=== PATIENT | male | born 1950 | race Caucasian/White ===

== ENCOUNTER 2021-07-19 10:52 | Inpatient (IN) | payer MEDICARE, MEDICAID, SELFPAY ==
[2021-07-19] VITALS (8 sets, daily range): BP systolic 96–138; BP diastolic 45–80; PULSE 65–94; RESP 16–28; TEMP 36.2–36.7; O2SAT 95–98; BMI 23.1
--- NOTE | ~2021-07-19 | XR_ITS ---
EXAMINATION: XR CHEST CLINICAL INFORMATION: Shortness of breath COMPARISON: Previous chest x-rays most recent January 2020 TECHNIQUE: Frontal view of the chest was obtained. FINDINGS: The cardiac and mediastinal contours are stable. There is airspace disease seen in the left lung base suggestive of pneumonia. The right lung is clear. There is no pleural effusion or pneumothorax. Bony structures are unremarkable. XR/XR chest 1V IMPRESSION: Left base pneumonia.
--- NOTE | 2021-07-19 11:21 | ED_ITS ---
HPI - General Adult General Chief complaint: Weakness Stated complaint: ABNORMAL LABS PER SNF Time Seen by Provider: 07/19/21 11:21 Source: EMS and RN notes reviewed Mode of arrival: EMS Limitations: altered mental status History of Present Illness HPI narrative: Patient is 70 years old from [facility] nonambulatory dependent on all ADLs alert disoriented follow simple commands sent for blood pressure of 85/50 by heart rate of 104 weakness and more confusion. Patient does have history of HIV bipolar disorder chronic renal disease stage III coronary artery disease dementia and overall weakness Related Data Home Medications Medication Instructions Recorded Confirmed abacavir 600 mg-dolutegravir 50 1 tab PO DAILY 07/19/21 07/19/21 mg-lamivudine 300 mg tablet (Triumeq) acetaminophen 325 mg tablet 650 mg PO Q4H PRN 07/19/21 07/19/21 alprazolam 0.25 mg tablet 0.25 mg PO BID 07/19/21 07/19/21 aspirin 81 mg tablet,delayed 81 mg PO DAILY 07/19/21 07/19/21 release calcium carbonate 500 mg (1,250 1 tab PO BID 07/19/21 07/19/21 mg)-vitamin D3 200 unit tablet (Calcium 500 + D) cyanocobalamin (vitamin B-12) 1,500 mcg PO DAILY 07/19/21 07/19/21 1,000 mcg tablet docusate sodium 100 mg capsule 100 mg PO DAILY 07/19/21 07/19/21 ferrous sulfate 220 mg (44 mg 330 mg PO DAILY 07/19/21 07/19/21 iron)/5 mL oral elixir haloperidol 1 mg tablet 1 mg PO TID 07/19/21 07/19/21 lactulose 10 gram/15 mL oral 30 ml PO DAILY PRN 07/19/21 07/19/21 solution lansoprazole 30 mg capsule,delayed 30 mg PO DAILY 07/19/21 07/19/21 release lorazepam 2 mg/mL injection 2 mg IM Q15M PRN 07/19/21 07/19/21 solution metoprolol tartrate 25 mg tablet 25 mg PO BID 07/19/21 07/19/21 multivitamin 1 tab PO DAILY 07/19/21 07/19/21 pregabalin 50 mg capsule 50 mg PO TID 07/19/21 07/19/21 sennosides 8.6 mg tablet (senna) 8.6 mg PO BID PRN 07/19/21 07/19/21 tramadol 50 mg tablet 50 mg PO TID PRN 07/19/21 07/19/21 Allergies Allergy/AdvReac Type Severity Reaction Status Date / Time No Known Allergies Allergy Unknown Unverified 06/23/20 17:32 [No Known Allergies*] Review of Systems Review of Systems: Yes Unobtainable due to mental status [facility] Past Medical History Medical History (Updated 07/19/21 @ 15:18 by Corinne Tim NP) Bipolar 1 disorder Chronic anemia Chronic kidney disease Coronary artery disease Dementia History of COVID-19 HIV (human immunodeficiency virus infection) Hypertension Leg weakness Social History Social History Advance Directives: No Advance Directives Information Provided: No Physical Exam Vital Signs: Vital Signs: Last Vital Signs Temp 97.6 F 07/19/21 15:22 Pulse 74 07/19/21 15:22 Resp 20 07/19/21 15:22 BP 113/56 L 07/19/21 15:22 Pulse Ox 95 07/19/21 15:22 Body Mass Index 23.1 Appearance: Alert. And awake , contacted post with limited movements of upp er and lower extremities essentially nonverbal Eyes: Pallor+ ENT: Pharynx normal. Oral Mucosa moist Neck: Normal inspection. Neck supple. CVS: Normal heart rate and rhythm. Pulses normal. Respiratory: No respiratory distress. Equal air entry bilateral, no wheezing/rales/rhonchi Abdomen: Soft and nontender. Bowel sounds are present, no mass palpable, Skin: Skin warm and dry. Extremities: No lower extremity edema. No calf tenderness Neuro: Oriented X 1 generalized weakness low muscle mass contracted posture Course Reevaluation(s) Reevaluation #1: Patient history of HIV leukocytosis left lower lobe pneumonia admit patient for pneumonia with possible sepsis. dose of Zosyn was given in the ER along with IV fluids 30 cc/kilogram Time: 15:04 Medical Decision Making [facility] Narrative Medical decision making narrative: Patient wih HIV from [facility] with dementia ca wv for hypertension and change in mental status lab workup showed leukocytosis with lactic acidosis x-rays showed left lower lobe pneumonia will admit patient for pneumonia with sepsis. Patient received IV Zosyn and 30 cc of normal saline bolus admit to medical floor Lab Data Lab results reviewed: Yes I reviewed the patient's lab results. Result diagrams: 07/19/21 11:56 07/19/21 11:56 Labs: Lab Results 07/19/21 07/19/21 07/19/21 Range/Units 11:56 11:56 11:56 WBC 46.9 H* (4.8-10.8) X10*3/uL RBC 4.63 (4.60-5.80) X10*6/uL Hgb 13.5 L (14.0-18.0) g/dl Hct 40.8 L (42-52) % MCV 88.1 (80-98) fL MCH 29.2 (27.0-33.0) pg MCHC 33.1 (31.0-36.0) g/dl RDW 13.9 (11.0-16.0) % Plt Count 318 (160-400) X10*3/uL MPV 10.3 (9.4-12.4) fL Immature Gran % (Auto) 1.5 H (0.0-0.4) % Neut % (Auto) 90.5 H (45-73) % Lymph % (Auto) 3.2 L (20-40) % [place] % (Auto) 4.6 (2-11) % Eos % (Auto) 0.0 (0-4) % Baso % (Auto) 0.2 (0-2) % Lymph # (Auto) 1.5 (1.2-4.9) X10*3/uL [place] # (Auto) 2.2 H (0.1-1.2) X10*3/uL Eos # (Auto) 0.0 (0.0-0.4) X10*3/uL Baso # (Auto) 0.1 (0.0-0.2) X10*3/uL Abs Immat Gran (auto) 0.70 H (0.00-0.03) X10*3/uL Absolute Neuts (auto) 42.4 H (2.0-8.3) X10*3/uL Absolute Nucleated RBC 0.000 (0.0-0.012) X10*3/uL Nucleated RBC % (auto) 0.0 (0.0-0.2) /100WBC Smear Tech's Comments VERIFIED Sodium (135-145) mmol/L Potassium (3.3-5.1) mmol/L Chloride (96-108) mmol/L Carbon Dioxide (22-29) mmol/L Anion Gap (12-20) BUN (9-16) mg/dL Creatinine (0.5-1.4) mg/dL Estim Creat Clear Calc Estimated GFR Random Glucose (60-115) mg/dL Lactic Acid 2.3 H* (0.5-2.0) mmol/L Calcium (8.4-10.2) mg/dL Magnesium (1.6-2.6) mg/dL Total Bilirubin (0.0-1.0) mg/dL AST (5-37) U/L ALT (0-40) U/L Alkaline Phosphatase (39-117) U/L Troponin I High Sens 5.2 (<3.5-35.0) ng/L Total Protein (6.5-8.0) g/dL Albumin (3.5-5.0) g/dL Coronavirus (PCR) (Negative) Influenza Type A (PCR) (Negative) Influenza Type B (PCR) (Negative) RSV RNA Qual (PCR) (Negative) 07/19/21 07/19/21 Range/Units 11:56 11:56 WBC (4.8-10.8) X10*3/uL RBC (4.60-5.80) X10*6/uL Hgb (14.0-18.0) g/dl Hct (42-52) % MCV (80-98) fL MCH (27.0-33.0) pg MCHC (31.0-36.0) g/dl RDW (11.0-16.0) % Plt Count (160-400) X10*3/uL MPV (9.4-12.4) fL Immature Gran % (Auto) (0.0-0.4) % Neut % (Auto) (45-73) % Lymph % (Auto) (20-40) % [place] % (Auto) (2-11) % Eos % (Auto) (0-4) % Baso % (Auto) (0-2) % Lymph # (Auto) (1.2-4.9) X10*3/uL [place] # (Auto) (0.1-1.2) X10*3/uL Eos # (Auto) (0.0-0.4) X10*3/uL Baso # (Auto) (0.0-0.2) X10*3/uL Abs Immat Gran (auto) (0.00-0.03) X10*3/uL Absolute Neuts (auto) (2.0-8.3) X10*3/uL Absolute Nucleated RBC (0.0-0.012) X10*3/uL Nucleated RBC % (auto) (0.0-0.2) /100WBC Smear Tech's Comments Sodium 138 (135-145) mmol/L Potassium 4.7 (3.3-5.1) mmol/L Chloride 106 (96-108) mmol/L Carbon Dioxide 22 (22-29) mmol/L Anion Gap 15 (12-20) BUN 36 H (9-16) mg/dL Creatinine 2.58 H (0.5-1.4) mg/dL Estim Creat Clear Calc 25.8 Estimated GFR 25 Random Glucose 82 (60-115) mg/dL Lactic Acid (0.5-2.0) mmol/L Calcium 8.8 (8.4-10.2) mg/dL Magnesium 2.0 (1.6-2.6) mg/dL Total Bilirubin 0.8 (0.0-1.0) mg/dL AST 15 (5-37) U/L ALT 9 (0-40) U/L Alkaline Phosphatase 63 (39-117) U/L Troponin I High Sens (<3.5-35.0) ng/L Total Protein 7.7 (6.5-8.0) g/dL Albumin 3.6 (3.5-5.0) g/dL Coronavirus (PCR) NEGATIVE (Negative) Influenza Type A (PCR) NEGATIVE (Negative) Influenza Type B (PCR) NEGATIVE (Negative) RSV RNA Qual (PCR) NEGATIVE (Negative) Discharge Plan Discharge Clinical Impression: Acidosis, lactic, Weakness Pneumonia Qualifiers: Pneumonia type: due to unspecified organism Laterality: left Lung location: lower lobe of lung Qualified Code(s): J18.9 - Pneumonia, unspecified organism Hypotension Qualifiers: Hypotension type: other hypotension type Qualified Code(s): I95.89 - Other hypotension Patient Disposition: Admitted As Inpatient
--- NOTE | 2021-07-19 11:24 | ECG_ITS ---
Test Reason : SEPSIS Blood Pressure : / mmHG Vent. Rate : 088 BPM Atrial Rate : 088 BPM P-R Int : 138 ms QRS Dur : 084 ms QT Int : 356 ms P-R-T Axes : 069 027 065 degrees QTc Int : 430 ms Normal sinus rhythm Nonspecific ST abnormality Abnormal ECG When compared with ECG of 03-FEB-2020 13:21, Premature ventricular complexes are no longer Present Nonspecific T wave abnormality, improved in Lateral leads ST less depressed in Inferior leads Anterior leads Referred By: Nehemiah Shields Electronically Signed By:CHARMAINE JAMES MD
[2021-07-19 12:07] LABS: Basophils Absolute Auto 0.1 X10*3/uL (0.0-0.2); Basophils Percent Auto 0.2 % (0-2); Hematocrit 40.8 % (42-52); Hemoglobin 13.5 g/dl (14.0-18.0); Imm Gran Pct Auto 1.5 % (0.0-0.4); Lymphocytes Absolute Auto 1.5 X10*3/uL (1.2-4.9); Lymphocytes Percent Auto 3.2 % (20-40); MANUAL DIFF FLAG SCAN; Mean Corpuscular HGB Conc 33.1 g/dl (31.0-36.0); Mean Corpuscular Hemoglobin 29.2 pg (27.0-33.0); Mean Corpuscular Volume 88.1 fL (80-98); Mean Platelet Volume 10.3 fL (9.4-12.4); Monocytes Absolute Auto 2.2 X10*3/uL (0.1-1.2); Monocytes Percent Auto 4.6 % (2-11); Neutrophils Absolute Auto 42.4 X10*3/uL (2.0-8.3); Neutrophils Percent Auto 90.5 % (45-73); Platelet Count 318 X10*3/uL (160-400); Red Blood Count 4.63 X10*6/uL (4.60-5.80); Red Cell Distribution Width 13.9 % (11.0-16.0); SCAN SMEAR FLAG 1
[2021-07-19] MEDS: 0.9 % Sodium Chloride 1,000 ML 999 ML IVCONT (12:10)
[2021-07-19 12:12] LABS: White Blood Count 46.9 X10*3/uL (4.8-10.8)
[2021-07-19 12:31] LABS: Troponin-I High Sensitivity 5.2 ng/L (<3.5-35.0)
[2021-07-19 12:32] LABS: Lactic Acid 2.3 mmol/L (0.5-2.0)
[2021-07-19 12:35] LABS: Alanine Aminotransferase 9 U/L (0-40); Albumin Level 3.6 g/dL (3.5-5.0); Alkaline Phosphatase 63 U/L (39-117); Anion Gap 15 (12-20); Aspartate Amino Transferase 15 U/L (5-37); Bilirubin Total 0.8 mg/dL (0.0-1.0); Blood Urea Nitrogen 36 mg/dL (9-16); Calcium 8.8 mg/dL (8.4-10.2); Carbon Dioxide 22 mmol/L (22-29); Chloride 106 mmol/L (96-108); Creatinine Clr Calc Pharmacy 25.8; Estimated Glomerular Filt Rate 25; Glucose Random 82 mg/dL (60-115); Potassium 4.7 mmol/L (3.3-5.1); Sodium 138 mmol/L (135-145); Total Protein 7.7 g/dL (6.5-8.0)
[2021-07-19] MEDS: Piperacillin Sodium/Tazobactam 3.375 GM in 0.9 % Sodium Chloride 50 ML IV ×3 (12:37→23:22)
[2021-07-19 12:47] LABS: Influenza A PCR NEGATIVE (Negative); Influenza B PCR NEGATIVE (Negative); Resp Syncy Virus RNA Qual PCR NEGATIVE (Negative); SARS COV2 PCR INHOUSE NEGATIVE (Negative)
[2021-07-19 13:05] LABS: SLIDE REVIEW VERIFIED
[2021-07-19] MEDS: 0.9 % Sodium Chloride 2,500 ML 2500 ML IV (13:55)
[2021-07-19 14:03] LABS: Reflex Lactate? Lactic Acid Added
--- NOTE | 2021-07-19 15:15 | PM.IMHP ---
History of Present Illness Date of Service: 07/19/21 <Corinne Tim NP - Last Filed: 07/19/21 15:34> Chief Complaint: Hypotension <Corinne Tim NP - Last Filed: 07/19/21 15:34> 70 [facility] and [facility]. His blood pressures were as low as 85/50. He is alert but confused and unable to give accurate information for the interview. His CXR showed left lobe consolidation. His WBC was noted to be elevated at 46.9, creatinine 2.58, lactic acid 2.3. He received zosyn in the ED. He is stable and will be admitted for CAP. <Corinne Tim NP - Last Filed: 07/19/21 15:34> Review of Systems Review of Systems: Yes Unobtainable due to mental status <Corinne Tim NP - Last Filed: 07/19/21 15:34> [facility] Medical History: Medical History (Updated 07/19/21 @ 15:18 by Corinne Tim NP) Bipolar 1 disorder Chronic anemia Chronic kidney disease Coronary artery disease Dementia History of COVID-19 HIV (human immunodeficiency virus infection) Hypertension Leg weakness <Corinne Tim NP - Last Filed: 07/19/21 15:34> Pertinent family history: No cardiac disease according to the EMR <Corinne Tim NP - Last Filed: 07/19/21 15:34> Social History: Social History Advance Directives: No Advance Directives Information Provided: No <Corinne Tim NP - Last Filed: 07/19/21 15:34> Meds Allergies/Adverse reactions: Allergies Allergy/AdvReac Type Severity Reaction Status Date / Time No Known Allergies Allergy Unknown Unverified 06/23/20 17:32 [No Known Allergies*] <Corinne Tim NP - Last Filed: 07/19/21 15:34> Active Medications: Current Medications Acetaminophen (Acetaminophen 325 Mg Tablet) 650 mg PO Q6H PRN PRN Reason: Pain, Mild (Pain Scale 1-3) Acetaminophen (Acetaminophen 325 Mg Tablet) 650 mg PO Q4H PRN PRN Reason: Pain Alprazolam (Alprazolam 0.25 Mg Tablet) 0.25 mg PO BID NANCY Aspirin (Aspirin Enteric Coated 81 Mg Tablet.Dr) 81 mg PO DAILY NANCY Heparin Sodium (Porcine) (Heparin Sodium,Porcine 5,000 Unit/Ml Vial) 5,000 unit SUBCUT Q12H [facility] Ceftriaxone Sodium 1 gm/ (Sodium Chloride) 50 mls @ 100 mls/hr IV Q24H NANCY Azithromycin 500 mg/ Sodium (Chloride) 250 mls @ 125 mls/hr IV Q24H [facility] Non-Formulary Medication (Pwspelkr-Vnfjnyzctmtq-Jooxtlw [Triumeq]) 1 tab PO DAILY [facility] Non-Formulary Medication (Calcium Carbonate-Vitamin D3 [Calcium 500 + D]) 1 tab PO BID [facility] Ondansetron HCl (Ondansetron Hcl 4 Mg/2 Ml Vial) 4 mg IVPUSH Q8H PRN PRN Reason: Nausea and Vomiting Pharmacy Consult (Consult Rx Perform Med Rec) 1 each MISCELLANE ONCE PRN PRN Reason: Consult order Sodium Chloride (0.9 % Sodium Chloride Flush 3 Ml Syringe) 3 ml IVFLUSH QSHIFT [facility] <Corinne Tim NP - Last Filed: 07/19/21 15:34> Home medications: Home Medications Medication Instructions Recorded Confirmed Last Taken Type abacavir 600 mg-dolutegravir 50 1 tab PO DAILY 07/19/21 07/19/21 Unknown History mg-lamivudine 300 mg tablet (Triumeq) acetaminophen 325 mg tablet 650 mg PO Q4H PRN 07/19/21 07/19/21 Unknown History alprazolam 0.25 mg tablet 0.25 mg PO BID 07/19/21 07/19/21 Unknown History aspirin 81 mg tablet,delayed 81 mg PO DAILY 07/19/21 07/19/21 Unknown History release calcium carbonate 500 mg (1,250 1 tab PO BID 07/19/21 07/19/21 Unknown History mg)-vitamin D3 200 unit tablet (Calcium 500 + D) cyanocobalamin (vitamin B-12) 1,500 mcg PO DAILY 07/19/21 07/19/21 Unknown History 1,000 mcg tablet docusate sodium 100 mg capsule 100 mg PO DAILY 07/19/21 07/19/21 Unknown History ferrous sulfate 220 mg (44 mg 330 mg PO DAILY 07/19/21 07/19/21 Unknown History iron)/5 mL oral elixir haloperidol 1 mg tablet 1 mg PO TID 07/19/21 07/19/21 Unknown History lactulose 10 gram/15 mL oral 30 ml PO DAILY PRN 07/19/21 07/19/21 Unknown History solution lansoprazole 30 mg capsule,delayed 30 mg PO DAILY 07/19/21 07/19/21 Unknown History release lorazepam 2 mg/mL injection 2 mg IM Q15M PRN 07/19/21 07/19/21 Unknown History solution metoprolol tartrate 25 mg tablet 25 mg PO BID 07/19/21 07/19/21 Unknown History multivitamin 1 tab PO DAILY 07/19/21 07/19/21 Unknown History pregabalin 50 mg capsule 50 mg PO TID 07/19/21 07/19/21 Unknown History sennosides 8.6 mg tablet (senna) 8.6 mg PO BID PRN 07/19/21 07/19/21 Unknown History tramadol 50 mg tablet 50 mg PO TID PRN 07/19/21 07/19/21 Unknown History <Corinne Tim NP - Last Filed: 07/19/21 15:34> Physical Exam Vital Signs and Narrative: Vital Signs: Last Vital Signs Temp 97.9 F 07/19/21 14:00 Pulse 82 07/19/21 14:00 Resp 16 07/19/21 14:00 BP 107/48 L 07/19/21 14:00 Pulse Ox 96 07/19/21 14:00 Body Mass Index 23.1 <Corinne Tim NP - Last Filed: 07/19/21 15:34> Appearing in no acute distress head is normocephalic atraumatic eyes pupils are PERRLA sclera is anicteric mouth throat mucous membranes are intact and moist neck is supple no lymphadenopathy, no JVD noted lung sounds are clear to auscultation heart regular rate rhythm, clear S1, S2 positive bowel sounds, abdomen is soft, nontender neuro patient is alert,confused <Corinne Tim NP - Last Filed: 07/19/21 15:34> Results Labs CBC and Chem 7: : 07/19/21 11:56 07/19/21 11:56 <Corinne Tim NP - Last Filed: 07/19/21 15:34> Labs: Laboratory Results - last 24 hr 07/19/21 07/19/21 07/19/21 11:56 11:56 11:56 MCV 88.1 MCH 29.2 MCHC 33.1 RDW 13.9 Plt Count 318 MPV 10.3 Immature Gran % (Auto) 1.5 H Neut % (Auto) 90.5 H Lymph % (Auto) 3.2 L [place] % (Auto) 4.6 Eos % (Auto) 0.0 Baso % (Auto) 0.2 Lymph # (Auto) 1.5 [place] # (Auto) 2.2 H Eos # (Auto) 0.0 Baso # (Auto) 0.1 Abs Immat Gran (auto) 0.70 H Absolute Neuts (auto) 42.4 H Absolute Nucleated RBC 0.000 Nucleated RBC % (auto) 0.0 Smear Tech's Comments VERIFIED Anion Gap Estim Creat Clear Calc Estimated GFR Random Glucose Lactic Acid 2.3 H* Calcium Magnesium Total Bilirubin AST ALT Alkaline Phosphatase Troponin I High Sens 5.2 Total Protein Albumin Coronavirus (PCR) Influenza Type A (PCR) Influenza Type B (PCR) RSV RNA Qual (PCR) 07/19/21 07/19/21 11:56 11:56 MCV MCH MCHC RDW Plt Count MPV Immature Gran % (Auto) Neut % (Auto) Lymph % (Auto) [place] % (Auto) Eos % (Auto) Baso % (Auto) Lymph # (Auto) [place] # (Auto) Eos # (Auto) Baso # (Auto) Abs Immat Gran (auto) Absolute Neuts (auto) Absolute Nucleated RBC Nucleated RBC % (auto) Smear Tech's Comments Anion Gap 15 Estim Creat Clear Calc 25.8 Estimated GFR 25 Random Glucose 82 Lactic Acid Calcium 8.8 Magnesium 2.0 Total Bilirubin 0.8 AST 15 ALT 9 Alkaline Phosphatase 63 Troponin I High Sens Total Protein 7.7 Albumin 3.6 Coronavirus (PCR) NEGATIVE Influenza Type A (PCR) NEGATIVE Influenza Type B (PCR) NEGATIVE RSV RNA Qual (PCR) NEGATIVE <Corinne Tim NP - Last Filed: 07/19/21 15:34> Imaging Radiologist's Impressions: Impressions Chest X-Ray 07/19/21 11:24 IMPRESSION: Left base pneumonia. <Corinne Tim NP - Last Filed: 07/19/21 15:34> Assessment and Plan (1) Community acquired pneumonia: Status: Acute <Corinne Tim NP - Last Filed: 07/19/21 15:34> 70 year old man from [facility] admitted for CAP Severe sepsis secondary to Community-acquired pneumonia Leukocytosis, tachypnea, lactic acidosis Rocephin, azithromycin Supplemental oxygen as needed Follow cultures Speech therapy consult for ? aspiration LENORA Likely secondary to dehydration Follow BMP Avoid nephrotoxins Hypotension Follow blood pressure closely IV fluids HIV Continue home medication Mental health Continue Haldol, alprazolam DVT prophylaxis with heparin Attending Dr. Anderson <Corinne Tim NP - Last Filed: 07/19/21 15:34> 70 year old man from [facility] admitted for CAP Severe sepsis secondary to Community-acquired pneumonia Leukocytosis, tachypnea, lactic acidosis Rocephin, azithromycin Supplemental oxygen as needed Follow cultures Speech therapy consult for ? aspiration LENORA Likely secondary to dehydration Follow BMP Avoid nephrotoxins Hypotension Follow blood pressure closely IV fluids HIV Continue home medication Mental health Continue Haldol, alprazolam DVT prophylaxis with heparin Attending Dr. Anderson Attending Attestation: Patient seen and examined independently and I was present during wills portion of E/M service. Agree with Ankit Tim NP's history, physical, assessment, and plan. 70 yo from [facility] being admitted for pneumonia, causing sepsis. Possible aspiration, will change Rocephin to zosyn. Has risk factors for resistant organisms. Will use doxy (hold off vancomcyin given his response to zosyn as well as poor renal function). Otherwise, agree with above documentation from [employer]. <Garrison Anderson MD - Last Filed: 07/19/21 16:07> Quality Stroke Does the patient have a stroke diagnosis?: No <Corinne Tim NP - Last Filed: 07/19/21 15:34> VTE Prior VTE?: No <Corinne Tim NP - Last Filed: 07/19/21 15:34> VTE Risk Level:: Medical - moderate - high <Corinne Tim NP - Last Filed: 07/19/21 15:34> VTE Device Contraindication: Treatment Not Indicated <Corinne Tim NP - Last Filed: 07/19/21 15:34> VTE Drug Contraindication: N/A - Med Ordered <Corinne Tim NP - Last Filed: 07/19/21 15:34>
[2021-07-19 15:26] LABS: ~Lactic Acid-LAB USE ONLY 1.2 mmol/L (0.5-2.0)
[2021-07-19] MEDS: Heparin Sodium,Porcine 5,000 UNIT/ML VIAL 5000 UNIT SUBCUT (16:12)
[2021-07-19] MEDS: 0.9 % Sodium Chloride 1,000 ML 100 ML IVCONT (16:14)
[2021-07-19] MEDS: Doxycycline Hyclate 100 MG in 0.9 % Sodium Chloride 250 ML 166.67 MG IV (21:25)
[2021-07-19] MEDS: HaloperidoL 1 MG TABLET PO (21:26)
[2021-07-19] MEDS: Calcium + Vitamin D 250 MG TABLET 500 MG PO (21:26)
[2021-07-19] MEDS: Pregabalin 50 MG CAPSULE PO (21:26)
[2021-07-19] MEDS: ALPRAZolam 0.25 MG TABLET PO (21:26)
[2021-07-19] MEDS: Metoprolol Tartrate 25 MG TABLET PO (21:26)
[2021-07-20] MEDS: 0.9 % Sodium Chloride 1,000 ML 100 ML IVCONT (01:15)
[2021-07-20] MEDS: Heparin Sodium,Porcine 5,000 UNIT/ML VIAL 5000 UNIT SUBCUT (02:41)
[2021-07-20 03:25] VITALS: BP 141/63; PULSE 58; RESP 17; TEMP 36.6; O2SAT 95
[2021-07-20 05:35] LABS: MANUAL DIFF FLAG NO
[2021-07-20 05:42] LABS: Basophils Absolute Auto 0.1 X10*3/uL (0.0-0.2); Basophils Percent Auto 0.3 % (0-2); Eosinophils Absolute Auto 0.1 X10*3/uL (0.0-0.4); Eosinophils Percent Auto 0.3 % (0-4); Hematocrit 36.8 % (42-52); Imm Gran Abs Auto 0.11 X10*3/uL (0.00-0.03); Imm Gran Pct Auto 0.6 % (0.0-0.4); Lymphocytes Absolute Auto 1.2 X10*3/uL (1.2-4.9); Lymphocytes Percent Auto 6.3 % (20-40); Mean Corpuscular HGB Conc 32.6 g/dl (31.0-36.0); Mean Corpuscular Hemoglobin 28.9 pg (27.0-33.0); Mean Corpuscular Volume 88.7 fL (80-98); Mean Platelet Volume 10.2 fL (9.4-12.4); Monocytes Absolute Auto 0.6 X10*3/uL (0.1-1.2); Monocytes Percent Auto 3.3 % (2-11); Neutrophils Absolute Auto 16.8 X10*3/uL (2.0-8.3); Neutrophils Percent Auto 89.2 % (45-73); Platelet Count 199 X10*3/uL (160-400); Red Blood Count 4.15 X10*6/uL (4.60-5.80); Red Cell Distribution Width 13.7 % (11.0-16.0); White Blood Count 18.9 X10*3/uL (4.8-10.8)
[2021-07-20] MEDS: Piperacillin Sodium/Tazobactam 3.375 GM in 0.9 % Sodium Chloride 50 ML IV ×4 (05:49→22:35)
[2021-07-20 06:23] LABS: Anion Gap 10 (12-20); Blood Urea Nitrogen 23 mg/dL (9-16); Calcium 7.9 mg/dL (8.4-10.2); Carbon Dioxide 20 mmol/L (22-29); Chloride 117 mmol/L (96-108); Creatinine Clr Calc Pharmacy 49.4; Estimated Glomerular Filt Rate 52; Glucose Random 84 mg/dL (60-115); Sodium 143 mmol/L (135-145)
[2021-07-20 07:42] VITALS: BP 139/65; PULSE 67; RESP 16; TEMP 36.1; O2SAT 95
[2021-07-20] MEDS: Doxycycline Hyclate 100 MG in 0.9 % Sodium Chloride 250 ML 166.67 MG IV (08:06)
[2021-07-20] MEDS: ALPRAZolam 0.25 MG TABLET PO ×2 (08:12→19:48)
[2021-07-20] MEDS: Aspirin Enteric Coated 81 MG TABLET.DR PO (08:12)
[2021-07-20] MEDS: Metoprolol Tartrate 25 MG TABLET PO ×2 (08:13→19:48)
[2021-07-20] MEDS: Dolutegravir Sodium 50 MG TABLET PO (08:13)
[2021-07-20] MEDS: lamiVUDine 150 MG TABLET 300 MG PO (08:14)
[2021-07-20] MEDS: HaloperidoL 1 MG TABLET PO ×2 (08:23→19:59)
[2021-07-20] MEDS: Ferrous Sulfate 300 MG/5 ML LIQUID PO (08:24)
--- NOTE | 2021-07-20 08:46 | MHC.CDI.CONC ---
CDI Concurrent Query Documentation Clarification: PHYSICIAN'S DOCUMENTATION REQUEST Date of Query: 07/20/21 0847 Patient Name: Ruperto Valentino Admit Date: 07/19/21 Dear Doctor, A review of the medical record indicates additional documentation may be needed. Please review below and update the documentation accordingly. Clinical Indicators: Risk Factors/Clinical Indicators/Treatments Patient arrived from care home with change in mental status. nonverbal but awake, unable to give accurate information, dementia, disoriented, hypotension and weakness. IV fluids Based on the above, please further specify, in the Progress Notes, the known or suspected type of the documented encephalopathy: Metabolic Septic Toxic Toxic metabolic Due to a specified condition (such as UTI, hyponatremia, CVA, etc.) Other (please specify) Unable to determine Use of terms such as suspected, likely, concern for, or probable (associated with a specific diagnosis that is being evaluated, monitored, or treated as if it exists) are acceptable and can be coded in the inpatient setting, when documented at the time of discharge. Thank you, Rufina Queen [facility], CDIS Extension: [phone] Please use your independent medical judgment in providing your response. THIS QUERY IS PART OF THE PERMANENT MEDICAL RECORD Provider Response: Other Other Diagnosis: No Encephalopathy
--- NOTE | 2021-07-20 11:02 | P.PNIM_ITS ---
Subjective Subjective Date of Service: 07/20/21 Interval History: Seen and examined this morning Follow-up for pneumonia Patient awake, alert, no complaints this morning Review of Systems Review of Systems: Yes all other systems are reviewed and are negative Constitutional Constitutional: Denies chills and Denies fever(s) Cardiovascular Cardiovascular: Denies chest pain Respiratory Respiratory: Denies cough Gastrointestinal Gastrointestinal: Denies abdominal pain Physical Exam Vital Signs: Vital Signs: Last Vital Signs Temp 97.0 F 07/20/21 07:42 Pulse 67 07/20/21 07:42 Resp 16 07/20/21 07:42 BP 139/65 07/20/21 07:42 Pulse Ox 95 07/20/21 07:42 Body Mass Index 23.1 Const: General: comfortable, alert and awake Nutritional Appearance: well nourished HENMT: Head: Yes normocephalic and Yes atraumatic Eyes: Sclerae: sclerae normal Resp: Effort & Inspection: normal respiratory effort and no respiratory distress Cardio: Rate: regular rate Rhythm: regular rhythm GI: Palpation (GI): Soft to palpation and nontender Neuro: Cranial nerves: Yes CN's II-XII intact bilaterally and Yes Bilaterally intact EOM present Extrem: Other: no leg edema Objective Data Active Medications Abacavir Sulfate (Abacavir Sulfate 300 Mg Tablet) 600 mg PO DAILY ON LICENSE OF [facility] Last Admin: 07/20/21 08:12 Dose: 600 mg Documented by: CHIOMA Acetaminophen (Acetaminophen 325 Mg Tablet) 650 mg PO Q6H PRN PRN Reason: Pain, Mild (Pain Scale 1-3) Acetaminophen (Acetaminophen 325 Mg Tablet) 650 mg PO Q4H PRN PRN Reason: Pain Alprazolam (Alprazolam 0.25 Mg Tablet) 0.25 mg PO BID ON LICENSE OF [facility] Last Admin: 07/20/21 08:12 Dose: 0.25 mg Documented by: CHIOMA Aspirin (Aspirin Enteric Coated 81 Mg Tablet.) 81 mg PO DAILY ON LICENSE OF [facility] Last Admin: 07/20/21 08:12 Dose: 81 mg Documented by: CHIOMA Calcium Carbonate/Cholecalciferol (Calcium + Vitamin D 250 Mg Tablet) 500 mg PO BID ON LICENSE OF [facility] Last Admin: 07/20/21 10:16 Dose: Not Given Documented by: CHIOMA Non-Admin Reason: Patient Refused Cyanocobalamin (Cyanocobalamin (Vitamin B-12) 500 Mcg Tablet) 1,500 mcg PO DAILY ON LICENSE OF [facility] Last Admin: 07/20/21 10:17 Dose: Not Given Documented by: CHIOMA Non-Admin Reason: Patient Refused Docusate Sodium (Docusate Sodium 100 Mg Capsule) 100 mg PO DAILY ON LICENSE OF [facility] Last Admin: 07/20/21 10:17 Dose: Not Given Documented by: CHIOMA Non-Admin Reason: Patient Refused Dolutegravir Sodium (Dolutegravir Sodium 50 Mg Tablet) 50 mg PO DAILY ON LICENSE OF [facility] Last Admin: 07/20/21 08:13 Dose: 50 mg Documented by: CHIOMA Ferrous Sulfate (Ferrous Sulfate 300 Mg/5 Ml Liquid) 300 mg PO DAILY ON LICENSE OF [facility] Last Admin: 07/20/21 08:24 Dose: 300 mg Documented by: CHIOMA Haloperidol (Haloperidol 1 Mg Tablet) 1 mg PO TID ON LICENSE OF [facility] Last Admin: 07/20/21 08:23 Dose: 1 mg Documented by: CHIOMA Heparin Sodium (Porcine) (Heparin Sodium,Porcine 5,000 Unit/Ml Vial) 5,000 unit SUBCUT Q12H ON LICENSE OF [facility] Last Admin: 07/20/21 02:41 Dose: 5,000 unit Documented by: ALVINA Piperacillin Sod/Tazobactam (Sod 3.375 gm/ Sodium Chloride) 50 mls @ 100 mls/hr IV Q6H ON LICENSE OF [facility] Last Infusion: 07/20/21 06:20 Dose: 0 mls/hr Documented by: JAMEE Doxycycline Hyclate 100 mg/ (Sodium Chloride) 250 mls @ 166.67 mls/hr IV Q12H ON LICENSE OF [facility] Last Admin: 07/20/21 08:06 Dose: 166.67 mls/hr Documented by: CHIOMA Lactated Ringer's (Lr) 1,000 mls @ 100 mls/hr IVCONT .Q10H ON LICENSE OF [facility] Lactulose (Lactulose 20 Gm/30 Ml Solution) 20 gm PO DAILY PRN PRN Reason: Constipation Lamivudine (Lamivudine 150 Mg Tablet) 300 mg PO DAILY ON LICENSE OF [facility] Last Admin: 07/20/21 08:14 Dose: 300 mg Documented by: CHIOMA Lorazepam (Lorazepam 2 Mg/Ml Vial) 2 mg IM Q15M PRN PRN Reason: Seizures Metoprolol Tartrate (Metoprolol Tartrate 25 Mg Tablet) 25 mg PO BID ON LICENSE OF [facility]; Protocol Last Admin: 07/20/21 08:13 Dose: 25 mg Documented by: CHIOMA Multivitamins/Vitamin C (Multivitamin Tablet) 1 tab PO DAILY ON LICENSE OF [facility] Last Admin: 07/20/21 08:25 Dose: Not Given Documented by: CHIOMA Non-Admin Reason: NPO Omeprazole (Omeprazole 20 Mg Capsule.Dr) 20 mg PO DAILY@0630 ON LICENSE OF [facility] Last Admin: 07/20/21 05:59 Dose: Not Given Documented by: JAMEE Non-Admin Reason: unable to swallow whole pills Ondansetron HCl (Ondansetron Hcl 4 Mg/2 Ml Vial) 4 mg IVPUSH Q8H PRN PRN Reason: Nausea and Vomiting Pharmacy Consult (Consult Rx Perform Med Rec) 1 each MISCELLANE ONCE PRN PRN Reason: Consult order Pregabalin (Pregabalin 50 Mg Capsule) 50 mg PO TID ON LICENSE OF [facility] Last Admin: 07/20/21 10:17 Dose: Not Given Documented by: CHIOMA Non-Admin Reason: Patient Refused Senna (Sennosides 8.6 Mg Tablet) 8.6 mg PO BID PRN PRN Reason: Constipation Sodium Chloride (0.9 % Sodium Chloride Flush 3 Ml Syringe) 3 ml IVFLUSH QSHIFT ON LICENSE OF [facility] Last Admin: 07/20/21 08:25 Dose: Not Given Documented by: CHIOMA Non-Admin Reason: IV Running Tramadol HCl (Tramadol Hcl 50 Mg Tablet) 50 mg PO TID PRN PRN Reason: Pain Labs CBC & Chem 7: 07/20/21 05:27 07/20/21 05:27 Labs: Laboratory Results - last 24 hr 07/19/21 07/19/21 07/19/21 11:56 11:56 11:56 MCV 88.1 MCH 29.2 MCHC 33.1 RDW 13.9 Plt Count 318 MPV 10.3 Immature Gran % (Auto) 1.5 H Neut % (Auto) 90.5 H Lymph % (Auto) 3.2 L [place] % (Auto) 4.6 Eos % (Auto) 0.0 Baso % (Auto) 0.2 Lymph # (Auto) 1.5 [place] # (Auto) 2.2 H Eos # (Auto) 0.0 Baso # (Auto) 0.1 Abs Immat Gran (auto) 0.70 H Absolute Neuts (auto) 42.4 H Absolute Nucleated RBC 0.000 Nucleated RBC % (auto) 0.0 Smear Tech's Comments VERIFIED Smear Path Review SEE NOTE Anion Gap Estim Creat Clear Calc Estimated GFR Random Glucose Lactic Acid 2.3 H* Lactic Acid Fup @ 2Hr Calcium Magnesium Total Bilirubin AST ALT Alkaline Phosphatase Troponin I High Sens 5.2 Total Protein Albumin Coronavirus (PCR) Influenza Type A (PCR) Influenza Type B (PCR) RSV RNA Qual (PCR) 07/19/21 07/19/21 07/19/21 11:56 11:56 15:10 MCV MCH MCHC RDW Plt Count MPV Immature Gran % (Auto) Neut % (Auto) Lymph % (Auto) [place] % (Auto) Eos % (Auto) Baso % (Auto) Lymph # (Auto) [place] # (Auto) Eos # (Auto) Baso # (Auto) Abs Immat Gran (auto) Absolute Neuts (auto) Absolute Nucleated RBC Nucleated RBC % (auto) Smear Tech's Comments Smear Path Review Anion Gap 15 Estim Creat Clear Calc 25.8 Estimated GFR 25 Random Glucose 82 Lactic Acid Lactic Acid Fup @ 2Hr 1.2 Calcium 8.8 Magnesium 2.0 Total Bilirubin 0.8 AST 15 ALT 9 Alkaline Phosphatase 63 Troponin I High Sens Total Protein 7.7 Albumin 3.6 Coronavirus (PCR) NEGATIVE Influenza Type A (PCR) NEGATIVE Influenza Type B (PCR) NEGATIVE RSV RNA Qual (PCR) NEGATIVE 07/20/21 07/20/21 05:27 05:27 MCV 88.7 MCH 28.9 MCHC 32.6 RDW 13.7 Plt Count 199 D MPV 10.2 Immature Gran % (Auto) 0.6 H Neut % (Auto) 89.2 H Lymph % (Auto) 6.3 L [place] % (Auto) 3.3 Eos % (Auto) 0.3 Baso % (Auto) 0.3 Lymph # (Auto) 1.2 [place] # (Auto) 0.6 Eos # (Auto) 0.1 Baso # (Auto) 0.1 Abs Immat Gran (auto) 0.11 H Absolute Neuts (auto) 16.8 H Absolute Nucleated RBC 0.000 Nucleated RBC % (auto) 0.0 Smear Tech's Comments Smear Path Review Anion Gap 10 L Estim Creat Clear Calc 49.4 Estimated GFR 52 Random Glucose 84 Lactic Acid Lactic Acid Fup @ 2Hr Calcium 7.9 L D Magnesium Total Bilirubin AST ALT Alkaline Phosphatase Troponin I High Sens Total Protein Albumin Coronavirus (PCR) Influenza Type A (PCR) Influenza Type B (PCR) RSV RNA Qual (PCR) Assessment and Plan (1) Community acquired pneumonia: Status: Acute Assessment and Plan: 70 year old man from [facility] admitted for CAP Severe sepsis secondary to Community-acquired pneumonia possible aspiration Leukocytosis improving Continue Zosyn, doxycycline BCx pending MBSS pending to eval for aspiration LENORA Resolved. Likely secondary to dehydration Avoid nephrotoxins Hypotension. BP improved. IV fluids HIV Continue home medication Mood Continue Haldol, alprazolam, xanax Disorder back to [facility] when medically ready DVT prophylaxis with heparin Attending Dr. Anderson Quality Stroke Does the patient have a stroke diagnosis?: No VTE Prior VTE?: No VTE Risk Level:: Medical - moderate - high VTE Device Contraindication: Treatment Not Indicated VTE Drug Contraindication: N/A - Med Ordered
[2021-07-20] MEDS: Lactated Ringers 1,000 ML 100 ML IVCONT ×2 (11:35→22:31)
[2021-07-20 11:58] VITALS: BP 120/57; PULSE 65; RESP 18; TEMP 36.2; O2SAT 99
--- NOTE | 2021-07-20 14:01 | MHC.CM.PN ---
IMM 07/20/2021, CM ATTEMPTED TO REACH PT'S GUARDIAN MALATHI WALLACE AT 1:58PM [phone] TO REVIEW IMM, MESSAGE LEFT AND IMM WILL BE SENT VIA CERTIFIED MAIL TO ADDRESS ON FILE. 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 D/C PLAN: RETURN TO [facility], [facility] FOR BLS TRANSPORT. PCP: YANE MONROY
[2021-07-20 15:31] VITALS: BP 116/96; PULSE 65; RESP 18; TEMP 36.4; O2SAT 96
--- NOTE | 2021-07-20 15:43 | MHC.SLORD ---
Speech Language Pathology Order Status: COIN MACHINE OPERATOR [facility] reports that at [facility], patient is on minced/moist consistency (consistent with ground solids- moistened with sauce/gravy), no bread, and thin liquids. He drinks liquids with Walter cup self administered with straw. Patient is seen on a weekly basis by COIN MACHINE OPERATOR at [facility]. COIN MACHINE OPERATOR reports that patient is very food motivated. MBSS was scheduled for this afternoon. However, patient became combative and refused to be transported. Message sent to MD and PA via [employer]. COIN MACHINE OPERATOR will continue to follow.
[2021-07-20] MEDS: 0.9 % Sodium Chloride Flush 3 ML SYRINGE IVFLUSH ×3 (15:58→22:35)
--- NOTE | 2021-07-20 17:34 | MHC.SLORD ---
Speech Language Pathology Order Status: Bedside dysphagia evaluation was ordered on 07/19/21 when patient was in the ED. PO trials were not completed due to patient?s history of silent aspiration. MANAGEMENT RETAIL INTERN recommended repeat MBSS given patient?s extensive history of dysphagia. MBSS was ordered by SHABANA. MANAGEMENT RETAIL INTERN did thorough chart review. Patient was admitted on 06/08/18 for aspiration event. Piece of chicken was removed from airway upon preparation for intubation. MBSS on 06/10/21 showed premature posterior escape, delayed swallow, no epiglottic inversion, incomplete laryngeal vestibular closure resulting in aspiration with nectar thick liquid, increased residue in valleculae and pyriforms, and partial obstruction of flow. Patient was subsequently recommended NPO. Repeat MBSS on 07/24/18 showed silent aspiration with thin liquid, nectar thick liquid, and honey thick liquid. Increased vallecular residue, but no aspiration or penetration with pureed solid. At that time, patient was recommended main nutrition via PEG with partial PO- trial pureed solids with MANAGEMENT RETAIL INTERN in controlled, therapeutic setting. Third MBSS on 09/26/18 showed significant vallecular retention with pureed solids, but no evidence of aspiration or penetration when eating pureed solids. Please refer to full MBSS reports as needed from 06/10/18, 07/24/18 and 09/26/18. ? Patient was admitted again on 03/11/19. At that time it was reported that patient was on pureed solids and honey thick liquids per [facility] intake paperwork. He continued baseline diet textures during that admission. It is unclear when PEG tube was removed. MANAGEMENT RETAIL INTERN called and left a message for Yareli, patient?s MANAGEMENT RETAIL INTERN at [facility]. Yareli called back this afternoon and provided background information. Yareli reports that patient was initially kept NPO after repeat MBSS?s in 2018 and trialed pharyngeal strengthening exercises with MANAGEMENT RETAIL INTERN. Although patient has history of silent aspiration, he was gradually upgraded to PO diet at [facility] and is currently on minced and moist diet (consistent with NDD2 ground/mech altered solids with sauce/gravy) and thin liquids, no bread. Patient reportedly drinks from Walter cup with cover with self-administered straw sip. Patient is seen by MANAGEMENT RETAIL INTERN on a weekly basis at [facility]. Yareli stated that patient is very food driven and she believes being made NPO may be detrimental to his quality of life. Patient has a guardian. Per Yareli, Dr. Kev Gorman is familiar with this patient. ?MANAGEMENT RETAIL INTERN provided information from [facility] to attending PA and MD via [place] Message. ? Attempted MBSS this afternoon. However, patient refused and became combative to transporter. Unable to complete MBSS. Notified MD and PA.
[2021-07-20 19:27] VITALS: BP 117/56; PULSE 63; RESP 18; TEMP 36.8; O2SAT 93
[2021-07-20] MEDS: Doxycycline Hyclate 100 MG in 0.9 % Sodium Chloride 250 ML 166.66 MG IV (19:47)
[2021-07-20] MEDS: Calcium + Vitamin D 250 MG TABLET 500 MG PO (19:48)
[2021-07-20] MEDS: Pregabalin 50 MG CAPSULE PO (19:49)
[2021-07-20 23:57] VITALS: BP 153/70; PULSE 64; RESP 17; TEMP 36.3; O2SAT 95
[2021-07-21 03:31] VITALS: BP 147/89; PULSE 62; RESP 17; TEMP 36.1; O2SAT 95
[2021-07-21] MEDS: Heparin Sodium,Porcine 5,000 UNIT/ML VIAL 5000 UNIT SUBCUT (03:45)
[2021-07-21] MEDS: Piperacillin Sodium/Tazobactam 3.375 GM in 0.9 % Sodium Chloride 50 ML IV ×2 (05:55→11:58)
[2021-07-21] MEDS: Omeprazole 20 MG CAPSULE.DR PO (05:57)
[2021-07-21 06:41] LABS: Hematocrit 36.9 % (42-52); Hemoglobin 12.1 g/dl (14.0-18.0); Mean Corpuscular HGB Conc 32.8 g/dl (31.0-36.0); Mean Corpuscular Hemoglobin 28.9 pg (27.0-33.0); Mean Corpuscular Volume 88.1 fL (80-98); Mean Platelet Volume 10.5 fL (9.4-12.4); Platelet Count 221 X10*3/uL (160-400); Red Blood Count 4.19 X10*6/uL (4.60-5.80); Red Cell Distribution Width 13.9 % (11.0-16.0)
[2021-07-21 07:10] LABS: Anion Gap 13 (12-20); Blood Urea Nitrogen 13 mg/dL (9-16); Calcium 8.8 mg/dL (8.4-10.2); Carbon Dioxide 21 mmol/L (22-29); Chloride 112 mmol/L (96-108); Creatinine Clr Calc Pharmacy 61.2; Estimated Glomerular Filt Rate > 60; Glucose Random 77 mg/dL (60-115); Potassium 4.3 mmol/L (3.3-5.1); Sodium 142 mmol/L (135-145)
[2021-07-21 07:42] VITALS: BP 134/75; PULSE 83; RESP 18; TEMP 36; O2SAT 92
[2021-07-21 11:55] VITALS: BP 127/57; PULSE 99; RESP 18; TEMP 36.1; O2SAT 100
--- NOTE | 2021-07-21 11:58 | MHC.SLORD ---
Speech Language Pathology Order Status: Updated with RN while on pt's unit this morning who reported that pt expelled all medications during attempted medication administration this date. Pt was unable to participate in a scheduled MBSS 07/20 due to becoming combative towards the transporter. Pt's current diet order is for his baseline diet consistency of NDD2 GROUND/MECHANICALLY ALTERED solids and THIN LIQUIDS, per [facility] TRANSFORMER INSPECTOR, Yareli, who works with the pt. Reviewed pt's history of numerous MBSS' which have revealed silent aspiration with RN and PA via secure [place] text. Given pt's inability to participate in an MBSS and his history of severe dysphagia with known silent aspiration, pt not appropriate for PO trials at the bedside. PA reported that pt has been eating during his hospitalization since his diet was ordered. Per PA, pt may be discharged back to SNF this date. Please re-refer should pt be more compliant with participating in an MBSS, as bedside trials would not provide adequate clinical information to determine the safest and least restrictive diet consistency given pt's history of silent aspiration.
--- NOTE | 2021-07-21 12:23 | MHC.CM.PN ---
pt being dcd at 2:00 to return to [facility] /[facility] attempted to leave for guardian bridger wilson his mail box was full
--- NOTE | 2021-07-21 13:05 | PM.DS ---
DS: Providers Provider Date of Service: 07/21/21 Date of admission: 07/19/21 14:59 Date of discharge: 07/21/21 Primary care physician: Kev Gorman DO Attending physician on discharge: Garrison Anderson Discharging clinician: Shari Caicedo DS: Diagnosis Discharge Diagnosis (1) Community acquired pneumonia: Status: Acute (2) Severe sepsis: Status: Acute DS: Summary Hospital Course Hospital Course: ?From H&P on day of admission 70 year old man presenting from [facility] with hypotension and weakness. His blood pressures were as low as 85/50. He is alert but confused and unable to give accurate information for the interview. His CXR showed left lobe consolidation. His WBC was noted to be elevated at 46.9, creatinine 2.58, lactic acid 2.3. He received zosyn in the ED. He is stable and will be admitted for CAP.? Severe sepsis secondary to Community-acquired pneumonia. He was initially started on Rocephin, azithromycin but due to concern over aspiration he was changed to Zosyn and doxycycline. Patient has a history of aspiration and has previously had PEG tube, this has since been removed. He was seen by speech who recommended modified barium swallow which the patient did not cooperate with. He was started on mechanical ground diet as he is on at baseline and he seemed to tolerate it. Patient was initially hypotensive, this improved IV fluid and has remained stable Metoprolol was initially held but this can be resumed at time of discharge He Was noted to have LENORA likely in the setting of hypotension/sepsis, creatinine has improved from 2.58-1.09 with IVF.. Blood cultures have remained negative. Patient was noted to have significant elevation of white blood cell count on day of admission and, this has decreased from 46.9 to 11. Lactic acid was initially Elevated at 2.3, this also resolved with IV fluid. The patient has remained afebrile and has remained on room air and is stable for discharge back to [facility]. He will be discharged back to complete 7 day course of antibiotics. Time Spent with Patient Time attestation: Total time spent providing and/or coordinating discharge services: Discharge coordination time: Greater than 30 minutes Quality: Stroke Does the patient have a stroke diagnosis?: No Physical Exam Vital Signs: Vital Signs: Last Vital Signs Temp 97.0 F 07/21/21 11:55 Pulse 99 07/21/21 11:55 Resp 18 07/21/21 11:55 BP 127/57 L 07/21/21 11:55 Pulse Ox 100 07/21/21 11:55 Body Mass Index 23.1 Const: General: comfortable, alert and awake Nutritional Appearance: well nourished HENMT: Head: Yes normocephalic and Yes atraumatic Eyes: Sclerae: sclerae normal Resp: Effort & Inspection: normal respiratory effort and no respiratory distress Cardio: Rate: regular rate Rhythm: regular rhythm GI: Palpation (GI): Soft to palpation and nontender Neuro: Cranial nerves: Yes CN's II-XII intact bilaterally and Yes Bilaterally intact EOM present Extrem: Other: no leg edema; rue contracture deformity DS: Data Data Completed and Pending Labs on day of discharge: Laboratory Results - last 24 hr 07/21/21 07/21/21 06:14 06:14 WBC 11.0 H RBC 4.19 L Hgb 12.1 L Hct 36.9 L MCV 88.1 MCH 28.9 MCHC 32.8 RDW 13.9 Plt Count 221 MPV 10.5 Absolute Nucleated RBC 0.000 Nucleated RBC % (auto) 0.0 Sodium 142 Potassium 4.3 Chloride 112 H Carbon Dioxide 21 L Anion Gap 13 BUN 13 Creatinine 1.09 Estim Creat Clear Calc 61.2 Estimated GFR > 60 Random Glucose 77 Calcium 8.8 D Preliminary micro results at discharge 07/19/21 12:38 Blood Culture - Preliminary Blood - Venous No growth after 24 hours. 07/19/21 11:56 Blood Culture - Preliminary Blood - Venous No growth after 24 hours. Discharge Plan Discharge Patient Disposition: [facility] Discharge Diagnosis: sepsis secondary to Pneumonia [facility]errals: [facility] [Other] - 1 Week Kev Gorman DO [Primary Care Provider] - 1 Week Discharge Medications: New doxycycline hyclate 100 mg capsule 100 mg PO BID 7 Days Qty: 14 RF: 0 amoxicillin-pot clavulanate [Augmentin] 875-125 mg tablet 1 tab PO BID 7 Days Qty: 14 RF: 0 Continued multivitamin Tablet 1 tab PO DAILY RF: 0 sennosides [senna] 8.6 mg Tablet 8.6 mg PO BID PRN (Reason: Constipation) RF: 0 acetaminophen 325 mg Tablet 650 mg PO Q4H PRN (Reason: Pain) RF: 0 lorazepam 2 mg/mL Solution 2 mg IM Q15M PRN (Reason: Seizures) RF: 0 cyanocobalamin (vitamin B-12) 1,000 mcg Tablet 1,500 mcg PO DAILY RF: 0 haloperidol 1 mg Tablet 1 mg PO TID RF: 0 aspirin 81 mg Tablet,Delayed Release (Dr/Ec) 81 mg PO DAILY RF: 0 tramadol 50 mg Tablet 50 mg PO TID PRN (Reason: Pain) RF: 0 alprazolam 0.25 mg Tablet 0.25 mg PO BID RF: 0 lansoprazole 30 mg Capsule,Delayed Release(Dr/Ec) 30 mg PO DAILY RF: 0 docusate sodium 100 mg Capsule 100 mg PO DAILY RF: 0 metoprolol tartrate 25 mg Tablet 25 mg PO BID RF: 0 lactulose 10 gram/15 mL Solution 30 ml PO DAILY PRN (Reason: Constipation) RF: 0 calcium carbonate-vitamin D3 [Calcium 500 + D] 500 mg(1,250mg) -200 unit Tablet 1 tab PO BID RF: 0 pregabalin 50 mg Capsule 50 mg PO TID RF: 0 Triumeq 600-50-300 mg Tablet 1 tab PO DAILY RF: 0 ferrous sulfate 220 mg (44 mg iron)/5 mL Elixir 330 mg PO DAILY RF: 0 Discharge Orders: Discharge Order (Routine); Ordered 07/21/21 Ordered By: Shari Caicedo Activity on Discharge: As tolerated Stand Alone Forms: Patient Portal Discharge page Care Plan Goals: stay healthy and out of the hospital Health Concerns: Pneumonia Aspiration Plan of Treatment: Complete course of antibiotics. Repeat eval by speech therapy at [facility] Assessment: 70-year-old male with multiple medical problems admitted with pneumonia now stable for return to [facility]
[2021-07-21 15:27] VITALS: BP 169/70; PULSE 63; RESP 18; TEMP 36.8; O2SAT 97
== END 2021-07-21 16:11 | disposition intermediate care facility (04) | DRG 871 ==
LOC: HO.ED 13:33 → HO.EDOVER 15:23 → HO.S3 17:22
PROVIDERS: Admitting Provider Nurse Practitioner Acute Care; Emergency Provider Internal Medicine; PCP Hospitalist; Visit Provider Physician Assistant Medical
DX: A41.9 Sepsis, unspecified organism (principal); J18.9 Pneumonia, unspecified organism; N17.9 Acute kidney failure, unspecified; F31.9 Bipolar disorder, unspecified; R65.20 Severe sepsis without septic shock; I95.9 Hypotension, unspecified; E86.0 Dehydration; Z21 Asymptomatic human immunodeficiency virus [HIV] infection status; I25.10 Atherosclerotic heart disease of native coronary artery without angina pectoris; Z20.822 Contact with and (suspected) exposure to COVID-19; Z86.16 Personal history of COVID-19; Z79.82 Long term (current) use of aspirin; Z79.891 Long term (current) use of opiate analgesic; Z79.899 Other long term (current) drug therapy
CPT/HCPCS: 0241U; 36415; 71045; 80048; 80053; 83605; 83735; 84484; 85025; 85027; 87040; 93005; 99285; J2543

== ENCOUNTER 2021-07-24 13:02 | Inpatient (IN) | payer MEDICARE, MEDICAID, SELFPAY ==
[2021-07-24] VITALS (8 sets, daily range): BP systolic 105–139; BP diastolic 48–87; PULSE 66–117; RESP 18–26; TEMP 36.7; O2SAT 83–100; BMI 25.1
--- NOTE | ~2021-07-24 | XR_ITS ---
EXAMINATION: XR CHEST CLINICAL INFORMATION: Cough. COMPARISON: 07/19/2021 and 02/03/2020 chest radiographs. TECHNIQUE: Frontal view of the chest was obtained. FINDINGS: Mildly coarsened interstitial lung markings bilaterally are again seen without significant change. There has been mild interval decrease in opacities at the left lung base. Small nodules overlying the right midlung are unchanged. The heart and mediastinal structures are unremarkable. XR/XR chest 1V IMPRESSION: 1. Mild interval decrease in left lung base opacities suggesting mild interval improvement of an infiltrate. 2. Coarsened interstitial markings bilaterally nonspecific, but similar to the previous study and could represent chronic changes. Right midlung nodules are stable as well.
--- NOTE | ~2021-07-24 | CT_ITS ---
EXAMINATION: CT HEAD WITHOUT CONTRAST CLINICAL INFORMATION: Garbled speech COMPARISON: None TECHNIQUE: Contiguous axial imaging was performed from the skull base to vertex without intravenous administration of contrast. This CT examination was performed using dose optimization techniques as appropriate, variously including the following: *Automated exposure control *Adjustment of mA and/or kV according to patient size (this includes techniques or standardized protocols for targeted exams where dose is matched to indication/reason for exam; i.e. extremities or head) *Use of iterative reconstruction technique DLP: 1101 mGy-cm FINDINGS: There is no acute intra-axial, extra-axial bleed, masses, collection or midline shift. There is no acute infarction evolution. There is old left mesial occipital lobe infarction. The lateral ventricles are symmetrical but significantly enlarged. There is moderate prominence of cortical sulci. There is a left parasellar coils from previous intervention. Bone windows reveal no calvarial abnormality. Bilateral paranasal sinuses and mastoid air cells are well-aerated. No scalp soft tissue swelling seen. CT/CT head/brain wo con IMPRESSION: No acute intracranial process seen. 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 Dilated lateral ventricles more than the cortical sulci, raising question foreign pH. Left parasellar coiling material from previous intervention.
[2021-07-24 13:11] LABS: Glucose, Whole Blood 102 mg/dL (60-115); ~PT, ~INR - Anti Coag Clinic 1.3 (0.9-1.1)
--- NOTE | 2021-07-24 13:13 | ECG_ITS ---
Test Reason : SEIZURE Blood Pressure : / mmHG Vent. Rate : 087 BPM Atrial Rate : 087 BPM P-R Int : 138 ms QRS Dur : 096 ms QT Int : 372 ms P-R-T Axes : 064 020 059 degrees QTc Int : 447 ms Normal sinus rhythm Nonspecific ST abnormality Abnormal ECG No significant changes seen Referred By: Claudio Wofl Electronically Signed By:CHARMAINE JAMES MD
--- NOTE | 2021-07-24 13:15 | ED.SOB ---
HPI - SOB/Dyspnea General Chief Complaint: Neuro Symptoms/Deficit Stated Complaint: LKWT 8AM,GARBLED SPEECH,WEAK,STROKE ALERT Time Seen by Provider: 07/24/21 13:13 Source: patient Mode of arrival: EMS Limitations: altered mental status and physical limitation History of Present Illness HPI Narrative: 70-year-old male well-known to 1 of our nurses who works with him at the residential. Comes from [facility]. Per EMS the patient was a stroke protocol. Patient is nonverbal at baseline and has paraplegia. Per EMS the patient was having increased garbled speech. He normally is able to speak more clearly. The nurse who knows him well states that he sounds like he is at his baseline he cannot normally speak but it sounds like he might have aspirated. Patient is unable to give us any history he does have a cough and sounds like he may have aspirated. Related Data Home Medications Medication Instructions Recorded Confirmed abacavir 600 mg-dolutegravir 50 1 tab PO DAILY 07/19/21 07/24/21 mg-lamivudine 300 mg tablet (Triumeq) acetaminophen 325 mg tablet 650 mg PO Q4H PRN 07/19/21 07/24/21 alprazolam 0.25 mg tablet 0.25 mg PO BID 07/19/21 07/24/21 calcium carbonate 500 mg (1,250 1 tab PO BID 07/19/21 07/24/21 mg)-vitamin D3 200 unit tablet (Calcium 500 + D) cyanocobalamin (vitamin B-12) 1,500 mcg PO DAILY 07/19/21 07/24/21 1,000 mcg tablet docusate sodium 100 mg capsule 100 mg PO DAILY 07/19/21 07/24/21 ferrous sulfate 220 mg (44 mg 330 mg PO DAILY 07/19/21 07/24/21 iron)/5 mL oral elixir haloperidol 1 mg tablet 1 mg PO TID 07/19/21 07/24/21 lactulose 10 gram/15 mL oral 30 ml PO DAILY PRN 07/19/21 07/24/21 solution lansoprazole 30 mg capsule,delayed 30 mg PO DAILY 07/19/21 07/24/21 release lorazepam 2 mg/mL injection 2 mg IM Q15M PRN 07/19/21 07/24/21 solution metoprolol tartrate 25 mg tablet 25 mg PO BID 07/19/21 07/24/21 multivitamin 1 tab PO DAILY 07/19/21 07/24/21 pregabalin 50 mg capsule 50 mg PO TID 07/19/21 07/24/21 sennosides 8.6 mg tablet (senna) 8.6 mg PO BID PRN 07/19/21 07/24/21 tramadol 50 mg tablet 50 mg PO Q8H PRN 07/19/21 07/24/21 amoxicillin 875 mg-potassium 1 tab PO BID 07/24/21 07/24/21 clavulanate 125 mg tablet (Augmentin) aspirin 81 mg chewable tablet 81 mg PO DAILY 07/24/21 07/24/21 doxycycline hyclate 100 mg capsule 100 mg PO BID 07/24/21 07/24/21 zinc oxide-vitamin B5-vit E 11.3% 1 appl TOPICAL QSHIFT 07/24/21 07/24/21 topical cream Allergies Allergy/AdvReac Type Severity Reaction Status Date / Time No Known Allergies Allergy Unknown Unverified 06/23/20 17:32 [No Known Allergies*] Review of Systems Review of Systems: Yes Unobtainable due to mental status [facility] Past Medical History Medical History (Updated 07/24/21 @ 16:02 by Claudio Wolf DO) Age-related nuclear cataract, bilateral Altered mental status, unspecified Anemia, unspecified Bipolar 1 disorder Chronic anemia Chronic kidney disease Chronic kidney disease, stage 3 unspecified Constipation, unspecified Contracture, unspecified foot Contracture, unspecified knee Coronary artery disease Cyst of kidney, acquired Dementia Dementia in other diseases classified elsewhere with behavioral disturbance Dysphagia, oropharyngeal phase Essential (primary) hypertension History of COVID-19 HIV (human immunodeficiency virus infection) Hypertension Impulse disorder, unspecified Leg weakness Old myocardial infarction Other cholelithiasis without obstruction Other specified disorders of bone density and structure, unspecified site Paraplegia, unspecified Personal history of other diseases of the circulatory system Personal history of other diseases of the respiratory system Personal history of pneumonia (recurrent) Personal history of tuberculosis 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 Presbyopia Primary generalized (osteo)arthritis Splenomegaly, not elsewhere classified Unspecified convulsions Unspecified dementia with behavioral disturbance Social History Social History Household Members: Caregiver Housing: Residential Do you presently have visiting nurse or other home services: Yes ([facility] at [facility]) Alcohol intake: unknown Patient Tobacco Use Status: Never used Tobacco Use of substances other than those prescribed or required for medical reasons: Unknown Advance Directives: No Advance Directives Information Provided: Yes Physical Exam Vital Signs: Vital Signs: Last Vital Signs Temp 98.1 F 07/24/21 13:32 Pulse 87 07/24/21 15:42 Resp 26 H 07/24/21 15:42 BP 136/57 L 07/24/21 15:42 Pulse Ox 100 07/24/21 15:42 Body Mass Index 25.1 Neurological exam: CN II- XII tested. Patient is alert and responding to verbal stimuli, he has baseline dysarthria dysphagia he is unable to follow commands for visual field testing or nystagmus he does have good strength to both upper extremities he is not moving his left side as well as his right. normal reflexes to brachioradialis, wrist, patella and achilles. Unable to follow commands to try a Romberg or [id number] testing he is moving both arms General: Well-appearing well-nourished in no signs of distress HEENT: Normocephalic atraumatic Neck: No signs of JVD, no masses no tenderness or lymphadenopathy Cardiovascular: Regular rate and rhythm Respiratory: Clear to auscultation bilaterally Abdomen: Soft nontender no masses Extremities: Normal pedal pulses no signs of edema Skin: Dry warm no rashes Back: No tenderness full ROM NIH Stroke Scale Internal: Initial- Upon Arrival Level of Consciousness: Alert Level of Consciousness Questions: Answers neither question correctly Level of Consciousness Commands: Performs both tasks correctly Best Gaze: Normal Visual: No visual loss (Unable to test) Facial Palsy: Normal (Unable to test) Motor Arm (Right): No drift Motor Arm (Left): No drift Motor Leg (Right): Some effort against gravity Motor Leg (Left): Some effort against gravity Limb Ataxia: Present in one limb Sensory: Normal Best Language: Mild to moderate aphasia Dysarthia: Mild to moderate dysarthria Extinction and Inattention: No abnormality (Unable to test) Score: 9 MDM - SOB/Dyspnea MDM Narrative Medical decision making narrative: I do not think this patient is having an acute stroke workup for aspiration pneumonia. PATIENT FOUND TO BE HYPOXIC IN THE 80S WHEN OFF OXYGEN PATIENT IS REQUIRING 2 L AND IS 95%. I STARTED THE PATIENT ON ROCEPHIN AZITHROMYCIN PATIENT FAILED SWALLOW EVALUATION I GAVE PATIENT OVER FOR CT A HEAD NECK TO MAKE SURE THERE IS NO ACUTE ISSUES. Peripheral access was difficult on the patient multiple sticks required I was able to place a left sided IV via ultrasound in the antecubital fossa. Patient will be sent for CT at this time x-ray will be done. While placing the IV patient did have approximately 2 minute seizure which stopped with Ativan. [address] I will sign out to Anwer pending CT a and admission. Lab Data Result diagrams: 07/24/21 13:59 07/24/21 13:59 Labs: Lab Results 07/24/21 07/24/21 07/24/21 Range/Units 13:06 13:06 13:59 WBC 8.0 (4.8-10.8) X10*3/uL RBC 4.44 L (4.60-5.80) X10*6/uL Hgb 13.0 L (14.0-18.0) g/dl Hct 39.1 L (42-52) % MCV 88.1 (80-98) fL MCH 29.3 (27.0-33.0) pg MCHC 33.2 (31.0-36.0) g/dl RDW 14.3 (11.0-16.0) % Plt Count 265 (160-400) X10*3/uL MPV 10.3 (9.4-12.4) fL Immature Gran % (Auto) 0.3 (0.0-0.4) % Neut % (Auto) 68.4 (45-73) % Lymph % (Auto) 19.7 L (20-40) % [place] % (Auto) 7.8 (2-11) % Eos % (Auto) 3.4 (0-4) % Baso % (Auto) 0.4 (0-2) % Lymph # (Auto) 1.6 (1.2-4.9) X10*3/uL [place] # (Auto) 0.6 (0.1-1.2) X10*3/uL Eos # (Auto) 0.3 (0.0-0.4) X10*3/uL Baso # (Auto) 0.0 (0.0-0.2) X10*3/uL Abs Immat Gran (auto) 0.02 (0.00-0.03) X10*3/uL Absolute Neuts (auto) 5.5 (2.0-8.3) X10*3/uL Absolute Nucleated RBC 0.000 (0.0-0.012) X10*3/uL Nucleated RBC % (auto) 0.0 (0.0-0.2) /100WBC Whole Blood PT 15.0 H (11.1-13.5) sec Whole Blood INR 1.3 H (0.9-1.1) Sodium (135-145) mmol/L Potassium (3.3-5.1) mmol/L Chloride (96-108) mmol/L Carbon Dioxide (22-29) mmol/L Anion Gap (12-20) BUN (9-16) mg/dL Creatinine (0.5-1.4) mg/dL Estim Creat Clear Calc Estimated GFR POC Glucose 102 (60-115) mg/dL Random Glucose (60-115) mg/dL Lactic Acid (0.5-2.0) mmol/L Calcium (8.4-10.2) mg/dL Total Bilirubin (0.0-1.0) mg/dL Direct Bilirubin (0.0-0.5) mg/dL AST (5-37) U/L ALT (0-40) U/L Alkaline Phosphatase (39-117) U/L Troponin I High Sens (<3.5-35.0) ng/L Total Protein (6.5-8.0) g/dL Albumin (3.5-5.0) g/dL Lipase (8-78) U/L COVID-19 (CHANELLE) (Negative) COVID-19 Clin Com 07/24/21 07/24/21 07/24/21 Range/Units 13:59 13:59 13:59 WBC (4.8-10.8) X10*3/uL RBC (4.60-5.80) X10*6/uL Hgb (14.0-18.0) g/dl Hct (42-52) % MCV (80-98) fL MCH (27.0-33.0) pg MCHC (31.0-36.0) g/dl RDW (11.0-16.0) % Plt Count (160-400) X10*3/uL MPV (9.4-12.4) fL Immature Gran % (Auto) (0.0-0.4) % Neut % (Auto) (45-73) % Lymph % (Auto) (20-40) % [place] % (Auto) (2-11) % Eos % (Auto) (0-4) % Baso % (Auto) (0-2) % Lymph # (Auto) (1.2-4.9) X10*3/uL [place] # (Auto) (0.1-1.2) X10*3/uL Eos # (Auto) (0.0-0.4) X10*3/uL Baso # (Auto) (0.0-0.2) X10*3/uL Abs Immat Gran (auto) (0.00-0.03) X10*3/uL Absolute Neuts (auto) (2.0-8.3) X10*3/uL Absolute Nucleated RBC (0.0-0.012) X10*3/uL Nucleated RBC % (auto) (0.0-0.2) /100WBC Whole Blood PT (11.1-13.5) sec Whole Blood INR (0.9-1.1) Sodium 146 H (135-145) mmol/L Potassium 4.5 (3.3-5.1) mmol/L Chloride 115 H (96-108) mmol/L Carbon Dioxide 24 (22-29) mmol/L Anion Gap 12 (12-20) BUN 16 (9-16) mg/dL Creatinine 1.14 (0.5-1.4) mg/dL Estim Creat Clear Calc 58.5 Estimated GFR > 60 POC Glucose (60-115) mg/dL Random Glucose 99 (60-115) mg/dL Lactic Acid (0.5-2.0) mmol/L Calcium 8.6 (8.4-10.2) mg/dL Total Bilirubin 0.2 (0.0-1.0) mg/dL Direct Bilirubin < 0.2 (0.0-0.5) mg/dL AST 22 D (5-37) U/L ALT 16 (0-40) U/L Alkaline Phosphatase 55 (39-117) U/L Troponin I High Sens < 3.5 (<3.5-35.0) ng/L Total Protein 7.4 (6.5-8.0) g/dL Albumin 3.5 (3.5-5.0) g/dL Lipase 73 (8-78) U/L COVID-19 (CHANELLE) Negative (Negative) COVID-19 Clin Com See Note 07/24/21 Range/Units 13:59 WBC (4.8-10.8) X10*3/uL RBC (4.60-5.80) X10*6/uL Hgb (14.0-18.0) g/dl Hct (42-52) % MCV (80-98) fL MCH (27.0-33.0) pg MCHC (31.0-36.0) g/dl RDW (11.0-16.0) % Plt Count (160-400) X10*3/uL MPV (9.4-12.4) fL Immature Gran % (Auto) (0.0-0.4) % Neut % (Auto) (45-73) % Lymph % (Auto) (20-40) % [place] % (Auto) (2-11) % Eos % (Auto) (0-4) % Baso % (Auto) (0-2) % Lymph # (Auto) (1.2-4.9) X10*3/uL [place] # (Auto) (0.1-1.2) X10*3/uL Eos # (Auto) (0.0-0.4) X10*3/uL Baso # (Auto) (0.0-0.2) X10*3/uL Abs Immat Gran (auto) (0.00-0.03) X10*3/uL Absolute Neuts (auto) (2.0-8.3) X10*3/uL Absolute Nucleated RBC (0.0-0.012) X10*3/uL Nucleated RBC % (auto) (0.0-0.2) /100WBC Whole Blood PT (11.1-13.5) sec Whole Blood INR (0.9-1.1) Sodium (135-145) mmol/L Potassium (3.3-5.1) mmol/L Chloride (96-108) mmol/L Carbon Dioxide (22-29) mmol/L Anion Gap (12-20) BUN (9-16) mg/dL Creatinine (0.5-1.4) mg/dL Estim Creat Clear Calc Estimated GFR POC Glucose (60-115) mg/dL Random Glucose (60-115) mg/dL Lactic Acid 1.7 (0.5-2.0) mmol/L Calcium (8.4-10.2) mg/dL Total Bilirubin (0.0-1.0) mg/dL Direct Bilirubin (0.0-0.5) mg/dL AST (5-37) U/L ALT (0-40) U/L Alkaline Phosphatase (39-117) U/L Troponin I High Sens (<3.5-35.0) ng/L Total Protein (6.5-8.0) g/dL Albumin (3.5-5.0) g/dL Lipase (8-78) U/L COVID-19 (CHANELLE) (Negative) COVID-19 Clin Com Critical Care Time Critical Care Time Critical Care Time: Yes Total Critical Care Time: 75 Attestation: Patient came in his stroke protocol patient was very hypoxic into the 80s patient required multiple re-evaluations peripheral IV placement by me is excluded from this. CT head neck to acute it is. Patient the emergency department prior to Ativan. Discharge Plan Discharge Clinical Impression: Pneumonia, Weakness, Community acquired pneumonia, Hypoxia Patient Disposition: Admitted As Inpatient
--- NOTE | 2021-07-24 13:27 | PHA.MEDREC ---
Pharmacy Consult ? Medication Reconciliation Pharmacy has completed the medication reconciliation. Patient came from [facility] with a medication list. Kelsey Gupta, JaneD
[2021-07-24 14:04] LABS: MANUAL DIFF FLAG NO
[2021-07-24 14:06] LABS: Basophils Percent Auto 0.4 % (0-2); Eosinophils Absolute Auto 0.3 X10*3/uL (0.0-0.4); Eosinophils Percent Auto 3.4 % (0-4); Hematocrit 39.1 % (42-52); Imm Gran Abs Auto 0.02 X10*3/uL (0.00-0.03); Imm Gran Pct Auto 0.3 % (0.0-0.4); Lymphocytes Absolute Auto 1.6 X10*3/uL (1.2-4.9); Lymphocytes Percent Auto 19.7 % (20-40); Mean Corpuscular HGB Conc 33.2 g/dl (31.0-36.0); Mean Corpuscular Hemoglobin 29.3 pg (27.0-33.0); Mean Corpuscular Volume 88.1 fL (80-98); Mean Platelet Volume 10.3 fL (9.4-12.4); Monocytes Absolute Auto 0.6 X10*3/uL (0.1-1.2); Monocytes Percent Auto 7.8 % (2-11); Neutrophils Absolute Auto 5.5 X10*3/uL (2.0-8.3); Neutrophils Percent Auto 68.4 % (45-73); Platelet Count 265 X10*3/uL (160-400); Red Blood Count 4.44 X10*6/uL (4.60-5.80); Red Cell Distribution Width 14.3 % (11.0-16.0)
[2021-07-24] MEDS: 0.9 % Sodium Chloride 500 ML 999 ML IV (14:12)
--- NOTE | 2021-07-24 14:14 | PC.NURSE ---
awaiting second blood culture to run abx
[2021-07-24 14:19] LABS: Lactic Acid 1.7 mmol/L (0.5-2.0)
[2021-07-24 14:24] LABS: Alanine Aminotransferase 16 U/L (0-40); Albumin Level 3.5 g/dL (3.5-5.0); Alkaline Phosphatase 55 U/L (39-117); Anion Gap 12 (12-20); Aspartate Amino Transferase 22 U/L (5-37); Bilirubin Direct < 0.2 mg/dL (0.0-0.5); Bilirubin Total 0.2 mg/dL (0.0-1.0); Blood Urea Nitrogen 16 mg/dL (9-16); COVID-19 Test Negative (Negative); Calcium 8.6 mg/dL (8.4-10.2); Carbon Dioxide 24 mmol/L (22-29); Chloride 115 mmol/L (96-108); Creatinine Clr Calc Pharmacy 58.5; Estimated Glomerular Filt Rate > 60; Glucose Random 99 mg/dL (60-115); IDNOW Serial# 9DD0AD1C; Lipase 73 U/L (8-78); Potassium 4.5 mmol/L (3.3-5.1); Sodium 146 mmol/L (135-145); Total Protein 7.4 g/dL (6.5-8.0)
[2021-07-24 14:25] LABS: Troponin-I High Sensitivity < 3.5 ng/L (<3.5-35.0)
--- NOTE | 2021-07-24 14:40 | PC.NURSE ---
phlebotomy called for second set of bc, will speak with provider about patient iv access
[2021-07-24] MEDS: LORazepam 2 MG/ML VIAL IV (15:02)
--- NOTE | 2021-07-24 15:03 | PC.NURSE ---
provider and this rn were at bedside, patient was awake to his baseline, pt began having a seizure, provider ordered 2mg ativan, seizure pads applied, seizure lasted approx 2 minutes, pt currently post-ictal, satellite project site monitor nsr 90s, o2 sat 98 on 4 liters, iv placed with us by provider, will continue to monitor.
[2021-07-24] MEDS: cefTRIAXone sodium 1 GM in 0.9 % Sodium Chloride 50 ML IV (15:16)
[2021-07-24] MEDS: Azithromycin 500 MG in 0.9 % Sodium Chloride 250 ML 125 MG IV (15:33)
--- NOTE | 2021-07-24 16:19 | ED.NEUROSD ---
HPI - Neuro Symptoms/Deficit General Chief Complaint: Neuro Symptoms/Deficit Stated Complaint: LKWT 8AM,GARBLED SPEECH,WEAK,STROKE ALERT Time Seen by Provider: 07/24/21 13:13 Source: patient Mode of arrival: EMS Limitations: altered mental status and physical limitation Related Data Home Medications Medication Instructions Recorded Confirmed abacavir 600 mg-dolutegravir 50 1 tab PO DAILY 07/19/21 07/24/21 mg-lamivudine 300 mg tablet (Triumeq) acetaminophen 325 mg tablet 650 mg PO Q4H PRN 07/19/21 07/24/21 alprazolam 0.25 mg tablet 0.25 mg PO BID 07/19/21 07/24/21 calcium carbonate 500 mg (1,250 1 tab PO BID 07/19/21 07/24/21 mg)-vitamin D3 200 unit tablet (Calcium 500 + D) cyanocobalamin (vitamin B-12) 1,500 mcg PO DAILY 07/19/21 07/24/21 1,000 mcg tablet docusate sodium 100 mg capsule 100 mg PO DAILY 07/19/21 07/24/21 ferrous sulfate 220 mg (44 mg 330 mg PO DAILY 07/19/21 07/24/21 iron)/5 mL oral elixir haloperidol 1 mg tablet 1 mg PO TID 07/19/21 07/24/21 lactulose 10 gram/15 mL oral 30 ml PO DAILY PRN 07/19/21 07/24/21 solution lansoprazole 30 mg capsule,delayed 30 mg PO DAILY 07/19/21 07/24/21 release lorazepam 2 mg/mL injection 2 mg IM Q15M PRN 07/19/21 07/24/21 solution metoprolol tartrate 25 mg tablet 25 mg PO BID 07/19/21 07/24/21 multivitamin 1 tab PO DAILY 07/19/21 07/24/21 pregabalin 50 mg capsule 50 mg PO TID 07/19/21 07/24/21 sennosides 8.6 mg tablet (senna) 8.6 mg PO BID PRN 07/19/21 07/24/21 tramadol 50 mg tablet 50 mg PO Q8H PRN 07/19/21 07/24/21 amoxicillin 875 mg-potassium 1 tab PO BID 07/24/21 07/24/21 clavulanate 125 mg tablet (Augmentin) aspirin 81 mg chewable tablet 81 mg PO DAILY 07/24/21 07/24/21 doxycycline hyclate 100 mg capsule 100 mg PO BID 07/24/21 07/24/21 zinc oxide-vitamin B5-vit E 11.3% 1 appl TOPICAL QSHIFT 07/24/21 07/24/21 topical cream Allergies Allergy/AdvReac Type Severity Reaction Status Date / Time No Known Allergies Allergy Unknown Unverified 06/23/20 17:32 [No Known Allergies*] [facility] Past Medical History Medical History (Updated 07/24/21 @ 16:02 by Claudio Wolf DO) Age-related nuclear cataract, bilateral Altered mental status, unspecified Anemia, unspecified Bipolar 1 disorder Chronic anemia Chronic kidney disease Chronic kidney disease, stage 3 unspecified Constipation, unspecified Contracture, unspecified foot Contracture, unspecified knee Coronary artery disease Cyst of kidney, acquired Dementia Dementia in other diseases classified elsewhere with behavioral disturbance Dysphagia, oropharyngeal phase Essential (primary) hypertension History of COVID-19 HIV (human immunodeficiency virus infection) Hypertension Impulse disorder, unspecified Leg weakness Old myocardial infarction Other cholelithiasis without obstruction Other specified disorders of bone density and structure, unspecified site Paraplegia, unspecified Personal history of other diseases of the circulatory system Personal history of other diseases of the respiratory system Personal history of pneumonia (recurrent) Personal history of tuberculosis 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 Presbyopia Primary generalized (osteo)arthritis Splenomegaly, not elsewhere classified Unspecified convulsions Unspecified dementia with behavioral disturbance Social History Social History Household Members: Caregiver Housing: Group Home Do you presently have visiting nurse or other home services: Yes ([facility]ives at [facility]) Alcohol intake: unknown Patient Tobacco Use Status: Never used Tobacco Use of substances other than those prescribed or required for medical reasons: Unknown Advance Directives: No Advance Directives Information Provided: Yes Physical Exam Vital Signs: Vital Signs: Last Vital Signs Temp 98.1 F 07/24/21 13:32 Pulse 87 07/24/21 15:42 Resp 26 H 07/24/21 15:42 BP 136/57 L 07/24/21 15:42 Pulse Ox 100 07/24/21 15:42 Body Mass Index 25.1 MDM - Neuro Symptoms/Deficit Lab Data Result diagrams: 07/24/21 13:59 07/24/21 13:59 Labs: Lab Results 07/24/21 07/24/2107/24/21 Range/Units 13:06 13:06 13:59 WBC 8.0 (4.8-10.8) X10*3/uL RBC 4.44 L (4.60-5.80) X10*6/uL Hgb 13.0 L (14.0-18.0) g/dl Hct 39.1 L (42-52) % MCV 88.1 (80-98) fL MCH 29.3 (27.0-33.0) pg MCHC 33.2 (31.0-36.0) g/dl RDW 14.3 (11.0-16.0) % Plt Count 265 (160-400) X10*3/uL MPV 10.3 (9.4-12.4) fL Immature Gran % (Auto) 0.3 (0.0-0.4) % Neut % (Auto) 68.4 (45-73) % Lymph % (Auto) 19.7 L (20-40) % [place] % (Auto) 7.8 (2-11) % Eos % (Auto) 3.4 (0-4) % Baso % (Auto) 0.4 (0-2) % Lymph # (Auto) 1.6 (1.2-4.9) X10*3/uL [place] # (Auto) 0.6 (0.1-1.2) X10*3/uL Eos # (Auto) 0.3 (0.0-0.4) X10*3/uL Baso # (Auto) 0.0 (0.0-0.2) X10*3/uL Abs Immat Gran (auto) 0.02 (0.00-0.03) X10*3/uL Absolute Neuts (auto) 5.5 (2.0-8.3) X10*3/uL Absolute Nucleated RBC 0.000 (0.0-0.012) X10*3/uL Nucleated RBC % (auto) 0.0 (0.0-0.2) /100WBC Whole Blood PT 15.0 H (11.1-13.5) sec Whole Blood INR 1.3 H (0.9-1.1) Sodium (135-145) mmol/L Potassium (3.3-5.1) mmol/L Chloride (96-108) mmol/L Carbon Dioxide (22-29) mmol/L Anion Gap (12-20) BUN (9-16) mg/dL Creatinine (0.5-1.4) mg/dL Estim Creat Clear Calc Estimated GFR POC Glucose 102 (60-115) mg/dL Random Glucose (60-115) mg/dL Lactic Acid (0.5-2.0) mmol/L Calcium (8.4-10.2) mg/dL Total Bilirubin (0.0-1.0) mg/dL Direct Bilirubin (0.0-0.5) mg/dL AST (5-37) U/L ALT (0-40) U/L Alkaline Phosphatase (39-117) U/L Troponin I High Sens (<3.5-35.0) ng/L Total Protein (6.5-8.0) g/dL Albumin (3.5-5.0) g/dL Lipase (8-78) U/L COVID-19 (CHANELLE) (Negative) COVID-19 Clin Com 07/24/21 07/24/21 07/24/21 Range/Units 13:59 13:59 13:59 WBC (4.8-10.8) X10*3/uL RBC (4.60-5.80) X10*6/uL Hgb (14.0-18.0) g/dl Hct (42-52) % MCV (80-98) fL MCH (27.0-33.0) pg MCHC (31.0-36.0) g/dl RDW (11.0-16.0) % Plt Count (160-400) X10*3/uL MPV (9.4-12.4) fL Immature Gran % (Auto) (0.0-0.4) % Neut % (Auto) (45-73) % Lymph % (Auto) (20-40) % [place] % (Auto) (2-11) % Eos % (Auto) (0-4) % Baso % (Auto) (0-2) % Lymph # (Auto) (1.2-4.9) X10*3/uL [place] # (Auto) (0.1-1.2) X10*3/uL Eos # (Auto) (0.0-0.4) X10*3/uL Baso # (Auto) (0.0-0.2) X10*3/uL Abs Immat Gran (auto) (0.00-0.03) X10*3/uL Absolute Neuts (auto) (2.0-8.3) X10*3/uL Absolute Nucleated RBC (0.0-0.012) X10*3/uL Nucleated RBC % (auto) (0.0-0.2) /100WBC Whole Blood PT (11.1-13.5) sec Whole Blood INR (0.9-1.1) Sodium 146 H (135-145) mmol/L Potassium 4.5 (3.3-5.1) mmol/L Chloride 115 H (96-108) mmol/L Carbon Dioxide 24 (22-29) mmol/L Anion Gap 12 (12-20) BUN 16 (9-16) mg/dL Creatinine 1.14 (0.5-1.4) mg/dL Estim Creat Clear Calc 58.5 Estimated GFR > 60 POC Glucose (60-115) mg/dL Random Glucose 99 (60-115) mg/dL Lactic Acid (0.5-2.0) mmol/L Calcium 8.6 (8.4-10.2) mg/dL Total Bilirubin 0.2 (0.0-1.0) mg/dL Direct Bilirubin < 0.2 (0.0-0.5) mg/dL AST 22 D (5-37) U/L ALT 16 (0-40) U/L Alkaline Phosphatase 55 (39-117) U/L Troponin I High Sens < 3.5 (<3.5-35.0) ng/L Total Protein 7.4 (6.5-8.0) g/dL Albumin 3.5 (3.5-5.0) g/dL Lipase 73 (8-78) U/L COVID-19 (CHANELLE) Negative (Negative) COVID-19 Clin Com See Note 07/24/21 Range/Units 13:59 WBC (4.8-10.8) X10*3/uL RBC (4.60-5.80) X10*6/uL Hgb (14.0-18.0) g/dl Hct (42-52) % MCV (80-98) fL MCH (27.0-33.0) pg MCHC (31.0-36.0) g/dl RDW (11.0-16.0) % Plt Count (160-400) X10*3/uL MPV (9.4-12.4) fL Immature Gran % (Auto) (0.0-0.4) % Neut % (Auto) (45-73) % Lymph % (Auto) (20-40) % [place] % (Auto) (2-11) % Eos % (Auto) (0-4) % Baso % (Auto) (0-2) % Lymph # (Auto) (1.2-4.9) X10*3/uL [place] # (Auto) (0.1-1.2) X10*3/uL Eos # (Auto) (0.0-0.4) X10*3/uL Baso # (Auto) (0.0-0.2) X10*3/uL Abs Immat Gran (auto) (0.00-0.03) X10*3/uL Absolute Neuts (auto) (2.0-8.3) X10*3/uL Absolute Nucleated RBC (0.0-0.012) X10*3/uL Nucleated RBC % (auto) (0.0-0.2) /100WBC Whole Blood PT (11.1-13.5) sec Whole Blood INR (0.9-1.1) Sodium (135-145) mmol/L Potassium (3.3-5.1) mmol/L Chloride (96-108) mmol/L Carbon Dioxide (22-29) mmol/L Anion Gap (12-20) BUN (9-16) mg/dL Creatinine (0.5-1.4) mg/dL Estim Creat Clear Calc Estimated GFR POC Glucose (60-115) mg/dL Random Glucose (60-115) mg/dL Lactic Acid 1.7 (0.5-2.0) mmol/L Calcium (8.4-10.2) mg/dL Total Bilirubin (0.0-1.0) mg/dL Direct Bilirubin (0.0-0.5) mg/dL AST (5-37) U/L ALT (0-40) U/L Alkaline Phosphatase (39-117) U/L Troponin I High Sens (<3.5-35.0) ng/L Total Protein (6.5-8.0) g/dL Albumin (3.5-5.0) g/dL Lipase (8-78) U/L COVID-19 (CHANELLE) (Negative) COVID-19 Clin Com Discharge Plan Discharge Clinical Impression: Pneumonia, Weakness, Community acquired pneumonia, Hypoxia Patient Disposition: Admitted As Inpatient
--- NOTE | 2021-07-24 18:37 | PC.NURSE ---
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
[2021-07-24 19:39] LABS: Appearance Urine CLEAR; Color Urine YELLOW; Glucose Urine UA NEG (NEG); Leukocyte Esterase Urine NEG (NEG); Nitrite Urine NEG (NEG); PH 5.5 (5.0-8.0); Specific Gravity - Urine 1.025 (1.005-1.025); Urine Blood NEG (NEG); Urine Ketones NEG (NEG); Urine Protein TRACE MG/DL (NEG-TRACE)
--- NOTE | 2021-07-24 21:48 | PC.NURSE ---
pt currently sleeping, case monitor nsr 70s, vss, pt previous had a incontinent bm/turned and positioned to comfort, will continue to monitor.
--- NOTE | 2021-07-24 22:12 | PM.IMHP ---
History of Present Illness Date of Service: 07/24/21 Chief Complaint: Altered mental status This is a 70-year-old male with a significant past medical history as below who is a resident of [facility] who sent to the hospital for concern of stroke. After further investigation by the ED department it appears that patient is actually at his baseline with no change in his mental status. Per EMS the patient was sent for stroke protocol. Patient is nonverbal at baseline and has paraplegia, unable to give much history himself and therefore history is obtained mostly from EMR as well as ED staff. The nurse who knows him while at the facility as well as at our own ED reports that patient is at his baseline but he may have been aspirating. Unable to get much review of system From the hospital on 07/21 at that time patient was treated for he was started on Rocephin and erythromycin but due to concern over aspiration he was treated with Zosyn and doxycycline. He has a history of aspiration and previously had a PEG tube in place which has since then been removed. Patient was seen by speech who recommended modified barium swallow which the patient did not cooperating with. He was started on mechanical ground diet but unclear if he was compliant with it at the halfway. On arrival to the ED patient was found to be hypoxic with an O2 level of 83% on room air. Vitals otherwise unremarkable. Patient was placed on 4 L of nasal cannula now satting 98-100%. Unremarkable interval decrease in left lung base opacities suggesting mi interval improvement of an infiltrate, coarsened interstitial marking bilaterally nonspecific but similar to the previous study Given his hypoxia patient will be admitted for observation Review of Systems Review of Systems: Yes Unobtainable due to mental condition and Unobtainable due to mental status [facility] Medical History Age-related nuclear cataract, bilateral Altered mental status, unspecified Anemia, unspecified Bipolar 1 disorder Chronic anemia Chronic kidney disease Chronic kidney disease, stage 3 unspecified Constipation, unspecified Contracture, unspecified foot Contracture, unspecified knee Coronary artery disease Cyst of kidney, acquired Dementia Dementia in other diseases classified elsewhere with behavioral disturbance Dysphagia, oropharyngeal phase Essential (primary) hypertension History of COVID-19 HIV (human immunodeficiency virus infection) Hypertension Impulse disorder, unspecified Leg weakness Old myocardial infarction Other cholelithiasis without obstruction Other specified disorders of bone density and structure, unspecified site Paraplegia, unspecified Personal history of other diseases of the circulatory system Personal history of other diseases of the respiratory system Personal history of pneumonia (recurrent) Personal history of tuberculosis 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 Presbyopia Primary generalized (osteo)arthritis Splenomegaly, not elsewhere classified Unspecified convulsions Unspecified dementia with behavioral disturbance Pertinent family history: Unable to obtain Social History Household Members: Caregiver Housing: [facility] Do you presently have visiting nurse or other home services: Yes (lives at [facility]) Alcohol intake: unknown Patient Tobacco Use Status: Never used Tobacco Use of substances other than those prescribed or required for medical reasons: Unknown Advance Directives: No Advance Directives Information Provided: Yes Meds Allergies Allergy/AdvReac Type Severity Reaction Status Date / Time No Known Allergies Allergy Unknown Unverified 06/23/20 17:32 [No Known Allergies*] Active Medications: Current Medications Pharmacy Consult (Consult Rx Perform Med Rec) 1 each MISCELLANE ONCE PRN PRN Reason: Consult order Home Medications Medication Instructions Recorded Confirmed Last Taken Type abacavir 600 mg-dolutegravir 50 1 tab PO DAILY 07/19/21 07/24/21 Unknown History mg-lamivudine 300 mg tablet (Triumeq) acetaminophen 325 mg tablet 650 mg PO Q4H PRN 07/19/21 07/24/21 Unknown History alprazolam 0.25 mg tablet 0.25 mg PO BID 07/19/21 07/24/21 Unknown History calcium carbonate 500 mg (1,250 1 tab PO BID 07/19/21 07/24/21 Unknown History mg)-vitamin D3 200 unit tablet (Calcium 500 + D) cyanocobalamin (vitamin B-12) 1,500 mcg PO DAILY 07/19/21 07/24/21 Unknown History 1,000 mcg tablet docusate sodium 100 mg capsule 100 mg PO DAILY 07/19/21 07/24/21 Unknown History ferrous sulfate 220 mg (44 mg 330 mg PO DAILY 07/19/21 07/24/21 Unknown History iron)/5 mL oral elixir haloperidol 1 mg tablet 1 mg PO TID 07/19/21 07/24/21 Unknown History lactulose 10 gram/15 mL oral 30 ml PO DAILY PRN 07/19/21 07/24/21 Unknown History solution lansoprazole 30 mg capsule,delayed 30 mg PO DAILY 07/19/21 07/24/21 Unknown History release lorazepam 2 mg/mL injection 2 mg IM Q15M PRN 07/19/21 07/24/21 Unknown History solution metoprolol tartrate 25 mg tablet 25 mg PO BID 07/19/21 07/24/21 Unknown History multivitamin 1 tab PO DAILY 07/19/21 07/24/21 Unknown History pregabalin 50 mg capsule 50 mg PO TID 07/19/21 07/24/21 Unknown History sennosides 8.6 mg tablet (senna) 8.6 mg PO BID PRN 07/19/21 07/24/21 Unknown History tramadol 50 mg tablet 50 mg PO Q8H PRN 07/19/21 07/24/21 Unknown History amoxicillin 875 mg-potassium 1 tab PO BID 07/24/21 07/24/21 Unknown History clavulanate 125 mg tablet (Augmentin) aspirin 81 mg chewable tablet 81 mg PO DAILY 07/24/21 07/24/21 Unknown History doxycycline hyclate 100 mg capsule 100 mg PO BID 07/24/21 07/24/21 Unknown History zinc oxide-vitamin B5-vit E 11.3% 1 appl TOPICAL QSHIFT 07/24/21 07/24/21 Unknown History topical cream Physical Exam Vital Signs and Narrative: Vital Signs: Last Vital Signs Temp 98.0 F 07/24/21 20:15 Pulse 69 07/24/21 21:47 Resp 18 07/24/21 21:47 BP 137/53 L 07/24/21 21:47 Pulse Ox 97 07/24/21 21:47 Body Mass Index 25.1 Const: Other: Patient not cooperating with exam, nonverbal at baseline, unable to follow directions, I am unable to obtain at Good physical exam General: no acute distress Eyes: General: appearance normal, both eyes and all related structures Pupils: Equal, round and reactive pupils present Resp: Effort & Inspection: normal respiratory effort Cardio: Rate: regular rate Rhythm: regular rhythm GI: Palpation (GI): Soft to palpation Auscultation: normal bowel sounds Skin: General skin exam: no rashes or lesions noted Neuro: Cranial nerves: Yes Equal, round and reactive pupils present Cognition (Neuro): normal cognition Extrem: General: Yes normal to inspection and Yes no pedal edema Results Labs CBC and Chem 7: 07/24/21 13:59 07/24/21 13:59 Labs: Laboratory Results - last 24 hr 07/24/21 07/24/21 07/24/21 13:06 13:06 13:59 MCV 88.1 MCH 29.3 MCHC 33.2 RDW 14.3 Plt Count 265 MPV 10.3 Immature Gran % (Auto) 0.3 Neut % (Auto) 68.4 Lymph % (Auto) 19.7 L [place] % (Auto) 7.8 Eos % (Auto) 3.4 Baso % (Auto) 0.4 Lymph # (Auto) 1.6 [place] # (Auto) 0.6 Eos # (Auto) 0.3 Baso # (Auto) 0.0 Abs Immat Gran (auto) 0.02 Absolute Neuts (auto) 5.5 Absolute Nucleated RBC 0.000 Nucleated RBC % (auto) 0.0 Whole Blood PT 15.0 H Whole Blood INR 1.3 H Anion Gap Estim Creat Clear Calc Estimated GFR POC Glucose 102 Random Glucose Lactic Acid Calcium Total Bilirubin Direct Bilirubin AST ALT Alkaline Phosphatase Troponin I High Sens Total Protein Albumin Lipase Urine Color Urine Appearance Urine pH Ur Specific [place] Urine Protein Urine Glucose (UA) Urine Ketones Urine Blood Urine Nitrite Ur Leukocyte Esterase COVID-19 (CHANELLE) COVID-19 Clin Com 07/24/21 07/24/21 07/24/21 13:59 13:59 13:59 MCV MCH MCHC RDW Plt Count MPV Immature Gran % (Auto) Neut % (Auto) Lymph % (Auto) [place] % (Auto) Eos % (Auto) Baso % (Auto) Lymph # (Auto) [place] # (Auto) Eos # (Auto) Baso # (Auto) Abs Immat Gran (auto) Absolute Neuts (auto) Absolute Nucleated RBC Nucleated RBC % (auto) Whole Blood PT Whole Blood INR Anion Gap 12 Estim Creat Clear Calc 58.5 Estimated GFR > 60 POC Glucose Random Glucose 99 Lactic Acid Calcium 8.6 Total Bilirubin 0.2 Direct Bilirubin < 0.2 AST 22 D ALT 16 Alkaline Phosphatase 55 Troponin I High Sens < 3.5 Total Protein 7.4 Albumin 3.5 Lipase 73 Urine Color Urine Appearance Urine pH Ur Specific [place] Urine Protein Urine Glucose (UA) Urine Ketones Urine Blood Urine Nitrite Ur Leukocyte Esterase COVID-19 (CHANELLE) Negative COVID-19 Clin Com See Note 07/24/21 07/24/21 13:59 19:28 MCV MCH MCHC RDW Plt Count MPV Immature Gran % (Auto) Neut % (Auto) Lymph % (Auto) [place] % (Auto) Eos % (Auto) Baso % (Auto) Lymph # (Auto) [place] # (Auto) Eos # (Auto) Baso # (Auto) Abs Immat Gran (auto) Absolute Neuts (auto) Absolute Nucleated RBC Nucleated RBC % (auto) Whole Blood PT Whole Blood INR Anion Gap Estim Creat Clear Calc Estimated GFR POC Glucose Random Glucose Lactic Acid 1.7 Calcium Total Bilirubin Direct Bilirubin AST ALT Alkaline Phosphatase Troponin I High Sens Total Protein Albumin Lipase Urine Color YELLOW Urine Appearance CLEAR Urine pH 5.5 Ur Specific [place] 1.025 Urine Protein TRACE Urine Glucose (UA) NEG Urine Ketones NEG Urine Blood NEG Urine Nitrite NEG Ur Leukocyte Esterase NEG COVID-19 (CHANELLE) COVID-19 Clin Com Imaging Radiologist's Impressions: Impressions Chest X-Ray 07/24/21 13:13 IMPRESSION: 1. Mild interval decrease in left lung base opacities suggesting mild interval improvement of an infiltrate. 2. Coarsened interstitial markings bilaterally nonspecific, but similar to the previous study and could represent chronic changes. Right midlung nodules are stable as well. Head CT 07/24/21 13:19 IMPRESSION: No acute intracranial process seen. 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 Dilated lateral ventricles more than the cortical sulci, raising question foreign pH. Left parasellar coiling material from previous intervention. Assessment and Plan (1) Aspiration pneumonia: Status: Acute (2) Acute respiratory failure with hypoxia: Status: Acute This is a 70-year-old male with past medical history of aspiration pneumonia presents to the hospital with hypoxia # acute hypoxic respiratory failure - most likely due to recurrent aspiration pneumonia - at this time will continue oxygen supplement - will start him on his mechanical diet as recommended by speech on his most recent admission July - monitor respiratory status and titrate oxygen off as tolerated # aspiration pneumonia - patient has history of aspiration pneumonia with history of PEG tube placement which has been removed previously - seen by speech on previous admission which recommended mechanical diet-will resume - will consult speech, to evaluate if there is any other option at this time # agitation/delirium - continue Haldol - p.r.n. Ativan if needed # HIV - continue home meds DVT prophylaxis: Lovenox Quality Stroke Does the patient have a stroke diagnosis?: No VTE Prior VTE?: No VTE Risk Level:: Medical - moderate - high VTE Device Contraindication: Treatment Not Indicated VTE Drug Contraindication: N/A - Med Ordered
--- NOTE | 2021-07-24 22:45 | PC.NURSE ---
per hospitalist as well as ed staff that works with this patient at [facility] he is on nectar thick liquids. pt was able to pass swallow with nectar thick. hospitalist requested meds be crushed.
[2021-07-24] MEDS: Enoxaparin Sodium 40 MG/0.4 ML SYRINGE SUBCUT (22:58)
[2021-07-24] MEDS: HaloperidoL 1 MG TABLET PO (22:59)
[2021-07-24] MEDS: Ampicillin Sodium/Sulbactam Na 3 GM in 0.9 % Sodium Chloride 100 ML IV (22:59)
--- NOTE | 2021-07-24 23:11 | PC.NURSE ---
patient took meds crushed in pudding, nectar thick gingerale, pt swallowed well.
[2021-07-24] MEDS: traMADoL HCL 50 MG TABLET PO (23:26)
--- NOTE | 2021-07-24 23:33 | PC.NURSE ---
pt reposition for comfort. medicated per Mar.
[2021-07-25] VITALS (7 sets, daily range): BP systolic 122–154; BP diastolic 52–85; PULSE 77–86; RESP 12–20; TEMP 37–37.1; O2SAT 95–98
[2021-07-25] MEDS: diphenhydrAMINE HCL 50 MG/ML VIAL 25 MG IVPUSH (00:24)
[2021-07-25] MEDS: 0.9 % Sodium Chloride Flush 3 ML SYRINGE IVFLUSH ×2 (00:25→07:52)
[2021-07-25] MEDS: LORazepam 2 MG/ML VIAL 1 MG IVPUSH (02:53)
--- NOTE | 2021-07-25 05:32 | PC.NURSE ---
pt continue to yell out, pt incontinent of stool. complete bed change and selin care.
[2021-07-25] MEDS: LORazepam 2 MG/ML VIAL 0.5 MG IVPUSH (05:59)
[2021-07-25] MEDS: Ampicillin Sodium/Sulbactam Na 3 GM in 0.9 % Sodium Chloride 100 ML IV ×3 (06:02→22:47)
--- NOTE | 2021-07-25 06:10 | PC.NURSE ---
pt repositioned and medicated per mar.
[2021-07-25] MEDS: Omeprazole 20 MG CAPSULE.DR PO (06:16)
--- NOTE | 2021-07-25 07:45 | PC.NURSE ---
The pt is sleeping in bed, wakes to verbal stimuli but fall sback to sleep quickly. No S/s of pain/distress. Respirations non-labored. SR rate 84 on bedside monitor. Will continue to monitor.
[2021-07-25] MEDS: Dextrose 5 % and 0.45 % NaCl 1,000 ML 80 ML IVCONT ×2 (09:19→22:27)
[2021-07-25] MEDS: Docusate Sodium 100 MG CAPSULE PO (10:37)
[2021-07-25] MEDS: Metoprolol Tartrate 25 MG TABLET PO ×2 (10:37→20:55)
[2021-07-25] MEDS: ALPRAZolam 0.25 MG TABLET PO ×2 (10:38→20:55)
[2021-07-25] MEDS: Aspirin 81 MG TAB.CHEW PO (10:38)
[2021-07-25] MEDS: Cyanocobalamin (Vitamin B-12) 500 MCG TABLET 1500 MCG PO (10:38)
[2021-07-25] MEDS: HaloperidoL 1 MG TABLET PO ×3 (10:38→20:55)
[2021-07-25] MEDS: Multivitamin TABLET 1 TAB PO (10:38)
[2021-07-25] MEDS: Pregabalin 50 MG CAPSULE PO ×3 (11:29→20:55)
[2021-07-25] MEDS: Dolutegravir Sodium 50 MG TABLET PO (11:29)
[2021-07-25] MEDS: lamiVUDine 150 MG TABLET 300 MG PO (11:29)
--- NOTE | 2021-07-25 12:20 | MHC.CM.PN ---
Attempted to meet with patient in regards to disharge planning. 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 Attempted to reach Td via telephone at [phone] and [phone]. Left voicemail explaining IMM would be sent via email at his preference. Anticipate patient will return to [facility] via BLS when medically stable. Continue to monitor for d/c needs.
[2021-07-25 12:51] LABS: MANUAL DIFF FLAG NO
[2021-07-25 12:56] LABS: Basophils Percent Auto 0.3 % (0-2); Eosinophils Absolute Auto 0.2 X10*3/uL (0.0-0.4); Eosinophils Percent Auto 2.3 % (0-4); Hematocrit 36.5 % (42-52); Hemoglobin 12.1 g/dl (14.0-18.0); Imm Gran Abs Auto 0.02 X10*3/uL (0.00-0.03); Imm Gran Pct Auto 0.3 % (0.0-0.4); Lymphocytes Absolute Auto 0.3 X10*3/uL (1.2-4.9); Lymphocytes Percent Auto 4.3 % (20-40); Mean Corpuscular HGB Conc 33.2 g/dl (31.0-36.0); Mean Corpuscular Hemoglobin 29.2 pg (27.0-33.0); Mean Platelet Volume 9.9 fL (9.4-12.4); Monocytes Absolute Auto 0.7 X10*3/uL (0.1-1.2); Monocytes Percent Auto 9.5 % (2-11); Neutrophils Absolute Auto 6.2 X10*3/uL (2.0-8.3); Neutrophils Percent Auto 83.3 % (45-73); Platelet Count 221 X10*3/uL (160-400); Red Blood Count 4.15 X10*6/uL (4.60-5.80); Red Cell Distribution Width 14.4 % (11.0-16.0); White Blood Count 7.5 X10*3/uL (4.8-10.8)
[2021-07-25 13:09] LABS: Anion Gap 11 (12-20); Blood Urea Nitrogen 11 mg/dL (9-16); Calcium 8.2 mg/dL (8.4-10.2); Carbon Dioxide 25 mmol/L (22-29); Chloride 111 mmol/L (96-108); Creatinine Clr Calc Pharmacy 62.4; Estimated Glomerular Filt Rate > 60; Glucose Random 94 mg/dL (60-115); Sodium 143 mmol/L (135-145)
[2021-07-25 13:38] LABS: Procalcitonin 0.39 ng/mL
--- NOTE | 2021-07-25 15:38 | HO.PM.IMPN ---
Subjective Subjective Date of Service: 07/25/21 Interval History: aspirational pneumonia Review of Systems Patient seems sleeping, received Ativan in the morning probably sleepy because of that. As per the staff starts yelling once he is awake no new events Physical Exam Vital Signs: Vital Signs: Last Vital Signs Temp 98.8 F 07/25/21 14:14 Pulse 77 07/25/21 14:14 Resp 12 07/25/21 14:14 BP 135/63 07/25/21 14:14 Pulse Ox 98 07/25/21 14:14 Body Mass Index 25.1 Physical exam: Appearance: noncooperative ,sleepy, intermittent agaitated as per staff ENT: Pharynx normal.? Moist mucous membranes. cvs: rrr, [id number] , no murmur res:air entry seems fair limited abd: no rebound or guarding ,nt, bs present. ext pulses present , no cyanosis ,Gait well balanced well coordinated. neuro:sleeping ,intermittent agaitated as per staff ,. Objective Data Active Medications Abacavir Sulfate (Abacavir Sulfate 300 Mg Tablet) 600 mg PO DAILY [facility] Last Admin: 07/25/21 11:34 Dose: 600 mg Documented by: CINDY Acetaminophen (Acetaminophen 325 Mg Tablet) 650 mg PO Q6H PRN PRN Reason: Pain, Mild (Pain Scale 1-3) Alprazolam (Alprazolam 0.25 Mg Tablet) 0.25 mg PO BID [facility] Last Admin: 07/25/21 10:38 Dose: 0.25 mg Documented by: BERNIE Aspirin (Aspirin 81 Mg Tab.Chew) 81 mg PO DAILY [facility] Last Admin: 07/25/21 10:38 Dose: 81 mg Documented by: BERNIE Cyanocobalamin (Cyanocobalamin (Vitamin B-12) 500 Mcg Tablet) 1,500 mcg PO DAILY [facility] Last Admin: 07/25/21 10:38 Dose: 1,500 mcg Documented by: BERNIE Docusate Sodium (Docusate Sodium 100 Mg Capsule) 100 mg PO DAILY [facility] Last Admin: 07/25/21 10:37 Dose: 100 mg Documented by: BERNIE Dolutegravir Sodium (Dolutegravir Sodium 50 Mg Tablet) 50 mg PO DAILY [facility] Last Admin: 07/25/21 11:29 Dose: 50 mg Documented by: CINDY Enoxaparin Sodium (Enoxaparin Sodium 40 Mg/0.4 Ml Syringe) 40 mg SUBCUT Q24H [facility] Last Admin: 07/24/21 22:58 Dose: 40 mg Documented by: EDDI Haloperidol (Haloperidol 1 Mg Tablet) 1 mg PO TID [facility] Last Admin: 07/25/21 14:48 Dose: 1 mg Documented by: ЕЛЕНА Ampicillin Sodium/Sulbactam (Sodium 3 gm/ Sodium Chloride) 100 mls @ 200 mls/hr IV Q8H [facility] Last Admin: 07/25/21 14:48 Dose: 200 mls/hr Documented by: ЕЛЕНА Dextrose/Sodium Chloride (D51/2ns) 1,000 mls @ 80 mls/hr IVCONT .[id number] [facility] Last Admin: 07/25/21 09:19 Dose: 80 mls/hr Documented by: BERNIE Lactulose (Lactulose 20 Gm/30 Ml Solution) 20 gm PO DAILY PRN PRN Reason: Constipation Lamivudine (Lamivudine 150 Mg Tablet) 300 mg PO DAILY [facility] Last Admin: 07/25/21 11:29 Dose: 300 mg Documented by: CINDY Lorazepam (Lorazepam 2 Mg/Ml Vial) 2 mg IM Q15M PRN PRN Reason: Seizures Metoprolol Tartrate (Metoprolol Tartrate 25 Mg Tablet) 25 mg PO BID [facility]; Protocol Last Admin: 07/25/21 10:37 Dose: 25 mg Documented by: BERNIE Multivitamins/Vitamin C (Multivitamin Tablet) 1 tab PO DAILY [facility] Last Admin: 07/25/21 10:38 Dose: 1 tab Documented by: BERNIE Omeprazole (Omeprazole 20 Mg Capsule.Dr) 20 mg PO DAILY@0630 [facility] Last Admin: 07/25/21 06:16 Dose: 20 mg Documented by: SID Pharmacy Consult (Consult Rx Perform Med Rec) 1 each MISCELLANE ONCE PRN PRN Reason: Consult order Pregabalin (Pregabalin 50 Mg Capsule) 50 mg PO TID [facility] Last Admin: 07/25/21 14:48 Dose: 50 mg Documented by: ЕЛЕНА Senna (Sennosides 8.6 Mg Tablet) 8.6 mg PO BID PRN PRN Reason: Constipation Sodium Chloride (0.9 % Sodium Chloride Flush 3 Ml Syringe) 3 ml IVFLUSH QSHIFT NANCY Last Admin: 07/25/21 15:12 Dose: Not Given Documented by: ЕЛЕНА Non-Admin Reason: IV Running Tramadol HCl (Tramadol Hcl 50 Mg Tablet) 50 mg PO Q8H PRN PRN Reason: Pain Last Admin: 07/24/21 23:26 Dose: 50 mg Documented by: SID Labs CBC & Chem 7: 07/25/21 12:48 07/25/21 12:48 Labs: Laboratory Results - last 24 hr 07/24/21 07/25/21 07/25/21 19:28 12:48 12:48 MCV 88.0 MCH 29.2 MCHC 33.2 RDW 14.4 Plt Count 221 MPV 9.9 Immature Gran % (Auto) 0.3 Neut % (Auto) 83.3 H Lymph % (Auto) 4.3 L [place] % (Auto) 9.5 Eos % (Auto) 2.3 Baso % (Auto) 0.3 Lymph # (Auto) 0.3 L [place] # (Auto) 0.7 Eos # (Auto) 0.2 Baso # (Auto) 0.0 Abs Immat Gran (auto) 0.02 Absolute Neuts (auto) 6.2 Absolute Nucleated RBC 0.000 Nucleated RBC % (auto) 0.0 Anion Gap 11 L Estim Creat Clear Calc 62.4 Estimated GFR > 60 Random Glucose 94 Calcium 8.2 L Procalcitonin Urine Color YELLOW Urine Appearance CLEAR Urine pH 5.5 Ur Specific [place] 1.025 Urine Protein TRACE Urine Glucose (UA) NEG Urine Ketones NEG Urine Blood NEG Urine Nitrite NEG Ur Leukocyte Esterase NEG 07/25/21 12:48 MCV MCH MCHC RDW Plt Count MPV Immature Gran % (Auto) Neut % (Auto) Lymph % (Auto) [place] % (Auto) Eos % (Auto) Baso % (Auto) Lymph # (Auto) [place] # (Auto) Eos # (Auto) Baso # (Auto) Abs Immat Gran (auto) Absolute Neuts (auto) Absolute Nucleated RBC Nucleated RBC % (auto) Anion Gap Estim Creat Clear Calc Estimated GFR Random Glucose Calcium Procalcitonin 0.39 Urine Color Urine Appearance Urine pH Ur Specific [place] Urine Protein Urine Glucose (UA) Urine Ketones Urine Blood Urine Nitrite Ur Leukocyte Esterase Assessment and Plan (1) Acute respiratory failure with hypoxia: Status: Acute (2) Aspiration pneumonia: Status: Acute Assessment and Plan: 70-year-old male with past medical history of aspiration pneumonia presents to the hospital with hypoxia 1. acute hypoxic respiratory failure- most likely due to recurrent aspiration pneumonia - at this time will continue oxygen supplement - will start him on his mechanical diet as recommended by speech on his most recent admission July - monitor respiratory status and titrate oxygen off as tolerated 2. aspiration pneumonia - patient has history of aspiration pneumonia with history of PEG tube placement which has been removed previously - seen by speech on previous admission which recommended mechanical diet-will resume - will consult speech, to evaluate if there is any other option at this time 3. agitation/delirium - continue Haldol - p.r.n. Ativan if needed 4. HIV - continue home meds Quality Stroke Does the patient have a stroke diagnosis?: No VTE Prior VTE?: No VTE Risk Level:: Medical - moderate - high VTE Device Contraindication: Treatment Not Indicated VTE Drug Contraindication: N/A - Med Ordered
--- NOTE | 2021-07-25 18:19 | PC.NURSE ---
Patient continuously screaming help even with staff present in the room. Patient states he is freezing; oral temp 97.2, patient given many blankets and frequent staff attention with no avail. Will pass to oncoming RN.
[2021-07-25] MEDS: Acetaminophen 325 MG TABLET 650 MG PO (21:15)
[2021-07-25] MEDS: Enoxaparin Sodium 40 MG/0.4 ML SYRINGE SUBCUT (22:27)
[2021-07-26] VITALS: BP 124/60; PULSE 66; RESP 19; TEMP 36; O2SAT 97
[2021-07-26 03:58] VITALS: BP 124/71; PULSE 70; RESP 20; TEMP 36.4; O2SAT 99
[2021-07-26] MEDS: Omeprazole 20 MG CAPSULE.DR PO (05:55)
[2021-07-26] MEDS: Ampicillin Sodium/Sulbactam Na 3 GM in 0.9 % Sodium Chloride 100 ML IV (05:55)
--- NOTE | 2021-07-26 06:33 | PC.NURSE ---
Patient repeatedly found to be covered in feces, feces under fingernails, spread all over bed/linen, and entire body. Yowling/meowing all night. Pulled IV in right arm. Right arm now erythematous/edematous. Patient refusing to keep ice in place. Pulled [place] cath off x4. Patient fighting staff during bath/linen change. Camera in place for patient safety. Reorientation and education with minimal effect.
[2021-07-26 07:45] VITALS: BP 133/72; PULSE 66; RESP 18; TEMP 36.4; O2SAT 100
[2021-07-26] MEDS: lamiVUDine 150 MG TABLET 300 MG PO (10:19)
[2021-07-26] MEDS: Pregabalin 50 MG CAPSULE PO (10:20)
[2021-07-26] MEDS: HaloperidoL 1 MG TABLET PO ×2 (10:20→16:14)
[2021-07-26] MEDS: Cyanocobalamin (Vitamin B-12) 500 MCG TABLET 1500 MCG PO (10:20)
[2021-07-26] MEDS: Dolutegravir Sodium 50 MG TABLET PO (10:20)
[2021-07-26 10:21] VITALS: BP 133/72; PULSE 66
[2021-07-26] MEDS: 0.9 % Sodium Chloride Flush 3 ML SYRINGE IVFLUSH (10:21)
[2021-07-26] MEDS: Multivitamin TABLET 1 TAB PO (10:21)
[2021-07-26] MEDS: Aspirin 81 MG TAB.CHEW PO (10:21)
[2021-07-26] MEDS: ALPRAZolam 0.25 MG TABLET PO (10:21)
[2021-07-26] MEDS: Metoprolol Tartrate 25 MG TABLET PO (10:21)
--- NOTE | 2021-07-26 10:29 | MHC.SLORD ---
Speech Language Pathology Order Status: Updated with Dr. Gorman via secure [place]a text, as ST had been consulted during pt's recent admission last week. An MBSS was attempted to be completed last week, though pt became combative towards the transporter and the exam was unable to be completed. PO trials were not completed due to pt's known history of silent aspiration. Per Dr. Gorman, there is no need to see pt during his current hospitaization, as pt will be returning to [facility] soon and will be followed by the DYNA[facility] TENDER there. Pt is currently on his baseline diet consistency of NDD2 GROUND/MECHANICALLY ALTERED solids and THIN liquids. Per MD, eating is the only enjoyment pt has and guardian is aware of the risks.
[2021-07-26 12:00] VITALS: BP 172/86; PULSE 72; RESP 18; TEMP 36.4; O2SAT 97
--- NOTE | 2021-07-26 13:23 | P.DS_ITS ---
DS: Providers Provider Date of Service: 07/26/21 Date of admission: 07/24/21 22:09 Date of discharge: 07/26/21 Primary care physician: Unknown Physician DS: Diagnosis Discharge Diagnosis (1) Acute respiratory failure with hypoxia: Status: Acute (2) Aspiration pneumonia: Status: Acute DS: Summary Hospital Course Hospital Course: This is a 70-year-old male with a significant past medical history as below who is a resident of [facility] who sent to the hospital for concern of stroke.? After further investigation by the ED department it appears that patient is actually at his baseline with no change in his mental status.? Per EMS the patient was sent for stroke protocol.? Patient is nonverbal at baseline and has paraplegia, unable to give much history himself and therefore history is obtained mostly from EMR as well as ED staff.? The nurse who knows him while at the facility as well as at our own ED reports that patient is at his baseline but he may have been aspirating.? Unable to get much review of system From the hospital on 07/21 at that time patient was treated for he was started on Rocephin and erythromycin but due to concern over aspiration he was treated with Zosyn and doxycycline.? He has a history of aspiration and previously had a PEG tube in place which has since then been removed.? Patient was seen by speech who recommended modified barium swallow which the patient did not cooperating with.? He was started on mechanical ground diet but unclear if he was compliant with it at the [place] [facility].? On arrival to the ED patient was found to be hypoxic with an O2 level of 83% on room air.? Vitals otherwise unremarkable.? Patient was placed on 4 L of nasal cannula now satting 98-100%. Unremarkable ?interval decrease in left lung base opacities suggesting mi interval improvement of an infiltrate, coarsened interstitial marking bilaterally nonspecific but similar to the previous study Hospital course Admitted given IV antibiotics and short course of steroid with improvement back to baseline(patient well known to me from [facility]). At this time medically acceptable for discharge back care 1 Time Spent with Patient Time attestation: Total time spent providing and/or coordinating discharge services: Discharge coordination time: Greater than 30 minutes Quality: Stroke Does the patient have a stroke diagnosis?: No Physical Exam Vital Signs: Vital Signs: Last Vital Signs Temp 97.6 F 07/26/21 12:00 Pulse 72 07/26/21 12:00 Resp 18 07/26/21 12:00 BP 172/86 H 07/26/21 12:00 Pulse Ox 97 07/26/21 12:00 Body Mass Index 25.1 Const: Other: Patient not cooperating with exam, nonverbal at baseline, unable to follow directions, I am unable to obtain at Good physical exam General: no acute distress Eyes: General: appearance normal, both eyes and all related structures Pupils: Equal, round and reactive pupils present Resp: Effort & Inspection: normal respiratory effort Cardio: Rate: regular rate Rhythm: regular rhythm GI: Palpation (GI): Soft to palpation Auscultation: normal bowel sounds Skin: General skin exam: no rashes or lesions noted Neuro: Cranial nerves: Yes Equal, round and reactive pupils present Cognition (Neuro): normal cognition Extrem: General: Yes normal to inspection and Yes no pedal edema DS: Data Data Completed and Pending Labs on day of discharge: Laboratory Results - last 24 hr 07/25/21 12:48 Procalcitonin 0.39 Preliminary micro results at discharge 07/24/21 14:52 Blood Culture - Preliminary Blood - Venous No growth after 24 hours. 07/24/21 13:59 Blood Culture - Preliminary Blood - Venous No growth after 24 hours. Discharge Plan Discharge Patient Disposition: Xfer Inpatient Rehab Fac Discharge Diagnosis: Aspiration pneumonia Referrals: Physician,Unknown J [Primary Care Provider] - 1 Week Discharge Medications: New abacavir 300 mg Tablet 600 mg PO DAILY Qty: 30 RF: 0 lamivudine 150 mg Tablet 300 mg PO DAILY Qty: 30 RF: 0 Tivicay 50 mg Tablet 50 mg PO DAILY Qty: 30 RF: 0 Continued multivitamin Tablet 1 tab PO DAILY RF: 0 sennosides [senna] 8.6 mg Tablet 8.6 mg PO BID PRN (Reason: Constipation) RF: 0 acetaminophen 325 mg Tablet 650 mg PO Q4H PRN (Reason: Pain) RF: 0 lorazepam 2 mg/mL Solution 2 mg IM Q15M PRN (Reason: Seizures) RF: 0 cyanocobalamin (vitamin B-12) 1,000 mcg Tablet 1,500 mcg PO DAILY RF: 0 haloperidol 1 mg Tablet 1 mg PO TID RF: 0 tramadol 50 mg Tablet 50 mg PO Q8H PRN (Reason: Pain) RF: 0 alprazolam 0.25 mg Tablet 0.25 mg PO BID RF: 0 lansoprazole 30 mg Capsule,Delayed Release(Dr/Ec) 30 mg PO DAILY RF: 0 docusate sodium 100 mg Capsule 100 mg PO DAILY RF: 0 metoprolol tartrate 25 mg Tablet 25 mg PO BID RF: 0 lactulose 10 gram/15 mL Solution 30 ml PO DAILY PRN (Reason: Constipation) RF: 0 calcium carbonate-vitamin D3 [Calcium 500 + D] 500 mg(1,250mg) -200 unit Tablet 1 tab PO BID RF: 0 pregabalin 50 mg Capsule 50 mg PO TID RF: 0 Triumeq 600-50-300 mg Tablet 1 tab PO DAILY RF: 0 ferrous sulfate 220 mg (44 mg iron)/5 mL Elixir 330 mg PO DAILY RF: 0 aspirin 81 mg Tablet,Chewable 81 mg PO DAILY RF: 0 zinc oxide-vitamin B5-vit E 11.3 % Cream 1 appl TOPICAL QSHIFT RF: 0 amoxicillin-pot clavulanate [Augmentin] 875-125 mg tablet 1 tab PO BID Qty: 20 RF: 0 Discontinued doxycycline hyclate 100 mg capsule 100 mg PO BID RF: 0 Discharge Orders: Discharge Order (Routine); Ordered 07/26/21 Ordered By: Kev Gorman Activity on Discharge: As tolerated Stand Alone Forms: Patient Portal Discharge page Care Plan Goals: Maintain eyes level of function Health Concerns: Supervised feedings Plan of Treatment: As per care 1 Assessment: Improved
== END 2021-07-26 16:30 | disposition home or self-care (01) | DRG 177 ==
LOC: HO.ED 15:19 → HO.EDOVER 22:51 → HO.IMC 07-25 13:08
PROVIDERS: Internal Medicine; Admitting Provider Internal Medicine; Emergency Provider Student in an Organized Health Care Education/Training Program; Visit Provider Hospitalist
DX: J69.0 Pneumonitis due to inhalation of food and vomit (principal); J96.01 Acute respiratory failure with hypoxia; G82.20 Paraplegia, unspecified; F05 Delirium due to known physiological condition; Z21 Asymptomatic human immunodeficiency virus [HIV] infection status; Z20.822 Contact with and (suspected) exposure to COVID-19; Z79.899 Other long term (current) drug therapy
CPT/HCPCS: 36415; 70450; 71045; 80048; 80076; 81003; 82947; 83605; 83690; 84145; 84484; 85025; 85610; 87040; 87635; 93005; 96365; 96366; 96367; 96375; 99285; 99291; 99292; J0295; J0456; J0696; J1200; J1650; J2060

== ENCOUNTER 2021-09-19 18:44 | Emergency (ER) | payer MEDICARE, MEDICAID, SELFPAY ==
--- NOTE | ~2021-09-19 | XR_ITS ---
EXAMINATION: XR CHEST CLINICAL INFORMATION: Decreased responsiveness. Questionable aspiration. COMPARISON: Multiple priors. Most recent chest radiograph dated from 07/24/2021. TECHNIQUE: AP view of the chest was obtained. FINDINGS: Unchanged cardiomediastinal silhouette. Redemonstration of coarsened interstitial markings and pulmonary nodules without significant change. No new focal airspace opacities, pleural effusions or pneumothorax. No acute osseous findings. XR/XR chest 1V IMPRESSION: Stable examination since 07/24/2021.
--- NOTE | 2021-09-19 18:49 | ED.AMS ---
HPI - Altered Mental Status General Chief Complaint: General Medical Stated Complaint: periods of unresponsiveness Time Seen by Provider: 09/19/21 18:49 Source: EMS Mode of arrival: EMS Limitations: other (not talking) History of Present Illness HPI narrative: Patient had a [facility] swab [facility] and stopped answering questions. He has done this before. MD complaint: altered mental status Onset (ago): hour(s) Severity: mild Associated symptoms: denies other symptoms Related Data Home Medications Medication Instructions Recorded Confirmed abacavir 600 mg-dolutegravir 50 1 tab PO DAILY 07/19/21 07/24/21 mg-lamivudine 300 mg tablet (Triumeq) acetaminophen 325 mg tablet 650 mg PO Q4H PRN 07/19/21 07/24/21 alprazolam 0.25 mg tablet 0.25 mg PO BID 07/19/21 07/24/21 calcium carbonate 500 mg-vitamin 1 tab PO BID 07/19/21 07/24/21 D3 5 mcg (200 unit) tablet (Calcium 500 + D) cyanocobalamin (vitamin B-12) 1,500 mcg PO DAILY 07/19/21 07/24/21 1,000 mcg tablet docusate sodium 100 mg capsule 100 mg PO DAILY 07/19/21 07/24/21 ferrous sulfate 220 mg (44 mg 330 mg PO DAILY 07/19/21 07/24/21 iron)/5 mL oral elixir haloperidol 1 mg tablet 1 mg PO TID 07/19/21 07/24/21 lactulose 10 gram/15 mL oral 30 ml PO DAILY PRN 07/19/21 07/24/21 solution lansoprazole 30 mg capsule,delayed 30 mg PO DAILY 07/19/21 07/24/21 release lorazepam 2 mg/mL injection 2 mg IM Q15M PRN 07/19/21 07/24/21 solution metoprolol tartrate 25 mg tablet 25 mg PO BID 07/19/21 07/24/21 multivitamin 1 tab PO DAILY 07/19/21 07/24/21 pregabalin 50 mg capsule 50 mg PO TID 07/19/21 07/24/21 sennosides 8.6 mg tablet (senna) 8.6 mg PO BID PRN 07/19/21 07/24/21 tramadol 50 mg tablet 50 mg PO Q8H PRN 07/19/21 07/24/21 aspirin 81 mg chewable tablet 81 mg PO DAILY 07/24/21 07/24/21 zinc oxide-vitamin B5-vit E 11.3% 1 appl TOPICAL QSHIFT 07/24/21 07/24/21 topical cream Previous Rx's Medication Instructions Recorded abacavir 300 mg tablet 600 mg PO DAILY #30 tab 07/26/21 amoxicillin 875 mg-potassium 1 tab PO BID #20 tab 07/26/21 clavulanate 125 mg tablet (Augmentin) dolutegravir 50 mg tablet (Tivicay) 50 mg PO DAILY #30 tab 07/26/21 lamivudine 150 mg tablet 300 mg PO DAILY #30 tab 07/26/21 Allergies Allergy/AdvReac Type Severity Reaction Status Date / Time No Known Allergies Allergy Unknown Unverified 06/23/20 17:32 [No Known Allergies*] Review of Systems Review of Systems: Yes Unobtainable due to mental status Neurologic: Denies Sensory deficit (Neuro) PMFSH Past Medical History Medical History Age-related nuclear cataract, bilateral Altered mental status, unspecified Anemia, unspecified Bipolar 1 disorder Chronic anemia Chronic kidney disease Chronic kidney disease, stage 3 unspecified Constipation, unspecified Contracture, unspecified foot Contracture, unspecified knee Coronary artery disease Cyst of kidney, acquired Dementia Dementia in other diseases classified elsewhere with behavioral disturbance Dysphagia, oropharyngeal phase Essential (primary) hypertension History of COVID-19 HIV (human immunodeficiency virus infection) Hypertension Impulse disorder, unspecified Leg weakness Old myocardial infarction Other cholelithiasis without obstruction Other specified disorders of bone density and structure, unspecified site Paraplegia, unspecified Personal history of other diseases of the circulatory system Personal history of other diseases of the respiratory system Personal history of pneumonia (recurrent) Personal history of tuberculosis 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 Presbyopia Primary generalized (osteo)arthritis Splenomegaly, not elsewhere classified Unspecified convulsions Unspecified dementia with behavioral disturbance Social History Social History Household Members: Other Housing: Senior Living Do you presently have visiting nurse or other home services: No Alcohol intake: unknown Patient Tobacco Use Status: Never used Tobacco Advance Directives: No Advance Directives Information Provided: Yes service: No Current occupational status: disabled Physical Exam Vital Signs: Vital Signs: Last Vital Signs Temp 98.4 F 09/19/21 19:21 Pulse 63 09/19/21 19:24 Resp 20 09/19/21 19:24 BP 125/55 L 09/19/21 19:24 Pulse Ox 96 09/19/21 19:24 BMI result Body Mass Index 19.2 Const: Other: chronically ill male minimally responding Nutritional Appearance: average body habitus Limitations: altered mental status HENMT: Head: Yes normal to inspection Ears: external ears normal General nose exam: Normal external nose present Mouth: Normal oral and palatal mucosa present and oropharynx normal Throat: Yes posterior oropharynx normal Eyes: Other: keeping his eyes closed Neck: Other: supple Neck: Yes normal visual inspection Chest: Chest palpation & inspection: normal inspection of the chest Resp: Auscultation: clear to auscultation bilaterally Cardio: Jugular venous distension: no JVD Rate: regular rate Rhythm: regular rhythm Heart sounds: S1 normal heart sound present and S2 normal heart sound present GI: Inspection: Yes normal to inspection Palpation (GI): Soft to palpation, nontender and No hepatosplenomegaly present Auscultation: normal bowel sounds : General: Yes no CVA tenderness Back/Spine/Pelvis: Back: no CVA tenderness Skin: General skin exam: no rashes or lesions noted Neuro: Other: withdraws to pain Sensory Exam: No Sensory deficit (Neuro) Extrem: General: Yes normal to inspection Psych: Other: unresponsive Course Reevaluation(s) Reevaluation #1: Patient now responding to his favorite nurse. Told her he didn't want anything stuck up his nose Time: 19:10 Reevaluation #2: did not find any acute illness will dc home Time: 20:17 MDM - Altered Mental Status Lab Data Result diagrams: 09/19/21 19:38 09/19/21 19:38 Labs: Lab Results 09/19/21 09/19/21 09/19/21 Range/Units 19:38 19:38 19:38 WBC 6.8 (4.8-10.8) X10*3/uL RBC 4.41 L (4.60-5.80) X10*6/uL Hgb 12.9 L (14.0-18.0) g/dl Hct 39.5 L (42.0-52.0) % MCV 89.6 (80.0-98.0) fL MCH 29.3 (27.0-33.0) pg MCHC 32.7 (31.0-36.0) g/dl RDW 14.6 (11.0-16.0) % Plt Count 206 (160-400) X10*3/uL MPV 10.1 (9.4-12.4) fL Immature Gran % (Auto) 0.3 (0.0-0.4) % Neut % (Auto) 62.5 (45-73) % Lymph % (Auto) 20.0 (20-40) % [place] % (Auto) 13.7 H (2-11) % Eos % (Auto) 3.4 (0-4) % Baso % (Auto) 0.1 (0-2) % Lymph # (Auto) 1.4 (1.2-4.9) X10*3/uL [place] # (Auto) 0.9 (0.1-1.2) X10*3/uL Eos # (Auto) 0.2 (0.0-0.4) X10*3/uL Baso # (Auto) 0.0 (0.0-0.2) X10*3/uL Abs Immat Gran (auto) 0.02 (0.00-0.03) X10*3/uL Absolute Neuts (auto) 4.2 (2.0-8.3) x10*3/uL Absolute Nucleated RBC 0.000 (0.0-0.012) X10*3/uL Nucleated RBC % (auto) 0.0 (0.0-0.2) /100WBC Sodium 135 (135-145) mmol/L Potassium 4.5 (3.3-5.1) mmol/L Chloride 108 (96-108) mmol/L Carbon Dioxide 20 L (22-29) mmol/L Anion Gap 12 (12-20) BUN 37 H (9-16) mg/dL Creatinine 1.90 H (0.5-1.4) mg/dL Estim Creat Clear Calc 28.8 Estimated GFR 35 Random Glucose 97 (60-115) mg/dL Calcium 7.8 L (8.4-10.2) mg/dL Troponin I High Sens < 3.5 (<3.5-35.0) ng/L Imaging Data Chest x-ray: Radiologist's impression: IMPRESSION: Stable examination since 07/24/2021. ? ECG Data ECG #1: Attestation: I personally reviewed and interpreted this ECG as follows: Interpretation: sinus rate 60, no st or twave changes Discharge Plan Discharge Clinical Impression: Observation for suspected condition Patient Disposition: Home, Self-Care Prescriptions: No Action multivitamin Tablet 1 tab PO DAILY RF: 0 sennosides [senna] 8.6 mg Tablet 8.6 mg PO BID PRN (Reason: Constipation) RF: 0 acetaminophen 325 mg Tablet 650 mg PO Q4H PRN (Reason: Pain) RF: 0 lorazepam 2 mg/mL Solution 2 mg IM Q15M PRN (Reason: Seizures) RF: 0 cyanocobalamin (vitamin B-12) 1,000 mcg Tablet 1,500 mcg PO DAILY RF: 0 haloperidol 1 mg Tablet 1 mg PO TID RF: 0 tramadol 50 mg Tablet 50 mg PO Q8H PRN (Reason: Pain) RF: 0 alprazolam 0.25 mg Tablet 0.25 mg PO BID RF: 0 lansoprazole 30 mg Capsule,Delayed Release(Dr/Ec) 30 mg PO DAILY RF: 0 docusate sodium 100 mg Capsule 100 mg PO DAILY RF: 0 metoprolol tartrate 25 mg Tablet 25 mg PO BID RF: 0 lactulose 10 gram/15 mL Solution 30 ml PO DAILY PRN (Reason: Constipation) RF: 0 calcium carbonate-vitamin D3 [Calcium 500 + D] 500 mg(1,250mg) -200 unit Tablet 1 tab PO BID RF: 0 pregabalin 50 mg Capsule 50 mg PO TID RF: 0 Triumeq 600-50-300 mg Tablet 1 tab PO DAILY RF: 0 ferrous sulfate 220 mg (44 mg iron)/5 mL Elixir 330 mg PO DAILY RF: 0 aspirin 81 mg Tablet,Chewable 81 mg PO DAILY RF: 0 zinc oxide-vitamin B5-vit E 11.3 % Cream 1 appl TOPICAL QSHIFT RF: 0 abacavir 300 mg Tablet 600 mg PO DAILY Qty: 30 RF: 0 lamivudine 150 mg Tablet 300 mg PO DAILY Qty: 30 RF: 0 Tivicay 50 mg Tablet 50 mg PO DAILY Qty: 30 RF: 0 amoxicillin-pot clavulanate [Augmentin] 875-125 mg tablet 1 tab PO BID Qty: 20 RF: 0 Referrals: Physician,Unknown J [Primary Care Provider] - 1 week
--- NOTE | 2021-09-19 18:52 | ECG_ITS ---
Test Reason : AMS Blood Pressure : / mmHG Vent. Rate : 063 BPM Atrial Rate : 063 BPM P-R Int : 158 ms QRS Dur : 092 ms QT Int : 404 ms P-R-T Axes : 059 027 056 degrees QTc Int : 413 ms Normal sinus rhythm Normal ECG When compared with ECG of 24-JUL-2021 15:40, No significant change was found Referred By: Zurdo Daly Electronically Signed By:EZ ERWIN MD
[2021-09-19 19:21] VITALS: BP 103/66; BP 125/55; PULSE 66; PULSE 67; RESP 18; TEMP 36.9; O2SAT 98; O2SAT 99; BMI 19.2
[2021-09-19 19:24] VITALS: BP 125/55; PULSE 63; RESP 20; O2SAT 96
[2021-09-19 19:42] LABS: MANUAL DIFF FLAG NO
[2021-09-19 19:50] LABS: Basophils Percent Auto 0.1 % (0-2); Eosinophils Absolute Auto 0.2 X10*3/uL (0.0-0.4); Eosinophils Percent Auto 3.4 % (0-4); Hematocrit 39.5 % (42.0-52.0); Hemoglobin 12.9 g/dl (14.0-18.0); Imm Gran Abs Auto 0.02 X10*3/uL (0.00-0.03); Imm Gran Pct Auto 0.3 % (0.0-0.4); Lymphocytes Absolute Auto 1.4 X10*3/uL (1.2-4.9); Mean Corpuscular HGB Conc 32.7 g/dl (31.0-36.0); Mean Corpuscular Hemoglobin 29.3 pg (27.0-33.0); Mean Corpuscular Volume 89.6 fL (80.0-98.0); Mean Platelet Volume 10.1 fL (9.4-12.4); Monocytes Absolute Auto 0.9 X10*3/uL (0.1-1.2); Monocytes Percent Auto 13.7 % (2-11); Neutrophils Absolute Auto 4.2 x10*3/uL (2.0-8.3); Neutrophils Percent Auto 62.5 % (45-73); Platelet Count 206 X10*3/uL (160-400); Red Blood Count 4.41 X10*6/uL (4.60-5.80); Red Cell Distribution Width 14.6 % (11.0-16.0); White Blood Count 6.8 X10*3/uL (4.8-10.8)
[2021-09-19 20:00] LABS: Anion Gap 12 (12-20); Blood Urea Nitrogen 37 mg/dL (9-16); Calcium 7.8 mg/dL (8.4-10.2); Carbon Dioxide 20 mmol/L (22-29); Chloride 108 mmol/L (96-108); Creatinine Clr Calc Pharmacy 28.8; Estimated Glomerular Filt Rate 35; Glucose Random 97 mg/dL (60-115); Potassium 4.5 mmol/L (3.3-5.1); Sodium 135 mmol/L (135-145)
[2021-09-19 20:02] LABS: Troponin-I High Sensitivity < 3.5 ng/L (<3.5-35.0)
== END 2021-09-19 21:58 | disposition home or self-care (01) ==
PROVIDERS: Emergency Provider Emergency Medicine
DX: Z03.89 Encounter for observation for other suspected diseases and conditions ruled out (principal); R41.82 Altered mental status, unspecified; E11.22 Type 2 diabetes mellitus with diabetic chronic kidney disease; I12.9 Hypertensive chronic kidney disease with stage 1 through stage 4 chronic kidney disease, or unspecified chronic kidney disease; N18.30 Chronic kidney disease, stage 3 unspecified; B20 Human immunodeficiency virus [HIV] disease
CPT/HCPCS: 36415; 71045; 80048; 84484; 85025; 93005; 99283

== ENCOUNTER 2022-07-01 18:27 | Emergency (ER) | payer MEDICARE, MEDICAID, SELFPAY ==
--- NOTE | ~2022-07-01 | XR_ITS ---
EXAMINATION: PORTABLE CHEST 1 VIEW CLINICAL INFORMATION: ? aspiration . COMPARISON: 09/19/2021. TECHNIQUE: Portable frontal view of the chest was obtained. FINDINGS: The lungs are well expanded. Coarse reticular markings are again seen bilaterally. Possible tiny calcified granuloma in the lateral aspect of the right upper lobe. No focal infiltrate, effusion, edema, or pneumothorax. Cardiac and mediastinal silhouettes are within normal limits for technique. No acute bony abnormality seen. XR/XR chest 1V IMPRESSION: Chronic appearing coarsened reticular markings similar to the prior examination. No definitive acute airspace disease.
--- NOTE | ~2022-07-01 | XR_ITS ---
EXAMINATION: XR SOFT TISSUE NECK CLINICAL INDICATION: Possible aspiration COMPARISON: 06/11/2018 skull films TECHNIQUE: 2 views of the soft tissue neck were obtained. FINDINGS: Soft tissue films of the neck demonstrate a normal larynx, pharynx and upper trachea. No soft tissue swelling or opaque foreign body is demonstrated within the visualized airway. The patient is incidentally less. Aneurysm coils seen at the skull base. XR/XR soft tissue neck IMPRESSION: Unremarkable airway. Chronic changes otherwise as described.
--- NOTE | 2022-07-01 18:40 | ED_ITS ---
HPI - General Adult General Chief complaint: Upper Respiratory Symptoms Stated complaint: ?food stuck in airway Time Seen by Provider: 07/01/22 18:36 Source: patient and EMS Mode of arrival: EMS Limitations: altered mental status (Dementia per baseline) History of Present Illness HPI narrative: 71-year-old [facility] of a meatball sandwich. Patient was found choking while eating, patient has adventitious lung sounds and hoarseness in his voice. Patient does have dementia per baseline, is able to make some of his needs known. Onset (ago): hour(s) (Within the hour of arrival) Location: chest Severity: moderate Associated symptoms: cough Treatments prior to arrival: none Related Data Home Medications Medication Instructions Recorded Confirmed abacavir 600 mg-dolutegravir 50 1 tab PO DAILY 07/19/21 07/24/21 mg-lamivudine 300 mg tablet (Triumeq) acetaminophen 325 mg tablet 650 mg PO Q4H PRN Pain 07/19/21 07/24/21 alprazolam 0.25 mg tablet 0.25 mg PO BID 07/19/21 07/24/21 calcium carbonate 500 mg-vitamin 1 tab PO BID 07/19/21 07/24/21 D3 5 mcg (200 unit) tablet (Calcium 500 + D) cyanocobalamin (vitamin B-12) 1,500 mcg PO DAILY 07/19/21 07/24/21 1,000 mcg tablet docusate sodium 100 mg capsule 100 mg PO DAILY 07/19/21 07/24/21 ferrous sulfate 220 mg (44 mg 330 mg PO DAILY 07/19/21 07/24/21 iron)/5 mL oral elixir haloperidol 1 mg tablet 1 mg PO TID 07/19/21 07/24/21 lactulose 10 gram/15 mL oral 30 ml PO DAILY PRN Constipation 07/19/21 07/24/21 solution lansoprazole 30 mg capsule,delayed 30 mg PO DAILY 07/19/21 07/24/21 release lorazepam 2 mg/mL injection 2 mg IM Q15M PRN Seizures 07/19/21 07/24/21 solution metoprolol tartrate 25 mg tablet 25 mg PO BID 07/19/21 07/24/21 multivitamin 1 tab PO DAILY 07/19/21 07/24/21 pregabalin 50 mg capsule 50 mg PO TID 07/19/21 07/24/21 sennosides 8.6 mg tablet (senna) 8.6 mg PO BID PRN Constipation 07/19/21 07/24/21 tramadol 50 mg tablet 50 mg PO Q8H PRN Pain 07/19/21 07/24/21 aspirin 81 mg chewable tablet 81 mg PO DAILY 07/24/21 07/24/21 zinc oxide-vitamin B5-vit E 11.3% 1 appl topical QSHIFT 07/24/21 07/24/21 topical cream Previous Rx's Medication Instructions Recorded abacavir 300 mg tablet 600 mg PO DAILY #30 tabs 07/26/21 amoxicillin 875 mg-potassium 1 tab PO BID pneumonia #20 tabs 07/26/21 clavulanate 125 mg tablet (Augmentin) dolutegravir 50 mg tablet (Tivicay) 50 mg PO DAILY #30 tabs 07/26/21 lamivudine 150 mg tablet 300 mg PO DAILY #30 tabs 07/26/21 Allergies Allergy/AdvReac Type Severity Reaction Status Date / Time No Known Allergies Allergy Unknown Unverified 06/23/20 17:32 [No Known Allergies*] Review of Systems Review of Systems: Constitutional: No Fever, No Chills ENT/Mouth: No Ear Pain, No Hoarseness, No sore throat Eyes: No Eye Pain, No Swelling, No Redness, No Foreign Body Cardiovascular: No Chest Pain, No SOB Respiratory: Positive suspected aspiration,Positive Cough, No Dyspnea Gastrointestinal: No Nausea, No Vomiting, No Diarrhea, No abdominal Pain Genitourinary: No Dysuria, No Hematuria Musculoskeletal: No joint pain, No Myalgias, No Joint Swelling Skin: No Skin lacerations, No rash Neuro: No Weakness, No Numbness, No Paresthesias, No Loss of Consciousness, No Dizziness, No Headache Psych: No Anxiety/Panic, No Depression Heme/Lymph: no easy bruising, no Lymphadenopathy Endocrine: No Polyuria, No Polydipsia Yes all other systems are reviewed and are negative [facility] Past Medical History Attestation statement: The following information was validated with the patient. Source: old records reviewed Medical History Age-related nuclear cataract, bilateral Altered mental status, unspecified Anemia, unspecified Bipolar 1 disorder Chronic anemia Chronic kidney disease Chronic kidney disease, stage 3 unspecified Constipation, unspecified Contracture, unspecified foot Contracture, unspecified knee Coronary artery disease Cyst of kidney, acquired Dementia Dementia in other diseases classified elsewhere with behavioral disturbance Dysphagia, oropharyngeal phase Essential (primary) hypertension History of COVID-19 HIV (human immunodeficiency virus infection) Hypertension Impulse disorder, unspecified Leg weakness Old myocardial infarction Other cholelithiasis without obstruction Other specified disorders of bone density and structure, unspecified site Paraplegia, unspecified Personal history of other diseases of the circulatory system Personal history of other diseases of the respiratory system Personal history of pneumonia (recurrent) Personal history of tuberculosis 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 Presbyopia Primary generalized (osteo)arthritis Splenomegaly, not elsewhere classified Unspecified convulsions Unspecified dementia with behavioral disturbance Social History Social History Household Members: Other Housing: Senior Living Do you presently have visiting nurse or other home services: No Alcohol intake: unknown Patient Tobacco Use Status: Never used Tobacco Advance Directives: Yes Advance Directives on File: Yes Advance Directives Date on File: 07/25/21 service: No Current occupational status: disabled Physical Exam ED Vital Signs: Vital Signs - 24 hr 07/01/22 18:44 07/02/22 00:35 Temperature 98.4 F 98.1 F Pulse Rate 77 80 Respiratory Rate 20 16 Blood Pressure 144/73 H 136/77 Pulse Oximetry 94 94 Oxygen Delivery Method Room Air Room Air BMI result Body Mass Index 21.7 Appearance: Alert. Oriented to self. Able to answer some questions. No acute distress. Eyes: Pupils equal, round and reactive to light. ENT: Pharynx normal. Neck: Normal inspection. Neck supple. CVS: Normal heart rate and rhythm. Pulses normal. Respiratory: No respiratory distress. Coarse lung sounds throughout. Abdomen: Soft and nontender. Skin: Skin warm and dry. Normal skin color. Normal skin turgor. Extremities: No lower extremity edema. Moves all extremities against res istance. Gait not assessed for safety. Neuro: No motor deficit. No sensory deficit. Cranial nerves 2-12 intact Course Course Course Narrative: 71-year-old male presents via EMS from [facility] for suspected aspiration. Patient is alert and oriented, able to answer questions appropriately, does have a diagnosis of dementia per baseline. Patient does have audible wheezing with coarse lung sounds, will order chest x-ray and x-ray of the neck to rule out aspiration or foreign body. Will order labs, x-rays, EKG and troponins. Patient is afebrile, has an elevated blood pressure, will with O2 sat 94% on room air. 19:45 BUN 24, creatinine 1.51, consistent with his prior values. Other lab values within normal limits. Patient refused EKG at this time. 20:27 chest x-ray and x-ray of neck negative for acute findings, patient able to drink without difficulty. Plan of care is to discharge to senior care facility. Vital signs continued to be stable and within normal limits. Medical Decision Making Differential Diagnosis Differential Diagnosis: Pneumonia, aspiration, URI Medical Records Medical records reviewed: Yes I reviewed the patient's medical records. Lab Data Lab results reviewed: Yes I reviewed the patient's lab results. Result diagrams: 07/01/22 19:05 07/01/22 19:05 Labs: Lab Results 07/01/22 07/01/22 07/01/22 Range/Units 19:05 19:05 19:05 WBC 8.8 (4.8-10.8) X10*3/uL RBC 5.00 (4.60-5.80) X10*6/uL Hgb 14.6 (14.0-18.0) g/dl Hct 43.9 (42.0-52.0) % MCV 87.8 (80.0-98.0) fL MCH 29.2 (27.0-33.0) pg MCHC 33.3 (31.0-36.0) g/dl RDW 13.2 (11.0-16.0) % Plt Count 319 D (160-400) X10*3/uL MPV 10.0 (9.4-12.4) fL Immature Gran % (Auto) 0.5 H (0.0-0.4) % Neut % (Auto) 74.7 H (45-73) % Lymph % (Auto) 14.0 L (20-40) % [place] % (Auto) 7.7 (2-11) % Eos % (Auto) 2.6 (0-4) % Baso % (Auto) 0.5 (0-2) % Lymph # (Auto) 1.2 (1.2-4.9) X10*3/uL [place] # (Auto) 0.7 (0.1-1.2) X10*3/uL Eos # (Auto) 0.2 (0.0-0.4) X10*3/uL Baso # (Auto) 0.0 (0.0-0.2) X10*3/uL Abs Immat Gran (auto) 0.04 H (0.00-0.03) X10*3/uL Absolute Neuts (auto) 6.6 (2.0-8.3) x10*3/uL Absolute Nucleated RBC 0.000 (0.0-0.012) X10*3/uL Nucleated RBC % (auto) 0.0 (0.0-0.2) /100WBC Sodium 139 (135-145) mmol/L Potassium 5.0 (3.3-5.1) mmol/L Chloride 105 (96-108) mmol/L Carbon Dioxide 23 (22-29) mmol/L Anion Gap 16 (12-20) BUN 24 H (9-16) mg/dL Creatinine 1.51 H (0.5-1.4) mg/dL Estim Creat Clear Calc 44.7 Estimated GFR 46 Random Glucose 96 (60-115) mg/dL Calcium 8.7 D (8.4-10.2) mg/dL Troponin I High Sens 9.9 D (<3.5-35.0) ng/L Imaging Data Chest x-ray: Attestation: I personally reviewed and interpreted this imaging study as follows: Radiologist's impression: COMPARISON: 09/19/2021. TECHNIQUE: Portable frontal view of the chest was obtained. FINDINGS: The lungs are well expanded. Coarse reticular markings are again seen bilaterally. Possible tiny calcified granuloma in the lateral aspect of the right upper lobe. No focal infiltrate, effusion, edema, or pneumothorax. Cardiac and mediastinal silhouettes are within normal limits for technique. No acute bony abnormality seen. XR/XR chest 1V IMPRESSION: Chronic appearing coarsened reticular markings similar to the prior examination. No definitive acute airspace disease. ? Soft tissue neck: Attestation: I personally reviewed and interpreted this imaging study as follows: Radiologist's impression: EXAMINATION: XR SOFT TISSUE NECK CLINICAL INDICATION: Possible aspiration COMPARISON: 06/11/2018 skull films TECHNIQUE: 2 views of the soft tissue neck were obtained.? FINDINGS: Soft tissue films of the neck demonstrate a normal larynx, pharynx and upper trachea. No soft tissue swelling or opaque foreign body is demonstrated within the visualized airway. The patient is incidentally less. Aneurysm coils seen at the skull base. XR/XR soft tissue neck IMPRESSION: Unremarkable airway. Chronic changes otherwise as described. Discharge Plan Discharge Clinical Impression: Cough Patient Disposition: [facility] Instructions: Acute Cough (ED) Additional Instructions: You were evaluated for suspected aspiration. X-rays of the neck and chest are negative for acute findings. Your BUN is 24, your creatinine is 1.51, which is consistent with your prior values. All other lab values are within normal limits. Please continue to take all medications as prescribed. Follow-up with primary care provider as needed. Return to the emergency department for any new, concerning, or worsening symptoms. Prescriptions: No Action multivitamin Tablet 1 tab PO DAILY sennosides [senna] 8.6 mg Tablet 8.6 mg PO BID PRN (Reason: Constipation) acetaminophen 325 mg Tablet 650 mg PO Q4H PRN (Reason: Pain) Rx Instructions: GIVE FOR MILD PAIN OR FEVER >101. DNE 3G/24H lorazepam 2 mg/mL Solution 2 mg IM Q15M PRN (Reason: Seizures) cyanocobalamin (vitamin B-12) 1,000 mcg Tablet 1,500 mcg PO DAILY haloperidol 1 mg Tablet 1 mg PO TID tramadol 50 mg Tablet 50 mg PO Q8H PRN (Reason: Pain) alprazolam 0.25 mg Tablet 0.25 mg PO BID lansoprazole 30 mg Capsule,Delayed Release(Dr/Ec) 30 mg PO DAILY docusate sodium 100 mg Capsule 100 mg PO DAILY metoprolol tartrate 25 mg Tablet 25 mg PO BID lactulose 10 gram/15 mL Solution 30 ml PO DAILY PRN (Reason: Constipation) calcium carbonate-vitamin D3 [Calcium 500 + D] 500 mg(1,250mg) -200 unit Tablet 1 tab PO BID pregabalin 50 mg Capsule 50 mg PO TID Triumeq 600-50-300 mg Tablet 1 tab PO DAILY ferrous sulfate 220 mg (44 mg iron)/5 mL Elixir 330 mg PO DAILY aspirin 81 mg Tablet,Chewable 81 mg PO DAILY zinc oxide-vitamin B5-vit E 11.3 % Cream 1 appl TOPICAL QSHIFT Rx Instructions: apply to the buttock abacavir 300 mg Tablet 600 mg PO DAILY Qty: 30 0RF lamivudine 150 mg Tablet 300 mg PO DAILY Qty: 30 0RF Tivicay 50 mg Tablet 50 mg PO DAILY Qty: 30 0RF amoxicillin-pot clavulanate [Augmentin] 875-125 mg tablet 1 tab PO BID Qty: 20 0RF Rx Instructions: Start , for 7 days
[2022-07-01 18:44] VITALS: BP 144/73; PULSE 77; RESP 20; TEMP 36.9; O2SAT 94; BMI 21.7
[2022-07-01 19:12] LABS: MANUAL DIFF FLAG NO
[2022-07-01 19:14] LABS: Basophils Percent Auto 0.5 % (0-2); Eosinophils Absolute Auto 0.2 X10*3/uL (0.0-0.4); Eosinophils Percent Auto 2.6 % (0-4); Hematocrit 43.9 % (42.0-52.0); Hemoglobin 14.6 g/dl (14.0-18.0); Imm Gran Abs Auto 0.04 X10*3/uL (0.00-0.03); Imm Gran Pct Auto 0.5 % (0.0-0.4); Lymphocytes Absolute Auto 1.2 X10*3/uL (1.2-4.9); Mean Corpuscular HGB Conc 33.3 g/dl (31.0-36.0); Mean Corpuscular Hemoglobin 29.2 pg (27.0-33.0); Mean Corpuscular Volume 87.8 fL (80.0-98.0); Monocytes Absolute Auto 0.7 X10*3/uL (0.1-1.2); Monocytes Percent Auto 7.7 % (2-11); Neutrophils Absolute Auto 6.6 x10*3/uL (2.0-8.3); Neutrophils Percent Auto 74.7 % (45-73); Platelet Count 319 X10*3/uL (160-400); Red Cell Distribution Width 13.2 % (11.0-16.0); White Blood Count 8.8 X10*3/uL (4.8-10.8)
[2022-07-01 19:31] LABS: Anion Gap 16 (12-20); Blood Urea Nitrogen 24 mg/dL (9-16); Calcium 8.7 mg/dL (8.4-10.2); Carbon Dioxide 23 mmol/L (22-29); Chloride 105 mmol/L (96-108); Creatinine Clr Calc Pharmacy 44.7; Estimated Glomerular Filt Rate 46; Glucose Random 96 mg/dL (60-115); Sodium 139 mmol/L (135-145)
[2022-07-01 19:47] LABS: Troponin-I High Sensitivity 9.9 ng/L (<3.5-35.0)
[2022-07-01] MEDS: 0.9 % Sodium Chloride 1,000 ML 999 ML IVCONT (21:04)
--- NOTE | 2022-07-01 21:24 | PC.NURSE ---
Report given to Nurse Pereira at [facility]
[2022-07-02 00:35] VITALS: BP 136/77; PULSE 80; RESP 16; TEMP 36.7; O2SAT 94
[2022-07-02 02:23] VITALS: BP 139/80; PULSE 78; RESP 16; O2SAT 97
[2022-07-02 04:12] VITALS: RESP 16
[2022-07-02 05:28] VITALS: RESP 16
--- NOTE | 2022-07-02 13:04 | PC.NURSE ---
CALL WAS PLACED TO ALERT AT 1302. ALERT STATED 5 MINS FOR AMBULANCE RIDE HOME.
== END 2022-07-02 13:13 ==
PROVIDERS: Nurse Practitioner Family; Emergency Provider Emergency Medicine; PCP Hospitalist
DX: R05.9 Cough, unspecified (principal); R09.89 Other specified symptoms and signs involving the circulatory and respiratory systems; M54.2 Cervicalgia; F03.90 Unspecified dementia, unspecified severity, without behavioral disturbance, psychotic disturbance, mood disturbance, and anxiety; Z79.899 Other long term (current) drug therapy
CPT/HCPCS: 36415; 70360; 71045; 80048; 84484; 85025; 99284

== ENCOUNTER 2022-08-05 14:41 | Inpatient (IN) | payer MEDICARE, MEDICAID, SELFPAY ==
--- NOTE | ~2022-08-05 | XR_ITS ---
EXAMINATION: XR CHEST CLINICAL INFORMATION: Chest pain COMPARISON: Chest x-ray 07/01/2022 TECHNIQUE: Frontal portable view of the chest was obtained. 4:36 PM FINDINGS: Stable chronic coarse reticular lung markings in both lungs. There is now superimposed patchy airspace opacity at the left lung base this is concerning for an acute inflammatory infectious process. No pleural effusion. No pulmonary vascular congestion. The heart size is normal. Cardiac mediastinal contours unchanged. XR/XR chest 1V IMPRESSION: 1. Patchy airspace opacity at the left lung base concerning for acute inflammatory infectious process. 2. Stable chronic coarse reticular lung markings.
--- NOTE | ~2022-08-05 | CT_ITS ---
EXAMINATION: CT head/brain wo IV con CLINICAL INFORMATION: Reason for Exam altered mental status COMPARISON: CT brain 07/24/2021 TECHNIQUE: Contiguous axial imaging was performed from the skull base to vertex without intravenous contrast. Sagittal and coronal reformatted images were obtained. This CT examination was performed using dose optimization techniques as appropriate, variously including the following: * Automated exposure control * Adjustment of mA and/or kV according to patient size (this includes techniques or standardized protocols for targeted exams where dose is matched to indication/reason for exam; i.e. extremities or head) Use of iterative reconstruction technique DLP: 178 mGy-cm FINDINGS: No acute osseous or soft tissue abnormality. Stable bony defect in the right frontal bone which may reflect sequelae of prior bladimir hole. Patchy paranasal sinus mucosal thickening. 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 Partial opacification of the left mastoid air cells. There is no evidence of acute intracranial hemorrhage or territorial infarction. No abnormal mass effect or midline shift is seen. 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 No extra-axial fluid collections are identified. Ventricles remain similarly dilated out of proportion to sulcal prominence, which can be seen in the setting of normal pressure hydrocephalus. Ex vacuo dilatation of the occipital horn of the left lateral ventricle. Moderate global volume loss. Patchy periventricular and deep white matter hypoattenuation is consistent with moderate small vessel ischemic changes. CT/CT head/brain wo IV con IMPRESSION: 1. No acute intracranial abnormality. 2. 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 3. Ventricles remain similarly dilated out of proportion to sulcal prominence, which can be seen in the setting of normal pressure hydrocephalus.
[2022-08-05 15:05] VITALS: BP 102/62; BP 97/50; PULSE 75; RESP 16; TEMP 36.9; O2SAT 97; BMI 23.2
--- NOTE | 2022-08-05 15:18 | ECG_ITS ---
Test Reason : chets pain Blood Pressure : / mmHG Vent. Rate : 073 BPM Atrial Rate : 073 BPM P-R Int : 134 ms QRS Dur : 082 ms QT Int : 378 ms P-R-T Axes : 069 036 060 degrees QTc Int : 416 ms Normal sinus rhythm Normal ECG When compared with ECG of 19-SEP-2021 18:57, No significant change was found Referred By: Tony Arciniega Electronically Signed By:CHARMAINE JAMES MD
--- NOTE | 2022-08-05 15:22 | ED.AMS ---
HPI - Altered Mental Status General Chief Complaint: Altered Mental Status Stated Complaint: AMS Time Seen by Provider: 08/05/22 15:17 Source: EMS Mode of arrival: EMS Limitations: altered mental status History of Present Illness HPI narrative: This is a 71 years old male resident [facility], well known to us, sent for evaluation because the more lethargic, he has multiple medical problem including bipolar disorder HIV, dementia, he is not ambulatory at baseline, he has also history of COPD with history of respiratory failure MD complaint: decreased responsiveness Severity: mild Consistency of symptoms: waxing and waning Related Data Home Medications Medication Instructions Recorded Confirmed abacavir 600 mg-dolutegravir 50 1 tab PO DAILY 07/19/21 07/24/21 mg-lamivudine 300 mg tablet (Triumeq) acetaminophen 325 mg tablet 650 mg PO Q4H PRN Pain 07/19/21 07/24/21 alprazolam 0.25 mg tablet 0.25 mg PO BID 07/19/21 07/24/21 calcium carbonate 500 mg-vitamin 1 tab PO BID 07/19/21 07/24/21 D3 5 mcg (200 unit) tablet (Calcium 500 + D) cyanocobalamin (vitamin B-12) 1,500 mcg PO DAILY 07/19/21 07/24/21 1,000 mcg tablet docusate sodium 100 mg capsule 100 mg PO DAILY 07/19/21 07/24/21 ferrous sulfate 220 mg (44 mg 330 mg PO DAILY 07/19/21 07/24/21 iron)/5 mL oral elixir haloperidol 1 mg tablet 1 mg PO TID 07/19/21 07/24/21 lactulose 10 gram/15 mL oral 30 ml PO DAILY PRN Constipation 07/19/21 07/24/21 solution lansoprazole 30 mg capsule,delayed 30 mg PO DAILY 07/19/21 07/24/21 release lorazepam 2 mg/mL injection 2 mg IM Q15M PRN Seizures 07/19/21 07/24/21 solution metoprolol tartrate 25 mg tablet 25 mg PO BID 07/19/21 07/24/21 multivitamin 1 tab PO DAILY 07/19/21 07/24/21 pregabalin 50 mg capsule 50 mg PO TID 07/19/21 07/24/21 sennosides 8.6 mg tablet (senna) 8.6 mg PO BID PRN Constipation 07/19/21 07/24/21 tramadol 50 mg tablet 50 mg PO Q8H PRN Pain 07/19/21 07/24/21 aspirin 81 mg chewable tablet 81 mg PO DAILY 07/24/21 07/24/21 zinc oxide-vitamin B5-vit E 11.3% 1 appl topical QSHIFT 07/24/21 07/24/21 topical cream Previous Rx's Medication Instructions Recorded abacavir 300 mg tablet 600 mg PO DAILY #30 tabs 07/26/21 amoxicillin 875 mg-potassium 1 tab PO BID pneumonia #20 tabs 07/26/21 clavulanate 125 mg tablet (Augmentin) dolutegravir 50 mg tablet (Tivicay) 50 mg PO DAILY #30 tabs 07/26/21 lamivudine 150 mg tablet 300 mg PO DAILY #30 tabs 07/26/21 Allergies Allergy/AdvReac Type Severity Reaction Status Date / Time No Known Allergies Allergy Unknown Unverified 06/23/20 17:32 [No Known Allergies*] Review of Systems Cardiovascular: Cardiovascular: Reports no additional cardiovascular complaints Respiratory: Respiratory: Reports no additional respiratory complaints [facility] Past Medical History Medical History Age-related nuclear cataract, bilateral Altered mental status, unspecified Anemia, unspecified Bipolar 1 disorder Chronic anemia Chronic kidney disease Chronic kidney disease, stage 3 unspecified Constipation, unspecified Contracture, unspecified foot Contracture, unspecified knee Coronary artery disease Cyst of kidney, acquired Dementia Dementia in other diseases classified elsewhere with behavioral disturbance Dysphagia, oropharyngeal phase Essential (primary) hypertension History of COVID-19 HIV (human immunodeficiency virus infection) Hypertension Impulse disorder, unspecified Leg weakness Old myocardial infarction Other cholelithiasis without obstruction Other specified disorders of bone density and structure, unspecified site Paraplegia, unspecified Personal history of other diseases of the circulatory system Personal history of other diseases of the respiratory system Personal history of pneumonia (recurrent) Personal history of tuberculosis 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 Presbyopia Primary generalized (osteo)arthritis Splenomegaly, not elsewhere classified Unspecified convulsions Unspecified dementia with behavioral disturbance Social History Social History Household Members: Other Housing: Senior Living Do you presently have visiting nurse or other home services: No Alcohol intake: unknown Patient Tobacco Use Status: Never used Tobacco Advance Directives: Yes Advance Directives on File: Yes Advance Directives Date on File: 07/25/21 service: No Current occupational status: disabled Physical Exam ED Vital Signs: Vital Signs - 24 hr 08/05/22 15:05 Temperature 98.5 F Pulse Rate 75 Respiratory Rate 16 Blood Pressure 97/50 L Pulse Oximetry 97 Oxygen Delivery Method Nasal Cannula BMI result Body Mass Index 23.2 Const General: cooperative Nutritional Appearance: average body habitus HENMT Head: Yes normal to inspection General nose exam: Normal external nose present Face and sinus: Yes normal facial exam Mouth: Normal oral and palatal mucosa present Throat: Yes posterior oropharynx normal Neck Neck: Yes normal visual inspection Resp Effort & Inspection: normal respiratory effort Cardio Jugular venous distension: no JVD Rate: regular rate Rhythm: regular rhythm GI Inspection: Yes normal to inspection Palpation (GI): Soft to palpation General: Yes no CVA tenderness Back/Spine/Pelvis Back: no CVA tenderness Neuro Other: He is awake at this time is able to tell me his name he follow command Course Reevaluation(s) Reevaluation #1: signed out to Dr Calabrese w/u pending UA/chemestry Time: 16:19 MDM - Altered Mental Status Lab Data Result diagrams: 08/05/22 15:49 Labs: Lab Results 08/05/22 08/05/22 08/05/22 Range/Units 15:49 15:49 15:49 WBC 14.1 H (4.8-10.8) X10*3/uL RBC 4.62 (4.60-5.80) X10*6/uL Hgb 13.1 L (14.0-18.0) g/dl Hct 41.5 L (42.0-52.0) % MCV 89.8 (80.0-98.0) fL MCH 28.4 (27.0-33.0) pg MCHC 31.6 (31.0-36.0) g/dl RDW 13.5 (11.0-16.0) % Plt Count 322 (160-400) X10*3/uL MPV 9.9 (9.4-12.4) fL Immature Gran % (Auto) 0.4 (0.0-0.4) % Neut % (Auto) 81.5 H (45-73) % Lymph % (Auto) 9.3 L (20-40) % [place] % (Auto) 7.7 (2-11) % Eos % (Auto) 0.9 (0-4) % Baso % (Auto) 0.2 (0-2) % Lymph # (Auto) 1.3 (1.2-4.9) X10*3/uL [place] # (Auto) 1.1 (0.1-1.2) X10*3/uL Eos # (Auto) 0.1 (0.0-0.4) X10*3/uL Baso # (Auto) 0.0 (0.0-0.2) X10*3/uL Abs Immat Gran (auto) 0.05 H (0.00-0.03) X10*3/uL Absolute Neuts (auto) 11.5 H (2.0-8.3) x10*3/uL Absolute Nucleated RBC 0.000 (0.0-0.012) X10*3/uL Nucleated RBC % (auto) 0.0 (0.0-0.2) /100WBC PT 13.2 H (10.0-13.1) SEC INR 1.1 (0.9-1.1) O2 Saturation % ABG pH at Pt Temp (7.35-7.45) ABG pCO2 at Pt Temp (32-45) mmHg ABG pO2 at Pt Temp (83-108) mmHg ABG HCO3 (22-26) mmol/L ABG Base Excess (Actual) mmol/L Ammonia 24 (13-55) umol/L 08/05/22 Range/Units 15:58 WBC (4.8-10.8) X10*3/uL RBC (4.60-5.80) X10*6/uL Hgb (14.0-18.0) g/dl Hct (42.0-52.0) % MCV (80.0-98.0) fL MCH (27.0-33.0) pg MCHC (31.0-36.0) g/dl RDW (11.0-16.0) % Plt Count (160-400) X10*3/uL MPV (9.4-12.4) fL Immature Gran % (Auto) (0.0-0.4) % Neut % (Auto) (45-73) % Lymph % (Auto) (20-40) % [place] % (Auto) (2-11) % Eos % (Auto) (0-4) % Baso % (Auto) (0-2) % Lymph # (Auto) (1.2-4.9) X10*3/uL [place] # (Auto) (0.1-1.2) X10*3/uL Eos # (Auto) (0.0-0.4) X10*3/uL Baso # (Auto) (0.0-0.2) X10*3/uL Abs Immat Gran (auto) (0.00-0.03) X10*3/uL Absolute Neuts (auto) (2.0-8.3) x10*3/uL Absolute Nucleated RBC (0.0-0.012) X10*3/uL Nucleated RBC % (auto) (0.0-0.2) /100WBC PT (10.0-13.1) SEC INR (0.9-1.1) O2 Saturation 77.0 % ABG pH at Pt Temp 7.37 (7.35-7.45) ABG pCO2 at Pt Temp 37 (32-45) mmHg ABG pO2 at Pt Temp 48 L* (83-108) mmHg ABG HCO3 22 (22-26) mmol/L ABG Base Excess (Actual) -2.4 mmol/L Ammonia (13-55) umol/L Procedures EJ/Peripheral Line Arm L: Time Out Performed: Yes Size (gauge): 18 IV Secured and Dressing Applied: Yes Additional Comments: under us cannulated left basilic vein with 18 althea long catheter introcan good flash/good blood return Discharge Plan Discharge Clinical Impression: Acute alteration in mental status Prescriptions: No Action multivitamin Tablet 1 tab PO DAILY sennosides [senna] 8.6 mg Tablet 8.6 mg PO BID PRN (Reason: Constipation) acetaminophen 325 mg Tablet 650 mg PO Q4H PRN (Reason: Pain) Rx Instructions: GIVE FOR MILD PAIN OR FEVER >101. DNE 3G/24H lorazepam 2 mg/mL Solution 2 mg IM Q15M PRN (Reason: Seizures) cyanocobalamin (vitamin B-12) 1,000 mcg Tablet 1,500 mcg PO DAILY haloperidol 1 mg Tablet 1 mg PO TID tramadol 50 mg Tablet 50 mg PO Q8H PRN (Reason: Pain) alprazolam 0.25 mg Tablet 0.25 mg PO BID lansoprazole 30 mg Capsule,Delayed Release(Dr/Ec) 30 mg PO DAILY docusate sodium 100 mg Capsule 100 mg PO DAILY metoprolol tartrate 25 mg Tablet 25 mg PO BID lactulose 10 gram/15 mL Solution 30 ml PO DAILY PRN (Reason: Constipation) calcium carbonate-vitamin D3 [Calcium 500 + D] 500 mg(1,250mg) -200 unit Tablet 1 tab PO BID pregabalin 50 mg Capsule 50 mg PO TID Triumeq 600-50-300 mg Tablet 1 tab PO DAILY ferrous sulfate 220 mg (44 mg iron)/5 mL Elixir 330 mg PO DAILY aspirin 81 mg Tablet,Chewable 81 mg PO DAILY zinc oxide-vitamin B5-vit E 11.3 % Cream 1 appl TOPICAL QSHIFT Rx Instructions: apply to the buttock abacavir 300 mg Tablet 600 mg PO DAILY Qty: 30 0RF lamivudine 150 mg Tablet 300 mg PO DAILY Qty: 30 0RF Tivicay 50 mg Tablet 50 mg PO DAILY Qty: 30 0RF amoxicillin-pot clavulanate [Augmentin] 875-125 mg tablet 1 tab PO BID Qty: 20 0RF Rx Instructions: Start , for 7 days
--- NOTE | 2022-08-05 15:35 | PC.NURSE ---
patient lethargic . alert to self .patients baseline dementia . pupils dilated . lungs diminished , wet non productive cough . heart rate regular at 72 beat per minute . skin is warm and dry . abdomen is soft , not tender . positive bowel sounds throughout . 18 gauge placed in upper arm by provider labs sent down . urine obtained and sent . EKG .and sent . patient on monitor . fluids started as ordered . patient aware of plan of care .
[2022-08-05] MEDS: 0.9 % Sodium Chloride 1,000 ML 999 ML IVCONT (15:53)
[2022-08-05 15:55] LABS: MANUAL DIFF FLAG NO
[2022-08-05 15:57] LABS: Basophils Percent Auto 0.2 % (0-2); Eosinophils Absolute Auto 0.1 X10*3/uL (0.0-0.4); Eosinophils Percent Auto 0.9 % (0-4); Hematocrit 41.5 % (42.0-52.0); Hemoglobin 13.1 g/dl (14.0-18.0); Imm Gran Abs Auto 0.05 X10*3/uL (0.00-0.03); Imm Gran Pct Auto 0.4 % (0.0-0.4); Lymphocytes Absolute Auto 1.3 X10*3/uL (1.2-4.9); Lymphocytes Percent Auto 9.3 % (20-40); Mean Corpuscular HGB Conc 31.6 g/dl (31.0-36.0); Mean Corpuscular Hemoglobin 28.4 pg (27.0-33.0); Mean Corpuscular Volume 89.8 fL (80.0-98.0); Mean Platelet Volume 9.9 fL (9.4-12.4); Monocytes Absolute Auto 1.1 X10*3/uL (0.1-1.2); Monocytes Percent Auto 7.7 % (2-11); Neutrophils Absolute Auto 11.5 x10*3/uL (2.0-8.3); Neutrophils Percent Auto 81.5 % (45-73); Platelet Count 322 X10*3/uL (160-400); Red Blood Count 4.62 X10*6/uL (4.60-5.80); Red Cell Distribution Width 13.5 % (11.0-16.0); White Blood Count 14.1 X10*3/uL (4.8-10.8)
[2022-08-05 16:02] VITALS: O2SAT 96
[2022-08-05 16:04] LABS: INTERNATIONAL NORM RATIO 1.1 (0.9-1.1); Prothrombin Time 13.2 SEC (10.0-13.1)
[2022-08-05 16:06] LABS: ABG Base Excess -2.4 mmol/L; ABG HCO3 22 mmol/L (22-26); ABG pCO2 37 mmHg (32-45); ABG pH 7.37 (7.35-7.45); ABG pO2 48 mmHg (83-108)
[2022-08-05 16:06] LABS: Ammonia 24 umol/L (13-55)
[2022-08-05 16:20] VITALS: BP 92/58; PULSE 73; RESP 16; TEMP 36.8; O2SAT 95
[2022-08-05 16:20] LABS: Troponin-I High Sensitivity 4.8 ng/L (<3.5-35.0)
[2022-08-05 16:34] LABS: Appearance Urine Cloudy; Color Urine Yellow; Glucose Urine UA Negative (Negative); Leukocyte Esterase Urine Large (3+) (Negative); Nitrite Urine Positive (Negative); PH 5.5 (5.0-9.0); Specific Gravity - Urine 1.025 (1.005-1.025); UMIC TRIGGER UACC YES; Urine Blood Moderate (2+) (Negative); Urine Ketones Trace mg/dL (Negative); Urine Protein 100 (2+) mg/dL (Neg-Trace)
[2022-08-05 16:41] LABS: Bacteria Urine 2+ (None Seen); Hyaline Casts Urine 0-2 /LPF (0-2); Squamous Epithelial Cell Urine 0-2 /HPF (0-2); UACC Culture Trigger YES; WBC Urine >50 /HPF (0-5)
[2022-08-05 17:24] LABS: Alanine Aminotransferase 27 U/L (0-40); Albumin Level 3.2 g/dL (3.5-5.0); Alkaline Phosphatase 86 U/L (39-117); Anion Gap 15 (12-20); Aspartate Amino Transferase 37 U/L (5-37); Bilirubin Total 0.3 mg/dL (0.0-1.0); Blood Urea Nitrogen 57 mg/dL (9-16); Calcium 8.7 mg/dL (8.4-10.2); Carbon Dioxide 24 mmol/L (22-29); Chloride 110 mmol/L (96-108); Creatinine Clr Calc Pharmacy 25.7; Estimated Glomerular Filt Rate 28; Glucose Random 107 mg/dL (60-115); Sodium 144 mmol/L (135-145); Total Protein 7.3 g/dL (6.5-8.0)
[2022-08-05] MEDS: 0.9 % Sodium Chloride 1,000 ML 999 ML IV (17:42)
[2022-08-05 17:43] VITALS: BP 108/47; RESP 18; O2SAT 97
--- NOTE | 2022-08-05 18:48 | PHA.MEDREC ---
Pharmacy Consult ? Medication Reconciliation Pharmacy has completed the medication reconciliation. Patient came from [facility] with a medication list. Kelsey Gupta, JaneD
[2022-08-05] MEDS: cefTRIAXone sodium 1 GM in 0.9 % Sodium Chloride 50 ML IV (18:57)
[2022-08-05 19:25] LABS: ABG Refer to POC result
[2022-08-05] MEDS: Azithromycin 500 MG in 0.9 % Sodium Chloride 250 ML 125 MG IV (19:28)
--- NOTE | 2022-08-05 19:35 | P.HPHOSP_ITS ---
History of Present Illness Date of Service: 08/05/22 Chief Complaint: Altered mental status This is a 71-year-old male with a pertinent history of dementia with behavioral disturbance, bipolar disorder, HIV chronic kidney disease stage 3, essential hypertension who was brought to the emergency department for evaluation of lethargy. Patient is a very poor historian and is only oriented to self. Is only giving one-word answers and saying yes to everything. He does not know why he is here. Has no complaints at the time of my evaluation. As per chart review and ER physician, patient was sent from [facility] for evaluation of lethargy and change in mental status. Unable to obtain review of systems. In the emergency department, patient was found to have left-sided infiltrate with urine suggestive of infection. He was also found to be hypoxemic Review of Systems Review of Systems: Yes Unobtainable due to mental status [facility] Medical History (Updated 08/05/22 @ 19:40 by Margie Viera MD) Age-related nuclear cataract, bilateral Altered mental status, unspecified Anemia, unspecified Bipolar 1 disorder Chronic anemia Chronic kidney disease Chronic kidney disease, stage 3 unspecified Constipation, unspecified Contracture, unspecified foot Contracture, unspecified knee Coronary artery disease Cyst of kidney, acquired Dementia Dementia in other diseases classified elsewhere with behavioral disturbance Dysphagia, oropharyngeal phase Essential (primary) hypertension History of COVID-19 HIV (human immunodeficiency virus infection) Hypertension Impulse disorder, unspecified Leg weakness Old myocardial infarction Other cholelithiasis without obstruction Other specified disorders of bone density and structure, unspecified site Paraplegia, unspecified Personal history of other diseases of the circulatory system Personal history of other diseases of the respiratory system Personal history of pneumonia (recurrent) Personal history of tuberculosis 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 Presbyopia Primary generalized (osteo)arthritis Splenomegaly, not elsewhere classified Unspecified convulsions Unspecified dementia with behavioral disturbance Social History Household Members: Other Housing: Assisted Do you presently have visiting nurse or other home services: No Alcohol intake: unknown Patient Tobacco Use Status: Never used Tobacco Advance Directives: Yes Advance Directives on File: Yes Advance Directives Date on File: 07/25/21 service: No Current occupational status: disabled Meds Allergies Allergy/AdvReac Type Severity Reaction Status Date / Time No Known Allergies Allergy Unknown Unverified 06/23/20 17:32 [No Known Allergies*] Active Medications: Current Medications Acetaminophen (Acetaminophen 325 Mg Tablet) 650 mg PO Q6H PRN PRN Reason: Pain, Mild (Pain Scale 1-3) Alprazolam (Alprazolam 0.25 Mg Tablet) 0.25 mg PO BID [facility] Aspirin (Aspirin 81 Mg Tab.Chew) 81 mg PO DAILY [facility] Cyanocobalamin (Cyanocobalamin (Vitamin B-12) 500 Mcg Tablet) 1,500 mcg PO DAILY [facility] Docusate Sodium (Docusate Sodium 100 Mg Capsule) 100 mg PO DAILY [facility] Enoxaparin Sodium (Enoxaparin Sodium 30 Mg/0.3 Ml Syringe) 30 mg SUBCUT Q24H [facility] Ferrous Sulfate (Ferrous Sulfate 300 Mg/5 Ml Liquid) 300 mg PO DAILY [facility] Haloperidol (Haloperidol 1 Mg Tablet) 2 mg PO TID [facility] Azithromycin 500 mg/ Sodium (Chloride) 250 mls @ 125 mls/hr IV ONCE ONE Stop: 08/05/22 19:35 Last Admin: 08/05/22 19:28 Dose: 125 mls/hr Azithromycin 500 mg/ Sodium (Chloride) 250 mls @ 125 mls/hr IV DAILY [facility] Ceftriaxone Sodium 1 gm/ (Sodium Chloride) 50 mls @ 100 mls/hr IV DAILY [facility] Lactulose (Lactulose 20 Gm/30 Ml Solution) 20 gm PO DAILY PRN PRN Reason: Constipation Melatonin (Melatonin 3 Mg Tablet) 6 mg PO BEDTIME PRN PRN Reason: Insomnia Multivitamins/Vitamin C (Multivitamin Tablet) 1 tab PO DAILY [facility] Non-Formulary Medication (Jghwvblh-Zpxrzznxrzxa-Xuputqr [Triumeq]) 1 tab PO DAILY [facility] Non-Formulary Medication (Calcium Carbonate-Vitamin D3 [Calcium 500 + D]) 1 tab PO BID [facility] Non-Formulary Medication (Polymyxin B Sulf-Trimethoprim) 1 drop EYE-BOTH QID [facility] Omeprazole (Omeprazole 20 Mg Capsule.Dr) 20 mg PO DAILY@0630 [facility] Ondansetron HCl (Ondansetron Hcl 4 Mg/2 Ml Vial) 4 mg IVPUSH Q8H PRN PRN Reason: Nausea and Vomiting Pharmacy Consult (Consult Rx Perform Med Rec) 1 each MISCELLANE ONCE PRN PRN Reason: Consult order Pregabalin (Pregabalin 50 Mg Capsule) 50 mg PO TID NANCY Senna (Sennosides 8.6 Mg Tablet) 8.6 mg PO BID PRN PRN Reason: Constipation Sodium Chloride (0.9 % Sodium Chloride Flush 3 Ml Syringe) 3 ml IVFLUSH QSHIFT NANCY Tramadol HCl (Tramadol Hcl 50 Mg Tablet) 50 mg PO Q8H PRN PRN Reason: Pain, Severe (Pain Scale 7-10) Home Medications Medication Instructions Recorded Confirmed Last Taken Type abacavir 600 mg-dolutegravir 50 1 tab PO DAILY 07/19/21 08/05/22 08/05/22 History mg-lamivudine 300 mg tablet (Triumeq) acetaminophen 325 mg tablet 650 mg PO Q6H PRN Pain 07/19/21 08/05/22 Unknown History alprazolam 0.25 mg tablet 0.25 mg PO BID 07/19/21 08/05/22 08/05/22 History calcium carbonate 500 mg-vitamin 1 tab PO BID 07/19/21 08/05/22 08/05/22 History D3 5 mcg (200 unit) tablet (Calcium 500 + D) cyanocobalamin (vitamin B-12) 1,500 mcg PO DAILY 07/19/21 08/05/22 08/05/22 History 1,000 mcg tablet docusate sodium 100 mg capsule 100 mg PO DAILY 07/19/21 08/05/22 08/05/22 History ferrous sulfate 220 mg (44 mg 330 mg PO DAILY 07/19/21 08/05/22 08/05/22 History iron)/5 mL oral elixir lactulose 10 gram/15 mL oral 30 ml PO DAILY PRN Constipation 07/19/21 08/05/22 Unknown History solution lansoprazole 30 mg capsule,delayed 30 mg PO DAILY 07/19/21 08/05/22 08/05/22 History release lorazepam 2 mg/mL injection 1 mg IM Q24H PRN Seizures 07/19/21 08/05/22 Unknown History solution metoprolol tartrate 25 mg tablet 25 mg PO BID 07/19/21 08/05/22 08/05/22 History multivitamin 1 tab PO DAILY 07/19/21 08/05/22 08/05/22 History pregabalin 50 mg capsule 50 mg PO TID 07/19/21 08/05/22 08/05/22 History sennosides 8.6 mg tablet (senna) 8.6 mg PO BID PRN Constipation 07/19/21 08/05/22 Unknown History tramadol 50 mg tablet 50 mg PO Q8H PRN Pain 07/19/21 08/05/22 Unknown History aspirin 81 mg chewable tablet 81 mg PO DAILY 07/24/21 08/05/22 08/05/22 History zinc oxide-vitamin B5-vit E 11.3% 1 appl topical QSHIFT 07/24/21 08/05/22 08/05/22 History topical cream abacavir 600 mg-dolutegravir 50 1 tab PO DAILY 08/05/22 08/05/22 08/05/22 History mg-lamivudine 300 mg tablet (Triumeq) haloperidol 2 mg tablet 2 mg PO TID 08/05/22 08/05/22 08/05/22 History polymyxin B sulfate 10,000 1 drp ophthalmic (eye) QID 08/05/22 08/05/22 08/05/22 History unit-trimethoprim 1 mg/mL eye drops Physical Exam Vital Signs and Narrative: Vital Signs: Last Vital Signs Temp 98.2 F 08/05/22 16:20 Pulse 73 08/05/22 16:20 Resp 18 08/05/22 17:43 BP 108/47 L 08/05/22 17:43 Pulse Ox 97 08/05/22 17:43 O2 Del Method 08/05/22 17:43 O2 Flow Rate 2 08/05/22 17:43 Oxygen Flow Rate 2 08/05/22 15:05 BMI result Body Mass Index 23.2 Elderly male lying in bed in no distress Neck supple, no JVD Regular rate and rhythm, S1-S2 heard left-sided infiltrate without wheezing Abdomen soft nontender, no guarding, no rigidity Patient is drowsy and awakens to verbal stimulus, only oriented to self, does not participate in a conversation Psych: drowsy No pedal edema Results Labs CBC and Chem 7: 08/05/22 15:49 08/05/22 15:49 Labs: Laboratory Results - last 24 hr 08/05/22 08/05/22 08/05/22 15:49 15:49 15:49 MCV 89.8 MCH 28.4 MCHC 31.6 RDW 13.5 Plt Count 322 MPV 9.9 Immature Gran % (Auto) 0.4 Neut % (Auto) 81.5 H Lymph % (Auto) 9.3 L [place] % (Auto) 7.7 Eos % (Auto) 0.9 Baso % (Auto) 0.2 Lymph # (Auto) 1.3 [place] # (Auto) 1.1 Eos # (Auto) 0.1 Baso # (Auto) 0.0 Abs Immat Gran (auto) 0.05 H Absolute Neuts (auto) 11.5 H Absolute Nucleated RBC 0.000 Nucleated RBC % (auto) 0.0 PT 13.2 H INR 1.1 O2 Saturation ABG pH at Pt Temp ABG pCO2 at Pt Temp ABG pO2 at Pt Temp ABG HCO3 ABG Base Excess (Actual) Anion Gap 15 Estim Creat Clear Calc 25.7 Estimated GFR 28 Random Glucose 107 Calcium 8.7 Total Bilirubin 0.3 AST 37 D ALT 27 Alkaline Phosphatase 86 D Ammonia Troponin I High Sens Total Protein 7.3 Albumin 3.2 L Urine Color Urine Appearance Urine pH Ur Specific [place] Urine Protein Urine Glucose (UA) Urine Ketones Urine Blood Urine Nitrite Ur Leukocyte Esterase Urine RBC Urine WBC Ur Squamous Epith Cells Urine Bacteria Hyaline Casts 08/05/22 08/05/22 08/05/22 15:49 15:49 15:58 MCV MCH MCHC RDW Plt Count MPV Immature Gran % (Auto) Neut % (Auto) Lymph % (Auto) [place] % (Auto) Eos % (Auto) Baso % (Auto) Lymph # (Auto) [place] # (Auto) Eos # (Auto) Baso # (Auto) Abs Immat Gran (auto) Absolute Neuts (auto) Absolute Nucleated RBC Nucleated RBC % (auto) PT INR O2 Saturation 77.0 ABG pH at Pt Temp 7.37 ABG pCO2 at Pt Temp 37 ABG pO2 at Pt Temp 48 L* ABG HCO3 22 ABG Base Excess (Actual) -2.4 Anion Gap Estim Creat Clear Calc Estimated GFR Random Glucose Calcium Total Bilirubin AST ALT Alkaline Phosphatase Ammonia 24 Troponin I High Sens 4.8 D Total Protein Albumin Urine Color Urine Appearance Urine pH Ur Specific [place] Urine Protein Urine Glucose (UA) Urine Ketones Urine Blood Urine Nitrite Ur Leukocyte Esterase Urine RBC Urine WBC Ur Squamous Epith Cells Urine Bacteria Hyaline Casts 08/05/22 16:21 MCV MCH MCHC RDW Plt Count MPV Immature Gran % (Auto) Neut % (Auto) Lymph % (Auto) [place] % (Auto) Eos % (Auto) Baso % (Auto) Lymph # (Auto) [place] # (Auto) Eos # (Auto) Baso # (Auto) Abs Immat Gran (auto) Absolute Neuts (auto) Absolute Nucleated RBC Nucleated RBC % (auto) PT INR O2 Saturation ABG pH at Pt Temp ABG pCO2 at Pt Temp ABG pO2 at Pt Temp ABG HCO3 ABG Base Excess (Actual) Anion Gap Estim Creat Clear Calc Estimated GFR Random Glucose Calcium Total Bilirubin AST ALT Alkaline Phosphatase Ammonia Troponin I High Sens Total Protein Albumin Urine Color Yellow Urine Appearance Cloudy Urine pH 5.5 Ur Specific [place] 1.025 Urine Protein 100 (2+) H Urine Glucose (UA) Negative Urine Ketones Trace Urine Blood Moderate (2+) H Urine Nitrite Positive H Ur Leukocyte Esterase Large (3+) H Urine RBC 6-10 H Urine WBC >50 Ur Squamous Epith Cells 0-2 Urine Bacteria 2+ Hyaline Casts 0-2 Imaging Radiologist's Impressions: Impressions Chest X-Ray 08/05/22 16:45 IMPRESSION: 1. Patchy airspace opacity at the left lung base concerning for acute inflammatory infectious process. 2. Stable chronic coarse reticular lung markings. Head CT 08/05/22 17:14 IMPRESSION: 1. No acute intracranial abnormality. 2. 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 3. Ventricles remain similarly dilated out of proportion to sulcal prominence, which can be seen in the setting of normal pressure hydrocephalus. Assessment and Plan (1) Hypoxia: Status: Acute (2) Acute alteration in mental status: Status: Acute (3) Community acquired pneumonia: Status: Acute (4) UTI (urinary tract infection): Status: Acute (5) LENORA (acute kidney injury): Status: Acute (6) Dementia: Status: Acute (7) Chronic kidney disease: Status: Acute (8) Bipolar 1 disorder: Status: Acute (9) HIV (human immunodeficiency virus infection): Status: Acute Plan This is a 71-year-old male with a pertinent history of dementia with behavioral disturbance, bipolar disorder, HIV chronic kidney disease stage 3, essential hypertension who was brought to the emergency department for evaluation of lethargy. #. Acute hypoxemic respiratory failure secondary to community-acquired pneumonia - will admit patient and initiate empiric antibiotics. Cultures obtained in the ER. Currently requiring 2 L supplemental oxygen, monitor and wean as tolerated. #. Acute kidney injury on chronic kidney disease stage 3, prerenal - likelydue to intravascular volume depletion. Rehydrated with IV crystalloids. Monitor urine output and creatinine #. Acute metabolic encephalopathy - likely in the setting of hypoxemia and dehydration/ infections. Monitor #. Acute urinary tract infection - on ceftriaxone as above. Monitor urine culture #. Imaging concerning for normal pressure hydrocephalus - ?causing cognitive dysfunction. Consult Neurology for recommendations #. Bipolar 1 disorder - continue home p.o. medications #. HIV - continue home medications. Treating as immunocompetent, unclear viral load and CD4 count. Obtain Cd4 #. Dementia, unspecified with behavioral disturbance - continue home medication #. essential hypertension - home metoprolol as blood pressure is low normal at the time of admission Diet: NPO due to decreased mentation. Consult speech for diet recommendations DVT prophylaxis: Lovenox 30 mg daily Patient will require two night minimum hospital stay for need for IV antibiotics supplemental oxygen Quality Stroke Does the patient have a stroke diagnosis?: No VTE Prior VTE?: No VTE Risk Level:: Medical - moderate - high VTE Device Contraindication: Treatment Not Indicated VTE Drug Contraindication: N/A - Med Ordered
[2022-08-05] MEDS: Enoxaparin Sodium 30 MG/0.3 ML SYRINGE SUBCUT (19:43)
[2022-08-05 19:52] VITALS: BP 121/60; PULSE 72; RESP 22; TEMP 36.8; O2SAT 96
[2022-08-05] MEDS: Pregabalin 50 MG CAPSULE PO (21:04)
[2022-08-05] MEDS: HaloperidoL 1 MG TABLET 2 MG PO (21:04)
[2022-08-05] MEDS: 0.9 % Sodium Chloride 1,000 ML 75 ML IVCONT (21:37)
[2022-08-05] MEDS: ALPRAZolam 0.25 MG TABLET PO (22:36)
[2022-08-06 01:59] VITALS: BP 124/57; PULSE 80; RESP 16; O2SAT 95
[2022-08-06 02:30] LABS: COVID-19 Test Negative (Negative)
[2022-08-06 05:48] LABS: Basophils Percent Auto 0.1 % (0-2); Eosinophils Absolute Auto 0.1 X10*3/uL (0.0-0.4); Eosinophils Percent Auto 0.6 % (0-4); Hematocrit 37.6 % (42.0-52.0); Imm Gran Abs Auto 0.08 X10*3/uL (0.00-0.03); Imm Gran Pct Auto 0.7 % (0.0-0.4); Lymphocytes Absolute Auto 0.2 X10*3/uL (1.2-4.9); Lymphocytes Percent Auto 1.9 % (20-40); MANUAL DIFF FLAG SCAN; Mean Corpuscular HGB Conc 31.9 g/dl (31.0-36.0); Mean Corpuscular Hemoglobin 28.8 pg (27.0-33.0); Mean Corpuscular Volume 90.4 fL (80.0-98.0); Monocytes Absolute Auto 0.4 X10*3/uL (0.1-1.2); Monocytes Percent Auto 3.5 % (2-11); Neutrophils Percent Auto 93.2 % (45-73); Platelet Count 269 X10*3/uL (160-400); Red Blood Count 4.16 X10*6/uL (4.60-5.80); Red Cell Distribution Width 13.5 % (11.0-16.0); SCAN SMEAR FLAG 1; White Blood Count 11.8 X10*3/uL (4.8-10.8)
[2022-08-06 06:01] LABS: Anion Gap 16 (12-20); Blood Urea Nitrogen 38 mg/dL (9-16); Calcium 7.9 mg/dL (8.4-10.2); Carbon Dioxide 20 mmol/L (22-29); Chloride 116 mmol/L (96-108); Creatinine Clr Calc Pharmacy 37.1; Estimated Glomerular Filt Rate 43; Glucose Random 90 mg/dL (60-115); Potassium 4.8 mmol/L (3.3-5.1); Sodium 147 mmol/L (135-145)
[2022-08-06 06:08] LABS: SLIDE REVIEW VERIFIED
[2022-08-06] MEDS: Omeprazole 20 MG CAPSULE.DR PO (06:15)
[2022-08-06 07:04] VITALS: BP 113/51; PULSE 82; RESP 23; TEMP 36.6; O2SAT 99
[2022-08-06] MEDS: 0.9 % Sodium Chloride Flush 3 ML SYRINGE IVFLUSH ×2 (08:20→15:20)
--- NOTE | 2022-08-06 08:20 | PC.NURSE ---
pt sleeping but easily arousble, pt appears to be confused but has hx of dementia unable to answer questions appropriately at this time, unable to state where he is or if he has any pain at this time pt moved over to a hospital bed, small amount of stool cleaned up a-flutter on the monitor
--- NOTE | 2022-08-06 08:22 | MHC.CM.PN ---
Addendum entered by Lyn Alcantara RN 08/06/22 08:32: CASE MANAGEMENT CALLED (GUARD[facility]) MALATHI'S NUMBER ON FILE [phone] PHONE WAS ANSWERED AND HUNG UP X 2. IMM COPY 08/06 IN MEDICAL RECORDS BIN IN E.D. Original Note: PATIENT IS FROM [facility]. FIRST PAGE OF GUARDIANSHIP IS ON FILE IMM 08/06 TO BE EMAILED TO ADDRESS FOUND ON FACE SHEET. PLAN WILL BE FOR PATIENT TO RETURN WHEN MEDICALLY STABLE.
[2022-08-06] MEDS: Dextrose 5 % and 0.45 % NaCl 1,000 ML 100 ML IVCONT ×2 (08:28→19:36)
--- NOTE | 2022-08-06 09:05 | PC.NURSE ---
pt's cardiac lead re-adjusted and now the rhythm is normal sinus
[2022-08-06] MEDS: cefTRIAXone sodium 1 GM in 0.9 % Sodium Chloride 50 ML IV (09:55)
[2022-08-06] MEDS: Multivitamin TABLET 1 TAB PO (09:58)
[2022-08-06] MEDS: Aspirin 81 MG TAB.CHEW PO (09:59)
[2022-08-06] MEDS: Docusate Sodium 100 MG CAPSULE PO (09:59)
[2022-08-06] MEDS: HaloperidoL 1 MG TABLET 2 MG PO (09:59)
[2022-08-06] MEDS: Calcium + Vitamin D 250 MG TABLET 500 MG PO (09:59)
[2022-08-06] MEDS: ALPRAZolam 0.25 MG TABLET PO (09:59)
[2022-08-06] MEDS: Pregabalin 50 MG CAPSULE PO (09:59)
[2022-08-06] MEDS: Azithromycin 500 MG in 0.9 % Sodium Chloride 250 ML 125 MG IV (10:29)
[2022-08-06] MEDS: Cyanocobalamin (Vitamin B-12) 500 MCG TABLET 1500 MCG PO (10:36)
[2022-08-06] MEDS: lamiVUDine 150 MG TABLET 300 MG PO (10:36)
[2022-08-06] MEDS: Dolutegravir Sodium 50 MG TABLET PO (10:36)
[2022-08-06] MEDS: Ferrous Sulfate 300 MG/5 ML LIQUID PO (10:42)
[2022-08-06 11:03] VITALS: BP 122/44; PULSE 90; RESP 29; TEMP 36.5; O2SAT 92
--- NOTE | 2022-08-06 11:13 | HO.PM.IMPN ---
Subjective Subjective Date of Service: 08/06/22 Interval History: seen and examined this AM more alert compared to presentation answering questions and telling me he wants to eat Physical Exam Vital Signs: Vital Signs: Last Vital Signs Temp 97.7 F 08/06/22 11:03 Pulse 90 08/06/22 11:03 Resp 29 H 08/06/22 11:03 BP 122/44 L 08/06/22 11:03 Pulse Ox 92 08/06/22 11:03 O2 Del Method 08/06/22 11:03 O2 Flow Rate 1 08/06/22 01:59 Oxygen Flow Rate 2 08/05/22 15:05 BMI result Body Mass Index 23.2 Const: Other: General - somnolent but easily arousable and asking for food Cardiovascular - regular rate and rhythm, S1-S2 Lungs - caorse sounds on left; RR in the mid 20s Abdomen - soft, nontender, no rebound or guarding Extremities - no edema bilaterally Neuro - somnolent but arousable; disoriented to time Objective Data Active Medications Abacavir Sulfate (Abacavir Sulfate 300 Mg Tablet) 600 mg PO DAILY [facility] Last Admin: 08/06/22 10:39 Dose: 600 mg Documented By: NICK Acetaminophen (Acetaminophen 325 Mg Tablet) 650 mg PO Q6H PRN PRN Reason: Pain, Mild (Pain Scale 1-3) Alprazolam (Alprazolam 0.25 Mg Tablet) 0.25 mg PO BID [facility] Last Admin: 08/06/22 09:59 Dose: 0.25 mg Documented By: NICK Aspirin (Aspirin 81 Mg Tab.Chew) 81 mg PO DAILY [facility] Last Admin: 08/06/22 09:59 Dose: 81 mg Documented By: NICK Calcium Carbonate/Cholecalciferol (Calcium + Vitamin D 250 Mg Tablet) 500 mg PO DAILY [facility] Last Admin: 08/06/22 09:59 Dose: 500 mg Documented By: NICK Cyanocobalamin (Cyanocobalamin (Vitamin B-12) 500 Mcg Tablet) 1,500 mcg PO DAILY [facility] Last Admin: 08/06/22 10:36 Dose: 1,500 mcg Documented By: NICK Docusate Sodium (Docusate Sodium 100 Mg Capsule) 100 mg PO DAILY [facility] Last Admin: 08/06/22 09:59 Dose: 100 mg Documented By: NICK Dolutegravir Sodium (Dolutegravir Sodium 50 Mg Tablet) 50 mg PO DAILY [facility] Last Admin: 08/06/22 10:36 Dose: 50 mg Documented By: NICK Enoxaparin Sodium (Enoxaparin Sodium 30 Mg/0.3 Ml Syringe) 30 mg SUBCUT Q24H [facility] Last Admin: 08/05/22 19:43 Dose: 30 mg Documented By: DOMINIQUE Ferrous Sulfate (Ferrous Sulfate 300 Mg/5 Ml Liquid) 300 mg PO DAILY [facility] Last Admin: 08/06/22 10:42 Dose: 300 mg Documented By: NICK Haloperidol (Haloperidol 1 Mg Tablet) 2 mg PO TID [facility] Last Admin: 08/06/22 09:59 Dose: 2 mg Documented By: NICK Azithromycin 500 mg/ Sodium (Chloride) 250 mls @ 125 mls/hr IV DAILY [facility] Last Admin: 08/06/22 10:29 Dose: 125 mls/hr Documented By: NICK Dextrose/Sodium Chloride (D51/2ns) 1,000 mls @ 100 mls/hr IVCONT .Q10H [facility] Last Admin: 08/06/22 08:28 Dose: 100 mls/hr Documented By: NICK Ceftriaxone Sodium 1 gm/ (Sodium Chloride) 50 mls @ 100 mls/hr IV Q24H [facility] Last Infusion: 08/06/22 10:29 Dose: 0 mls/hr Documented By: NICK Lactulose (Lactulose 20 Gm/30 Ml Solution) 20 gm PO DAILY PRN PRN Reason: Constipation Lamivudine (Lamivudine 150 Mg Tablet) 300 mg PO DAILY [facility] Last Admin: 08/06/22 10:36 Dose: 300 mg Documented By: NICK Melatonin (Melatonin 3 Mg Tablet) 6 mg PO BEDTIME PRN PRN Reason: Insomnia Multivitamins/Vitamin C (Multivitamin Tablet) 1 tab PO DAILY [facility] Last Admin: 08/06/22 09:58 Dose: 1 tab Documented By: NICK Non-Formulary Medication (Polymyxin B Sulf-Trimethoprim) 1 drop EYE-BOTH QID [facility] Omeprazole (Omeprazole 20 Mg Capsule.Dr) 20 mg PO DAILY@0630 [facility] Last Admin: 08/06/22 06:15 Dose: 20 mg Documented By: DOMINIQUE Ondansetron HCl (Ondansetron Hcl 4 Mg/2 Ml Vial) 4 mg IVPUSH Q8H PRN PRN Reason: Nausea and Vomiting Pharmacy Consult (Consult Rx Perform Med Rec) 1 each MISCELLANE ONCE PRN PRN Reason: Consult order Pregabalin (Pregabalin 50 Mg Capsule) 50 mg PO TID [facility] Last Admin: 08/06/22 09:59 Dose: 50 mg Documented By: NICK Senna (Sennosides 8.6 Mg Tablet) 8.6 mg PO BID PRN PRN Reason: Constipation Sodium Chloride (0.9 % Sodium Chloride Flush 3 Ml Syringe) 3 ml IVFLUSH QSHIFT [facility] Last Admin: 08/06/22 08:20 Dose: 3 ml Documented By: NICK Tramadol HCl (Tramadol Hcl 50 Mg Tablet) 50 mg PO Q8H PRN PRN Reason: Pain, Severe (Pain Scale 7-10) Labs CBC & Chem 7: 08/06/22 05:43 08/06/22 05:43 Labs: Laboratory Results - last 24 hr 08/05/22 08/05/22 08/05/22 15:49 15:49 15:49 MCV 89.8 MCH 28.4 MCHC 31.6 RDW 13.5 Plt Count 322 MPV 9.9 Immature Gran % (Auto) 0.4 Neut % (Auto) 81.5 H Lymph % (Auto) 9.3 L [place] % (Auto) 7.7 Eos % (Auto) 0.9 Baso % (Auto) 0.2 Lymph # (Auto) 1.3 [place] # (Auto) 1.1 Eos # (Auto) 0.1 Baso # (Auto) 0.0 Abs Immat Gran (auto) 0.05 H Absolute Neuts (auto) 11.5 H Absolute Nucleated RBC 0.000 Nucleated RBC % (auto) 0.0 Smear Tech's Comments PT 13.2 H INR 1.1 O2 Saturation ABG pH at Pt Temp ABG pCO2 at Pt Temp ABG pO2 at Pt Temp ABG HCO3 ABG Base Excess (Actual) Anion Gap 15 Estim Creat Clear Calc 25.7 Estimated GFR 28 Random Glucose 107 Calcium 8.7 Total Bilirubin 0.3 AST 37 D ALT 27 Alkaline Phosphatase 86 D Ammonia Troponin I High Sens Total Protein 7.3 Albumin 3.2 L Urine Color Urine Appearance Urine pH Ur Specific [place] Urine Protein Urine Glucose (UA) Urine Ketones Urine Blood Urine Nitrite Ur Leukocyte Esterase Urine RBC Urine WBC Ur Squamous Epith Cells Urine Bacteria Hyaline Casts COVID-19 ([facility]) COVID-19 Clin Com 08/05/22 08/05/22 08/05/22 15:49 15:49 15:58 MCV MCH MCHC RDW Plt Count MPV Immature Gran % (Auto) Neut % (Auto) Lymph % (Auto) [place] % (Auto) Eos % (Auto) Baso % (Auto) Lymph # (Auto) [place] # (Auto) Eos # (Auto) Baso # (Auto) Abs Immat Gran (auto) Absolute Neuts (auto) Absolute Nucleated RBC Nucleated RBC % (auto) Smear Tech's Comments PT INR O2 Saturation 77.0 ABG pH at Pt Temp 7.37 ABG pCO2 at Pt Temp 37 ABG pO2 at Pt Temp 48 L* ABG HCO3 22 ABG Base Excess (Actual) -2.4 Anion Gap Estim Creat Clear Calc Estimated GFR Random Glucose Calcium Total Bilirubin AST ALT Alkaline Phosphatase Ammonia 24 Troponin I High Sens 4.8 D Total Protein Albumin Urine Color Urine Appearance Urine pH Ur Specific [place] Urine Protein Urine Glucose (UA) Urine Ketones Urine Blood Urine Nitrite Ur Leukocyte Esterase Urine RBC Urine WBC Ur Squamous Epith Cells Urine Bacteria Hyaline Casts COVID-19 ([facility]) COVID-19 Clin Com 08/05/22 08/06/22 08/06/22 16:21 02:03 05:43 MCV 90.4 MCH 28.8 MCHC 31.9 RDW 13.5 Plt Count 269 MPV 10.0 Immature Gran % (Auto) 0.7 H Neut % (Auto) 93.2 H Lymph % (Auto) 1.9 L [place] % (Auto) 3.5 Eos % (Auto) 0.6 Baso % (Auto) 0.1 Lymph # (Auto) 0.2 L [place] # (Auto) 0.4 Eos # (Auto) 0.1 Baso # (Auto) 0.0 Abs Immat Gran (auto) 0.08 H Absolute Neuts (auto) 11.0 H Absolute Nucleated RBC 0.000 Nucleated RBC % (auto) 0.0 Smear Tech's Comments VERIFIED PT INR O2 Saturation ABG pH at Pt Temp ABG pCO2 at Pt Temp ABG pO2 at Pt Temp ABG HCO3 ABG Base Excess (Actual) Anion Gap Estim Creat Clear Calc Estimated GFR Random Glucose Calcium Total Bilirubin AST ALT Alkaline Phosphatase Ammonia Troponin I High Sens Total Protein Albumin Urine Color Yellow Urine Appearance Cloudy Urine pH 5.5 Ur Specific [place] 1.025 Urine Protein 100 (2+) H Urine Glucose (UA) Negative Urine Ketones Trace Urine Blood Moderate (2+) H Urine Nitrite Positive H Ur Leukocyte Esterase Large (3+) H Urine RBC 6-10 H Urine WBC >50 Ur Squamous Epith Cells 0-2 Urine Bacteria 2+ Hyaline Casts 0-2 COVID-19 ([facility]) Negative COVID-19 Clin Com See Note 08/06/22 05:43 MCV MCH MCHC RDW Plt Count MPV Immature Gran % (Auto) Neut % (Auto) Lymph % (Auto) [place] % (Auto) Eos % (Auto) Baso % (Auto) Lymph # (Auto) [place] # (Auto) Eos # (Auto) Baso # (Auto) Abs Immat Gran (auto) Absolute Neuts (auto) Absolute Nucleated RBC Nucleated RBC % (auto) Smear Tech's Comments PT INR O2 Saturation ABG pH at Pt Temp ABG pCO2 at Pt Temp ABG pO2 at Pt Temp ABG HCO3 ABG Base Excess (Actual) Anion Gap 16 Estim Creat Clear Calc 37.1 Estimated GFR 43 Random Glucose 90 Calcium 7.9 L D Total Bilirubin AST ALT Alkaline Phosphatase Ammonia Troponin I High Sens Total Protein Albumin Urine Color Urine Appearance Urine pH Ur Specific [place] Urine Protein Urine Glucose (UA) Urine Ketones Urine Blood Urine Nitrite Ur Leukocyte Esterase Urine RBC Urine WBC Ur Squamous Epith Cells Urine Bacteria Hyaline Casts COVID-19 ([facility]) COVID-19 Clin Com Microbiology Microbiology Results: Microbiology 08/05/22 16:44 Urine Culture - Preliminary Urine clean catch - Clean Catch Midstream Gram negative eddi Assessment and Plan (1) LENORA (acute kidney injury): Status: Acute Plan 71 yo M from [facility] who presents with changes in mental status. He is diagnosed with pneumonia and LENORA. Admitted for further care. 1. Acute hypoxemic resipratory failure due to pneumonia initially thought community acquired -- further collateral information re: his recurrent aspiration pneumonia, suspect this is the likely cause Will change antibiotics to IV unasyn as he as previously responded to this wean O2 as possible 2. UTI unasyn as above 3. Suspected dysphagia appears to be long standing -- spech consulted. Await further collateral information from [facility] may need MBSS 4. LENORA on CDK 3 likely pre-renal from decreased oral intake improving with IVF will change IVF from NS to D5-1/2 NS in light of increasing SNa 5. Question NPH noted on CT neurology eval ordered 6. Dementia (unspecified) with behavioral distubances has not required any PRN meds since ED arrival monitor Continue his other baseline meds as approrpriate Full Code DVT pptx, Lovenox Quality Stroke Does the patient have a stroke diagnosis?: No VTE Prior VTE?: No VTE Risk Level:: Medical - moderate - high VTE Device Contraindication: Treatment Not Indicated VTE Drug Contraindication: N/A - Med Ordered
[2022-08-06] MEDS: Ampicillin Sodium/Sulbactam Na 3 GM in 0.9 % Sodium Chloride 100 ML IV ×3 (12:10→23:34)
--- NOTE | 2022-08-06 12:51 | PM.NEUROCN ---
History of Present Illness Data of Consult Service Date: 08/06/22 Primary Care Provider: Kev Gorman DO HPI Reason for consult: Encephalopathy 71 years old man with underlying history of HIV disease and probably also cerebral aneurysm clipping was brought to hospital for lethargy. Patient has been bedridden and was not able to provide any meaningful history. There was no evidence of any focal weakness or seizure. He was noted to be afebrile Review of Systems Review of Systems: Could not be done with [facility] Past Medical History Medical History (Updated 08/06/22 @ 12:54 by Gabbie Anderson MD) Age-related nuclear cataract, bilateral Altered mental status, unspecified Anemia, unspecified Bipolar 1 disorder Chronic anemia Chronic kidney disease Chronic kidney disease, stage 3 unspecified Constipation, unspecified Contracture, unspecified foot Contracture, unspecified knee Coronary artery disease Cyst of kidney, acquired Dementia Dementia in other diseases classified elsewhere with behavioral disturbance Dysphagia, oropharyngeal phase Essential (primary) hypertension History of COVID-19 HIV (human immunodeficiency virus infection) Hypertension Impulse disorder, unspecified Leg weakness Old myocardial infarction Other cholelithiasis without obstruction Other specified disorders of bone density and structure, unspecified site Paraplegia, unspecified Personal history of other diseases of the circulatory system Personal history of other diseases of the respiratory system Personal history of pneumonia (recurrent) Personal history of tuberculosis 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 Presbyopia Primary generalized (osteo)arthritis Splenomegaly, not elsewhere classified Unspecified convulsions Unspecified dementia with behavioral disturbance Social History Social History Household Members: Other Housing: Custodial Do you presently have visiting nurse or other home services: No Alcohol intake: unknown Patient Tobacco Use Status: Never used Tobacco Advance Directives: Yes Advance Directives on File: Yes Advance Directives Date on File: 07/25/21 service: No Current occupational status: disabled Meds Allergies Allergy/AdvReac Type Severity Reaction Status Date / Time No Known Allergies Allergy Unknown Unverified 06/23/20 17:32 [No Known Allergies*] Active Medications: Current Medications Abacavir Sulfate (Abacavir Sulfate 300 Mg Tablet) 600 mg PO DAILY [facility] Last Admin: 08/06/22 10:39 Dose: 600 mg Acetaminophen (Acetaminophen 325 Mg Tablet) 650 mg PO Q6H PRN PRN Reason: Pain, Mild (Pain Scale 1-3) Alprazolam (Alprazolam 0.25 Mg Tablet) 0.25 mg PO BID [facility] Last Admin: 08/06/22 09:59 Dose: 0.25 mg Aspirin (Aspirin 81 Mg Tab.Chew) 81 mg PO DAILY [facility] Last Admin: 08/06/22 09:59 Dose: 81 mg Calcium Carbonate/Cholecalciferol (Calcium + Vitamin D 250 Mg Tablet) 500 mg PO DAILY [facility] Last Admin: 08/06/22 09:59 Dose: 500 mg Cyanocobalamin (Cyanocobalamin (Vitamin B-12) 500 Mcg Tablet) 1,500 mcg PO DAILY [facility] Last Admin: 08/06/22 10:36 Dose: 1,500 mcg Docusate Sodium (Docusate Sodium 100 Mg Capsule) 100 mg PO DAILY [facility] Last Admin: 08/06/22 09:59 Dose: 100 mg Dolutegravir Sodium (Dolutegravir Sodium 50 Mg Tablet) 50 mg PO DAILY [facility] Last Admin: 08/06/22 10:36 Dose: 50 mg Enoxaparin Sodium (Enoxaparin Sodium 30 Mg/0.3 Ml Syringe) 30 mg SUBCUT Q24H [facility] Last Admin: 08/05/22 19:43 Dose: 30 mg Ferrous Sulfate (Ferrous Sulfate 300 Mg/5 Ml Liquid) 300 mg PO DAILY [facility] Last Admin: 08/06/22 10:42 Dose: 300 mg Haloperidol (Haloperidol 1 Mg Tablet) 2 mg PO TID [facility] Last Admin: 08/06/22 09:59 Dose: 2 mg Dextrose/Sodium Chloride (D51/2ns) 1,000 mls @ 100 mls/hr IVCONT .Q10H [facility] Last Admin: 08/06/22 08:28 Dose: 100 mls/hr Ampicillin Sodium/Sulbactam (Sodium 3 gm/ Sodium Chloride) 100 mls @ 200 mls/hr IV Q6H [facility] Last Admin: 08/06/22 12:10 Dose: 200 mls/hr Lactulose (Lactulose 20 Gm/30 Ml Solution) 20 gm PO DAILY PRN PRN Reason: Constipation Lamivudine (Lamivudine 150 Mg Tablet) 300 mg PO DAILY [facility] Last Admin: 08/06/22 10:36 Dose: 300 mg Melatonin (Melatonin 3 Mg Tablet) 6 mg PO BEDTIME PRN PRN Reason: Insomnia Multivitamins/Vitamin C (Multivitamin Tablet) 1 tab PO DAILY [facility] Last Admin: 08/06/22 09:58 Dose: 1 tab Non-Formulary Medication (Polymyxin B Sulf-Trimethoprim) 1 drop EYE-BOTH QID [facility] Omeprazole (Omeprazole 20 Mg Capsule.Dr) 20 mg PO DAILY@0630 [facility] Last Admin: 08/06/22 06:15 Dose: 20 mg Ondansetron HCl (Ondansetron Hcl 4 Mg/2 Ml Vial) 4 mg IVPUSH Q8H PRN PRN Reason: Nausea and Vomiting Pharmacy Consult (Consult Rx Perform Med Rec) 1 each MISCELLANE ONCE PRN PRN Reason: Consult order Pregabalin (Pregabalin 50 Mg Capsule) 50 mg PO TID [facility] Last Admin: 08/06/22 09:59 Dose: 50 mg Senna (Sennosides 8.6 Mg Tablet) 8.6 mg PO BID PRN PRN Reason: Constipation Sodium Chloride (0.9 % Sodium Chloride Flush 3 Ml Syringe) 3 ml IVFLUSH QSHIFT [facility] Last Admin: 08/06/22 08:20 Dose: 3 ml Tramadol HCl (Tramadol Hcl 50 Mg Tablet) 50 mg PO Q8H PRN PRN Reason: Pain, Severe (Pain Scale 7-10) Home Medications Medication Instructions Recorded Confirmed Last Taken Type abacavir 600 mg-dolutegravir 50 1 tab PO DAILY 07/19/21 08/05/22 08/05/22 History mg-lamivudine 300 mg tablet (Triumeq) acetaminophen 325 mg tablet 650 mg PO Q6H PRN Pain 07/19/21 08/05/22 Unknown History alprazolam 0.25 mg tablet 0.25 mg PO BID 07/19/21 08/05/22 08/05/22 History calcium carbonate 500 mg-vitamin 1 tab PO BID 07/19/21 08/05/22 08/05/22 History D3 5 mcg (200 unit) tablet (Calcium 500 + D) cyanocobalamin (vitamin B-12) 1,500 mcg PO DAILY 07/19/21 08/05/22 08/05/22 History 1,000 mcg tablet docusate sodium 100 mg capsule 100 mg PO DAILY 07/19/21 08/05/22 08/05/22 History ferrous sulfate 220 mg (44 mg 330 mg PO DAILY 07/19/21 08/05/22 08/05/22 History iron)/5 mL oral elixir lactulose 10 gram/15 mL oral 30 ml PO DAILY PRN Constipation 07/19/21 08/05/22 Unknown History solution lansoprazole 30 mg capsule,delayed 30 mg PO DAILY 07/19/21 08/05/22 08/05/22 History release lorazepam 2 mg/mL injection 1 mg IM Q24H PRN Seizures 07/19/21 08/05/22 Unknown History solution metoprolol tartrate 25 mg tablet 25 mg PO BID 07/19/21 08/05/22 08/05/22 History multivitamin 1 tab PO DAILY 07/19/21 08/05/22 08/05/22 History pregabalin 50 mg capsule 50 mg PO TID 07/19/21 08/05/22 08/05/22 History sennosides 8.6 mg tablet (senna) 8.6 mg PO BID PRN Constipation 07/19/21 08/05/22 Unknown History tramadol 50 mg tablet 50 mg PO Q8H PRN Pain 07/19/21 08/05/22 Unknown History aspirin 81 mg chewable tablet 81 mg PO DAILY 07/24/21 08/05/22 08/05/22 History zinc oxide-vitamin B5-vit E 11.3% 1 appl topical QSHIFT 07/24/21 08/05/22 08/05/22 History topical cream abacavir 600 mg-dolutegravir 50 1 tab PO DAILY 08/05/22 08/05/22 08/05/22 History mg-lamivudine 300 mg tablet (Triumeq) haloperidol 2 mg tablet 2 mg PO TID 08/05/22 08/05/22 08/05/22 History polymyxin B sulfate 10,000 1 drp ophthalmic (eye) QID 08/05/22 08/05/22 08/05/22 History unit-trimethoprim 1 mg/mL eye drops Physical Exam Vital Signs: Vital Signs: Last Vital Signs Temp 97.7 F 08/06/22 11:03 Pulse 90 08/06/22 11:03 Resp 29 H 08/06/22 11:03 BP 122/44 L 08/06/22 11:03 Pulse Ox 92 08/06/22 11:03 O2 Del Method 08/06/22 11:03 O2 Flow Rate 1 08/06/22 01:59 Oxygen Flow Rate 2 08/05/22 15:05 BMI result Body Mass Index 23.2 Neuro: Other: Alert and awake looking around sometime moaning and shouting did not follow commands consistently but she did show me his right hand when I asked him to do so in wiggle his toes. There was significant diffuse muscle atrophy areflexia and flat plantars. Visual van were difficult to determine. Results Labs CBC & Chem 7: 08/06/22 05:43 08/06/22 05:43 Labs: Short CBC 08/05/22 08/06/22 Range/Units 15:49 05:43 WBC 14.1 H 11.8 H (4.8-10.8) X10*3/uL Hgb 13.1 L 12.0 L (14.0-18.0) g/dl Hct 41.5 L 37.6 L (42.0-52.0) % Plt Count 322 269 (160-400) X10*3/uL BMP 08/05/22 08/06/22 15:49 05:43 Sodium 144 147 H Potassium 5.0 4.8 Chloride 110 H 116 H Carbon Dioxide 24 20 L BUN 57 H D 38 H Creatinine 2.31 H 1.60 H Calcium 8.7 7.9 L D Liver Function 08/05/22 Range/Units 15:49 Total Bilirubin 0.3 (0.0-1.0) mg/dL AST 37 D (5-37) U/L ALT 27 (0-40) U/L Alkaline Phosphatase 86 D (39-117) U/L Albumin 3.2 L (3.5-5.0) g/dL Urine 08/05/22 Range/Units 16:21 Urine Color Yellow Urine Appearance Cloudy Urine pH 5.5 (5.0-9.0) Ur Specific [place] 1.025 (1.005-1.025) Urine Protein 100 (2+) H (Neg-Trace) mg/dL Urine Glucose (UA) Negative (Negative) mg/dL Head CT revealed moderate to severe diffuse central and cortical atrophy signs of previous probably aneurysm clipping. Microbiology Microbiology Results: Microbiology 08/05/22 16:44 Urine clean catch - Clean Catch Midstream Urine Culture - Preliminary Gram negative eddi Assessment and Plan (1) Encephalopathy: Status: Acute Multifactorial encephalopathy but mostly dehydration with underlying significant cerebral atrophy, encephalomalacia and signs suggestive of probably cerebral aneurysm clipping. Conservative measures are recommended as overall prognosis was poor. Procedures Date of Service Date of Service: 08/06/22
--- NOTE | 2022-08-06 13:44 | MHC.SLORD ---
Speech Language Pathology Order Status: Received order for GERIATRIC PSYCHIATRIST consult 08/05/22. Per extensive chart review, GERIATRIC PSYCHIATRIST was consulted for this pt numerous times in 2018, 2018, and 2020. Pt was admitted on 06/08/18 for aspiration event. Piece of chicken was removed from airway upon preparation for intubation. Pt had multiple MBSS's here at [facility] 06/10/18, 07/24/18, 09/26/18. MBSS on 06/10/18 showed aspiration with nectar thick liquid, increased residue in valleculae and pyriforms, and partial obstruction of flow. Patient was subsequently recommended NPO. Repeat MBSS on 07/24/18 showed silent aspiration with thin liquid, nectar thick liquid, and honey thick liquid. Increased vallecular residue, but no aspiration or penetration with pureed solid. At that time, patient was recommended main nutrition via PEG with partial PO- trial pureed solids with GERIATRIC PSYCHIATRIST in controlled, therapeutic setting. Third MBSS on 09/26/18 showed significant vallecular retention with pureed solids, but no evidence of aspiration or penetration when eating pureed solids. Please refer to full MBSS reports as needed from 06/10/18, 07/24/18 and 09/26/18. Patient was admitted again on 03/11/19. At that time it was reported that patient was on pureed solids and honey thick liquids per [facility] intake paperwork. He continued baseline diet textures during that admission. It is unclear when pt's PEG tube was removed. GERIATRIC PSYCHIATRIST was consulted again during pt's hospital admission 07/19/21. Upon receiving consult to see this pt, GERIATRIC PSYCHIATRIST called and spoke with Yareli Garcia, patient?s GERIATRIC PSYCHIATRIST at [facility]. Yareli reported patient was initially kept NPO after the repeated MBSS?s in 2018 and trialed pharyngeal exercises with GERIATRIC PSYCHIATRIST. Although patient has history of silent aspiration, he was gradually upgraded to PO diet at [facility] and at that point was on minced and moist diet and thin liquids. Patient drank from Walter cup with cover with self-administered straw sip. At that point, pt was seen by GERIATRIC PSYCHIATRIST on a weekly basis at [facility]. When GERIATRIC PSYCHIATRIST spoke with Yareli last year, Yareli stated that patient is very food driven and she believed being made NPO may have been detrimental to his quality of life. Given pt's history of severe dysphagia with known silent aspiration, no PO trials were administered at bedside and MBSS was ordered during that hospitalization, but was not done because pt refused and became combative to the transporter. Pt was again admitted to the hospital a week later in 2020 and discharged again on his baseline diet of ground solids and thin liquids. Dr. Gorman, who was reportedly familiar with this pt, reported at that time that eating is the only enjoyment pt has and guardian is aware of the risk. GERIATRIC PSYCHIATRIST called and spoke with Yareli from [facility] this morning. Yareli reports that there has been no change in this situation from last year. At [facility], he is still on a minced and moist diet with thin liquids at this time. He is drinking liquids from a Walter cup and demonstrates better control when self administering straw sips. He is alternating bites of solids with sips of liquids when needed to clear oral residue. Per Yareli, pt is probably aspirating more than he clinical presents and has the known history of silent aspiration. Yareli stated pt had a PEG several years ago (as previously noted) which came out and they did not want to put back in. Yareli reported pt's guardian was aware of the aspiration in the past, pt was being fed with risks. Pt is not appropriate for PO trials at bedside, as bedside trials would not provide adequate clinical information to determine the safest and least restrictive diet consistency given pt's history of silent aspiration. Recommend medical team discuss w/ pt's guardian, risks of feeding, risks aspiration, and options pt has for nutritional intake, determine if there are any changes. Should GERIATRIC PSYCHIATRIST evaluation then be indicated, recommend it be done w/ MBSS. Information included in this note was relayed to Dr. Anderson, pt's attending hospitalist, via [employer] this morning.
[2022-08-06 14:01] VITALS: BP 141/48; PULSE 117; RESP 19; TEMP 36.4; O2SAT 92
--- NOTE | 2022-08-06 15:25 | PC.NURSE ---
pt very sleepy at this time, will not wake up to safely medicate the pt with his 1500 medications at this time, vs stable
[2022-08-06 15:26] VITALS: BP 127/59; PULSE 106; RESP 22; O2SAT 96
--- NOTE | 2022-08-06 15:41 | PC.NURSE ---
report given to usman jacobson at overflow
--- NOTE | 2022-08-06 17:29 | PC.NURSE ---
Patient not awake enough to take medications per QIANA Florence. Patient falling asleep when talking o him. Dr. Anderson instructed to hold
[2022-08-06 19:43] VITALS: BP 126/59; PULSE 92; RESP 20; TEMP 36.2; O2SAT 99
[2022-08-06] MEDS: Enoxaparin Sodium 30 MG/0.3 ML SYRINGE SUBCUT (19:45)
[2022-08-07] VITALS (7 sets, daily range): BP systolic 118–153; BP diastolic 55–85; PULSE 76–93; RESP 14–20; TEMP 35.9–36.9; O2SAT 94–100
[2022-08-07] MEDS: Ampicillin Sodium/Sulbactam Na 3 GM in 0.9 % Sodium Chloride 100 ML IV ×4 (06:04→23:22)
[2022-08-07] MEDS: Omeprazole 20 MG CAPSULE.DR PO (06:04)
[2022-08-07] MEDS: Dextrose 5 % and 0.45 % NaCl 1,000 ML 100 ML IVCONT (06:06)
--- NOTE | 2022-08-07 08:07 | MHC.CDI.CONC ---
CDI Concurrent Query Documentation Clarification: PHYSICIAN'S DOCUMENTATION REQUEST Date of Query: 08/07/22 0807 Patient Name: Ruperto Valentino Admit Date: 08/05/22 Dear Doctor, A review of the medical record indicates additional documentation may be needed. Please review below and update the documentation accordingly. Clinical Indicators: Risk Factors/Clinical Indicators/Treatments LAB FINDINGS: 08/06 - sodium 147 H Based on the above, could you clarify in the Progress Notes the appropriate diagnosis, if significant, that supports the above abnormalities and additional evaluation, monitoring, and/or treatment rendered: Hypernatremia or other etiology of lab findings Labs indicate a diagnosis of (please specify) Other (please specify) Unable to determine Use of terms such as suspected, likely, concern for, or probable (associated with a specific diagnosis that is being evaluated, monitored, or treated as if it exists) are acceptable and can be coded in the inpatient setting, when documented at the time of discharge. Thank you, Rufina Queen [facility], CDIS Extension: [phone] Please use your independent medical judgment in providing your response. THIS QUERY IS PART OF THE PERMANENT MEDICAL RECORD Provider Response: Other Other Diagnosis: hypernatremia
[2022-08-07 08:47] LABS: MANUAL DIFF FLAG NO
[2022-08-07 08:51] LABS: Eosinophils Absolute Auto 0.1 X10*3/uL (0.0-0.4); Eosinophils Percent Auto 1.8 % (0-4); Hematocrit 33.5 % (42.0-52.0); Imm Gran Abs Auto 0.04 X10*3/uL (0.00-0.03); Imm Gran Pct Auto 0.6 % (0.0-0.4); Lymphocytes Absolute Auto 0.3 X10*3/uL (1.2-4.9); Lymphocytes Percent Auto 4.1 % (20-40); Mean Corpuscular HGB Conc 32.8 g/dl (31.0-36.0); Mean Corpuscular Hemoglobin 28.6 pg (27.0-33.0); Mean Corpuscular Volume 87.2 fL (80.0-98.0); Monocytes Absolute Auto 0.3 X10*3/uL (0.1-1.2); Neutrophils Absolute Auto 6.1 x10*3/uL (2.0-8.3); Neutrophils Percent Auto 88.5 % (45-73); Platelet Count 256 X10*3/uL (160-400); Red Blood Count 3.84 X10*6/uL (4.60-5.80); Red Cell Distribution Width 13.5 % (11.0-16.0); White Blood Count 6.8 X10*3/uL (4.8-10.8)
[2022-08-07] MEDS: Pregabalin 50 MG CAPSULE PO ×3 (08:52→19:47)
[2022-08-07] MEDS: Docusate Sodium 100 MG CAPSULE PO (08:52)
[2022-08-07] MEDS: Dolutegravir Sodium 50 MG TABLET PO (08:52)
[2022-08-07] MEDS: Multivitamin TABLET 1 TAB PO (08:52)
[2022-08-07] MEDS: lamiVUDine 150 MG TABLET 300 MG PO (08:52)
[2022-08-07] MEDS: Ferrous Sulfate 300 MG/5 ML LIQUID PO (08:52)
[2022-08-07] MEDS: Aspirin 81 MG TAB.CHEW PO (08:52)
[2022-08-07] MEDS: HaloperidoL 1 MG TABLET 2 MG PO ×3 (08:52→19:48)
[2022-08-07] MEDS: ALPRAZolam 0.25 MG TABLET PO ×2 (08:53→19:48)
[2022-08-07] MEDS: Calcium + Vitamin D 250 MG TABLET 500 MG PO (08:53)
[2022-08-07] MEDS: Cyanocobalamin (Vitamin B-12) 500 MCG TABLET 1500 MCG PO (08:53)
[2022-08-07 09:35] LABS: Anion Gap 12 (12-20); Blood Urea Nitrogen 22 mg/dL (9-16); Calcium 7.7 mg/dL (8.4-10.2); Carbon Dioxide 21 mmol/L (22-29); Chloride 117 mmol/L (96-108); Creatinine Clr Calc Pharmacy 48.6; Estimated Glomerular Filt Rate 58; Glucose Random 117 mg/dL (60-115); Potassium 3.9 mmol/L (3.3-5.1); Sodium 146 mmol/L (135-145)
--- NOTE | 2022-08-07 10:05 | P.PNIM_ITS ---
Subjective Subjective Date of Service: 08/07/22 Interval History: No significant nursing events overnight. Patient is awake but not conversational. Is on 2 L supplemental oxygen. Speech recommended MBSS Review of Systems Review of Systems: Yes Unobtainable due to mental status Physical Exam Vital Signs: Vital Signs: Last Vital Signs Temp 97.2 F 08/07/22 07:28 Pulse 77 08/07/22 07:28 Resp 18 08/07/22 07:28 BP 125/69 08/07/22 07:28 Pulse Ox 100 08/07/22 07:28 O2 Del Method 08/07/22 07:28 O2 Flow Rate 2 08/07/22 07:28 Oxygen Flow Rate 2 08/05/22 15:05 BMI result Body Mass Index 23.2 Elderly male lying in bed in no distress on 2L supplemental oxygen Neck supple, no JVD Regular rate and rhythm, S1-S2 heard left-sided infiltrate without wheezing Abdomen soft nontender, no guarding, no rigidity Patient is? drowsy and awakens to verbal stimulus, only oriented to self,? does not participate in a conversation Psych:? drowsy No pedal edema Objective Data Active Medications Abacavir Sulfate (Abacavir Sulfate 300 Mg Tablet) 600 mg PO DAILY [facility] Last Admin: 08/07/22 08:52 Dose: 600 mg Documented By: ANAY.COTEMA Acetaminophen (Acetaminophen 325 Mg Tablet) 650 mg PO Q6H PRN PRN Reason: Pain, Mild (Pain Scale 1-3) Alprazolam (Alprazolam 0.25 Mg Tablet) 0.25 mg PO BID [facility] Last Admin: 08/07/22 08:53 Dose: 0.25 mg Documented By: ANAY.COTEMA Aspirin (Aspirin 81 Mg Tab.Chew) 81 mg PO DAILY [facility] Last Admin: 08/07/22 08:52 Dose: 81 mg Documented By: ANAY.COTEMA Calcium Carbonate/Cholecalciferol (Calcium + Vitamin D 250 Mg Tablet) 500 mg PO DAILY [facility] Last Admin: 08/07/22 08:53 Dose: 500 mg Documented By: ANAY.COTEMA Cyanocobalamin (Cyanocobalamin (Vitamin B-12) 500 Mcg Tablet) 1,500 mcg PO DAILY [facility] Last Admin: 08/07/22 08:53 Dose: 1,500 mcg Documented By: ANAY.COTEMA Docusate Sodium (Docusate Sodium 100 Mg Capsule) 100 mg PO DAILY [facility] Last Admin: 08/07/22 08:52 Dose: 100 mg Documented By: COTEMA Dolutegravir Sodium (Dolutegravir Sodium 50 Mg Tablet) 50 mg PO DAILY [facility] Last Admin: 08/07/22 08:52 Dose: 50 mg Documented By: COTEMA Enoxaparin Sodium (Enoxaparin Sodium 30 Mg/0.3 Ml Syringe) 30 mg SUBCUT Q24H [facility] Last Admin: 08/06/22 19:45 Dose: 30 mg Documented By: ARSLAN Ferrous Sulfate (Ferrous Sulfate 300 Mg/5 Ml Liquid) 300 mg PO DAILY [facility] Last Admin: 08/07/22 08:52 Dose: 300 mg Documented By: COTEMA Haloperidol (Haloperidol 1 Mg Tablet) 2 mg PO TID [facility] Last Admin: 08/07/22 08:52 Dose: 2 mg Documented By: COTEMA Dextrose/Sodium Chloride (D51/2ns) 1,000 mls @ 100 mls/hr IVCONT .Q10H [facility] Last Admin: 08/07/22 06:06 Dose: 100 mls/hr Documented By: ARSLAN Ampicillin Sodium/Sulbactam (Sodium 3 gm/ Sodium Chloride) 100 mls @ 200 mls/hr IV Q6H [facility] Last Infusion: 08/07/22 06:37 Dose: 0 mls/hr Documented By: ARSLAN Lactulose (Lactulose 20 Gm/30 Ml Solution) 20 gm PO DAILY PRN PRN Reason: Constipation Lamivudine (Lamivudine 150 Mg Tablet) 300 mg PO DAILY [facility] Last Admin: 08/07/22 08:52 Dose: 300 mg Documented By: COTEMA Melatonin (Melatonin 3 Mg Tablet) 6 mg PO BEDTIME PRN PRN Reason: Insomnia Multivitamins/Vitamin C (Multivitamin Tablet) 1 tab PO DAILY [facility] Last Admin: 08/07/22 08:52 Dose: 1 tab Documented By: EVEREMA Non-Formulary Medication (Polymyxin B Sulf-Trimethoprim) 1 drop EYE-BOTH QID [facility] Omeprazole (Omeprazole 20 Mg Capsule.) 20 mg PO DAILY@0630 [facility] Last Admin: 08/07/22 06:04 Dose: 20 mg Documented By: ARSLAN Ondansetron HCl (Ondansetron Hcl 4 Mg/2 Ml Vial) 4 mg IVPUSH Q8H PRN PRN Reason: Nausea and Vomiting Pharmacy Consult (Consult Rx Perform Med Rec) 1 each MISCELLANE ONCE PRN PRN Reason: Consult order Pregabalin (Pregabalin 50 Mg Capsule) 50 mg PO TID [facility] Last Admin: 08/07/22 08:52 Dose: 50 mg Documented By: COTEMA Senna (Sennosides 8.6 Mg Tablet) 8.6 mg PO BID PRN PRN Reason: Constipation Sodium Chloride (0.9 % Sodium Chloride Flush 3 Ml Syringe) 3 ml IVFLUSH QSHIFT [facility] Last Admin: 08/07/22 07:21 Dose: Not Given Documented By: COTHARLAN Non-Admin Reason: IV Running Tramadol HCl (Tramadol Hcl 50 Mg Tablet) 50 mg PO Q8H PRN PRN Reason: Pain, Severe (Pain Scale 7-10) Labs CBC & Chem 7: 08/07/22 08:42 08/07/22 08:42 Labs: Laboratory Results - last 24 hr 08/07/22 08/07/22 08:42 08:42 MCV 87.2 MCH 28.6 MCHC 32.8 RDW 13.5 Plt Count 256 MPV 10.0 Immature Gran % (Auto) 0.6 H Neut % (Auto) 88.5 H Lymph % (Auto) 4.1 L Shannon % (Auto) 5.0 Eos % (Auto) 1.8 Baso % (Auto) 0.0 Lymph # (Auto) 0.3 L Shannon # (Auto) 0.3 Eos # (Auto) 0.1 Baso # (Auto) 0.0 Abs Immat Gran (auto) 0.04 H Absolute Neuts (auto) 6.1 Absolute Nucleated RBC 0.000 Nucleated RBC % (auto) 0.0 Anion Gap 12 Estim Creat Clear Calc 48.6 Estimated GFR 58 Random Glucose 117 H Calcium 7.7 L Microbiology Microbiology Results: Microbiology 08/05/22 16:44 Urine Culture - Final Urine clean catch - Clean Catch Midstream Escherichia coli 08/05/22 18:56 Blood Culture - Preliminary Blood - Venous No growth after 24 hours. 08/05/22 18:58 Blood Culture - Preliminary Blood - Venous No growth after 24 hours. Assessment and Plan (1) Hypoxia: Status: Acute (2) HIV (human immunodeficiency virus infection): Status: Acute (3) LENORA (acute kidney injury): Status: Acute (4) Chronic kidney disease: Status: Acute (5) Dementia: Status: Acute (6) Bipolar 1 disorder: Status: Acute (7) UTI (urinary tract infection): Status: Acute (8) Aspiration pneumonia: Status: Acute Plan This is a 71-year-old male with a pertinent history of dementia with behavioral disturbance, bipolar disorder, HIV chronic kidney disease stage 3, essential hypertension who? was brought to the emergency department for evaluation of lethargy. ?#.? Acute hypoxemic respiratory failure secondary to aspitation pneumonia - On unasyn.? Cultures obtained in the ER.? Currently requiring 2 L supplemental oxygen, monitor and wean as tolerated. ? #.? Acute kidney injury on chronic kidney disease stage 3, prerenal -? Resolved with fluid resuscitation.? Monitor urine output and creatinine #. Suspected dysphagia -speech on board. Recommend MBSS ?#. Acute urinary tract infection - due to pansensitive E coli. On unasyn as above. ?#. Imaging concerning for normal pressure hydrocephalus - Neurology recommended conservative management ?#. Bipolar 1 disorder - continue home p.o. medications ?#. HIV - continue home medications.? Treating as immunocompetent, unclear viral load and CD4 count. Obtain Cd4 ?#. Dementia, unspecified with behavioral disturbance - continue home medication ?#. essential hypertension - home metoprolol as blood pressure is low normal at the time of admission ?Diet: NPO due to decreased mentation.? Consult speech for diet recommendations ?DVT prophylaxis: Lovenox 30 mg daily ?Patient will require two night minimum hospital stay for need for IV antibiotics and supplemental oxygen. Also speech eval pending Quality Stroke Does the patient have a stroke diagnosis?: No VTE Prior VTE?: No VTE Risk Level:: Medical - moderate - high VTE Device Contraindication: Treatment Not Indicated VTE Drug Contraindication: N/A - Med Ordered
[2022-08-07 10:56] LABS: Glucose, Whole Blood 136 mg/dL (60-115)
[2022-08-07 11:40] LABS: Glucose, Whole Blood 121 mg/dL (60-115)
[2022-08-07] MEDS: Dextrose 5 % 1,000 ML 100 ML IVCONT (11:53)
--- NOTE | 2022-08-07 12:12 | MHC.SLORD ---
Addendum entered and electronically signed by Desiree Ding MA, CCC-EQUIPMENT PROCESSER STORAGE 08/08/22 13:29: Order was cancelled per MD. Original Note: Speech Language Pathology Order Status: Received order for MBSS. MBSS is scheduled for tomorrow at 2:45pm.
--- NOTE | 2022-08-07 16:58 | MHC.SL.SWA ---
Speech Pathologist Impression: Risk of Aspiration Due to: History of Pneumonia Reduced Cognition Dysphasia Diet Status: Liquid Consistency and Strategies for Safe Swallow: Liquid Intake Recommendation: Liquid Intake Strategies: Solid Food Consistency: Dietary Recommendations: Additional Modifications to Solid Foods: Oral Medication Intake: Please contact the pharmacy regarding appropriate crushable or liquid drug formulations that are available whenever modified delivery is recommended. Compensatory Strategies and Precautions to be Taken for Safe Swallow: Supervision While Eating and Drinking for Safe Swallow: Foods to Avoid: Swallowing Recommended Treatments: Gustatory Stimulation Compens. Strategy Educat. Recommendation for Speech: Inpatient Speech Therapy Modified Barium Swallow Study - Inpatient Comment: Objective of today's evaluation was to assess patient readiness for MBSS. No specific diet is recommended as a part of this evaluation. On today's assessment, Pt was noted to tolerate Honey Thick Liquids and puree as administered in a limited amount, evidencing a disorganized oral phase of swallow, and reduced laryngeal elevation on swallow. Pt evidenced aspiration on thin liquids. Given extensive history of documented aspiration on swallow that has been noted to be silent, patient cannot be fully assessed w/o repeat MBSS. It is documented that family has opted to accept aspiration risk, and wishes to have patient continue on P.O. for nutrition. Pt's current diet as ordered by MD is Ground/Mechanical/Alt with thin liquids, which is baseline diet from [facility]. Frequency/Duration: M-F as inpatient Date Range for Service Req: Timeline to reassess: Basket Turner Clinican/Clinical Fellow: No Supervisory Statement: I have reviewed and agree with the student/clinical fellow's documentation: N/A Speech Language Pathologist: Leelee Pritchard M.A., CCC-SHOT GRINDER OPERATOR
[2022-08-07 17:37] LABS: Glucose, Whole Blood 126 mg/dL (60-115)
[2022-08-07] MEDS: Enoxaparin Sodium 30 MG/0.3 ML SYRINGE SUBCUT (18:18)
[2022-08-07] MEDS: Melatonin 3 MG TABLET 6 MG PO (19:48)
[2022-08-07 23:28] LABS: Glucose, Whole Blood 134 mg/dL (60-115)
[2022-08-08 03:46] VITALS: BP 128/63; PULSE 91; RESP 16; TEMP 36.3; O2SAT 96
[2022-08-08] MEDS: Ampicillin Sodium/Sulbactam Na 3 GM in 0.9 % Sodium Chloride 100 ML IV ×2 (06:03→12:29)
[2022-08-08] MEDS: Omeprazole 20 MG CAPSULE.DR PO (06:05)
[2022-08-08 06:15] LABS: Glucose, Whole Blood 103 mg/dL (60-115)
[2022-08-08 07:30] LABS: Anion Gap 14 (12-20); Blood Urea Nitrogen 16 mg/dL (9-16); Calcium 7.8 mg/dL (8.4-10.2); Carbon Dioxide 21 mmol/L (22-29); Chloride 115 mmol/L (96-108); Creatinine Clr Calc Pharmacy 49.4; Estimated Glomerular Filt Rate 59; Glucose Random 106 mg/dL (60-115); Potassium 4.2 mmol/L (3.3-5.1); Sodium 146 mmol/L (135-145)
[2022-08-08 07:47] VITALS: BP 151/69; PULSE 81; RESP 18; TEMP 36; O2SAT 97
[2022-08-08] MEDS: Aspirin 81 MG TAB.CHEW PO (08:56)
[2022-08-08] MEDS: lamiVUDine 150 MG TABLET 300 MG PO (08:56)
[2022-08-08] MEDS: Cyanocobalamin (Vitamin B-12) 500 MCG TABLET 1500 MCG PO (08:56)
[2022-08-08] MEDS: Ferrous Sulfate 300 MG/5 ML LIQUID PO (08:56)
[2022-08-08] MEDS: ALPRAZolam 0.25 MG TABLET PO (08:57)
[2022-08-08] MEDS: HaloperidoL 1 MG TABLET 2 MG PO ×2 (08:57→15:26)
[2022-08-08] MEDS: Dolutegravir Sodium 50 MG TABLET PO (08:57)
[2022-08-08] MEDS: Pregabalin 50 MG CAPSULE PO ×2 (08:57→15:27)
[2022-08-08] MEDS: Docusate Sodium 100 MG CAPSULE PO (08:57)
[2022-08-08] MEDS: 0.9 % Sodium Chloride Flush 3 ML SYRINGE IVFLUSH ×2 (08:57→15:27)
[2022-08-08] MEDS: Calcium + Vitamin D 250 MG TABLET 500 MG PO (08:57)
[2022-08-08] MEDS: Multivitamin TABLET 1 TAB PO (08:57)
[2022-08-08 11:05] VITALS: BP 122/58; PULSE 98; RESP 18; TEMP 36.2; O2SAT 96
[2022-08-08 11:27] LABS: Glucose, Whole Blood 101 mg/dL (60-115)
[2022-08-08 12:45] LABS: Absolute CD3 Count 144 cells/uL (840-3060); Absolute CD4 Count 55 cells/uL (490-1740); Absolute CD8 Count 83 cells/uL (180-1170); Absolute Lymphocytes 241 cells/uL (850-3900); CD4 CD8 Ratio 0.66 (0.86-5.00); Percent CD3 Cells 60 % (57-85); Percent CD4 Cells 23 % (30-61); Percent CD8 Cells 35 % (12-42)
--- NOTE | 2022-08-08 13:25 | PM.DS ---
DS: Providers Provider Date of Service: 08/08/22 Date of admission: 08/05/22 19:13 Primary care physician: Kev Gorman DO Consults: 08/05/22 19:46 Consult to Neurology Routine Consulting Provider: [facility] Reason for consultation: NPH Has provider been notified: No DS: Diagnosis Discharge Diagnosis (1) Hypoxia: Status: Acute (2) HIV (human immunodeficiency virus infection): Status: Acute (3) LENORA (acute kidney injury): Status: Acute (4) Chronic kidney disease: Status: Acute (5) Dementia: Status: Acute (6) Bipolar 1 disorder: Status: Acute (7) UTI (urinary tract infection): Status: Acute (8) Aspiration pneumonia: Status: Acute DS: Summary Hospital Course Hospital Course: HPI: This is a 71-year-old male with a pertinent history of dementia with behavioral disturbance, bipolar disorder, HIV chronic kidney disease stage 3, essential hypertension who? was brought to the emergency department for evaluation of lethargy.? Patient is a very poor historian and is only oriented to self.? Is only giving one-word answers and saying yes to everything.? He does not know why he is here.? Has no complaints at the time of my evaluation.? As per chart review and ER physician, patient was sent from [facility] for evaluation of lethargy and change in mental status.? Unable to obtain review of systems. In the emergency department, patient was found to have left-sided infiltrate with urine suggestive of infection.? He was also found to be hypoxemia Hospital course: Patient was treated empirically with IV Unasyn to which he responded. His O2 weaned down and patient is maintaining normal oxygen saturation at room air prior to discharge. His mentation returned to baseline. Patient appears to have longstanding dysphagia. Spoke to speech pathologist at the hospital and at the longterm. Patient was previously on PEG tube due to recurrent aspirations which was removed as patient wanted to eat. Patient has had recurrent aspirations but as per speech pathologist at longterm and caregiver, patient to continue on the ground mechanical diet with thin liquids to focus on quality of life. Speech pathologist at hospital during this admission agrees. Will discharge with p.o. antibiotics to complete antibiotic course. LENORA resolved during hospital course with IV fluid resuscitation Status at Discharge Overall status at discharge: patient is back to baseline Time Spent with Patient Time attestation: Total time spent providing and/or coordinating discharge services: Discharge coordination time: Greater than 30 minutes Quality: Safe Use of Opioids Does Pt have an Active Cancer Diagnosis on the Problem List?: No Quality: Stroke Does the patient have a stroke diagnosis?: No Physical Exam Vital Signs: Vital Signs: Last Vital Signs Temp 97.2 F 08/08/22 11:05 Pulse 98 08/08/22 11:05 Resp 18 08/08/22 11:05 BP 122/58 L 08/08/22 11:05 Pulse Ox 96 08/08/22 11:05 O2 Del Method 08/08/22 11:05 O2 Flow Rate 2 08/07/22 18:37 Oxygen Flow Rate 2 08/05/22 15:05 BMI result Body Mass Index 23.2 Elderly male lying in bed in no distress on 2L supplemental oxygen Neck supple, no JVD Regular rate and rhythm, S1-S2 heard left-sided crackles, improved, no wheezing Abdomen soft nontender, no guarding, no rigidity Patient is? drowsy and awakens to verbal stimulus, only oriented to self,? does not participate in a conversation Psych:? drowsy No pedal edema DS: Data Data Completed and Pending Labs on day of discharge: Laboratory Results - last 24 hr 08/06/22 08/07/22 08/07/22 05:42 17:30 23:23 Sodium Potassium Chloride Carbon Dioxide Anion Gap BUN Creatinine Estim Creat Clear Calc Estimated GFR POC Glucose 126 H 134 H Random Glucose Calcium Total Lymphocytes 241 L % CD3 Cells 60 Absolute CD3 Count 144 L % CD4 Cells 23 L Absolute CD4 Count 55 L CD4/CD8 Ratio 0.66 L % CD8 Cells 35 Absolute CD8 Count 83 L 08/08/22 08/08/22 08/08/22 06:04 06:11 11:04 Sodium 146 H Potassium 4.2 Chloride 115 H Carbon Dioxide 21 L Anion Gap 14 BUN 16 Creatinine 1.20 Estim Creat Clear Calc 49.4 Estimated GFR 59 POC Glucose 103 101 Random Glucose 106 Calcium 7.8 L Total Lymphocytes % CD3 Cells Absolute CD3 Count % CD4 Cells Absolute CD4 Count CD4/CD8 Ratio % CD8 Cells Absolute CD8 Count Preliminary micro results at discharge 08/05/22 18:56 Blood Culture - Preliminary Blood - Venous No growth after 48 hours. 08/05/22 18:58 Blood Culture - Preliminary Blood - Venous No growth after 48 hours. Imaging Chest x-ray: Radiologist's impression: ITS Impressions Chest X-Ray 08/05/22 16:45 IMPRESSION: 1. Patchy airspace opacity at the left lung base concerning for acute inflammatory infectious process. 2. Stable chronic coarse reticular lung markings. Head CT 08/05/22 17:14 IMPRESSION: 1. No acute intracranial abnormality. 2. 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 3. Ventricles remain similarly dilated out of proportion to sulcal prominence, which can be seen in the setting of normal pressure hydrocephalus. Discharge Plan Discharge Anticipated Discharge Date/Time: 08/08/22 14:35 Patient Disposition: er SNF Discharge Diagnosis: Acute hypoxemic respiratory failure secondary to aspitation pneumonia Referrals: Kev Gorman DO [Primary Care Provider] - 1 Week Discharge Medications: New amoxicillin-pot clavulanate [Augmentin] 500-125 mg tablet 1 tab PO BID Qty: 8 0RF Continued multivitamin Tablet 1 tab PO DAILY sennosides [senna] 8.6 mg Tablet 8.6 mg PO BID PRN (Reason: Constipation) acetaminophen 325 mg Tablet 650 mg PO Q6H PRN (Reason: Pain) Rx Instructions: GIVE FOR MILD PAIN OR FEVER >101. DNE 3G/24H lorazepam 2 mg/mL Solution 1 mg IM Q24H PRN (Reason: Seizures) cyanocobalamin (vitamin B-12) 1,000 mcg Tablet 1,500 mcg PO DAILY tramadol 50 mg Tablet 50 mg PO Q8H PRN (Reason: Pain) alprazolam 0.25 mg Tablet 0.25 mg PO BID lansoprazole 30 mg Capsule,Delayed Release(Dr/Ec) 30 mg PO DAILY docusate sodium 100 mg Capsule 100 mg PO DAILY metoprolol tartrate 25 mg Tablet 25 mg PO BID lactulose 10 gram/15 mL Solution 30 ml PO DAILY PRN (Reason: Constipation) calcium carbonate-vitamin D3 [Calcium 500 + D] 500 mg(1,250mg) -200 unit Tablet 1 tab PO BID pregabalin 50 mg Capsule 50 mg PO TID Triumeq 600-50-300 mg Tablet 1 tab PO DAILY ferrous sulfate 220 mg (44 mg iron)/5 mL Elixir 330 mg PO DAILY aspirin 81 mg Tablet,Chewable 81 mg PO DAILY zinc oxide-vitamin B5-vit E 11.3 % Cream 1 appl TOPICAL QSHIFT Rx Instructions: apply to the buttock polymyxin B sulf-trimethoprim 10,000 unit- 1 mg/mL drops 1 drp ophthalmic (eye) QID Rx Instructions: for 7 days. 2 days remainig haloperidol 2 mg Tablet 2 mg PO TID Triumeq 600-50-300 mg Tablet 1 tab PO DAILY Discharge Orders: Discharge Order (Routine); Ordered 08/08/22 Ordered By: Margie Viera Diet: ground diet with thin liq Activity on Discharge: As tolerated Stand Alone Forms: Patient Portal Discharge page Care Plan Goals: Ground diet with thin liquids. Health Concerns: Recurrent aspiration pneumonia Plan of Treatment: Augmentin BID x 4 days Assessment: As per summary
--- NOTE | 2022-08-08 15:16 | MHC.CM.PN ---
Addendum entered by Lyn Alcantara RN 08/08/22 16:22: CHANGE OF PLAN FOR TRANSPORT. [facility] TO TAKE CALL. WILL ARRIVE ON UNIT AT APPROXIMATELY 5 PM. RN AND UNIT MADE AWARE. Original Note: [facility] CAN TRANSPORT FOR 7 PM TONIGHT BACK TO [facility] [place]. FACILITY, PATIENT, RN AND UNIT AWARE OF PLAN.
[2022-08-08 15:50] LABS: Glucose, Whole Blood 119 mg/dL (60-115)
[2022-08-08 15:57] LABS: COVID-19 Test Negative (Negative)
[2022-08-08 16:00] VITALS: BP 137/59; PULSE 78; RESP 18; TEMP 36.6; O2SAT 97
== END 2022-08-08 17:54 | disposition intermediate care facility (04) | DRG 177 ==
LOC: HO.ED 17:42 → HO.EDOVER 19:35 → HO.S3 08-06 18:41
PROVIDERS: Emergency Medicine; Admitting Provider Student in an Organized Health Care Education/Training Program; Emergency Provider Emergency Medicine; PCP Hospitalist; Visit Provider Student in an Organized Health Care Education/Training Program
DX: J69.0 Pneumonitis due to inhalation of food and vomit (principal); G93.41 Metabolic encephalopathy; J96.01 Acute respiratory failure with hypoxia; B20 Human immunodeficiency virus [HIV] disease; F03.918 Unspecified dementia, unspecified severity, with other behavioral disturbance; N39.0 Urinary tract infection, site not specified; N17.9 Acute kidney failure, unspecified; E87.0 Hyperosmolality and hypernatremia; E86.0 Dehydration; G31.9 Degenerative disease of nervous system, unspecified; J44.9 Chronic obstructive pulmonary disease, unspecified; R13.10 Dysphagia, unspecified; F31.9 Bipolar disorder, unspecified; B96.20 Unspecified Escherichia coli [E. coli] as the cause of diseases classified elsewhere; I12.9 Hypertensive chronic kidney disease with stage 1 through stage 4 chronic kidney disease, or unspecified chronic kidney disease; N18.30 Chronic kidney disease, stage 3 unspecified; Z20.822 Contact with and (suspected) exposure to COVID-19; Z79.82 Long term (current) use of aspirin; Z79.899 Other long term (current) drug therapy
CPT/HCPCS: 36415; 70450; 71045; 80048; 80053; 81001; 82140; 82803; 82947; 84484; 85025; 85610; 86359; 86360; 87040; 87086; 87088; 87186; 87635; 92610; 93005; 99285; J0295; J0456; J0696; J1650

== ENCOUNTER 2022-09-17 11:46 | Inpatient (IN) | payer MEDICARE, MEDICAID, SELFPAY ==
[2022-09-17] VITALS (10 sets, daily range): BP systolic 83–109; BP diastolic 34–60; PULSE 66–88; RESP 16–18; TEMP 37.1; O2SAT 93–100; BMI 19.7
--- NOTE | ~2022-09-17 | XR_ITS ---
EXAMINATION: XR CHEST CLINICAL INFORMATION: Chest pain COMPARISON: Chest 08/05/2022 TECHNIQUE: Frontal view of the chest was obtained. FINDINGS: The lungs are well-expanded with diffuse increase reticular interstitial markings throughout both lungs more prominent in the left lung base similar previous study. A few calcified nodules are seen in the right midlung, stable. No new consolidation seen. There is no pleural effusion. Mild left apical pleural thickening is stable as well. The heart size and the great vessels are normal caliber. XR/XR chest 1V IMPRESSION: Diffuse increase reticular interstitial markings throughout both lungs more prominent in the left lung base similar to previous study 08/05/2022. No new consolidation or pleural effusion seen.
--- NOTE | ~2022-09-17 | CT_ITS ---
EXAMINATION: CT ABDOMEN AND PELVIS WITHOUT CONTRAST CLINICAL INFORMATION: Leukocytosis and lethargy. COMPARISON: Previous CT March 2019 TECHNIQUE: Multidetector volumetric imaging was performed from the superior aspect of the liver through the pubic symphysis. Sagittal and coronal reformatted images were obtained on the technologist's workstation. This CT examination was performed using dose optimization techniques as appropriate, variously including the following: *Automated exposure control *Adjustment of mA and/or kV according to patient size (this includes techniques or standardized protocols for targeted exams where dose is matched to indication/reason for exam; i.e. extremities or head) *Use of iterative reconstruction technique DLP: 8 mL mGy-cm FINDINGS: Exam is limited due to motion artifact. LUNG BASES: Bilateral lower lobe pneumonia. LIVER, GALLBLADDER, AND BILIARY TREE: The liver is normal in size, shape, and attenuation. No focal hepatic lesion or biliary ductal dilatation is present. There is curvilinear calcification in the gallbladder probably representing gallbladder wall calcification as opposed to stone. This is similar to previous exams. PANCREAS: Unremarkable. SPLEEN: Unremarkable. ADRENAL GLANDS: Unremarkable. KIDNEYS AND URETERS: Bilateral renal cysts. No imaging follow-up needed. Stable fullness of the right renal pelvis. This probably represents an extrarenal pelvis. Kidneys are otherwise unremarkable. BLADDER: Unremarkable. GASTROINTESTINAL TRACT: The small and large bowel are unremarkable. There is question of mild wall thickening of the rectum. The appendix is not seen. The G-tube is no longer seen. ABDOMINAL WALL: No significant hernia is appreciated. LYMPH NODES: Normal. VASCULAR: Unremarkable. PELVIC VISCERA: Unremarkable. OSSEOUS STRUCTURES: Old trauma and orthopedic hardware in the right proximal femur. Degenerative changes of the spine and hip joints. Mild old compression fracture versus Schmorl's node of the superior endplate of the T12 vertebral body. CT/CT abdomen pelvis wo IV con IMPRESSION: Limited exam due to motion. Question mild wall thickening of the rectum. Gallbladder wall calcification. Bilateral renal cysts. Fleischner guidelines were followed.
--- NOTE | ~2022-09-17 | CT_ITS ---
EXAMINATION: CT HEAD WITHOUT CONTRAST CLINICAL INFORMATION: Leukocytosis. Lethargy.. COMPARISON: CT head 08/05/2022 from 07/24/2021 TECHNIQUE: Contiguous axial imaging was performed from the skull base to vertex without intravenous administration of contrast. Coronal and sagittal reformatted images are performed at the CT scanner. [This CT examination was performed using dose optimization techniques as appropriate, variously including the following: *Automated exposure control *Adjustment of mA and/or kV according to patient size (this includes techniques or standardized protocols for targeted exams where dose is matched to indication/reason for exam; i.e. extremities or head) *Use of iterative reconstruction technique] DLP: 805 mGy-cm. FINDINGS: No acute intracranial abnormality. Multiple bilateral stable regions of focal encephalomalacia from old infarcts. There is no evidence of acute intracranial hemorrhage or acute territorial infarction. No abnormal mass-effect or midline shift is seen. [place] to white matter differentiation is well preserved. There is streak artifact from aneurysmal coil clip in the region of left carotid terminus. Ventricles are dilated out of proportion of the sulci which can be seen with normal pressure hydrocephalus or ex vacuo dilatation of the ventricles due to central atrophy. There is moderate global volume loss and patchy periventricular deep white matter hypoattenuation consistent with chronic small vessel ischemic changes. There is no osseous abnormality. The mastoid air cells and visualized portions of the paranasal sinuses are well-aerated. CT/CT head/brain wo IV con IMPRESSION: 1. No acute intracranial pathology. 2. No significant change since previous studies. Stable ventriculomegaly out of proportion of the sulci which. 3. 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
--- NOTE | ~2022-09-17 | CT_ITS ---
EXAMINATION: CT CHEST WITHOUT CONTRAST CLINICAL INFORMATION: Leukocytosis and lethargy COMPARISON: Previous chest x-ray from earlier the same day and chest CT June 2018 TECHNIQUE: Multidetector volumetric CT imaging of the chest was done. Axial MIP volume rendering provided. Sagittal and coronal reformatted images were obtained. This CT examination was performed using dose optimization techniques as appropriate, variously including the following: *Automated exposure control *Adjustment of mA and/or kV according to patient size (this includes techniques or standardized protocols for targeted exams where dose is matched to indication/reason for exam; i.e. extremities or head) *Use of iterative reconstruction technique DLP: 478 mGy-cm FINDINGS: LICENSED CUSTOMS BROKER: LUNGS: There is bronchial wall thickening and airspace disease seen in both lower lobes suggestive of bilateral lower lobe bronchopneumonia. There is mild right upper lobe bronchial wall thickening and peribronchial nodular opacities probably representing airways disease as well. There is a 6 mm calcified right upper lobe nodule axial image 24 series 5 that is stable. There is evidence of mild emphysema. MEDIASTINUM: Prominent subcarinal mediastinal lymph nodes similar to 2018 exam. There are other small mediastinal Lymph nodes. Evaluation for hilar adenopathy is limited without contrast. Normal heart size. Mild coronary artery calcification. No pericardial effusion. CORONARY ARTERY CALCIFICATION: Mild PLEURA: There is no pleural effusion. No pleural mass or thickening. AXILLA: No lymphadenopathy. UPPER ABDOMEN: See separate CT report from the same day. OSSEOUS STRUCTURES: Degenerative changes of the spine. Mild compression fracture versus Schmorl's node of the T12 vertebral body. CT/CT chest wo IV con IMPRESSION: Bilateral lower lobe pneumonia and probable small right upper lobe pneumonia. Mild emphysema. Fleischner guidelines were followed.
--- NOTE | 2022-09-17 11:55 | ED_ITS ---
HPI - Altered Mental Status General Chief Complaint: Dyspnea Stated Complaint: AMS,LOW BP,FROM SNF PER EMS Time Seen by Provider: 09/17/22 11:54 Source: patient and EMS Mode of arrival: EMS History of Present Illness HPI narrative: 72-year-old male with a past medical history of dementia with behavioral disturbance, bipolar, HIV, CKD, HTN, recent discharge from our facility on 08/08 for CAP, UTI, encephalopathy and hypoxia BIBA today from [facility] for productive cough, increased lethargy and hypotension. Patient offers no complaints at present. Oriented to self. History limited due to patient's acute mental status MD complaint: altered mental status Related Data Home Medications Medication Instructions Recorded Confirmed abacavir 600 mg-dolutegravir 50 1 tab PO DAILY 07/19/21 09/17/22 mg-lamivudine 300 mg tablet (Triumeq) acetaminophen 325 mg tablet 650 mg PO Q6H PRN Pain 07/19/21 09/17/22 alprazolam 0.25 mg tablet 0.25 mg PO BID 07/19/21 09/17/22 calcium carbonate 500 mg-vitamin 1 tab PO BID 07/19/21 09/17/22 D3 5 mcg (200 unit) tablet (Calcium 500 + D) cyanocobalamin (vitamin B-12) 1,500 mcg PO DAILY 07/19/21 09/17/22 1,000 mcg tablet docusate sodium 100 mg capsule 100 mg PO DAILY 07/19/21 09/17/22 ferrous sulfate 220 mg (44 mg 330 mg PO DAILY 07/19/21 09/17/22 iron)/5 mL oral elixir lactulose 10 gram/15 mL oral 30 ml PO DAILY PRN Constipation 07/19/21 09/17/22 solution lansoprazole 30 mg capsule,delayed 30 mg PO DAILY 07/19/21 09/17/22 release lorazepam 2 mg/mL injection 1 mg IM Q24H PRN Seizures 07/19/21 09/17/22 solution metoprolol tartrate 25 mg tablet 25 mg PO BID 07/19/21 09/17/22 multivitamin 1 tab PO DAILY 07/19/21 09/17/22 pregabalin 50 mg capsule 50 mg PO TID 07/19/21 09/17/22 sennosides 8.6 mg tablet (senna) 8.6 mg PO BID PRN Constipation 07/19/21 09/17/22 tramadol 50 mg tablet 50 mg PO Q8H 07/19/21 09/17/22 aspirin 81 mg chewable tablet 81 mg PO DAILY 07/24/21 09/17/22 zinc oxide-vitamin B5-vit E 11.3% 1 appl topical QSHIFT 07/24/21 09/17/22 topical cream haloperidol 2 mg tablet 2 mg PO TID 08/05/22 09/17/22 Allergies Allergy/AdvReac Type Severity Reaction Status Date / Time No Known Allergies Allergy Unknown Unverified 06/23/20 17:32 [No Known Allergies*] Review of Systems Review of Systems: ROS limited due to acute mental status/baseline dementia Yes all other systems are reviewed and are negative Constitutional: Constitutional: Reports as per [facility] Past Medical History Attestation statement: The following information was validated with the patient. Medical History Age-related nuclear cataract, bilateral Altered mental status, unspecified Anemia, unspecified Bipolar 1 disorder Chronic anemia Chronic kidney disease Chronic kidney disease, stage 3 unspecified Constipation, unspecified Contracture, unspecified foot Contracture, unspecified knee Coronary artery disease Cyst of kidney, acquired Dementia Dementia in other diseases classified elsewhere with behavioral disturbance Dysphagia, oropharyngeal phase Essential (primary) hypertension History of COVID-19 HIV (human immunodeficiency virus infection) Hypertension Impulse disorder, unspecified Leg weakness Old myocardial infarction Other cholelithiasis without obstruction Other specified disorders of bone density and structure, unspecified site Paraplegia, unspecified Personal history of other diseases of the circulatory system Personal history of other diseases of the respiratory system Personal history of pneumonia (recurrent) Personal history of tuberculosis 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 Presbyopia Primary generalized (osteo)arthritis Splenomegaly, not elsewhere classified Unspecified convulsions Unspecified dementia with behavioral disturbance Social History Social History Household Members: Other Household Members Other:: snf Housing: Care Home Do you presently have visiting nurse or other home services: No (from snf) Alcohol intake: unknown Patient Tobacco Use Status: Never used Tobacco Advance Directives: Yes Advance Directives on File: Yes Advance Directives Date on File: 07/25/21 service: No Current occupational status: disabled Physical Exam ED Vital Signs: Vital Signs - 24 hr 09/17/22 12:17 09/17/22 12:56 09/17/22 13:24 Temperature 98.7 F Pulse Rate 72 73 78 Respiratory Rate 16 18 18 Blood Pressure 86/39 L 83/34 L 90/40 L Pulse Oximetry 95 95 97 Oxygen Delivery Method Room Air Room Air Room Air 09/17/22 13:32 09/17/22 13:32 09/17/22 15:10 Temperature Pulse Rate 74 74 72 Respiratory Rate 18 Blood Pressure 100/44 L 101/42 L Pulse Oximetry Oxygen Delivery Method 09/17/22 16:17 09/17/22 16:51 09/17/22 17:07 Temperature Pulse Rate 79 66 72 Respiratory Rate 16 16 Blood Pressure 88/39 L 88/39 L 100/60 Pulse Oximetry 100 100 Oxygen Delivery Method Room Air Room Air BMI result Body Mass Index 19.7 Const General: cooperative and no acute distress Orientation/consciousness: oriented to person Limitations: altered mental status HENMT Head: Yes normal to inspection and Yes atraumatic Ears: hearing grossly normal bilaterally General nose exam: Normal external nose present Face and sinus: Yes normal facial exam Throat: Yes posterior oropharynx normal Eyes General: appearance normal, both eyes and all related structures Pupils: Equal, round and reactive pupils present EOM: EOMs intact bilaterally Neck Neck: Yes normal visual inspection and Yes no meningeal signs Resp Effort & Inspection: normal respiratory effort and no respiratory distress Auscultation: rhonchi throughout Cardio Rate: regular rate Heart sounds: S1 normal heart sound present and S2 normal heart sound present GI Inspection: Yes normal to inspection Palpation (GI): Soft to palpation, nontender, no guarding and not rigid Skin Rashes: no rashes Wounds: no wounds Neuro General: oriented to person, tone normal and no meningeal signs Cranial nerves: Yes Equal, round and reactive pupils present Extrem General: Yes normal to inspection and Yes no pedal edema Course Course Course Narrative: -1411--noted leukocytosis of 29.4. H&H stable. LENORA with a BUN of 39 and creatinine of 2.97 Initial EMS IV infiltrated > believe about 400 cc infiltrated as IV was still dripping. 30mg/kg IVF = 1,926cc -initial troponin 5.3 > will obtain 3 hour repeat -COVID-19/influenza/RSV negative XR chest 1V IMPRESSION: Diffuse increase reticular interstitial markings throughout both lungs more prominent in the left lung base similar to previous study 08/05/2022. No new consolidation or pleural effusion seen. ? >> will obtain dry CT chest and abdomen/pelvis for further evaluation > delay in IVF completion due to infiltrated IV CT chest wo IV con IMPRESSION: Bilateral lower lobe pneumonia and probable small right upper lobe pneumonia. Mild emphysema.? ? Fleischner guidelines were followed. CT abdomen pelvis wo IV con IMPRESSION: Limited exam due to motion. Question mild wall thickening of the rectum. Gallbladder wall calcification. Bilateral renal cysts. Fleischner guidelines were followed. >> plan to admit for further management Medications Administered Generic Name Dose Route Start Last Admin Trade Name Freq PRN Reason Stop Dose Admin Lactated Ringer's 1,000 mls @ 999 mls/hr 09/17/22 16:45 09/17/22 17:37 Lr IV 09/17/22 17:45 999 mls/hr .Q1H1M NANCY Administration Discontinued Medications Generic Name Dose Route Start Last Admin Trade Name Freq PRN Reason Stop Dose Admin Albuterol/Ipratropium 3 ml 09/17/22 12:53 09/17/22 13:31 Albuterol/Iprat 2.5/0.5mg 3 Ml Ampul.Neb INHALE 09/17/22 12:54 3 ml ONCE ONE Administration Sodium Chloride 1,000 mls @ 999 mls/hr 09/17/22 12:15 09/17/22 14:00 Ns IV 09/17/22 13:15 Infused .Q1H1M NANCY Infusion Cefepime HCl 2 gm/ Sodium 50 mls @ 100 mls/hr 09/17/22 12:19 09/17/22 14:00 Chloride IV 09/17/22 12:48 Infused ONCE ONE Infusion Sodium Chloride 500 mls @ 999 mls/hr 09/17/22 12:30 09/17/22 14:00 Ns IV 09/17/22 13:00 Infused .Q31M NANCY Infusion Medical Decision Making Medical Decision Making MDM Narrative: 72-year-old male with a past medical history of dementia with behavioral disturbance, bipolar, HIV, CKD, HTN, recent discharge from our facility on 08/08 for CAP, UTI, encephalopathy and hypoxia BIBA today from [facility] for productive cough, increased lethargy and hypotension. On exam hypotensive, oriented to self, satting 95% on RA, no evidence of trauma, diffuse rhonchi and coarse lung sounds on exam. Concern for viral syndrome vs pneumonia. Rule out other metabolic and infectious etiologies. Concern for encephalopathy Low suspicion for severe sepsis at this time Plan: EKG, labs, UA, CXR, head CT, IVF, empiric IV antibiotics, admission Differential Diagnosis Differential Diagnoses: The differential diagnosis associated with the presentation includes Admission/Observation Consideration of admission/observation: Escalation of care including admission/observation considered Consult Healthcare Provider Management of the patient was discussed with: Hospitalist Lab Data MDM Lab Attestation statement: I reviewed the patient's lab results. Result Diagrams: 09/17/22 12:46 12 12:46 Labs: Lab Results 09/17/22 09/17/22 12 Range/Units 12:46 12:46 12:46 WBC 29.4 H (4.8-10.8) X10*3/uL RBC 4.68 D (4.60-5.80) X10*6/uL Hgb 13.3 L D (14.0-18.0) g/dl Hct 40.4 L D (42.0-52.0) % MCV 86.3 (80.0-98.0) fL MCH 28.4 (27.0-33.0) pg MCHC 32.9 (31.0-36.0) g/dl RDW 14.9 (11.0-16.0) % Plt Count 339 D (160-400) X10*3/uL MPV 10.4 (9.4-12.4) fL Immature Gran % (Auto) 1.1 H (0.0-0.4) % Neut % (Auto) 85.0 H (45-73) % Lymph % (Auto) 6.6 L (20-40) % Clarke % (Auto) 7.0 (2-11) % Eos % (Auto) 0.1 (0-4) % Baso % (Auto) 0.2 (0-2) % Lymph # (Auto) 1.9 (1.2-4.9) X10*3/uL Clarke # (Auto) 2.1 H (0.1-1.2) X10*3/uL Eos # (Auto) 0.0 (0.0-0.4) X10*3/uL Baso # (Auto) 0.1 (0.0-0.2) X10*3/uL Abs Immat Gran (auto) 0.31 H (0.00-0.03) X10*3/uL Absolute Neuts (auto) 25.0 H (2.0-8.3) x10*3/uL Absolute Nucleated RBC 0.000 (0.0-0.012) X10*3/uL Nucleated RBC % (auto) 0.0 (0.0-0.2) /100WBC Smear Tech's Comments VERIFIED Sodium 138 (135-145) mmol/L Potassium 5.1 D (3.3-5.1) mmol/L Chloride 107 (96-108) mmol/L Carbon Dioxide 23 (22-29) mmol/L Anion Gap 13 (12-20) BUN 39 H (9-16) mg/dL Creatinine 2.97 H (0.5-1.4) mg/dL Estim Creat Clear Calc 19.8 Estimated GFR 21 Random Glucose 87 (60-115) mg/dL Lactic Acid (0.5-2.0) mmol/L Calcium 8.7 D (8.4-10.2) mg/dL Magnesium 2.1 (1.6-2.6) mg/dL Total Bilirubin 0.6 (0.0-1.0) mg/dL Direct Bilirubin 0.2 (0.0-0.5) mg/dL AST 18 (5-37) U/L ALT 9 (0-40) U/L Alkaline Phosphatase 69 (39-117) U/L Ammonia Troponin I High Sens 5.3 (<3.5-35.0) ng/L B-Natriuretic Peptide (<100) pg/mL Total Protein 7.4 (6.5-8.0) g/dL Albumin 3.3 L (3.5-5.0) g/dL Lipase 24 (8-78) U/L Influenza Type A (PCR) (Negative) Influenza Type B (PCR) (Negative) RSV RNA Qual (PCR) (Negative) SARS-CoV-2 RNA (RT-PCR) (Negative) 09/17/22 09/17/22 09/17/22 Range/Units 12:46 12:46 12:46 WBC (4.8-10.8) X10*3/uL RBC (4.60-5.80) X10*6/uL Hgb (14.0-18.0) g/dl Hct (42.0-52.0) % MCV (80.0-98.0) fL MCH (27.0-33.0) pg MCHC (31.0-36.0) g/dl RDW (11.0-16.0) % Plt Count (160-400) X10*3/uL MPV (9.4-12.4) fL Immature Gran % (Auto) (0.0-0.4) % Neut % (Auto) (45-73) % Lymph % (Auto) (20-40) % Clarke % (Auto) (2-11) % Eos % (Auto) (0-4) % Baso % (Auto) (0-2) % Lymph # (Auto) (1.2-4.9) X10*3/uL Clarke # (Auto) (0.1-1.2) X10*3/uL Eos # (Auto) (0.0-0.4) X10*3/uL Baso # (Auto) (0.0-0.2) X10*3/uL Abs Immat Gran (auto) (0.00-0.03) X10*3/uL Absolute Neuts (auto) (2.0-8.3) x10*3/uL Absolute Nucleated RBC (0.0-0.012) X10*3/uL Nucleated RBC % (auto) (0.0-0.2) /100WBC Smear Tech's Comments Sodium (135-145) mmol/L Potassium (3.3-5.1) mmol/L Chloride (96-108) mmol/L Carbon Dioxide (22-29) mmol/L Anion Gap (12-20) BUN (9-16) mg/dL Creatinine (0.5-1.4) mg/dL Estim Creat Clear Calc Estimated GFR Random Glucose (60-115) mg/dL Lactic Acid 1.8 (0.5-2.0) mmol/L Calcium (8.4-10.2) mg/dL Magnesium (1.6-2.6) mg/dL Total Bilirubin (0.0-1.0) mg/dL Direct Bilirubin (0.0-0.5) mg/dL AST (5-37) U/L ALT (0-40) U/L Alkaline Phosphatase (39-117) U/L Ammonia Troponin I High Sens (<3.5-35.0) ng/L B-Natriuretic Peptide 79 (<100) pg/mL Total Protein (6.5-8.0) g/dL Albumin (3.5-5.0) g/dL Lipase (8-78) U/L Influenza Type A (PCR) NEGATIVE (Negative) Influenza Type B (PCR) NEGATIVE (Negative) RSV RNA Qual (PCR) NEGATIVE (Negative) SARS-CoV-2 RNA (RT-PCR) NEGATIVE (Negative) 09/17/22 09/17/22 09/17/22 Range/Units 13:19 15:53 16:00 WBC (4.8-10.8) X10*3/uL RBC (4.60-5.80) X10*6/uL Hgb (14.0-18.0) g/dl Hct (42.0-52.0) % MCV (80.0-98.0) fL MCH (27.0-33.0) pg MCHC (31.0-36.0) g/dl RDW (11.0-16.0) % Plt Count (160-400) X10*3/uL MPV (9.4-12.4) fL Immature Gran % (Auto) (0.0-0.4) % Neut % (Auto) (45-73) % Lymph % (Auto) (20-40) % Clarke % (Auto) (2-11) % Eos % (Auto) (0-4) % Baso % (Auto) (0-2) % Lymph # (Auto) (1.2-4.9) X10*3/uL Clarke # (Auto) (0.1-1.2) X10*3/uL Eos # (Auto) (0.0-0.4) X10*3/uL Baso # (Auto) (0.0-0.2) X10*3/uL Abs Immat Gran (auto) (0.00-0.03) X10*3/uL Absolute Neuts (auto) (2.0-8.3) x10*3/uL Absolute Nucleated RBC (0.0-0.012) X10*3/uL Nucleated RBC % (auto) (0.0-0.2) /100WBC Smear Tech's Comments Sodium (135-145) mmol/L Potassium (3.3-5.1) mmol/L Chloride (96-108) mmol/L Carbon Dioxide (22-29) mmol/L Anion Gap (12-20) BUN (9-16) mg/dL Creatinine (0.5-1.4) mg/dL Estim Creat Clear Calc Estimated GFR Random Glucose (60-115) mg/dL Lactic Acid (0.5-2.0) mmol/L Calcium (8.4-10.2) mg/dL Magnesium (1.6-2.6) mg/dL Total Bilirubin (0.0-1.0) mg/dL Direct Bilirubin (0.0-0.5) mg/dL AST (5-37) U/L ALT (0-40) U/L Alkaline Phosphatase (39-117) U/L Ammonia TNP 25 Troponin I High Sens 4.2 (<3.5-35.0) ng/L B-Natriuretic Peptide (<100) pg/mL Total Protein (6.5-8.0) g/dL Albumin (3.5-5.0) g/dL Lipase (8-78) U/L Influenza Type A (PCR) (Negative) Influenza Type B (PCR) (Negative) RSV RNA Qual (PCR) (Negative) SARS-CoV-2 RNA (RT-PCR) (Negative) Independent Interpretation I performed an independent interpretation of an: EKG, Plain X-Ray and CT Scan Radiology Impression Discussion of test interpretation with radiology: I have reviewed the radiologist's reading. Independent Historian Clinical information obtained from an independent historian. History obtained from or confirmed by: EMS External Record Review External record reviewed: Inpatient record, Office record, Outpatient record and Prior outpatient radiology Critical Care Time Critical Care Time Critical Care Time: Yes Total Critical Care Time: 45 Attestation: I have personally provided critical care time exclusive of time spent on separately billable procedures. Time includes review of lab data, radiology results, discussion with consultants, and monitoring for potential decompensat ion. Intervention performed as documented. Discharge Plan Discharge Clinical Impression: Multifocal pneumonia, LENORA (acute kidney injury) Patient Disposition: Admitted As Inpatient
--- NOTE | 2022-09-17 12:07 | ECG_ITS ---
Test Reason : SOB Blood Pressure : / mmHG Vent. Rate : 077 BPM Atrial Rate : 077 BPM P-R Int : 170 ms QRS Dur : 094 ms QT Int : 404 ms P-R-T Axes : 075 045 064 degrees QTc Int : 457 ms Artifact in tracing Normal sinus rhythm Normal ECG When compared with ECG of 05-AUG-2022 15:56, No significant change was found Referred By: Stefania Carr Electronically Signed By:ELVIN MIDDLETON
[2022-09-17] MEDS: 0.9 % Sodium Chloride 1,000 ML 999 ML IV (12:48)
[2022-09-17] MEDS: 0.9 % Sodium Chloride 500 ML 999 ML IV (12:48)
[2022-09-17] MEDS: cefEPime HCl 2 GM in 0.9 % Sodium Chloride 50 ML IV (12:54)
--- NOTE | 2022-09-17 12:56 | PC.NURSE ---
Addendum entered by Carolina Corbett 09/17/22 17:52: approx 400ml of infiltration to upper left arm Original Note: Pt on stretcher, obtunded, responds to tactile and noxious stimuli. NSR on monitor. BP remains low. Fluids and ABX started. Color is midly pale. IV placed by EMS infiltrated, 22g placed to right hand.
[2022-09-17 12:57] LABS: Basophils Absolute Auto 0.1 X10*3/uL (0.0-0.2); Basophils Percent Auto 0.2 % (0-2); Eosinophils Percent Auto 0.1 % (0-4); Hematocrit 40.4 % (42.0-52.0); Hemoglobin 13.3 g/dl (14.0-18.0); Imm Gran Abs Auto 0.31 X10*3/uL (0.00-0.03); Imm Gran Pct Auto 1.1 % (0.0-0.4); Lymphocytes Absolute Auto 1.9 X10*3/uL (1.2-4.9); Lymphocytes Percent Auto 6.6 % (20-40); MANUAL DIFF FLAG SCAN; Mean Corpuscular HGB Conc 32.9 g/dl (31.0-36.0); Mean Corpuscular Hemoglobin 28.4 pg (27.0-33.0); Mean Corpuscular Volume 86.3 fL (80.0-98.0); Mean Platelet Volume 10.4 fL (9.4-12.4); Monocytes Absolute Auto 2.1 X10*3/uL (0.1-1.2); Platelet Count 339 X10*3/uL (160-400); Red Blood Count 4.68 X10*6/uL (4.60-5.80); Red Cell Distribution Width 14.9 % (11.0-16.0); SCAN SMEAR FLAG 1; White Blood Count 29.4 X10*3/uL (4.8-10.8)
[2022-09-17 13:09] LABS: Lactic Acid 1.8 mmol/L (0.5-2.0)
[2022-09-17 13:19] LABS: SLIDE REVIEW VERIFIED
[2022-09-17 13:20] LABS: B Type Natriuretic Peptide 79 pg/mL (<100); Troponin-I High Sensitivity 5.3 ng/L (<3.5-35.0)
[2022-09-17 13:22] LABS: Anion Gap 13 (12-20); Blood Urea Nitrogen 39 mg/dL (9-16); Carbon Dioxide 23 mmol/L (22-29); Chloride 107 mmol/L (96-108); Potassium 5.1 mmol/L (3.3-5.1); Sodium 138 mmol/L (135-145)
[2022-09-17 13:23] LABS: Alanine Aminotransferase 9 U/L (0-40); Albumin Level 3.3 g/dL (3.5-5.0); Alkaline Phosphatase 69 U/L (39-117); Aspartate Amino Transferase 18 U/L (5-37); Bilirubin Direct 0.2 mg/dL (0.0-0.5); Bilirubin Total 0.6 mg/dL (0.0-1.0); Calcium 8.7 mg/dL (8.4-10.2); Creatinine Clr Calc Pharmacy 19.8; Estimated Glomerular Filt Rate 21; Glucose Random 87 mg/dL (60-115); Lipase 24 U/L (8-78); Magnesium 2.1 mg/dL (1.6-2.6); Total Protein 7.4 g/dL (6.5-8.0)
--- NOTE | 2022-09-17 13:24 | PC.NURSE ---
Second IV access obtained, 20g to right forearm.
[2022-09-17] MEDS: Albuterol/Iprat 2.5/0.5MG 3 ML AMPUL.NEB INHALE (13:31)
[2022-09-17 14:01] LABS: Influenza A PCR NEGATIVE (Negative); Influenza B PCR NEGATIVE (Negative); Resp Syncy Virus RNA Qual PCR NEGATIVE (Negative); SARS COV2 PCR INHOUSE NEGATIVE (Negative)
--- NOTE | 2022-09-17 14:48 | PHA.MEDREC ---
Pharmacy Consult ? Medication Reconciliation Pharmacy has completed the medication reconciliation. Patient came from [facility] with a medication list. Kelsey Gupta, JaneD
--- NOTE | 2022-09-17 15:03 | PC.NURSE ---
Attempted to straight cath pt, elpidio blood noted in cath tubing however no more elpidio blood from urethra, cath removed and Stefania DONALD notified. Bladder scan for 245mL.
--- NOTE | 2022-09-17 16:12 | PC.NURSE ---
Pt more alert/aggressive and combative, swearing and calling this RN bitch , redirected with little change in behavior.
[2022-09-17 16:36] LABS: Troponin-I High Sensitivity 4.2 ng/L (<3.5-35.0)
--- NOTE | 2022-09-17 16:52 | PC.NURSE ---
Stefania DONALD aware of BP, plan for additional fluids
[2022-09-17 16:59] LABS: Ammonia 25 umol/L (13-55)
--- NOTE | 2022-09-17 17:36 | PM.IMHP ---
History of Present Illness Date of Service: 09/17/22 Chief Complaint: Altered mental status 72-year-old male with a past medical history of dementia with behavioral disturbance, bipolar, HIV, CKD, HTN, recent discharge from this hospital on 08/08 follwing management for CAP, UTI, encephalopathy and hypoxia. He presents from [facility] today due to new productive cough, increased lethargy and hypotension. He fairly confuses and is not able to offer history. History obtained from SNF record and discussion with ED provider. Work has revealed WBC of 29K, lactic acid of 1.8, RSV, covid and influenza negative, Scr of 2.97 which is above his baseline about 1.5. He has had low BP of 83/34, most recent BP 100/60 after 1 L of fluid, respiration rate is normal, HR is normal and temperature is normal. CXR show no change but CT of chest show bilateral pneumonia. He doesn't meet sepsis criteria. Review of Systems Review of Systems: Gen: no fever Resp: no sob, + cough CV: no chest, no PERKINS, no leg edema GI: No n/v, no abd pain Neuro: + confusion Yes all other systems are reviewed and are negative [facility] [place] Medical History Age-related nuclear cataract, bilateral Altered mental status, unspecified Anemia, unspecified Bipolar 1 disorder Chronic anemia Chronic kidney disease Chronic kidney disease, stage 3 unspecified Constipation, unspecified Contracture, unspecified foot Contracture, unspecified knee Coronary artery disease Cyst of kidney, acquired Dementia Dementia in other diseases classified elsewhere with behavioral disturbance Dysphagia, oropharyngeal phase Essential (primary) hypertension History of COVID-19 HIV (human immunodeficiency virus infection) Hypertension Impulse disorder, unspecified Leg weakness Old myocardial infarction Other cholelithiasis without obstruction Other specified disorders of bone density and structure, unspecified site Paraplegia, unspecified Personal history of other diseases of the circulatory system Personal history of other diseases of the respiratory system Personal history of pneumonia (recurrent) Personal history of tuberculosis 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 Presbyopia Primary generalized (osteo)arthritis Splenomegaly, not elsewhere classified Unspecified convulsions Unspecified dementia with behavioral disturbance Social History Household Members: Other Household Members Other:: snf Housing: [facility] Do you presently have visiting nurse or other home services: No (from snf) Alcohol intake: unknown Patient Tobacco Use Status: Never used Tobacco Advance Directives: Yes Advance Directives on File: Yes Advance Directives Date on File: 07/25/21 service: No Current occupational status: disabled Meds Allergies Allergy/AdvReac Type Severity Reaction Status Date / Time No Known Allergies Allergy Unknown Unverified 06/23/20 17:32 [No Known Allergies*] Active Medications: Current Medications Lactated Ringer's (Lr) 1,000 mls @ 999 mls/hr IV .Q1H1M NANCY Stop: 09/17/22 17:45 Home Medications Medication Instructions Recorded Confirmed Last Taken Type abacavir 600 mg-dolutegravir 50 1 tab PO DAILY 07/19/21 09/17/22 08/05/22 History mg-lamivudine 300 mg tablet (Triumeq) acetaminophen 325 mg tablet 650 mg PO Q6H PRN Pain 07/19/21 09/17/22 Unknown History alprazolam 0.25 mg tablet 0.25 mg PO BID 07/19/21 09/17/22 08/05/22 History calcium carbonate 500 mg-vitamin 1 tab PO BID 07/19/21 09/17/22 08/05/22 History D3 5 mcg (200 unit) tablet (Calcium 500 + D) cyanocobalamin (vitamin B-12) 1,500 mcg PO DAILY 07/19/21 09/17/22 08/05/22 History 1,000 mcg tablet docusate sodium 100 mg capsule 100 mg PO DAILY 07/19/21 09/17/22 08/05/22 History ferrous sulfate 220 mg (44 mg 330 mg PO DAILY 07/19/21 09/17/22 08/05/22 History iron)/5 mL oral elixir lactulose 10 gram/15 mL oral 30 ml PO DAILY PRN Constipation 07/19/21 09/17/22 Unknown History solution lansoprazole 30 mg capsule,delayed 30 mg PO DAILY 07/19/21 09/17/22 08/05/22 History release lorazepam 2 mg/mL injection 1 mg IM Q24H PRN Seizures 07/19/21 09/17/22 Unknown History solution metoprolol tartrate 25 mg tablet 25 mg PO BID 07/19/21 09/17/22 08/05/22 History multivitamin 1 tab PO DAILY 07/19/21 09/17/22 08/05/22 History pregabalin 50 mg capsule 50 mg PO TID 07/19/21 09/17/22 08/05/22 History sennosides 8.6 mg tablet (senna) 8.6 mg PO BID PRN Constipation 07/19/21 09/17/22 Unknown History tramadol 50 mg tablet 50 mg PO Q8H 07/19/21 09/17/22 Unknown History aspirin 81 mg chewable tablet 81 mg PO DAILY 07/24/21 09/17/22 08/05/22 History zinc oxide-vitamin B5-vit E 11.3% 1 appl topical QSHIFT 07/24/21 09/17/22 08/05/22 History topical cream haloperidol 2 mg tablet 2 mg PO TID 08/05/22 09/17/22 08/05/22 History Physical Exam Vital Signs and Narrative: Vital Signs: Last Vital Signs Temp 98.7 F 09/17/22 12:17 Pulse 72 09/17/22 17:07 Resp 16 09/17/22 17:07 BP 100/60 09/17/22 17:07 Pulse Ox 100 09/17/22 17:07 O2 Del Method 09/17/22 17:07 BMI result Body Mass Index 19.7 Const: Other: Constitutional: Alert, Mental Status: Oriented to personpnly Eyes: Pupils are equal, round and reactive to light. Ear, Nose and Throat: Oropharynx clear, mucous membranes is very dry. Ears and nose without deformities. Respiratory: Clear to auscultation. No wheezing, rales , + rhonchi. Cardiovascular: S1 S2 regular. No murmurs, rubs or gallops. Gastrointestinal: Abdomen soft, non-tender, non-distended. Normal bowel sounds.? Neurologic: Cranial nerves II-XII grossly intact. No focal neurological deficits. Moves all extremities spontaneously.? Skin: No rashes or lesions.? Musculoskeletal: No cyanosis or clubbing. Psychiatric: flat affect Results Labs CBC and Chem 7: 09/17/22 12:46 09/17/22 12:46 Labs: Laboratory Results - last 24 hr 09/17/22 09/17/22 09/17/22 12:46 12:46 12:46 MCV 86.3 MCH 28.4 MCHC 32.9 RDW 14.9 Plt Count 339 D MPV 10.4 Immature Gran % (Auto) 1.1 H Neut % (Auto) 85.0 H Lymph % (Auto) 6.6 L Rapides % (Auto) 7.0 Eos % (Auto) 0.1 Baso % (Auto) 0.2 Lymph # (Auto) 1.9 Rapides # (Auto) 2.1 H Eos # (Auto) 0.0 Baso # (Auto) 0.1 Abs Immat Gran (auto) 0.31 H Absolute Neuts (auto) 25.0 H Absolute Nucleated RBC 0.000 Nucleated RBC % (auto) 0.0 Smear Tech's Comments VERIFIED Anion Gap 13 Estim Creat Clear Calc 19.8 Estimated GFR 21 Random Glucose 87 Lactic Acid Calcium 8.7 D Magnesium 2.1 Total Bilirubin 0.6 Direct Bilirubin 0.2 AST 18 ALT 9 Alkaline Phosphatase 69 Ammonia Troponin I High Sens 5.3 B-Natriuretic Peptide Total Protein 7.4 Albumin 3.3 L Lipase 24 Influenza Type A (PCR) Influenza Type B (PCR) RSV RNA Qual (PCR) SARS-CoV-2 RNA (RT-PCR) 09/17/22 09/17/22 09/17/22 12:46 12:46 12:46 MCV MCH MCHC RDW Plt Count MPV Immature Gran % (Auto) Neut % (Auto) Lymph % (Auto) Rapides % (Auto) Eos % (Auto) Baso % (Auto) Lymph # (Auto) Rapides # (Auto) Eos # (Auto) Baso # (Auto) Abs Immat Gran (auto) Absolute Neuts (auto) Absolute Nucleated RBC Nucleated RBC % (auto) Smear Tech's Comments Anion Gap Estim Creat Clear Calc Estimated GFR Random Glucose Lactic Acid 1.8 Calcium Magnesium Total Bilirubin Direct Bilirubin AST ALT Alkaline Phosphatase Ammonia Troponin I High Sens B-Natriuretic Peptide 79 Total Protein Albumin Lipase Influenza Type A (PCR) NEGATIVE Influenza Type B (PCR) NEGATIVE RSV RNA Qual (PCR) NEGATIVE SARS-CoV-2 RNA (RT-PCR) NEGATIVE 09/17/22 09/17/22 09/17/22 13:19 15:53 16:00 MCV MCH MCHC RDW Plt Count MPV Immature Gran % (Auto) Neut % (Auto) Lymph % (Auto) Rapides % (Auto) Eos % (Auto) Baso % (Auto) Lymph # (Auto) [place]ides # (Auto) Eos # (Auto) Baso # (Auto) Abs Immat Gran (auto) Absolute Neuts (auto) Absolute Nucleated RBC Nucleated RBC % (auto) Smear Tech's Comments Anion Gap Estim Creat Clear Calc Estimated GFR Random Glucose Lactic Acid Calcium Magnesium Total Bilirubin Direct Bilirubin AST ALT Alkaline Phosphatase Ammonia TNP 25 Troponin I High Sens 4.2 B-Natriuretic Peptide Total Protein Albumin Lipase Influenza Type A (PCR) Influenza Type B (PCR) RSV RNA Qual (PCR) SARS-CoV-2 RNA (RT-PCR) Imaging Radiologist's Impressions: Impressions Chest X-Ray 09/17/22 13:22 IMPRESSION: Diffuse increase reticular interstitial markings throughout both lungs more prominent in the left lung base similar to previous study 08/05/2022. No new consolidation or pleural effusion seen. Head CT 09/17/22 14:30 IMPRESSION: 1. No acute intracranial pathology. 2. No significant change since previous studies. Stable ventriculomegaly out of proportion of the sulci which. 3. 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 Abdomen/Pelvis CT 09/17/22 15:41 IMPRESSION: Limited exam due to motion. Question mild wall thickening of the rectum. Gallbladder wall calcification. Bilateral renal cysts. Fleischner guidelines were followed. Chest CT 09/17/22 15:41 IMPRESSION: Bilateral lower lobe pneumonia and probable small right upper lobe pneumonia. Mild emphysema. Fleischner guidelines were followed. Assessment and Plan (1) Multifocal pneumonia: Status: Acute (2) LENORA (acute kidney injury): Status: Acute (3) HIV (human immunodeficiency virus infection): Status: Acute (4) Chronic kidney disease: Status: Acute (5) Dementia: Status: Acute Plan 72-year-old male with a past medical history of dementia with behavioral disturbance, bipolar, HIV, CKD, HTN, recent discharge from this hospital on 08/08 follwing management for CAP, UTI, encephalopathy and hypoxia. He presents from [facility] today due to new productive cough, increased lethargy and hypotension and is found to have bilateral pneumonia, LENORA and encephalopathy 1/Pneumonia--he has aspiration tendency and should cover for aspiration penumonia. Continue Cefepime . Follow cultures, repeat WBC in the morning 2/CKD2 with LENORA--d/t pre renal azotemia as evident by sings of of profound dehydration (dry mucus membrane, dry skin) 3/ HypOtension--NOT due to sepsis but rather due to dehydration from poor oral , need aggresive hydration and close monitoring 4/ h/o HIV--continue Triumeq 5/Suspected HIV dementia with behavioral disturbance--Haldol, Ativan 6/ Metabolic encephalopathy d/t pneumonia, LENORA and dehydration NPO, speech swallow eval tomorrow DVT prophylaxis--Heparin Code status: Full Need for inpatient; admission to [facility] at least 2 midnight for pneumonia that needs IV Abx, lenora that need IV and monitoring for encephalopathy Time Spent With Patient Time: Total time managing care of this patient today ____ minutes. Quality Stroke Does the patient have a stroke diagnosis?: No VTE Prior VTE?: No VTE Risk Level:: Medical - moderate - high VTE Device Contraindication: Treatment Not Indicated VTE Drug Contraindication: Treatment Not Indicated
[2022-09-17] MEDS: Lactated Ringers 1,000 ML 999 ML IV (17:37)
[2022-09-17] MEDS: 0.9 % Sodium Chloride 1,000 ML 150 ML IVCONT (20:46)
[2022-09-17] MEDS: Metoprolol Tartrate 25 MG TABLET PO (22:30)
[2022-09-17] MEDS: ALPRAZolam 0.25 MG TABLET PO (22:31)
[2022-09-17] MEDS: traMADoL HCL 50 MG TABLET PO (22:31)
[2022-09-17] MEDS: HaloperidoL 1 MG TABLET 2 MG PO (22:31)
[2022-09-17] MEDS: Calcium + Vitamin D 250 MG TABLET PO (22:31)
[2022-09-17] MEDS: Pregabalin 50 MG CAPSULE PO (22:32)
[2022-09-17] MEDS: Heparin Sodium,Porcine 5,000 UNIT/ML VIAL 5000 UNIT SUBCUT (22:32)
--- NOTE | 2022-09-17 22:37 | PC.NURSE ---
Pt is a/o x 2, pt's V/S are stable, Pt has IV running as order by the provider. Pt did not allow the nurse to take the temp and the o2. Pt was screaming saying, don't touch me . the meds were able to administered. IV on his right wrist 18g. Pt is asleep.
[2022-09-18] VITALS: BP 128/65; PULSE 66; RESP 18; TEMP 36; O2SAT 95
[2022-09-18] MEDS: 0.9 % Sodium Chloride Flush 3 ML SYRINGE IVFLUSH (00:24)
[2022-09-18] MEDS: 0.9 % Sodium Chloride 1,000 ML 150 ML IVCONT ×4 (00:25→21:07)
[2022-09-18] MEDS: Melatonin 3 MG TABLET 6 MG PO (02:41)
[2022-09-18 03:45] VITALS: BP 106/66; PULSE 67; RESP 16; TEMP 36.2; O2SAT 95
[2022-09-18] MEDS: traMADoL HCL 50 MG TABLET PO ×3 (05:40→20:56)
[2022-09-18] MEDS: Heparin Sodium,Porcine 5,000 UNIT/ML VIAL 5000 UNIT SUBCUT ×3 (05:41→20:55)
[2022-09-18] MEDS: Omeprazole 20 MG CAPSULE.DR PO (05:41)
[2022-09-18 06:02] LABS: MANUAL DIFF FLAG NO
[2022-09-18 06:14] LABS: Basophils Percent Auto 0.2 % (0-2); Eosinophils Absolute Auto 0.1 X10*3/uL (0.0-0.4); Eosinophils Percent Auto 0.7 % (0-4); Hematocrit 34.9 % (42.0-52.0); Hemoglobin 11.3 g/dl (14.0-18.0); Imm Gran Abs Auto 0.06 X10*3/uL (0.00-0.03); Imm Gran Pct Auto 0.5 % (0.0-0.4); Lymphocytes Absolute Auto 0.8 X10*3/uL (1.2-4.9); Lymphocytes Percent Auto 6.4 % (20-40); Mean Corpuscular HGB Conc 32.4 g/dl (31.0-36.0); Mean Corpuscular Volume 86.6 fL (80.0-98.0); Mean Platelet Volume 10.6 fL (9.4-12.4); Monocytes Absolute Auto 0.7 X10*3/uL (0.1-1.2); Monocytes Percent Auto 5.3 % (2-11); Neutrophils Absolute Auto 11.1 x10*3/uL (2.0-8.3); Neutrophils Percent Auto 86.9 % (45-73); Platelet Count 206 X10*3/uL (160-400); Red Blood Count 4.03 X10*6/uL (4.60-5.80); White Blood Count 12.8 X10*3/uL (4.8-10.8)
[2022-09-18 06:45] LABS: Anion Gap 11 (12-20); Blood Urea Nitrogen 27 mg/dL (9-16); Calcium 7.9 mg/dL (8.4-10.2); Carbon Dioxide 18 mmol/L (22-29); Chloride 116 mmol/L (96-108); Creatinine Clr Calc Pharmacy 36.7; Estimated Glomerular Filt Rate 42; Glucose Random 92 mg/dL (60-115); Potassium 4.7 mmol/L (3.3-5.1); Sodium 140 mmol/L (135-145)
[2022-09-18 07:15] VITALS: BP 115/62; PULSE 70; RESP 19; TEMP 36.5; O2SAT 94
[2022-09-18] MEDS: Multivitamin TABLET 1 TAB PO (09:16)
[2022-09-18] MEDS: Metoprolol Tartrate 25 MG TABLET PO ×2 (09:16→20:57)
[2022-09-18] MEDS: HaloperidoL 1 MG TABLET 2 MG PO ×3 (09:16→20:56)
[2022-09-18] MEDS: Abacavir/lamiVUDine 600/300 TABLET 1 TAB PO (09:16)
[2022-09-18] MEDS: ALPRAZolam 0.25 MG TABLET PO ×2 (09:16→20:56)
[2022-09-18] MEDS: Dolutegravir Sodium 50 MG TABLET PO (09:16)
[2022-09-18] MEDS: Pregabalin 50 MG CAPSULE PO ×3 (09:17→20:56)
[2022-09-18] MEDS: Cyanocobalamin (Vitamin B-12) 500 MCG TABLET 1500 MCG PO (09:17)
[2022-09-18] MEDS: Aspirin 81 MG TAB.CHEW PO (09:17)
[2022-09-18] MEDS: Ferrous Sulfate 300 MG/5 ML LIQUID PO (09:18)
[2022-09-18] MEDS: Calcium + Vitamin D 250 MG TABLET PO ×2 (09:34→20:56)
--- NOTE | 2022-09-18 10:03 | MHC.CM.PN ---
PATIENT IS LETHARGIC AND NOT RESPONDING TO THIS [employer]ABBLE FURNACE TENDER. T/W ATTEMPTED TO LEAVE MESSAGE FOR GUARDIAN (MALATHI) AT [phone]. OUTGOING MESSAGE CUT OFF AND DISCONNECTED BEFORE T/W COULD LEAVE A MESSAGE. IMM TO BE SENT VIA CERTIFIED MAIL TO ADDRESS ON FILE IMM 09/18 IN CHART DC PLAN: RETURN TO [facility] AT [facility]
--- NOTE | 2022-09-18 13:30 | P.PNIM_ITS ---
Subjective Subjective Date of Service: 09/18/22 Interval History: Altered mental status Review of Systems Unable to tell much,otherwise awake Physical Exam Vital Signs: Vital Signs: Last Vital Signs Temp 97.7 F 09/18/22 07:15 Pulse 70 09/18/22 07:15 Resp 19 09/18/22 07:15 BP 115/62 09/18/22 07:15 Pulse Ox 94 09/18/22 07:15 O2 Del Method 09/18/22 07:15 BMI result Body Mass Index 20.0 ?Elderly male lying in bed in no distress . Neck supple, no JVD Regular rate and rhythm, S1-S2 heard left-sided infiltrate without wheezing Abdomen soft nontender, no guarding, no rigidity No pedal edema Objective Data Active Medications Abacavir/Lamivudine (Abacavir/Lamivudine 600/300 Tablet) 1 tab PO DAILY [facility] Last Admin: 09/18/22 09:16 Dose: 1 tab Documented By: DONITA-SOFFA Acetaminophen (Acetaminophen 325 Mg Tablet) 650 mg PO Q6H PRN PRN Reason: Pain, Mild (Pain Scale 1-3) Alprazolam (Alprazolam 0.25 Mg Tablet) 0.25 mg PO BID [facility] Last Admin: 09/18/22 09:16 Dose: 0.25 mg Documented By: DONITA-SOFFA Aspirin (Aspirin 81 Mg Tab.Chew) 81 mg PO DAILY [facility] Last Admin: 09/18/22 09:17 Dose: 81 mg Documented By: N-SOFFA Calcium Carbonate/Cholecalciferol (Calcium + Vitamin D 250 Mg Tablet) 250 mg PO BID [facility] Last Admin: 09/18/22 09:34 Dose: 250 mg Documented By: DONITA-SOFFA Cyanocobalamin (Cyanocobalamin (Vitamin B-12) 500 Mcg Tablet) 1,500 mcg PO DAILY [facility] Last Admin: 09/18/22 09:17 Dose: 1,500 mcg Documented By: DONITA-SOFFA Docusate Sodium (Docusate Sodium 100 Mg Capsule) 100 mg PO DAILY [facility] Last Admin: 09/18/22 09:18 Dose: Not Given Documented By: DONITA-SOFFA Non-Admin Reason: cannot be crushed Dolutegravir Sodium (Dolutegravir Sodium 50 Mg Tablet) 50 mg PO DAILY [facility] Last Admin: 09/18/22 09:16 Dose: 50 mg Documented By: FRANCISCO Ferrous Sulfate (Ferrous Sulfate 300 Mg/5 Ml Liquid) 300 mg PO DAILY [facility] Last Admin: 09/18/22 09:18 Dose: 300 mg Documented By: FRANCISCO Haloperidol (Haloperidol 1 Mg Tablet) 2 mg PO TID [facility] Last Admin: 09/18/22 09:16 Dose: 2 mg Documented By: FRANCISCO Heparin Sodium (Porcine) (Heparin Sodium,Porcine 5,000 Unit/Ml Vial) 5,000 unit SUBCUT Q8H [facility] Last Admin: 09/18/22 12:17 Dose: 5,000 unit Documented By: FRANCISCO Sodium Chloride (Ns) 1,000 mls @ 150 mls/hr IVCONT .Q6H40M [facility] Last Admin: 09/18/22 09:15 Dose: 150 mls/hr Documented By: FRANCISCO Lactulose (Lactulose 20 Gm/30 Ml Solution) 20 gm PO DAILY PRN PRN Reason: Constipation Lorazepam (Lorazepam 2 Mg/Ml Vial) 1 mg IM Q24H PRN PRN Reason: Seizures Magnesium Hydroxide (Milk Of Magnesia 30 Ml Oral.Susp) 30 ml PO DAILY PRN PRN Reason: Constipation Melatonin (Melatonin 3 Mg Tablet) 6 mg PO BEDTIME PRN PRN Reason: Insomnia Last Admin: 09/18/22 02:41 Dose: 6 mg Documented By: BRIAN Metoprolol Tartrate (Metoprolol Tartrate 25 Mg Tablet) 25 mg PO BID [facility]; Protocol Last Admin: 09/18/22 09:16 Dose: 25 mg Documented By: FRANCISCO Multivitamins/Vitamin C (Multivitamin Tablet) 1 tab PO DAILY [facility] Last Admin: 09/18/22 09:16 Dose: 1 tab Documented By: FRANCISCO Omeprazole (Omeprazole 20 Mg Capsule.) 20 mg PO DAILY@0630 [facility] Last Admin: 09/18/22 05:41 Dose: 20 mg Documented By: BRIAN Pregabalin (Pregabalin 50 Mg Capsule) 50 mg PO TID [facility] Last Admin: 09/18/22 09:17 Dose: 50 mg Documented By: FRANCISCO Senna (Sennosides 8.6 Mg Tablet) 8.6 mg PO BID PRN PRN Reason: Constipation Sodium Chloride (0.9 % Sodium Chloride Flush 3 Ml Syringe) 3 ml IVFLUSH QSHIFT [facility] Last Admin: 09/18/22 07:01 Dose: Not Given Documented By: DONITA-RAMSES Non-Admin Reason: See Note Tramadol HCl (Tramadol Hcl 50 Mg Tablet) 50 mg PO Q8H [facility] Last Admin: 09/18/22 12:17 Dose: 50 mg Documented By: FRANCISCO Zinc Oxide (Zinc Oxide 20% Ointment 28.35 Gm Tube) 1 appl TOPICAL [facility] Last Admin: 09/18/22 09:18 Dose: Not Given Documented By: FRANCISCO Non-Admin Reason: See Note Labs CBC & Chem 7: 09/18/22 05:30 09/18/22 05:30 Labs: Laboratory Results - last 24 hr 09/17/22 09/17/22 09/17/22 12:46 13:19 15:53 MCV MCH MCHC RDW Plt Count MPV Immature Gran % (Auto) Neut % (Auto) Lymph % (Auto) [place] % (Auto) Eos % (Auto) Baso % (Auto) Lymph # (Auto) [place] # (Auto) Eos # (Auto) Baso # (Auto) Abs Immat Gran (auto) Absolute Neuts (auto) Absolute Nucleated RBC Nucleated RBC % (auto) Anion Gap Estim Creat Clear Calc Estimated GFR Random Glucose Calcium Ammonia TNP 25 Troponin I High Sens Influenza Type A (PCR) NEGATIVE Influenza Type B (PCR) NEGATIVE RSV RNA Qual (PCR) NEGATIVE SARS-CoV-2 RNA (RT-PCR) NEGATIVE 09/17/22 09/18/22 09/18/22 16:00 05:30 05:30 MCV 86.6 MCH 28.0 MCHC 32.4 RDW 15.0 Plt Count 206 D MPV 10.6 Immature Gran % (Auto) 0.5 H Neut % (Auto) 86.9 H Lymph % (Auto) 6.4 L [place] % (Auto) 5.3 Eos % (Auto) 0.7 Baso % (Auto) 0.2 Lymph # (Auto) 0.8 L [place] # (Auto) 0.7 Eos # (Auto) 0.1 Baso # (Auto) 0.0 Abs Immat Gran (auto) 0.06 H Absolute Neuts (auto) 11.1 H Absolute Nucleated RBC 0.000 Nucleated RBC % (auto) 0.0 Anion Gap 11 L Estim Creat Clear Calc 36.7 Estimated GFR 42 Random Glucose 92 Calcium 7.9 L D Ammonia Troponin I High Sens 4.2 Influenza Type A (PCR) Influenza Type B (PCR) RSV RNA Qual (PCR) SARS-CoV-2 RNA (RT-PCR) Assessment and Plan (1) Multifocal pneumonia: Status: Acute (2) LENORA (acute kidney injury): Status: Acute Plan 72-year-old male with a past medical history of dementia with behavioral disturbance, bipolar, HIV, CKD, HTN, recent discharge from this hospital? on 08/08 follwing management for CAP, UTI, encephalopathy and hypoxia. He presents from [facility] today due to new productive cough, increased lethargy and hypotension and is found to have bilateral pneumonia, LENORA and encephalopathy 1/Pneumonia--he has aspiration tendency and should cover for aspiration penumonia. Continue Cefepime . Follow cultures, repeat WBC in the morning. 2/CKD2 with? LENORA--d/t pre renal azotemia as evident by sings of of profound dehydration (dry mucus membrane, dry skin). 3/ HypOtension--NOT due to sepsis but rather due to dehydration from poor oral , need aggresive hydration and close monitoring. 4/ h/o HIV--continue Triumeq. 5/Suspected HIV dementia with behavioral disturbance--Haldol, Ativan 6/ Metabolic encephalopathy d/t pneumonia, LENORA and dehydration NPO, speech swallow eval tomorrow DVT prophylaxis--Heparin Code status: Full Need for inpatient;aspiration penumonia-need iv antibiotics ,speech and swallow ,blood culture pending also Time Spent With Patient Time: Total time managing care of this patient today ____ minutes. Quality Stroke Does the patient have a stroke diagnosis?: No VTE Prior VTE?: No VTE Risk Level:: Medical - moderate - high VTE Device Contraindication: Treatment Not Indicated VTE Drug Contraindication: Treatment Not Indicated
[2022-09-18] MEDS: Zinc Oxide 20% Ointment 28.35 GM TUBE 1 APPL TOPICAL (14:21)
[2022-09-18 16:00] VITALS: BP 109/61; PULSE 87; RESP 18; TEMP 36.7; O2SAT 98
[2022-09-18 19:24] VITALS: BP 138/87; PULSE 69; RESP 18; TEMP 36.5; O2SAT 98
[2022-09-19] MEDS: Zinc Oxide 20% Ointment 28.35 GM TUBE 1 APPL TOPICAL ×3 (00:17→15:43)
[2022-09-19 04:00] VITALS: BP 124/79; PULSE 70; RESP 17; TEMP 36.8; O2SAT 95
[2022-09-19] MEDS: 0.9 % Sodium Chloride 1,000 ML 150 ML IVCONT (05:00)
[2022-09-19] MEDS: Omeprazole 20 MG CAPSULE.DR PO (05:06)
[2022-09-19] MEDS: traMADoL HCL 50 MG TABLET PO ×2 (05:06→13:01)
[2022-09-19] MEDS: Heparin Sodium,Porcine 5,000 UNIT/ML VIAL 5000 UNIT SUBCUT ×2 (05:06→13:01)
[2022-09-19 07:59] VITALS: BP 145/82; PULSE 78; RESP 17; TEMP 36.4; O2SAT 95
[2022-09-19] MEDS: Abacavir/lamiVUDine 600/300 TABLET 1 TAB PO (09:40)
[2022-09-19] MEDS: Dolutegravir Sodium 50 MG TABLET PO (09:40)
[2022-09-19] MEDS: HaloperidoL 1 MG TABLET 2 MG PO ×2 (09:40→14:49)
[2022-09-19] MEDS: Metoprolol Tartrate 25 MG TABLET PO (09:40)
[2022-09-19] MEDS: Docusate Sodium 100 MG CAPSULE PO (09:41)
[2022-09-19] MEDS: Ferrous Sulfate 300 MG/5 ML LIQUID PO (09:41)
[2022-09-19] MEDS: Pregabalin 50 MG CAPSULE PO ×2 (09:41→14:49)
[2022-09-19] MEDS: Cyanocobalamin (Vitamin B-12) 500 MCG TABLET 1500 MCG PO (09:41)
[2022-09-19] MEDS: Calcium + Vitamin D 250 MG TABLET PO (09:41)
[2022-09-19] MEDS: Multivitamin TABLET 1 TAB PO (09:41)
[2022-09-19] MEDS: Aspirin 81 MG TAB.CHEW PO (09:41)
[2022-09-19] MEDS: ALPRAZolam 0.25 MG TABLET PO (09:41)
[2022-09-19 09:58] LABS: Anion Gap 12 (12-20); Blood Urea Nitrogen 16 mg/dL (9-16); Calcium 7.6 mg/dL (8.4-10.2); Carbon Dioxide 15 mmol/L (22-29); Chloride 118 mmol/L (96-108); Creatinine Clr Calc Pharmacy 56.7; Estimated Glomerular Filt Rate > 60; Glucose Random 79 mg/dL (60-115); Potassium 4.6 mmol/L (3.3-5.1); Sodium 140 mmol/L (135-145)
--- NOTE | 2022-09-19 14:51 | MHC.CM.PN ---
PATIENT TO RETURN TO [facility] FOR [facility] (PENDING (-) COVID). RN AND UNIT AWARE OF PLAN.
--- NOTE | 2022-09-19 15:36 | P.DS_ITS ---
DS: Providers Provider Date of Service: 09/19/22 Date of admission: 09/17/22 18:25 Primary care physician: Kev Gorman, DO DS: Diagnosis Discharge Diagnosis (1) Multifocal pneumonia: Status: Acute (2) LENORA (acute kidney injury): Status: Acute DS: Summary Hospital Course Hospital Course: 72-year-old male with a past medical history of dementia with behavioral disturbance, bipolar, HIV, CKD, HTN, recent discharge from this hospital? on 08/08 follwing management for CAP, UTI, encephalopathy and hypoxia. He presents from [facility] today due to new productive cough, increased lethargy and hypotension. He fairly confuses and is not able to offer history. History obtained from SNF record and discussion with ED provider. Work has revealed WBC of 29K, lactic acid of 1.8, RSV, covid and influenza negative, Scr of 2.97 which is above his baseline about 1.5. He has had low BP of 83/34, most recent BP 100/60 after 1 L of fluid, respiration rate is normal, HR is normal and temperature is normal. CXR show no change but CT of chest show bilateral pneumonia. He doesn't meet sepsis criteria. Hospital course: Patient was admitted for hypotension, bilateral pneumonia LENORA, possible toxic encephalopathy secondary to above. Patient was given initial antibiotic, hypotension and lenora was thought to be related to dehydration-which responded well to IV hydration. Leukocytosis improving, blood culture negative at 48 hours . Toxic metabolic sick encephalopathy was thought to be related to pneumonia, Lenora dehydration which seems to be improved with hydration and supportive care, antibiotics added for pneumonia patient is going to the residential with p.o. antibiotics. Patient's speech swallow study mbss -is planned to be done out patiently. Further management outpatient. Assessment and plan coordination time spent 50 minute. Time Spent with Patient Time attestation: Total time managing care of this patient today ____ minutes. Discharge coordination time: Greater than 30 minutes Quality: Safe Use of Opioids Does Pt have an Active Cancer Diagnosis on the Problem List?: No Quality: Stroke Does the patient have a stroke diagnosis?: No Physical Exam Vital Signs: Vital Signs: Last Vital Signs Temp 97.5 F 09/19/22 07:59 Pulse 78 09/19/22 07:59 Resp 17 09/19/22 07:59 BP 145/82 H 09/19/22 07:59 Pulse Ox 95 09/19/22 07:59 O2 Del Method 09/19/22 07:59 BMI result Body Mass Index 20.0 Elderly male lying in bed in no distress,mental status seems at basline(confirmed with NH) . Neck supple, no JVD Regular rate and rhythm, S1-S2 heard left-sided infiltrate without wheezing Abdomen soft nontender, no guarding, no rigidity No pedal edema DS: Data Data Completed and Pending Completed studies during hospitalization [Text1]: Procedures Insertion of Infusion Device into Upper Vein, Percutaneous Approach (08/05/22) Labs on day of discharge: Laboratory Results - last 24 hr 09/19/22 08:36 Sodium 140 Potassium 4.6 Chloride 118 H Carbon Dioxide 15 L Anion Gap 12 BUN 16 Creatinine 1.05 Estim Creat Clear Calc 56.7 Estimated GFR > 60 Random Glucose 79 Calcium 7.6 L Preliminary micro results at discharge 09/17/22 12:46 Blood Culture - Preliminary Blood - Venous No growth after 48 hours. 09/17/22 12:46 Blood Culture - Preliminary Blood - Venous No growth after 48 hours. Imaging Chest x-ray: Radiologist's impression: ITS Impressions Chest X-Ray 09/17/22 13:22 IMPRESSION: Diffuse increase reticular interstitial markings throughout both lungs more prominent in the left lung base similar to previous study 08/05/2022. No new consolidation or pleural effusion seen. Head CT 09/17/22 14:30 IMPRESSION: 1. No acute intracranial pathology. 2. No significant change since previous studies. Stable ventriculomegaly out of proportion of the sulci which. 3. 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 Abdomen/Pelvis CT 09/17/22 15:41 IMPRESSION: Limited exam due to motion. Question mild wall thickening of the rectum. Gallbladder wall calcification. Bilateral renal cysts. Fleischner guidelines were followed. Chest CT 09/17/22 15:41 IMPRESSION: Bilateral lower lobe pneumonia and probable small right upper lobe pneumonia. Mild emphysema. Fleischner guidelines were followed. Discharge Plan Discharge Anticipated Discharge Date/Time: 09/19/22 15:23 Patient Disposition: Xfer SNF Discharge Diagnosis: b/l pneumonia ,lenora Referrals: [facility] [Outside] - 1 Week Kev Gorman DO [Primary Care Provider] - 1 Week Discharge Medications: New amoxicillin-pot clavulanate 875-125 mg tablet 1 tab PO BID Qty: 14 0RF sodium bicarbonate 650 mg tablet 650 mg PO BID Qty: 10 0RF Continued multivitamin Tablet 1 tab PO DAILY sennosides [senna] 8.6 mg Tablet 8.6 mg PO BID PRN (Reason: Constipation) acetaminophen 325 mg Tablet 650 mg PO Q6H PRN (Reason: Pain) Rx Instructions: GIVE FOR MILD PAIN OR FEVER >101. DNE 3G/24H lorazepam 2 mg/mL Solution 1 mg IM Q24H PRN (Reason: Seizures) cyanocobalamin (vitamin B-12) 1,000 mcg Tablet 1,500 mcg PO DAILY tramadol 50 mg Tablet 50 mg PO Q8H alprazolam 0.25 mg Tablet 0.25 mg PO BID lansoprazole 30 mg Capsule,Delayed Release(Dr/Ec) 30 mg PO DAILY docusate sodium 100 mg Capsule 100 mg PO DAILY metoprolol tartrate 25 mg Tablet 25 mg PO BID lactulose 10 gram/15 mL Solution 30 ml PO DAILY PRN (Reason: Constipation) calcium carbonate-vitamin D3 [Calcium 500 + D] 500 mg(1,250mg) -200 unit Tablet 1 tab PO BID pregabalin 50 mg Capsule 50 mg PO TID Triumeq 600-50-300 mg Tablet 1 tab PO DAILY ferrous sulfate 220 mg (44 mg iron)/5 mL Elixir 330 mg PO DAILY aspirin 81 mg Tablet,Chewable 81 mg PO DAILY zinc oxide-vitamin B5-vit E 11.3 % Cream 1 appl TOPICAL QSHIFT Rx Instructions: apply to the buttock haloperidol 2 mg Tablet 2 mg PO TID Discharge Orders: Discharge Order (Routine); Ordered 09/19/22 Ordered By: Luis Wu Diet: Advance to usual diet Activity on Discharge: As tolerated Stand Alone Forms: Patient Portal Discharge page Care Plan Goals: Patient was admitted for hypotension, bilateral pneumonia LENORA, possible toxic encephalopathy secondary to above. Patient was given initial antibiotic, hypotension and lenora was thought to be related to dehydration-which responded well to IV hydration. Toxic metabolic sick encephalopathy was thought to be related to pneumonia, Lenora dehydration which seems to be improved with hydration and supportive care, antibiotics added for pneumonia patient is going to the residential with p.o. antibiotics. Please repeat chest imaging in 3-4 weeks to see resolution of pneumonia. Patient's speech swallow study mbss -is planned to be done out patiently. Further management outpatient. Health Concerns: As above. Plan of Treatment: As above. Assessment: As above.
[2022-09-19 15:38] VITALS: BP 162/78; PULSE 67; RESP 17; TEMP 36.5; O2SAT 93
[2022-09-19] MEDS: Amoxicillin/Potassium Clav 875 MG TABLET PO (15:41)
[2022-09-19] MEDS: 0.9 % Sodium Chloride Flush 3 ML SYRINGE IVFLUSH (15:44)
[2022-09-19 16:04] LABS: COVID-19 Test Negative (Negative); IDNOW Serial# 16C4AD1C
--- NOTE | 2022-09-19 16:31 | MHC.SLORD ---
Addendum entered and electronically signed by Desiree Ding MA, [facility] 09/19/22 16:49: D.S. Original Note: Speech Language Pathology Order Status: PHYS THER received order for bedside swallow evaluation. Pt's baseline diet is ground/mech altered solids (NDD2) and thin liquids at his [facility] residence. Diet was confirmed on this date w/ [facility] Route Clerk. Per notes during pt's recent hospitalization in August 2022, pt's family is aware of aspiration risk and continuing to be fed despite risks. PHYS THER had recommended MBSS; was ordered for 08/08/22 then cancelled by MD. Given extensive hx of documented aspiration on swallow that has been noted to be silent, patient cannot be fully assessed w/o repeat MBSS. PHYS THER recommended swallow evaluation done via MBSS rather than at bedside. MD reported plan for outpatient MBSS and for [facility] (minced and moist solids, thin liquids). MD inquired about pt's performance at bedside, PHYS THER summarized 08/07/22 observation intended to assess pt's readiness for MBSS. Per PHYS THER notes, Pt was noted to tolerate Honey Thick Liquids and puree as administered in a limited amount, evidencing a disorganized oral phase of swallow, and reduced laryngeal elevation on swallow. Pt evidenced aspiration on thin liquids. Given extensive history of documented aspiration on swallow that has been noted to be silent, patient cannot be fully assessed w/o repeat MBSS. It is documented that family has opted to accept aspiration risk, and wishes to have patient continue on P.O. for nutrition. Pt's current diet as ordered by MD is Ground/Mechanical/Alt with thin liquids, which is baseline diet from [facility].
== END 2022-09-19 17:09 | disposition intermediate care facility (04) | DRG 193 ==
LOC: HO.ED 17:30 → HO.EDOVER 18:31 → HO.S3 19:47
PROVIDERS: Physician Assistant; Admitting Provider Internal Medicine; Emergency Provider Emergency Medicine; PCP Hospitalist; Visit Provider Internal Medicine
DX: J18.9 Pneumonia, unspecified organism (principal); G92.8 Other toxic encephalopathy; N17.9 Acute kidney failure, unspecified; F03.918 Unspecified dementia, unspecified severity, with other behavioral disturbance; I12.9 Hypertensive chronic kidney disease with stage 1 through stage 4 chronic kidney disease, or unspecified chronic kidney disease; Z21 Asymptomatic human immunodeficiency virus [HIV] infection status; N18.2 Chronic kidney disease, stage 2 (mild); F31.9 Bipolar disorder, unspecified; E86.0 Dehydration; I95.9 Hypotension, unspecified; Z20.822 Contact with and (suspected) exposure to COVID-19; Z79.82 Long term (current) use of aspirin; Z79.899 Other long term (current) drug therapy
CPT/HCPCS: 0241U; 36415; 70450; 71045; 71250; 74176; 80048; 80076; 82140; 83605; 83690; 83735; 83880; 84484; 85025; 87040; 87635; 93005; 94640; 99285; J0692

== ENCOUNTER → 2023-04-04 14:05 | Outpatient (BNVA) | payer MEDICARE, MEDICAID, SELFPAY | PROVIDERS: PCP Hospitalist; Visit Provider Surgery | DX: J95.03 Malfunction of tracheostomy stoma (principal) | CPT/HCPCS: 99202 ==

== ENCOUNTER 2023-04-20 16:35 | Inpatient (IN) | payer MEDICARE, MEDICAID, SELFPAY ==
--- NOTE | ~2023-04-20 | XR_ITS ---
EXAMINATION: XR CHEST CLINICAL INFORMATION: Shortness of breath COMPARISON: CT chest and chest radiograph 09/17/[address] of the chest dating back to 06/04/2007 TECHNIQUE: Frontal view of the chest was obtained. FINDINGS: Compared to the prior chest radiograph, there is been some improvement in appearances in the left lower lobe with decreased airspace opacity and some minimal increase in right midlung airspace opacity. Patient has marked underlying emphysema and probable chronic interstitial disease as well. Heart size normal. No pleural effusions. No evidence of gross CHF. XR/XR chest 1V IMPRESSION: Emphysema with chronic interstitial lung disease. Some improvement in left lower lobe airspace opacity with slight increase in right midlung opacity. Emphysematous changes and probable interstitial disease has been present on studies dating back to 2006.
--- NOTE | ~2023-04-20 | CT_ITS ---
EXAMINATION: CT CHEST WITHOUT CONTRAST CLINICAL INFORMATION: HIV pneumonia. COMPARISON: 09/17/2022 TECHNIQUE: Multidetector volumetric CT imaging of the chest was done. Axial MIP volume rendering provided. Sagittal and coronal reformatted images were obtained. This CT examination was performed using dose optimization techniques as appropriate, variously including the following: *Automated exposure control *Adjustment of mA and/or kV according to patient size (this includes techniques or standardized protocols for targeted exams where dose is matched to indication/reason for exam; i.e. extremities or head) *Use of iterative reconstruction technique DLP: 262 mGy-cm FINDINGS: LUNGS: Moderate centrilobular emphysema. Subpleural reticular changes. Mild diffuse bronchiectasis and bronchial wall thickening. Peribronchial groundglass opacities in the right upper lobe, right middle lobe and lingula. Bilateral lower lobe consolidation. No suspicious pulmonary nodule. MEDIASTINUM: No bulky mediastinal or hilar lymphadenopathy. Great vessels are of normal caliber. Heart size is normal. No pericardial effusion. CORONARY ARTERY CALCIFICATION: Mild. PLEURA: Small bilateral pleural effusions, left greater than right. CHEST WALL/AXILLA: No bulky axillary lymphadenopathy. Gynecomastia. UPPER ABDOMEN: No adrenal masses. Upper pole left renal cyst. Midpole left renal cyst. Gallbladder calcification. OSSEOUS STRUCTURES: No destructive bone lesions. Stable superior endplate depression of T12. CT/CT chest wo IV con IMPRESSION: Multifocal pneumonia -- worse in the lower lobes. Small bilateral pleural effusions, left greater than right. Gallbladder calcification.
[2023-04-20 16:49] VITALS: BP 130/78; BP 133/60; PULSE 75; PULSE 83; RESP 20; TEMP 36.9; O2SAT 89; O2SAT 90; BMI 19.8
--- NOTE | 2023-04-20 17:00 | PC.NURSE ---
Pt alert, oriented to self. States no to all questions asked. Frequently requesting to go home. Needs frequent redirection to keep 02 on and comply with plan of care thus far (obtaining vitals). VSS. Afebrile orally.
--- NOTE | 2023-04-20 17:03 | ECG_ITS ---
Test Reason : LOW O2 STAT Blood Pressure : / mmHG Vent. Rate : 079 BPM Atrial Rate : 079 BPM P-R Int : 140 ms QRS Dur : 078 ms QT Int : 360 ms P-R-T Axes : 075 048 062 degrees QTc Int : 412 ms Normal sinus rhythm Normal ECG When compared with ECG of 17-SEP-2022 14:22, No significant change was found Referred By: Mario Vanessa Electronically Signed By:EZ ERWIN MD
--- NOTE | 2023-04-20 17:08 | PC.NURSE ---
Plan for portable CXR prior to lab draw to assess need for bld cx to attempt to minimize draws as pt is agitated and needs frequent reassurance with care
--- NOTE | 2023-04-20 17:20 | ED_ITS ---
HPI - General Adult General Chief complaint: General Medical Stated complaint: CC OF LOW O2 AND PULMONARY CONGESTION Time Seen by Provider: 04/20/23 16:42 Source: patient, RN notes reviewed and old records reviewed Mode of arrival: EMS Limitations: other (History dementia, poor historian) History of Present Illness HPI narrative: 72-year-old male past medical history significant for dementia, HIV, chronic kidney disease, bipolar disorder, hypertension presents for evaluation of ?low oxygen. ? The patient arrives from long term facility for reports of a low oxygen saturation on room air The patient himself reports that he feels well and does not feel short of breath The patient does have a previous tracheostomy, but is no longer using the site He denies any leg swelling, denies any cough, fevers, chills or any calf pain including chest pain The patient does have a long history of aspiration pneumonitis The patient is requesting to be discharged back home. Related Data Home Medications Medication Instructions Recorded Confirmed abacavir 600 mg-dolutegravir 50 1 tab PO DAILY 07/19/21 04/19/23 mg-lamivudine 300 mg tablet (Triumeq) acetaminophen 325 mg tablet 650 mg PO Q6H PRN Pain 07/19/21 04/19/23 alprazolam 0.25 mg tablet 0.25 mg PO BID 07/19/21 04/19/23 calcium carbonate 500 mg-vitamin 1 tab PO BID 07/19/21 04/19/23 D3 5 mcg (200 unit) tablet (Calcium 500 + D) cyanocobalamin (vitamin B-12) 1,500 mcg PO DAILY 07/19/21 04/19/23 1,000 mcg tablet docusate sodium 100 mg capsule 100 mg PO DAILY 07/19/21 04/19/23 ferrous sulfate 220 mg (44 mg 330 mg PO DAILY 07/19/21 04/19/23 iron)/5 mL oral elixir lactulose 10 gram/15 mL oral 30 ml PO DAILY PRN Constipation 07/19/21 04/19/23 solution lansoprazole 30 mg capsule,delayed 30 mg PO DAILY 07/19/21 04/19/23 release lorazepam 2 mg/mL injection 1 mg IM Q24H PRN Seizures 07/19/21 04/19/23 solution metoprolol tartrate 25 mg tablet 25 mg PO BID 07/19/21 04/19/23 multivitamin 1 tab PO DAILY 07/19/21 04/19/23 pregabalin 50 mg capsule 50 mg PO TID 07/19/21 04/19/23 sennosides 8.6 mg tablet (senna) 8.6 mg PO BID PRN Constipation 07/19/21 04/19/23 tramadol 50 mg tablet 50 mg PO Q8H 07/19/21 04/19/23 aspirin 81 mg chewable tablet 81 mg PO DAILY 07/24/21 04/19/23 zinc oxide-vitamin B5-vit E 11.3% 1 appl topical QSHIFT 07/24/21 04/19/23 topical cream haloperidol 2 mg tablet 2 mg PO TID 08/05/22 04/19/23 Previous Rx's Medication Instructions Recorded amoxicillin 875 mg-potassium 1 tab PO BID #14 tabs 09/19/22 clavulanate 125 mg tablet sodium bicarbonate 650 mg tablet 650 mg PO BID #10 tabs 09/19/22 Allergies Allergy/AdvReac Type Severity Reaction Status Date / Time No Known Allergies Allergy Unknown Verified 04/20/23 16:55 [No Known Allergies*] Review of Systems Constitutional: Constitutional: Denies chills, Denies fever(s) and Denies headache(s) ENT: Denies headache(s) Cardiovascular: Cardiovascular: Denies leg edema and Denies dyspnea Respiratory: Respiratory: Denies cough and Denies dyspnea Gastrointestinal: Gastrointestinal: Denies abdominal pain, Denies nausea and Denies vomiting Integumentary/Breasts: Skin/Breast: Denies erythema and Denies rash Neurologic: Denies headache(s) [facility] Past Medical History Medical History (Updated 04/20/23 @ 19:20 by Mario Vanessa) Age-related nuclear cataract, bilateral Altered mental status, unspecified Anemia, unspecified Bipolar 1 disorder Chronic anemia Chronic kidney disease Chronic kidney disease, stage 3 unspecified Constipation, unspecified Contracture, unspecified foot Contracture, unspecified knee Coronary artery disease Cyst of kidney, acquired Dementia Dementia in other diseases classified elsewhere with behavioral disturbance Dysphagia, oropharyngeal phase Essential (primary) hypertension History of COVID-19 HIV (human immunodeficiency virus infection) Hypertension Impulse disorder, unspecified Leg weakness Old myocardial infarction Other cholelithiasis without obstruction Other specified disorders of bone density and structure, unspecified site Paraplegia, unspecified Personal history of other diseases of the circulatory system Personal history of other diseases of the respiratory system Personal history of pneumonia (recurrent) Personal history of tuberculosis 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 Presbyopia Primary generalized (osteo)arthritis Resides in long term facility Splenomegaly, not elsewhere classified Unspecified convulsions Unspecified dementia with behavioral disturbance Surgical History (Updated 04/19/23 @ 14:46 by Cecile Thapa RN) History of bronchoscopy History of hip surgery S/P percutaneous endoscopic gastrostomy (PEG) tube placement Social History Social History Household Members: Unknown / Unable to assess Household Members Other:: resides At [facility] Housing: Jail Housing Other:: [facility] Are you a primary direct care professional to a significant other at home: No Do you presently have visiting nurse or other home services: Yes ([facility] staff) Unable to assess alcohol history related to: Unable to respond Alcohol intake: unknown Patient Tobacco Use Status: Never used Tobacco Smoked in Last 30 Days: No Use of substances other than those prescribed or required for medical reasons: No Advance Directives: Yes Advance Directives on File: Yes Advance Directives Date on File: 07/25/21 service: No Current occupational status: disabled Physical Exam ED Vital Signs: Vital Signs - 24 hr 04/20/23 16:49 04/20/23 20:41 04/20/23 23:54 Temperature 98.4 F 98.3 F 98.5 F Pulse Rate 83 112 H 104 H Respiratory Rate 20 16 18 Blood Pressure 133/60 132/102 H 151/88 H Pulse Oximetry 89 L 94 98 Oxygen Delivery Method Room Air Nasal Cannula Oxygen Flow Rate 2 2 04/21/23 02:24 04/21/23 05:25 04/21/23 06:56 Temperature 100.5 F H 97.7 F 97.9 F Pulse Rate 99 83 Respiratory Rate 17 17 18 Blood Pressure 105/70 124/53 L 117/60 Pulse Oximetry 95 96 98 Oxygen Delivery Method Nasal Cannula Room Air Nasal Cannula Oxygen Flow Rate 4 4 04/21/23 07:17 Temperature Pulse Rate 76 Respiratory Rate 16 Blood Pressure 114/53 L Pulse Oximetry Oxygen Delivery Method Nasal Cannula Oxygen Flow Rate 4 BMI result Body Mass Index 19.8 Const Other: Patient has baseline dementia but does appear to be answering questions appropriately General: comfortable, no acute distress, alert and awake Nutritional Appearance: well nourished Orientation/consciousness: oriented to person, oriented to place and No oriented to time HENPA Head: Yes normocephalic and Yes atraumatic Eyes Eyelids: Yes eyelids normal Conjunctivae: conjunctivae normal Sclerae: sclerae normal Corneas: corneas normal Pupils: Equal, round and reactive pupils present EOM: EOMs intact bilaterally Neck Neck: Yes full ROM Resp Effort & Inspection: normal respiratory effort, able to speak in complete sentences, no audible wheezes and not labored Auscultation: clear to auscultation bilaterally Cardio Other: No lower extremity edema Rate: regular rate Rhythm: regular rhythm GI Inspection: No distended Palpation (GI): Soft to palpation, not firm, nontender, no guarding and not rigid Auscultation: normoactive bowel sounds Skin General skin exam: no rashes or lesions noted and elasticity normal Neuro General: oriented to person, oriented to place and No oriented to time Cranial nerves: Yes Equal, round and reactive pupils present and Yes Bilaterally intact EOM present Extrem Other: Moving all extremities well without any obvious deformities Course Reevaluation(s) Reevaluation #1: Patient has been coughing intermittently, his white count is 15.9 K. His x-ray shows worsening right middle to lower lobe opacities. Will treat for community- acquired pneumonia and discussed the hospitalist for admission. Time: 19:20 Reevaluation #2: Hospitalist, Dr. Domingo was evaluating the patient for admission, and the patient refused admission. He does have diagnosed dementia is able to state that he is in a hospital and knows his name. Will keep the patient overnight, treat his community-acquired pneumonia and determine if the patient has capacity to refuse care with a psych consult Time: 21:47 Reevaluation #3: 0800-Patient with PNA on x-ray, meeting SIRS criteria and requiring supplemental oxygen. Patient with underlying history of dementia and TBI and so I do not believe the patient has capacity to make his own medical decisions. Irregardless, I met with the patient this morning explained his diagnosis and need for admission and he is willing to be admitted to the hospital. I sent a message for admission to Dr Valdovinos who will review the patient's chart for admission. Medications Administered Discontinued Medications Generic Name Dose Route Start Last Admin Trade Name Andrei PRN Reason Stop Dose Admin Acetaminophen 650 mg 04/21/23 02:30 04/21/23 02:45 Acetaminophen 325 Mg Tablet PO 04/21/23 02:31 650 mg ONCE ONE Administration Haloperidol Lactate 2.5 mg 04/20/23 18:31 04/20/23 19:22 Haloperidol Lactate 5 Mg/Ml Vial IVPUSH 04/20/23 18:32 Not Given STAT STA Azithromycin 500 mg/ Sodium 250 mls @ 125 mls/hr 04/20/23 19:17 04/20/23 20:56 Chloride IV 04/20/23 21:16 125 mls/hr ONCE ONE Administration Ceftriaxone Sodium 1 gm/ 50 mls @ 100 mls/hr 04/20/23 19:17 04/20/23 20:56 Sodium Chloride IV 04/20/23 19:46 Infused ONCE ONE Infusion Sodium Chloride 1,000 mls @ 999 mls/hr 04/20/23 19:30 04/20/23 20:10 Ns IV 04/20/23 20:30 999 mls/hr .Q1H1M [facility] Administration Medical Decision Making Medical Decision Making MDM Narrative: 72-year-old male with multiple comorbidities presents for evaluation of low oxygen saturation from outside facility. On arrival to the ED use found to be 89% on room air. He was initially refusing supplemental oxygen but eventually agreed to be on 2 L via nasal cannula. Plan for labs including chest x-ray, UA. Further workup as indicated. The patient is afebrile and normotensive at this time. He appears comfortable Differential Diagnosis Differential Diagnoses: The differential diagnosis associated with the presentation includes Congestive heart failure Pneumonia Aspiration pneumonia Bronchitis PE Viral syndrome Admission/Observation Consideration of admission/observation: Escalation of care including admission/observation considered Community-acquired pneumonia Consult Healthcare Provider Management of the patient was discussed with: Hospitalist 04/21 0800-Spoke to Dr Valdovinos who accepted admission Lab Data MDM Lab Attestation statement: I reviewed the patient's lab results. (Leukocytosis of 15.9 K. No significant anemia. Sodium potassium normal at 143 and 4.8 respectively. BUN of 23 with a creatinine 1.26. Lactate normal at 1.6) 04/20/23 17:51 04/20/23 17:51 Labs: Lab Results 07/15/23 07/15/23 07/15/23 Range/Units 17:51 17:51 17:51 WBC 15.9 H (4.8-10.8) X10*3/uL RBC 5.12 D (4.60-5.80) X10*6/uL Hgb 14.5 D (14.0-18.0) g/dl Hct 45.0 D (42.0-52.0) % MCV 87.9 (80.0-98.0) fL MCH 28.3 (27.0-33.0) pg MCHC 32.2 (31.0-36.0) g/dl RDW 13.9 (11.0-16.0) % Plt Count 348 D (160-400) X10*3/uL MPV 10.6 (9.4-12.4) fL Immature Gran % (Auto) 0.4 (0.0-0.4) % Neut % (Auto) 87.9 H (45-73) % Lymph % (Auto) 6.1 L (20-40) % [place] % (Auto) 4.6 (2-11) % Eos % (Auto) 0.8 (0-4) % Baso % (Auto) 0.2 (0-2) % Lymph # (Auto) 1.0 L (1.2-4.9) X10*3/uL [place] # (Auto) 0.7 (0.1-1.2) X10*3/uL Eos # (Auto) 0.1 (0.0-0.4) X10*3/uL Baso # (Auto) 0.0 (0.0-0.2) X10*3/uL Abs Immat Gran (auto) 0.06 H (0.00-0.03) X10*3/uL Absolute Neuts (auto) 13.9 H (2.0-8.3) x10*3/uL Absolute Nucleated RBC 0.000 (0.0-0.012) X10*3/uL Nucleated RBC % (auto) 0.0 (0.0-0.2) /100WBC PT 10.7 (10.0-13.1) SEC INR 0.9 (0.9-1.1) APTT 30.5 (26.0-36.4) SEC Sodium 143 (135-145) mmol/L Potassium 4.8 (3.3-5.1) mmol/L Chloride 112 H (96-108) mmol/L Carbon Dioxide 24 (22-29) mmol/L Anion Gap 12 (12-20) BUN 23 H (9-16) mg/dL Creatinine 1.26 (0.5-1.4) mg/dL Estim Creat Clear Calc 44.2 Estimated GFR 56 Random Glucose 106 (60-115) mg/dL Lactic Acid (0.5-2.0) mmol/L Calcium 9.5 D (8.4-10.2) mg/dL Total Bilirubin 0.2 (0.0-1.0) mg/dL AST 20 (5-37) U/L ALT 9 (0-40) U/L Alkaline Phosphatase 76 (39-117) U/L Troponin I High Sens (<3.5-35.0) ng/L B-Natriuretic Peptide (<100) pg/mL Total Protein 8.3 H (6.5-8.0) g/dL Albumin 3.5 (3.5-5.0) g/dL Lipase 35 (8-78) U/L Influenza Type A (PCR) (Negative) Influenza Type B (PCR) (Negative) RSV RNA Qual (PCR) (Negative) SARS-CoV-2 RNA (RT-PCR) (Negative) 04/20/23 04/20/23 04/20/23 Range/Units 17:51 17:51 17:51 WBC (4.8-10.8) X10*3/uL RBC (4.60-5.80) X10*6/uL Hgb (14.0-18.0) g/dl Hct (42.0-52.0) % MCV (80.0-98.0) fL MCH (27.0-33.0) pg MCHC (31.0-36.0) g/dl RDW (11.0-16.0) % Plt Count (160-400) X10*3/uL MPV (9.4-12.4) fL Immature Gran % (Auto) (0.0-0.4) % Neut % (Auto) (45-73) % Lymph % (Auto) (20-40) % [place] % (Auto) (2-11) % Eos % (Auto) (0-4) % Baso % (Auto) (0-2) % Lymph # (Auto) (1.2-4.9) X10*3/uL [place] # (Auto) (0.1-1.2) X10*3/uL Eos # (Auto) (0.0-0.4) X10*3/uL Baso # (Auto) (0.0-0.2) X10*3/uL Abs Immat Gran (auto) (0.00-0.03) X10*3/uL Absolute Neuts (auto) (2.0-8.3) x10*3/uL Absolute Nucleated RBC (0.0-0.012) X10*3/uL Nucleated RBC % (auto) (0.0-0.2) /100WBC PT (10.0-13.1) SEC INR (0.9-1.1) APTT (26.0-36.4) SEC Sodium (135-145) mmol/L Potassium (3.3-5.1) mmol/L Chloride (96-108) mmol/L Carbon Dioxide (22-29) mmol/L Anion Gap (12-20) BUN (9-16) mg/dL Creatinine (0.5-1.4) mg/dL Estim Creat Clear Calc Estimated GFR Random Glucose (60-115) mg/dL Lactic Acid 1.6 (0.5-2.0) mmol/L Calcium (8.4-10.2) mg/dL Total Bilirubin (0.0-1.0) mg/dL AST (5-37) U/L ALT (0-40) U/L Alkaline Phosphatase (39-117) U/L Troponin I High Sens < 2.7 (<3.5-35.0) ng/L B-Natriuretic Peptide 38 (<100) pg/mL Total Protein (6.5-8.0) g/dL Albumin (3.5-5.0) g/dL Lipase (8-78) U/L Influenza Type A (PCR) (Negative) Influenza Type B (PCR) (Negative) RSV RNA Qual (PCR) (Negative) SARS-CoV-2 RNA (RT-PCR) (Negative) 04/20/23 Range/Units 17:51 WBC (4.8-10.8) X10*3/uL RBC (4.60-5.80) X10*6/uL Hgb (14.0-18.0) g/dl Hct (42.0-52.0) % MCV (80.0-98.0) fL MCH (27.0-33.0) pg MCHC (31.0-36.0) g/dl RDW (11.0-16.0) % Plt Count (160-400) X10*3/uL MPV (9.4-12.4) fL Immature Gran % (Auto) (0.0-0.4) % Neut % (Auto) (45-73) % Lymph % (Auto) (20-40) % [place] % (Auto) (2-11) % Eos % (Auto) (0-4) % Baso % (Auto) (0-2) % Lymph # (Auto) (1.2-4.9) X10*3/uL [place] # (Auto) (0.1-1.2) X10*3/uL Eos # (Auto) (0.0-0.4) X10*3/uL Baso # (Auto) (0.0-0.2) X10*3/uL Abs Immat Gran (auto) (0.00-0.03) X10*3/uL Absolute Neuts (auto) (2.0-8.3) x10*3/uL Absolute Nucleated RBC (0.0-0.012) X10*3/uL Nucleated RBC % (auto) (0.0-0.2) /100WBC PT (10.0-13.1) SEC INR (0.9-1.1) APTT (26.0-36.4) SEC Sodium (135-145) mmol/L Potassium (3.3-5.1) mmol/L Chloride (96-108) mmol/L Carbon Dioxide (22-29) mmol/L Anion Gap (12-20) BUN (9-16) mg/dL Creatinine (0.5-1.4) mg/dL Estim Creat Clear Calc Estimated GFR Random Glucose (60-115) mg/dL Lactic Acid (0.5-2.0) mmol/L Calcium (8.4-10.2) mg/dL Total Bilirubin (0.0-1.0) mg/dL AST (5-37) U/L ALT (0-40) U/L Alkaline Phosphatase (39-117) U/L Troponin I High Sens (<3.5-35.0) ng/L B-Natriuretic Peptide (<100) pg/mL Total Protein (6.5-8.0) g/dL Albumin (3.5-5.0) g/dL Lipase (8-78) U/L Influenza Type A (PCR) NEGATIVE (Negative) Influenza Type B (PCR) NEGATIVE (Negative) RSV RNA Qual (PCR) NEGATIVE (Negative) SARS-CoV-2 RNA (RT-PCR) NEGATIVE (Negative) Independent Interpretation I performed an independent interpretation of an: Plain X-Ray (Right middle lobe focal infiltrate) Radiology Impression Discussion of test interpretation with radiology: I have reviewed the radiologi st's reading. (Right middle to lower lobe opacities worsened since previous. Improved left lung opacities) External Record Review External record reviewed: Inpatient record Discharge Plan Discharge Clinical Impression: Community acquired pneumonia Patient Disposition: Admitted As Inpatient
[2023-04-20 18:31] LABS: MANUAL DIFF FLAG NO
[2023-04-20 18:34] LABS: Basophils Percent Auto 0.2 % (0-2); Eosinophils Absolute Auto 0.1 X10*3/uL (0.0-0.4); Eosinophils Percent Auto 0.8 % (0-4); Hemoglobin 14.5 g/dl (14.0-18.0); Imm Gran Abs Auto 0.06 X10*3/uL (0.00-0.03); Imm Gran Pct Auto 0.4 % (0.0-0.4); Lymphocytes Percent Auto 6.1 % (20-40); Mean Corpuscular HGB Conc 32.2 g/dl (31.0-36.0); Mean Corpuscular Hemoglobin 28.3 pg (27.0-33.0); Mean Corpuscular Volume 87.9 fL (80.0-98.0); Mean Platelet Volume 10.6 fL (9.4-12.4); Monocytes Absolute Auto 0.7 X10*3/uL (0.1-1.2); Monocytes Percent Auto 4.6 % (2-11); Neutrophils Absolute Auto 13.9 x10*3/uL (2.0-8.3); Neutrophils Percent Auto 87.9 % (45-73); Platelet Count 348 X10*3/uL (160-400); Red Blood Count 5.12 X10*6/uL (4.60-5.80); Red Cell Distribution Width 13.9 % (11.0-16.0); White Blood Count 15.9 X10*3/uL (4.8-10.8)
[2023-04-20 18:57] LABS: Lactic Acid 1.6 mmol/L (0.5-2.0)
[2023-04-20 19:00] LABS: Alanine Aminotransferase 9 U/L (0-40); Albumin Level 3.5 g/dL (3.5-5.0); Alkaline Phosphatase 76 U/L (39-117); Anion Gap 12 (12-20); Aspartate Amino Transferase 20 U/L (5-37); Bilirubin Total 0.2 mg/dL (0.0-1.0); Blood Urea Nitrogen 23 mg/dL (9-16); Calcium 9.5 mg/dL (8.4-10.2); Carbon Dioxide 24 mmol/L (22-29); Chloride 112 mmol/L (96-108); Creatinine Clr Calc Pharmacy 44.2; Estimated Glomerular Filt Rate 56; Glucose Random 106 mg/dL (60-115); Lipase 35 U/L (8-78); Potassium 4.8 mmol/L (3.3-5.1); Sodium 143 mmol/L (135-145); Total Protein 8.3 g/dL (6.5-8.0)
[2023-04-20 19:02] LABS: B Type Natriuretic Peptide 38 pg/mL (<100)
[2023-04-20 19:11] LABS: Troponin-I High Sensitivity < 2.7 ng/L (<3.5-35.0)
[2023-04-20 19:20] LABS: Influenza A PCR NEGATIVE (Negative); Influenza B PCR NEGATIVE (Negative); Resp Syncy Virus RNA Qual PCR NEGATIVE (Negative); SARS COV2 PCR INHOUSE NEGATIVE (Negative)
--- NOTE | 2023-04-20 19:40 | PC.NURSE ---
Pt refusing second set cultures per tech, Per Mark okay to start abx without second set
[2023-04-20] MEDS: cefTRIAXone sodium 1 GM in 0.9 % Sodium Chloride 50 ML IV (20:04)
[2023-04-20] MEDS: 0.9 % Sodium Chloride 1,000 ML 999 ML IV (20:10)
[2023-04-20 20:41] VITALS: BP 132/102; PULSE 112; RESP 16; TEMP 36.8; O2SAT 94
[2023-04-20] MEDS: Azithromycin 500 MG in 0.9 % Sodium Chloride 250 ML 125 MG IV (20:56)
--- NOTE | 2023-04-20 21:03 | PC.NURSE ---
assumed care of patient at 1915. Patient alert and oriented. Screaming at staff and removed IV line after abx was scanned. This RN attempted three times to get new IV line placed and second set of cultures. Successful on third attempt but in attempt to save line unable to gt second set of culture. PA previously OK'd not getting second set due to pt refusal for care. Patient continues to remove nasal cannula and 02 monitor. Placed 02 monitor on toe, and continued efforts to redirect patient to not remove nasal cannula Will continue to follow plan of care
[2023-04-20 21:46] LABS: INTERNATIONAL NORM RATIO 0.9 (0.9-1.1); Prothrombin Time 10.7 SEC (10.0-13.1)
[2023-04-20 21:49] LABS: Partial Thromboplastin Time 30.5 SEC (26.0-36.4)
--- NOTE | 2023-04-20 22:06 | PC.NURSE ---
This RN provided update on patients status to Rusty Pozo.
[2023-04-20 23:54] VITALS: BP 151/88; PULSE 104; RESP 18; TEMP 36.9; O2SAT 98
[2023-04-21] VITALS (8 sets, daily range): BP systolic 102–148; BP diastolic 53–77; PULSE 75–99; RESP 16–18; TEMP 36.2–38.1; O2SAT 94–98
[2023-04-21] MEDS: Acetaminophen 325 MG TABLET 650 MG PO (02:45)
--- NOTE | 2023-04-21 02:49 | PC.NURSE ---
Luann 100.5MD approved verbal order for Tylenol 650mg PO. Administered in applesauce. 02 fluctuating between 90-98. Patient refusing to apply nasal cannula Will continue to follow plan of care.
--- NOTE | 2023-04-21 06:59 | PC.NURSE ---
Alert and responsive. vss denies pain ror discomfort. 99% on 4 liters NC. Spitting up moderate amount of clear flem. Repositioned to left side.
--- NOTE | 2023-04-21 07:44 | PC.NURSE ---
Attempt to straight cath unsuccessful. Patient reporting pain with insertion , unable to advance straight cath.Adl`s care provided. Condom cath placed for urine collection.
--- NOTE | 2023-04-21 08:34 | PC.NURSE ---
98% on 2 liters NC
[2023-04-21] MEDS: Dextrose 5 % and 0.9 % NaCl 1,000 ML 100 ML IVCONT (09:51)
[2023-04-21] MEDS: Piperacillin Sodium/Tazobactam 3.375 GM in 0.9 % Sodium Chloride 50 ML IV ×3 (11:09→21:20)
--- NOTE | 2023-04-21 11:53 | PC.NURSE ---
denies pain or discomfort, fluids running per order, condom cath remains in place for urine collection- has not voided at this time. 95% on 2 liters 02. No sob noted
--- NOTE | 2023-04-21 12:18 | PHA.MEDREC ---
Pharmacy Consult ? Medication Reconciliation Pharmacy has completed the medication reconciliation. [facility]
[2023-04-21 12:48] LABS: Appearance Urine Clear; Color Urine Yellow; PH 5.5 (5.0-9.0)
[2023-04-21 12:49] LABS: Glucose Urine UA Negative (Negative); Leukocyte Esterase Urine Small (1+) (Negative); Nitrite Urine Negative (Negative); Specific Gravity - Urine 1.015 (1.005-1.025); UMIC TRIGGER UACC YES; Urine Blood Small (1+) (Negative); Urine Ketones Negative (Negative); Urine Protein 30 (1+) mg/dL (Neg-Trace)
[2023-04-21 12:54] LABS: Bacteria Urine None Seen (None Seen); Hyaline Casts Urine 0-2 /LPF (0-2); Squamous Epithelial Cell Urine 0-2 /HPF (0-2); UACC Culture Trigger YES
--- NOTE | 2023-04-21 13:53 | P.HPHOSP_ITS ---
History of Present Illness Date of Service: 04/21/23 Chief Complaint: hypoxia 72-year-old gentleman with past medical history of dementia, HIV, chronic kidney disease, bipolar disorder, hypertension was sent from [facility] due to hypoxia and chest congestion, patient offers no acute complaints of sh ortness of breath, denies fever, no chills, in the ER noted to be coughing intermittently and bringing up [place] [id number], x-ray showed worsening right middle lobe opacity. Vitals showed a T-max of 100.5 degrees, no tachypnea, tachycardia finger oximetry 89% on room air, patient treated in the ER with IV ceftriaxone and azithromycin two set of blood cultures drawn, patient is now being admitted to [facility] due to hypoxia, leukocytosis and pneumonia requiring IV antibiotics. Review of Systems Review of Systems: General no headache no dizziness no fever chills. CVS no chest pain, no palpitation. Respiratory denies shortness of breath however unreliable historian due to dementia Gastrointestinal no nausea no vomiting, no abdominal pain All other system reviewed and negative. [facility] Medical History Age-related nuclear cataract, bilateral Altered mental status, unspecified Anemia, unspecified Bipolar 1 disorder Chronic anemia Chronic kidney disease Chronic kidney disease, stage 3 unspecified Constipation, unspecified Contracture, unspecified foot Contracture, unspecified knee Coronary artery disease Cyst of kidney, acquired Dementia Dementia in other diseases classified elsewhere with behavioral disturbance Dysphagia, oropharyngeal phase Essential (primary) hypertension History of COVID-19 HIV (human immunodeficiency virus infection) Hypertension Impulse disorder, unspecified Leg weakness Old myocardial infarction Other cholelithiasis without obstruction Other specified disorders of bone density and structure, unspecified site Paraplegia, unspecified Personal history of other diseases of the circulatory system Personal history of other diseases of the respiratory system Personal history of pneumonia (recurrent) Personal history of tuberculosis 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 Presbyopia Primary generalized (osteo)arthritis Resides in alf facility Splenomegaly, not elsewhere classified Unspecified convulsions Unspecified dementia with behavioral disturbance Surgical History History of bronchoscopy History of hip surgery S/P percutaneous endoscopic gastrostomy (PEG) tube placement Social History Household Members: Unknown / Unable to assess Household Members Other:: resides At [facility] Housing: Half-Way Housing Other:: [facility] Are you a primary healthcare architect to a significant other at home: No Do you presently have visiting nurse or other home services: Yes ([place] staff) Unable to assess alcohol history related to: Unable to respond Alcohol intake: unknown Patient Tobacco Use Status: Never used Tobacco Smoked in Last 30 Days: No Use of substances other than those prescribed or required for medical reasons: No Advance Directives: Yes Advance Directives on File: Yes Advance Directives Date on File: 07/25/21 service: No Current occupational status: disabled Meds Allergies Allergy/AdvReac Type Severity Reaction Status Date / Time No Known Allergies Allergy Unknown Verified 04/20/23 16:55 [No Known Allergies*] Active Medications: Current Medications Acetaminophen (Acetaminophen 325 Mg Tablet) 650 mg PO Q6H PRN PRN Reason: Pain, Mild (Pain Scale 1-3) Docusate Sodium (Docusate Sodium 100 Mg Capsule) 100 mg PO DAILY PRN PRN Reason: Constipation Dextrose/Sodium Chloride (D5ns) 1,000 mls @ 100 mls/hr IVCONT .Q10H [facility] Stop: 04/21/23 19:29 Last Admin: 04/21/23 09:51 Dose: 100 mls/hr Piperacillin Sod/Tazobactam (Sod 3.375 gm/ Sodium Chloride) 50 mls @ 100 mls/hr IV Q6H [facility] Last Infusion: 04/21/23 11:49 Dose: Infused Vancomycin HCl 1,000 mg/ (Sodium Chloride) 270 mls @ 270 mls/hr IV Q24H [facility] Ondansetron HCl (Ondansetron Hcl 4 Mg/2 Ml Vial) 4 mg IVPUSH Q8H PRN PRN Reason: Nausea and Vomiting Pharmacy Consult (Consult Rx Perform Med Rec) 1 each MISCELLANE ONCE PRN PRN Reason: Consult order Pharmacy Consult (Consult Rx Vancomycin Dosing) 1 each MISCELLANE DAILY PRN PRN Reason: Consult order Sodium Chloride (0.9 % Sodium Chloride Flush 3 Ml Syringe) 3 ml IVFLUSH QSHIFT [facility] Home Medications Medication Instructions Recorded Confirmed Last Taken Type abacavir 600 mg-dolutegravir 50 1 tab PO DAILY 07/19/21 04/21/23 08/05/22 History mg-lamivudine 300 mg tablet (Triumeq) acetaminophen 325 mg tablet 650 mg PO Q6H PRN Pain 07/19/21 04/21/23 Unknown History alprazolam 0.25 mg tablet 0.25 mg PO BID 07/19/21 04/21/23 08/05/22 History calcium carbonate 500 mg-vitamin 1 tab PO BID 07/19/21 04/21/23 08/05/22 History D3 5 mcg (200 unit) tablet (Calcium 500 + D) cyanocobalamin (vitamin B-12) 1,500 mcg PO DAILY 07/19/21 04/21/23 08/05/22 History 1,000 mcg tablet docusate sodium 100 mg capsule 100 mg PO DAILY 07/19/21 04/21/23 08/05/22 History ferrous sulfate 220 mg (44 mg 330 mg PO DAILY 07/19/21 04/21/23 08/05/22 History iron)/5 mL oral elixir lactulose 10 gram/15 mL oral 30 ml PO DAILY PRN Constipation 07/19/21 04/21/23 Unknown History solution lansoprazole 30 mg capsule,delayed 30 mg PO DAILY 07/19/21 04/21/23 08/05/22 History release lorazepam 2 mg/mL injection 1 mg IM Q24H PRN Seizures 07/19/21 04/21/23 Unknown History solution metoprolol tartrate 25 mg tablet 25 mg PO BID 07/19/21 04/21/23 08/05/22 History multivitamin 1 tab PO DAILY 07/19/21 04/21/23 08/05/22 History pregabalin 50 mg capsule 50 mg PO TID 07/19/21 04/21/23 08/05/22 History sennosides 8.6 mg tablet (senna) 8.6 mg PO BID PRN Constipation 07/19/21 04/21/23 Unknown History tramadol 50 mg tablet 50 mg PO Q8H PRN Moderate Pain 07/19/21 04/21/23 Unknown History (Scale Score 5-6) aspirin 81 mg chewable tablet 81 mg PO DAILY 07/24/21 04/21/23 08/05/22 History zinc oxide-vitamin B5-vit E 11.3% 1 appl topical QSHIFT 07/24/21 04/21/23 08/05/22 History topical cream haloperidol 2 mg tablet 2 mg PO TID 08/05/22 04/21/23 08/05/22 History Physical Exam Vital Signs and Narrative: Vital Signs: Last Vital Signs Temp 97.9 F 04/21/23 06:56 Pulse 90 04/21/23 11:45 Resp 18 04/21/23 11:45 BP 115/77 04/21/23 11:45 Pulse Ox 96 04/21/23 11:45 O2 Del Method Nasal Cannula 04/21/23 11:45 O2 Flow Rate 2 04/21/23 11:45 BMI result Body Mass Index 19.8 Const: Other: General resting comfortably in no acute distress. Anicteric sclera Neck supple no JVD. CVS regular rate rhythm, Respiratory lungs clear to auscultation, no respiratory distress, no wheeze, no rhonchi. Gastrointestinal abdomen soft, nontender, bowel sounds audible, no guarding , no rigidity. Extremities no edema. Neuro moving all 4 extremity ,speech clear. Skin no rash Psych poor insight Results Labs 04/20/23 17:51 04/20/23 17:51 Labs: Laboratory Results - last 24 hr 04/20/23 04/20/23 04/20/23 17:51 17:51 17:51 MCV 87.9 MCH 28.3 MCHC 32.2 RDW 13.9 Plt Count 348 D MPV 10.6 Immature Gran % (Auto) 0.4 Neut % (Auto) 87.9 H Lymph % (Auto) 6.1 L [place] % (Auto) 4.6 Eos % (Auto) 0.8 Baso % (Auto) 0.2 Lymph # (Auto) 1.0 L [place] # (Auto) 0.7 Eos # (Auto) 0.1 Baso # (Auto) 0.0 Abs Immat Gran (auto) 0.06 H Absolute Neuts (auto) 13.9 H Absolute Nucleated RBC 0.000 Nucleated RBC % (auto) 0.0 PT 10.7 INR 0.9 APTT 30.5 Anion Gap 12 Estim Creat Clear Calc 44.2 Estimated GFR 56 Random Glucose 106 Lactic Acid Calcium 9.5 D Total Bilirubin 0.2 AST 20 ALT 9 Alkaline Phosphatase 76 Troponin I High Sens B-Natriuretic Peptide Total Protein 8.3 H Albumin 3.5 Lipase 35 Urine Color Urine Appearance Urine pH Ur Specific [place] Urine Protein Urine Glucose (UA) Urine Ketones Urine Blood Urine Nitrite Ur Leukocyte Esterase Urine RBC Urine WBC Ur Squamous Epith Cells Urine Bacteria Hyaline Casts Influenza Type A (PCR) Influenza Type B (PCR) RSV RNA Qual (PCR) SARS-CoV-2 RNA (RT-PCR) 04/20/23 04/20/23 04/20/23 17:51 17:51 17:51 MCV MCH MCHC RDW Plt Count MPV Immature Gran % (Auto) Neut % (Auto) Lymph % (Auto) Kern % (Auto) Eos % (Auto) Baso % (Auto) Lymph # (Auto) Kern # (Auto) Eos # (Auto) Baso # (Auto) Abs Immat Gran (auto) Absolute Neuts (auto) Absolute Nucleated RBC Nucleated RBC % (auto) PT INR APTT Anion Gap Estim Creat Clear Calc Estimated GFR Random Glucose Lactic Acid 1.6 Calcium Total Bilirubin AST ALT Alkaline Phosphatase Troponin I High Sens < 2.7 B-Natriuretic Peptide 38 Total Protein Albumin Lipase Urine Color Urine Appearance Urine pH Ur Specific [place] Urine Protein Urine Glucose (UA) Urine Ketones Urine Blood Urine Nitrite Ur Leukocyte Esterase Urine RBC Urine WBC Ur Squamous Epith Cells Urine Bacteria Hyaline Casts Influenza Type A (PCR) Influenza Type B (PCR) RSV RNA Qual (PCR) SARS-CoV-2 RNA (RT-PCR) 04/20/23 04/21/23 17:51 12:36 MCV MCH MCHC RDW Plt Count MPV Immature Gran % (Auto) Neut % (Auto) Lymph % (Auto) Kern % (Auto) Eos % (Auto) Baso % (Auto) Lymph # (Auto) Kern # (Auto) Eos # (Auto) Baso # (Auto) Abs Immat Gran (auto) Absolute Neuts (auto) Absolute Nucleated RBC Nucleated RBC % (auto) PT INR APTT Anion Gap Estim Creat Clear Calc Estimated GFR Random Glucose Lactic Acid Calcium Total Bilirubin AST ALT Alkaline Phosphatase Troponin I High Sens B-Natriuretic Peptide Total Protein Albumin Lipase Urine Color Yellow Urine Appearance Clear Urine pH 5.5 Ur Specific [place] 1.015 Urine Protein 30 (1+) H Urine Glucose (UA) Negative Urine Ketones Negative Urine Blood Small (1+) H Urine Nitrite Negative Ur Leukocyte Esterase Small (1+) H Urine RBC 11-20 H Urine WBC 11-20 H Ur Squamous Epith Cells 0-2 Urine Bacteria None Seen Hyaline Casts 0-2 Influenza Type A (PCR) NEGATIVE Influenza Type B (PCR) NEGATIVE RSV RNA Qual (PCR) NEGATIVE SARS-CoV-2 RNA (RT-PCR) NEGATIVE Imaging Radiologist's Impressions: Impressions Chest X-Ray 04/20/23 17:25 IMPRESSION: Emphysema with chronic interstitial lung disease. Some improvement in left lower lobe airspace opacity with slight increase in right midlung opacity. Emphysematous changes and probable interstitial disease has been present on studies dating back to 2006. Assessment and Plan (1) Aspiration pneumonia: Status: Acute (2) HIV (human immunodeficiency virus infection): Status: Acute Plan 72-year-old male with a past medical history of dementia with behavioral disturbance, bipolar, HIV, CKD, HTN, sent to [place] due to hypoxia and pulmonary congestion diagnosed to have pneumonia with hypoxia and leukocytosis therefore will be admitted for IV antibiotics. #1 Acute hypoxic respiratory failure likely due to pneumonia question aspiration sepsis due to tachycardia and leukocytosis low-grade fever IV Zosyn and IV vancomycin,started on 04/21, cough medications, O2 support and wean as tolerated patient not on oxygen Follow blood cultures and clinical course Continue diet patient on minced/moist take diet on clear liquids, will follow asp. precautions 2/CKD3 stable 3/ h/o HIV--continue Triumeq 4/unspecified dementia question HIV dementia with behavioral disturbance-continue Haldol, and Xanax 5/ hypertension continue metoprolol follow BP closely 6/ bipolar disorder continue home medications DVT prophylaxis--lovenox Code status: Full In my clinical judgment patient need 2 night inpatient stay for IV antibiotics due to sepsis related to pneumonia. Time Spent With Patient Time: Total time managing care of this patient today ____ minutes. Quality Stroke Does the patient have a stroke diagnosis?: No VTE Prior VTE?: No VTE Risk Level:: Medical - moderate - high VTE Device Contraindication: Treatment Not Indicated VTE Drug Contraindication: N/A - Med Ordered
--- NOTE | 2023-04-21 14:24 | PC.NURSE ---
[facility] updated on residents current condition
[2023-04-21] MEDS: Pregabalin 50 MG CAPSULE PO ×2 (15:06→21:21)
[2023-04-21] MEDS: HaloperidoL 1 MG TABLET 2 MG PO ×2 (15:06→21:21)
[2023-04-21] MEDS: Enoxaparin Sodium 30 MG/0.3 ML SYRINGE SUBCUT (15:07)
--- NOTE | 2023-04-21 15:09 | PC.NURSE ---
96% on RA. abt/fluids running per order. Reports feeling better, no sob, or coughing noted.
[2023-04-21] MEDS: vancomycin HCL 1,500 MG in 0.9 % Sodium Chloride 500 ML 333.33 MG IV (15:43)
--- NOTE | 2023-04-21 15:54 | PC.NURSE ---
out of bed to recliner chair at bedside, tolerating well. Loose congest cough with moderate amount of clear secretions coughed up. Patient declines to be suctioned. Condom cath in replaced.
--- NOTE | 2023-04-21 16:32 | PC.NURSE ---
Report given to accepting unit, [place] to transport
[2023-04-21] MEDS: Metoprolol Tartrate 25 MG TABLET PO (21:21)
[2023-04-21] MEDS: ALPRAZolam 0.25 MG TABLET PO (21:21)
[2023-04-22] MEDS: Piperacillin Sodium/Tazobactam 3.375 GM in 0.9 % Sodium Chloride 50 ML IV ×4 (03:33→20:38)
[2023-04-22 07:09] LABS: Hematocrit 38.6 % (42.0-52.0); Hemoglobin 12.6 g/dl (14.0-18.0); Mean Corpuscular HGB Conc 32.6 g/dl (31.0-36.0); Mean Corpuscular Hemoglobin 28.6 pg (27.0-33.0); Mean Corpuscular Volume 87.7 fL (80.0-98.0); Mean Platelet Volume 10.9 fL (9.4-12.4); Platelet Count 244 X10*3/uL (160-400); Red Cell Distribution Width 14.1 % (11.0-16.0); White Blood Count 9.5 X10*3/uL (4.8-10.8)
[2023-04-22 07:24] VITALS: BP 130/75; PULSE 75; RESP 16; TEMP 36.7; O2SAT 97
[2023-04-22 07:45] LABS: Anion Gap 10 (12-20); Blood Urea Nitrogen 12 mg/dL (9-16); Calcium 8.4 mg/dL (8.4-10.2); Carbon Dioxide 24 mmol/L (22-29); Chloride 112 mmol/L (96-108); Creatinine Clr Calc Pharmacy 54.1; Estimated Glomerular Filt Rate > 60; Glucose Random 88 mg/dL (60-115); Potassium 3.8 mmol/L (3.3-5.1); Sodium 142 mmol/L (135-145)
[2023-04-22 09:14] LABS: Lactate Dehydrogenase 166 U/L (118-273)
[2023-04-22 09:41] LABS: Procalcitonin 0.49 ng/mL
[2023-04-22] MEDS: ALPRAZolam 0.25 MG TABLET PO ×2 (09:46→20:38)
[2023-04-22] MEDS: Metoprolol Tartrate 25 MG TABLET PO ×2 (09:46→20:38)
[2023-04-22] MEDS: Abacavir/lamiVUDine 600/300 TABLET 1 TAB PO (09:46)
[2023-04-22] MEDS: Acetaminophen 325 MG TABLET 650 MG PO (09:47)
[2023-04-22] MEDS: HaloperidoL 1 MG TABLET 2 MG PO ×3 (09:47→20:38)
[2023-04-22] MEDS: Aspirin 81 MG TAB.CHEW PO (09:47)
[2023-04-22] MEDS: traMADoL HCL 50 MG TABLET PO (09:47)
[2023-04-22] MEDS: Dolutegravir Sodium 50 MG TABLET PO (09:47)
[2023-04-22] MEDS: Cyanocobalamin (Vitamin B-12) 500 MCG TABLET 1500 MCG PO (09:48)
[2023-04-22] MEDS: 0.9 % Sodium Chloride Flush 3 ML SYRINGE IVFLUSH ×3 (09:48→21:22)
[2023-04-22] MEDS: Docusate Sodium 100 MG CAPSULE PO (09:48)
[2023-04-22] MEDS: Multivitamin TABLET 1 TAB PO (09:48)
[2023-04-22] MEDS: Pregabalin 50 MG CAPSULE PO ×3 (09:48→20:38)
--- NOTE | 2023-04-22 09:50 | MHC.CM.PN ---
pt from [facility] where pt will return when dcd
--- NOTE | 2023-04-22 10:28 | HO.PM.IMPN ---
Subjective Subjective Date of Service: 04/22/23 Interval History: coughing denies fever/dyspnea very limited historian Review of Systems Review of Systems: Yes all other systems are reviewed and are negative Physical Exam Vital Signs: Vital Signs: Last Vital Signs Temp 98.1 F 04/22/23 07:24 Pulse 75 04/22/23 07:24 Resp 16 04/22/23 07:24 BP 130/75 04/22/23 07:24 Pulse Ox 97 04/22/23 07:24 O2 Del Method Nasal Cannula 04/22/23 07:24 O2 Flow Rate 2 04/22/23 07:24 BMI result Body Mass Index 19.8 Gen: in no acute distress HEENT: sclera anicteric, oral thrush Neck: supple Lungs: diminished air entry L base Heart: regular rate and rhythm, no murmurs Abd: soft, non-tender, non-distended Ext: no edema Skin: warm/well-perfused Neuro: alert, no focal findings Psych: limited insight Objective Data Active Medications Abacavir/Lamivudine (Abacavir/Lamivudine 600/300 Tablet) 1 tab PO DAILY [facility] Last Admin: 04/22/23 09:46 Dose: 1 tab Documented By: WILLIAM Acetaminophen (Acetaminophen 325 Mg Tablet) 650 mg PO Q6H PRN PRN Reason: Pain, Mild (Pain Scale 1-3) Last Admin: 04/22/23 09:47 Dose: 650 mg Documented By: WILLIAM Alprazolam (Alprazolam 0.25 Mg Tablet) 0.25 mg PO BID [facility] Last Admin: 04/22/23 09:46 Dose: 0.25 mg Documented By: WILLIAM Aspirin (Aspirin 81 Mg Tab.Chew) 81 mg PO DAILY [facility] Last Admin: 04/22/23 09:47 Dose: 81 mg Documented By: WILLIAM Cyanocobalamin (Cyanocobalamin (Vitamin B-12) 500 Mcg Tablet) 1,500 mcg PO DAILY [facility] Last Admin: 04/22/23 09:48 Dose: 1,500 mcg Documented By: WILLIAM Docusate Sodium (Docusate Sodium 100 Mg Capsule) 100 mg PO DAILY PRN PRN Reason: Constipation Docusate Sodium (Docusate Sodium 100 Mg Capsule) 100 mg PO DAILY [facility] Last Admin: 04/22/23 09:48 Dose: 100 mg Documented By: HO.COTEMA Dolutegravir Sodium (Dolutegravir Sodium 50 Mg Tablet) 50 mg PO DAILY [facility] Last Admin: 04/22/23 09:47 Dose: 50 mg Documented By: COTEMA Enoxaparin Sodium (Enoxaparin Sodium 30 Mg/0.3 Ml Syringe) 30 mg SUBCUT Q24H [facility] Last Admin: 04/21/23 15:07 Dose: 30 mg Documented By: SPRINGL Haloperidol (Haloperidol 1 Mg Tablet) 2 mg PO TID [facility] Last Admin: 04/22/23 09:47 Dose: 2 mg Documented By: COTEMA Piperacillin Sod/Tazobactam (Sod 3.375 gm/ Sodium Chloride) 50 mls @ 100 mls/hr IV Q6H [facility] Last Admin: 04/22/23 09:48 Dose: 100 mls/hr Documented By: COTEMA Vancomycin HCl 1,000 mg/ (Sodium Chloride) 270 mls @ 270 mls/hr IV Q24H [facility] Lactulose (Lactulose 20 Gm/30 Ml Solution) 20 gm PO DAILY PRN PRN Reason: Constipation Lorazepam (Lorazepam 2 Mg/Ml Vial) 1 mg IM Q24H PRN PRN Reason: Seizures Metoprolol Tartrate (Metoprolol Tartrate 25 Mg Tablet) 25 mg PO BID [facility]; Protocol Last Admin: 04/22/23 09:46 Dose: 25 mg Documented By: WILLIAM Multivitamins/Vitamin C (Multivitamin Tablet) 1 tab PO DAILY [facility] Last Admin: 04/22/23 09:48 Dose: 1 tab Documented By: EVEREMA Ondansetron HCl (Ondansetron Hcl 4 Mg/2 Ml Vial) 4 mg IVPUSH Q8H PRN PRN Reason: Nausea and Vomiting Pharmacy Consult (Consult Rx Perform Med Rec) 1 each MISCELLANE ONCE PRN PRN Reason: Consult order Pharmacy Consult (Consult Rx Vancomycin Dosing) 1 each MISCELLANE DAILY PRN PRN Reason: Consult order Pregabalin (Pregabalin 50 Mg Capsule) 50 mg PO TID [facility] Last Admin: 04/22/23 09:48 Dose: 50 mg Documented By: COTEMA Senna (Sennosides 8.6 Mg Tablet) 8.6 mg PO BID PRN PRN Reason: Constipation Sodium Chloride (0.9 % Sodium Chloride Flush 3 Ml Syringe) 3 ml IVFLUSH QSHIFT [facility] Last Admin: 04/22/23 09:48 Dose: 3 ml Documented By: WILLIAM Tramadol HCl (Tramadol Hcl 50 Mg Tablet) 50 mg PO Q8H PRN PRN Reason: Moderate Pain (Scale Score 5-6) Last Admin: 04/22/23 09:47 Dose: 50 mg Documented By: WILLIAM Labs 04/22/23 05:59 04/22/23 05:59 Labs: Laboratory Results - last 24 hr 04/21/23 04/22/23 04/22/23 12:36 05:59 05:59 MCV 87.7 MCH 28.6 MCHC 32.6 RDW 14.1 Plt Count 244 D MPV 10.9 Absolute Nucleated RBC 0.000 Nucleated RBC % (auto) 0.0 Anion Gap 10 L Estim Creat Clear Calc 54.1 Estimated GFR > 60 Random Glucose 88 Calcium 8.4 D Lactate Dehydrogenase 166 Procalcitonin 0.49 Urine Color Yellow Urine Appearance Clear Urine pH 5.5 Ur Specific [place] 1.015 Urine Protein 30 (1+) H Urine Glucose (UA) Negative Urine Ketones Negative Urine Blood Small (1+) H Urine Nitrite Negative Ur Leukocyte Esterase Small (1+) H Urine RBC 11-20 H Urine WBC 11-20 H Ur Squamous Epith Cells 0-2 Urine Bacteria None Seen Hyaline Casts 0-2 Microbiology Microbiology Results: Microbiology 04/20/23 17:51 Blood Culture - Preliminary Blood - Venous Prelim: GPC Gram Stain only 04/20/23 17:03 Blood Culture - Final Blood - Venous Assessment and Plan (1) Severe sepsis: Status: Acute (2) Community acquired pneumonia: Status: Acute Plan d2 72yo M resident of [facility] with dementia + behav disturb, bipolar disorder, HIV/AIDS, CKD, HTN admitted for hypoxia due to PNA AHRF + sepsis due to PNA - d2 vanco + pip/lew - CT chest - follow BCx, trend PCT, check MRSA swab + Legionella/pneumococcal UAgs - due to HIV hx with last CD4 in our system of 55 on 08/06/22, will contact his ID doctor Liz Lopez for most recent CD4 + viral load and consult our ID physician - [employer] consultation re possible aspiration thrush - nystatin HIV - continue Triumeq, update CD4/RNA CKD3 - SCr at baseline unspec dementia + behav disturb bipolar disorder - haloperidol + alprazolam HTN - metoprolol VTE ppx - LMWH dispo - eventual return to [place] In my clinical judgment, the patient requires continued inpatient hospitalization for the following reasons: O2, IV ABX Time Spent With Patient Time: Total time managing care of this patient today ___45_ minutes. Quality Stroke Does the patient have a stroke diagnosis?: No VTE Prior VTE?: No VTE Risk Level:: Medical - moderate - high VTE Device Contraindication: Treatment Not Indicated VTE Drug Contraindication: N/A - Med Ordered
[2023-04-22 11:14] VITALS: BMI 19.8
--- NOTE | 2023-04-22 11:28 | MHC.CLN ---
NUTRITION CONSULT FOR AT RISK FOR IMPAIRED SKIN INTEGRITY. NO PRESSURE AREAS NOTED. ADDING ENSURE BID TO PROMOTE SKIN INTEGRITY AND PROVIDE ADDITIONAL NUTRITION. DIET=REGULAR, NDD2 CONSISTENCY. ENSURE BID PROVIDES 700 KCALS, 40 G PROTEIN. WEIGHT LOSS TREND X 7 MONTHS, -6.5%, NOT SIGNIFICANT. HX DYSPHAGIA, ON ASPIRATION PRECAUTIONS. FOLLOW FOR INTAKE AND DIET TOLERANCE. SEE CLINICAL NUTRITION ASSESSMENT 04/22/23.
[2023-04-22 11:35] VITALS: O2SAT 96
[2023-04-22 13:17] LABS: MRSA Nasal PCR POSITIVE (Negative); SA Nasal PCR POSITIVE (Negative)
[2023-04-22] MEDS: Nystatin Oral Susp 500,000 UNIT/5 ML ORAL.SUSP 500000 UNIT PO ×3 (14:09→20:38)
[2023-04-22] MEDS: Enoxaparin Sodium 30 MG/0.3 ML SYRINGE SUBCUT (14:10)
[2023-04-22] MEDS: vancomycin HCL 1,000 MG in 0.9 % Sodium Chloride 250 ML 270 MG IV (14:10)
--- NOTE | 2023-04-22 15:31 | P.CNID_ITS ---
History of Present Illness Data of Consult Service Date: 04/22/23 Requesting physician: Armani Vicente Primary Care Provider: Kev Gorman DO HPI Reason for consult: pneumonia,HIV He presents with weakness ,cough and shortness of breath. He has no fever or chills. He has multifocal infiltrates. He is eating however. He has been on CTX/Zmax and now Zosyn and Vancomycin. He has no oxygen needs. Review of Systems Review of Systems: Yes all other systems are reviewed and are negative [facility] Past Medical History Medical History Age-related nuclear cataract, bilateral Altered mental status, unspecified Anemia, unspecified Bipolar 1 disorder Chronic anemia Chronic kidney disease Chronic kidney disease, stage 3 unspecified Constipation, unspecified Contracture, unspecified foot Contracture, unspecified knee Coronary artery disease Cyst of kidney, acquired Dementia Dementia in other diseases classified elsewhere with behavioral disturbance Dysphagia, oropharyngeal phase Essential (primary) hypertension History of COVID-19 HIV (human immunodeficiency virus infection) Hypertension Impulse disorder, unspecified Leg weakness Old myocardial infarction Other cholelithiasis without obstruction Other specified disorders of bone density and structure, unspecified site Paraplegia, unspecified Personal history of other diseases of the circulatory system Personal history of other diseases of the respiratory system Personal history of pneumonia (recurrent) Personal history of tuberculosis 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 Presbyopia Primary generalized (osteo)arthritis Resides in custodial facility Splenomegaly, not elsewhere classified Unspecified convulsions Unspecified dementia with behavioral disturbance Family History Family history: reviewed and not pertinent Surgical History Surgical History History of bronchoscopy History of hip surgery S/P percutaneous endoscopic gastrostomy (PEG) tube placement Social History Social History Household Members: Other Household Members Other:: [facility] Housing: [facility] Housing Other:: [facility] Are you a primary childcare teacher to a significant other at home: No Do you presently have visiting nurse or other home services: No ([facility]) Unable to assess alcohol history related to: Unknown Alcohol intake: unknown Patient Tobacco Use Status: Tobacco use Unknown Advance Directives Date on File: 07/25/21 service: No Current occupational status: disabled Meds Allergies Allergy/AdvReac Type Severity Reaction Status Date / Time No Known Allergies Allergy Unknown Verified 04/20/23 16:55 [No Known Allergies*] Active Medications: Current Medications Abacavir/Lamivudine (Abacavir/Lamivudine 600/300 Tablet) 1 tab PO DAILY [facility] Last Admin: 04/22/23 09:46 Dose: 1 tab Acetaminophen (Acetaminophen 325 Mg Tablet) 650 mg PO Q6H PRN PRN Reason: Pain, Mild (Pain Scale 1-3) Last Admin: 04/22/23 09:47 Dose: 650 mg Alprazolam (Alprazolam 0.25 Mg Tablet) 0.25 mg PO BID [facility] Last Admin: 04/22/23 09:46 Dose: 0.25 mg Aspirin (Aspirin 81 Mg Tab.Chew) 81 mg PO DAILY [facility] Last Admin: 04/22/23 09:47 Dose: 81 mg Cyanocobalamin (Cyanocobalamin (Vitamin B-12) 500 Mcg Tablet) 1,500 mcg PO DAILY [facility] Last Admin: 04/22/23 09:48 Dose: 1,500 mcg Docusate Sodium (Docusate Sodium 100 Mg Capsule) 100 mg PO DAILY PRN PRN Reason: Constipation Docusate Sodium (Docusate Sodium 100 Mg Capsule) 100 mg PO DAILY [facility] Last Admin: 04/22/23 09:48 Dose: 100 mg Dolutegravir Sodium (Dolutegravir Sodium 50 Mg Tablet) 50 mg PO DAILY [facility] Last Admin: 04/22/23 09:47 Dose: 50 mg Enoxaparin Sodium (Enoxaparin Sodium 30 Mg/0.3 Ml Syringe) 30 mg SUBCUT Q24H [facility] Last Admin: 04/22/23 14:10 Dose: 30 mg Haloperidol (Haloperidol 1 Mg Tablet) 2 mg PO TID [facility] Last Admin: 04/22/23 14:10 Dose: 2 mg Piperacillin Sod/Tazobactam (Sod 3.375 gm/ Sodium Chloride) 50 mls @ 100 mls/hr IV Q6H [facility] Last Infusion: 04/22/23 10:31 Dose: Infused Vancomycin HCl 1,000 mg/ (Sodium Chloride) 270 mls @ 270 mls/hr IV Q24H [facility] Last Admin: 04/22/23 14:10 Dose: 270 mls/hr Lactulose (Lactulose 20 Gm/30 Ml Solution) 20 gm PO DAILY PRN PRN Reason: Constipation Lorazepam (Lorazepam 2 Mg/Ml Vial) 1 mg IM Q24H PRN PRN Reason: Seizures Metoprolol Tartrate (Metoprolol Tartrate 25 Mg Tablet) 25 mg PO BID [facility]; Protocol Last Admin: 04/22/23 09:46 Dose: 25 mg Multivitamins/Vitamin C (Multivitamin Tablet) 1 tab PO DAILY [facility] Last Admin: 04/22/23 09:48 Dose: 1 tab Nystatin (Nystatin Oral Susp 500,000 Unit/5 Ml Oral.Susp) 500,000 unit PO QID [facility]; Protocol Last Admin: 04/22/23 14:09 Dose: 500,000 unit Ondansetron HCl (Ondansetron Hcl 4 Mg/2 Ml Vial) 4 mg IVPUSH Q8H PRN PRN Reason: Nausea and Vomiting Pharmacy Consult (Consult Rx Perform Med Rec) 1 each MISCELLANE ONCE PRN PRN Reason: Consult order Pharmacy Consult (Consult Rx Vancomycin Dosing) 1 each MISCELLANE DAILY PRN PRN Reason: Consult order Pregabalin (Pregabalin 50 Mg Capsule) 50 mg PO TID [facility] Last Admin: 04/22/23 14:10 Dose: 50 mg Senna (Sennosides 8.6 Mg Tablet) 8.6 mg PO BID PRN PRN Reason: Constipation Sodium Chloride (0.9 % Sodium Chloride Flush 3 Ml Syringe) 3 ml IVFLUSH QSHIFT [facility] Last Admin: 04/22/23 09:48 Dose: 3 ml Tramadol HCl (Tramadol Hcl 50 Mg Tablet) 50 mg PO Q8H PRN PRN Reason: Moderate Pain (Scale Score 5-6) Last Admin: 04/22/23 09:47 Dose: 50 mg Home Medications Medication Instructions Recorded Confirmed Last Taken Type abacavir 600 mg-dolutegravir 50 1 tab PO DAILY 07/19/21 04/21/23 08/05/22 Histo ry mg-lamivudine 300 mg tablet (Triumeq) acetaminophen 325 mg tablet 650 mg PO Q6H PRN Pain 07/19/21 04/21/23 Unknown History alprazolam 0.25 mg tablet 0.25 mg PO BID 07/19/21 04/21/23 08/05/22 History calcium carbonate 500 mg-vitamin 1 tab PO BID 07/19/21 04/21/23 08/05/22 History D3 5 mcg (200 unit) tablet (Calcium 500 + D) cyanocobalamin (vitamin B-12) 1,500 mcg PO DAILY 07/19/21 04/21/23 08/05/22 History 1,000 mcg tablet docusate sodium 100 mg capsule 100 mg PO DAILY 07/19/21 04/21/23 08/05/22 History ferrous sulfate 220 mg (44 mg 330 mg PO DAILY 07/19/21 04/21/23 08/05/22 History iron)/5 mL oral elixir lactulose 10 gram/15 mL oral 30 ml PO DAILY PRN Constipation 07/19/21 04/21/23 Unknown History solution lansoprazole 30 mg capsule,delayed 30 mg PO DAILY 07/19/21 04/21/23 08/05/22 History release lorazepam 2 mg/mL injection 1 mg IM Q24H PRN Seizures 07/19/21 04/21/23 Unknown History solution metoprolol tartrate 25 mg tablet 25 mg PO BID 07/19/21 04/21/23 08/05/22 History multivitamin 1 tab PO DAILY 07/19/21 04/21/23 08/05/22 History pregabalin 50 mg capsule 50 mg PO TID 07/19/21 04/21/23 08/05/22 History sennosides 8.6 mg tablet (senna) 8.6 mg PO BID PRN Constipation 07/19/21 04/21/23 Unknown History tramadol 50 mg tablet 50 mg PO Q8H PRN Moderate Pain 07/19/21 04/21/23 Unknown History (Scale Score 5-6) aspirin 81 mg chewable tablet 81 mg PO DAILY 07/24/21 04/21/23 08/05/22 History zinc oxide-vitamin B5-vit E 11.3% 1 appl topical QSHIFT 07/24/21 04/21/23 08/05/22 History topical cream haloperidol 2 mg tablet 2 mg PO TID 08/05/22 04/21/23 08/05/22 History Physical Exam Vital Signs: Vital Signs: Last Vital Signs Temp 98.1 F 04/22/23 07:24 Pulse 75 04/22/23 07:24 Resp 16 04/22/23 07:24 BP 130/75 04/22/23 07:24 Pulse Ox 96 04/22/23 11:35 O2 Del Method Room Air 04/22/23 11:35 O2 Flow Rate 2 04/22/23 07:24 BMI result Body Mass Index 19.8 Const: General: cooperative HEENT: Head: Yes normal to inspection Face and sinus: Yes normal facial exam Mouth: Normal oral and palatal mucosa present Teeth and gingiva: dentition normal Eyes: General: appearance normal, both eyes and all related structures Pupils: Equal, round and reactive pupils present Resp: Effort & Inspection: normal respiratory effort Cardio: Rate: regular rate Rhythm: regular rhythm GI: Palpation (GI): Soft to palpation and nontender : General: Yes no CVA tenderness Back/Spine/Pelvis: Back: no CVA tenderness Skin: General skin exam: no rashes or lesions noted Neuro: General: moves all extremities Cranial nerves: Yes Equal, round and reactive pupils present Extrem: General: Yes normal to inspection Psych: Other: some confusion Results Labs 04/22/23 05:59 04/22/23 05:59 Labs: Short CBC 04/22/23 Range/Units 05:59 WBC 9.5 (4.8-10.8) X10*3/uL Hgb 12.6 L (14.0-18.0) g/dl Hct 38.6 L (42.0-52.0) % Plt Count 244 D (160-400) X10*3/uL BMP 04/22/23 05:59 Sodium 142 Potassium 3.8 D Chloride 112 H Carbon Dioxide 24 BUN 12 Creatinine 1.03 Calcium 8.4 D Microbiology Microbiology Results: Microbiology 04/20/23 17:51 Blood - Venous Blood Culture - Preliminary Staphylococcus species 04/21/23 Unknown Urine clean catch - Clean Catch Midstream Urine Culture - Final No growth. 04/20/23 17:03 Blood - Venous Blood Culture - Final Assessment and Plan (1) Severe sepsis: Status: Acute (2) Aspiration pneumonia: Status: Acute He is now day two of treatment aspiration pneumonia. This patient is weak. Patient is MRSA positive nares. Plan Likely now 2/5 days covering aspiration Zosyn with Vancomycin and then Doxycycline for a week. Continue HAART. Time Spent With Patient Time: Total time managing care of this patient today ____ minutes.
--- NOTE | 2023-04-22 15:32 | MHC.SL.SWA ---
Speech Pathologist Impression: Risk of Aspiration Due to: History of Pneumonia Reduced Cognition Dysphasia Diet Status: Patient has significant history of dysphagia, silent aspiration documented on numerous previous MBSS studies and inpatient stays. Per patient history, family/caregivers have opted to continue to feed patient orally accepting risk of aspiration in lieu of recommended alternative feeding method. Liquid Consistency and Strategies for Safe Swallow: Liquid Intake Recommendation: [place] Thick Liquid Intake Strategies: Small Sips No Straws Liquids by Teaspoon Only Solid Food Consistency: Dietary Recommendations: Grnd/Mech Altered (NDD2) Additional Modifications to Solid Foods: Patient requires 1-1 feeding. Provide food and liquid by small bites and sips, liquid by tsp only. Alternate liquids and solids. Do not attempt if patient is lethargic or not engaged in meal. Discontinue with signs of upper airway congestions, drop in 02 sats, coughing or wet voice (clinical signs of aspiration). Patient is known to silently aspirate. Oral Medication Intake: Crushed with Puree Please contact the pharmacy regarding appropriate crushable or liquid drug formulations that are available whenever modified delivery is recommended. Compensatory Strategies and Precautions to be Taken for Safe Swallow: Sitting Upright (90 deg) Liquids from Spoon Small Bites and Sips Alternate Liquids/Solids Rate of Ingestion Change Oral Check Supervision While Eating and Drinking for Safe Swallow: Total Assistance (1:1) Foods to Avoid: Difficult to chew solids, mixed consistencies. Swallowing Recommended Treatments: Compens. Strategy Educat. Recommendation for Speech: Inpatient Speech Therapy Comment: Patient has significant history of dysphagia, silent aspiration documented on numerous previous MBSS studies and inpatient stays. Per patient history, family/caregivers have opted to continue to feed patient orally accepting risk of aspiration in lieu of recommended alternative feeding method. As patient is known to silently aspirate, bedside swallow is incomplete picture of patient's swallow function, however on today's assessment, patient presents with a moderate oral pharyngeal dysphagia characterized by global oral motor weakness, edentulous state, disorganized oral phase of swallow, delayed swallow and reduced laryngeal elevation on all consistencies. Patient's baseline diet at [facility] is Ground Mechanical with Thin Liquids by Walter Cup (adaptive dysphagia cup). If Patient's status is similar to previous recent presentations at [facility] (last 08/07/23), with family accepting risk of aspiration and opting to continuing to feed orally, recommend patient continue on Ground Mechanical/Altered (NDD2) with NECTAR THICK liquids as a precaution, pills crushed in puree. If family/caregiver's acceptance of risk is in question at this time, recommend repeat MBSS study before continued feeding. , RD made aware of recommendations, history by secure text, RN in person. SHEATHER will continue to follow. Frequency/Duration: Date Range for Service Req: Timeline to reassess: [employer] Clinican/Clinical Fellow: No Supervisory Statement: I have reviewed and agree with the student/clinical fellow's documentation: N/A Speech Language Pathologist: Leelee Pritchard M.A., CCC-SHEATHER
[2023-04-22 15:49] VITALS: BP 112/56; PULSE 76; RESP 20; TEMP 36.4; O2SAT 97
[2023-04-22 20:00] VITALS: BP 110/54; PULSE 75; RESP 20; TEMP 36.4; O2SAT 96
[2023-04-23] MEDS: Piperacillin Sodium/Tazobactam 3.375 GM in 0.9 % Sodium Chloride 50 ML IV ×4 (02:49→21:22)
[2023-04-23 03:48] VITALS: BP 141/64; PULSE 65; RESP 18; TEMP 36.2; O2SAT 93
[2023-04-23 05:35] VITALS: BP 141/64; PULSE 65; RESP 18; TEMP 36.2; O2SAT 93
[2023-04-23 07:51] VITALS: BP 140/77; PULSE 63; RESP 20; TEMP 36.4; O2SAT 97
--- NOTE | 2023-04-23 09:00 | HO.PM.IMPN ---
Subjective Subjective Date of Service: 04/23/23 Interval History: weaned off O2 coughing good appetite Review of Systems Review of Systems: Yes all other systems are reviewed and are negative Physical Exam Vital Signs: Vital Signs: Last Vital Signs Temp 97.6 F 04/23/23 07:51 Pulse 63 04/23/23 07:51 Resp 20 04/23/23 07:51 BP 140/77 H 04/23/23 07:51 Pulse Ox 97 04/23/23 07:51 O2 Del Method Room Air 04/23/23 07:51 O2 Flow Rate 2 04/23/23 03:48 BMI result Body Mass Index 19.8 Gen: in no acute distress HEENT: sclera anicteric, moist mucus membranes, oral thrush Neck: supple Lungs: diminished Heart: regular rate and rhythm, no murmurs Abd: soft, non-tender, non-distended Ext: no edema Skin: warm/well-perfused Neuro: alert and alert, moving all extremities Psych: impaired insight Objective Data Active Medications Abacavir/Lamivudine (Abacavir/Lamivudine 600/300 Tablet) 1 tab PO DAILY [facility] Last Admin: 04/22/23 09:46 Dose: 1 tab Documented By: WILLIAM Acetaminophen (Acetaminophen 325 Mg Tablet) 650 mg PO Q6H PRN PRN Reason: Pain, Mild (Pain Scale 1-3) Last Admin: 04/22/23 09:47 Dose: 650 mg Documented By: WILLIAM Alprazolam (Alprazolam 0.25 Mg Tablet) 0.25 mg PO BID [facility] Last Admin: 04/22/23 20:38 Dose: 0.25 mg Documented By: DONITA-MAIKEL Aspirin (Aspirin 81 Mg Tab.Chew) 81 mg PO DAILY [facility] Last Admin: 04/22/23 09:47 Dose: 81 mg Documented By: WILLIAM Cyanocobalamin (Cyanocobalamin (Vitamin B-12) 500 Mcg Tablet) 1,500 mcg PO DAILY [facility] Last Admin: 04/22/23 09:48 Dose: 1,500 mcg Documented By: WILLIAM Docusate Sodium (Docusate Sodium 100 Mg Capsule) 100 mg PO DAILY PRN PRN Reason: Constipation Docusate Sodium (Docusate Sodium 100 Mg Capsule) 100 mg PO DAILY [facility] Last Admin: 04/22/23 09:48 Dose: 100 mg Documented By: WILLIAM Dolutegravir Sodium (Dolutegravir Sodium 50 Mg Tablet) 50 mg PO DAILY [facility] Last Admin: 04/22/23 09:47 Dose: 50 mg Documented By: EVEREMA Enoxaparin Sodium (Enoxaparin Sodium 30 Mg/0.3 Ml Syringe) 30 mg SUBCUT Q24H [facility] Last Admin: 04/22/23 14:10 Dose: 30 mg Documented By: EVEREMA Haloperidol (Haloperidol 1 Mg Tablet) 2 mg PO TID [facility] Last Admin: 04/22/23 20:38 Dose: 2 mg Documented By: LELIA Piperacillin Sod/Tazobactam (Sod 3.375 gm/ Sodium Chloride) 50 mls @ 100 mls/hr IV Q6H [facility] Last Infusion: 04/23/23 04:10 Dose: 0 mls/hr Documented By: LELIA Vancomycin HCl 1,000 mg/ (Sodium Chloride) 270 mls @ 270 mls/hr IV Q24H [facility] Last Infusion: 04/22/23 15:33 Dose: 0 mls/hr Documented By: WILLIAM Lactulose (Lactulose 20 Gm/30 Ml Solution) 20 gm PO DAILY PRN PRN Reason: Constipation Lorazepam (Lorazepam 2 Mg/Ml Vial) 1 mg IM Q24H PRN PRN Reason: Seizures Metoprolol Tartrate (Metoprolol Tartrate 25 Mg Tablet) 25 mg PO BID [facility]; Protocol Last Admin: 04/22/23 20:38 Dose: 25 mg Documented By: LELIA Multivitamins/Vitamin C (Multivitamin Tablet) 1 tab PO DAILY [facility] Last Admin: 04/22/23 09:48 Dose: 1 tab Documented By: WILLIAM Nystatin (Nystatin Oral Susp 500,000 Unit/5 Ml Oral.Susp) 500,000 unit PO QID [facility]; Protocol Last Admin: 04/22/23 20:38 Dose: 500,000 unit Documented By: LELIA Ondansetron HCl (Ondansetron Hcl 4 Mg/2 Ml Vial) 4 mg IVPUSH Q8H PRN PRN Reason: Nausea and Vomiting Pharmacy Consult (Consult Rx Perform Med Rec) 1 each MISCELLANE ONCE PRN PRN Reason: Consult order Pharmacy Consult (Consult Rx Vancomycin Dosing) 1 each MISCELLANE DAILY PRN PRN Reason: Consult order Pregabalin (Pregabalin 50 Mg Capsule) 50 mg PO TID [facility] Last Admin: 04/22/23 20:38 Dose: 50 mg Documented By: LELIA Senna (Sennosides 8.6 Mg Tablet) 8.6 mg PO BID PRN PRN Reason: Constipation Sodium Chloride (0.9 % Sodium Chloride Flush 3 Ml Syringe) 3 ml IVFLUSH QSHIFT [facility] Last Admin: 04/22/23 21:22 Dose: 3 ml Documented By: LELIA Tramadol HCl (Tramadol Hcl 50 Mg Tablet) 50 mg PO Q8H PRN PRN Reason: Moderate Pain (Scale Score 5-6) Last Admin: 04/22/23 09:47 Dose: 50 mg Documented By: COTEMA Labs 04/22/23 05:59 04/22/23 05:59 Labs: Laboratory Results - last 24 hr 04/22/23 04/22/23 05:59 11:19 Lactate Dehydrogenase 166 Procalcitonin 0.49 Nasal Screen MRSA (PCR) POSITIVE A Nasal S. aureus Screen POSITIVE A Nasal MRSA/S.aureus Interp SEE NOTE Impressions Chest CT 04/22/23 12:24 IMPRESSION: Multifocal pneumonia -- worse in the lower lobes. Small bilateral pleural effusions, left greater than right. Gallbladder calcification. Microbiology Microbiology Results: Microbiology 04/21/23 14:48 Blood Culture - Preliminary Blood - Venous No growth after 24 hours. 04/21/23 14:48 Blood Culture - Preliminary Blood - Venous No growth after 24 hours. 04/20/23 17:51 Blood Culture - Preliminary Blood - Venous Staphylococcus species 04/21/23 Unknown Urine Culture - Final Urine clean catch - Clean Catch Midstream No growth. Assessment and Plan (1) Severe sepsis: Status: Acute (2) Community acquired pneumonia: Status: Acute Plan d3 72yo M long-term resident of [facility] with dementia + behav disturb, bipolar disorder, HIV/AIDS, CKD, HTN admitted for hypoxia due to PNA AHRF + sepsis due to multifocal PNA aspiration - d3 vanco + pip/lew - follow BCx, trend PCT, MRSA swab positive, Legionella/pneumococcal UAgs pending - ID consulted: 5 days covering aspiration Zosyn with Vancomycin and then Doxycycline for a week - due to HIV hx with last CD4 in our system of 55 on 08/06/22, will contact his ID doctor Liz Lopez for most recent CD4 + viral load and consult our ID physician - INSPECTOR SHELLS consultation re possible aspiration: Patient has significant history of dysphagia, silent aspiration documented on numerous previous MBSS studies and inpatient stays.? Per patient history, family/caregivers have opted to continue to feed patient orally accepting risk of aspiration in lieu of recommended alternative feeding method.? As patient is known to silently aspirate, bedside swallow is incomplete picture of patient's swallow function, however on today's assessment, patient presents with a moderate oral pharyngeal dysphagia characterized by global oral motor weakness, edentulous state, disorganized oral phase of swallow, delayed swallow and reduced laryngeal elevation on all consistencies.? Patient's baseline diet at [facility] is Ground Mechanical with Thin Liquids by Walter Cup (adaptive dysphagia cup).? If Patient's status is similar to previous recent presentations at [facility] (last 08/07/23), with family accepting risk of aspiration and opting to continuing to feed orally, recommend patient continue on Ground Mechanical/Altered (NDD2) with NECTAR THICK liquids as a precaution, pills crushed in puree.? If family/caregiver's acceptance of risk is in question at this time, recommend repeat MBSS study before continued feeding.? MD, RD made aware of recommendations, history by secure text, RN in person.? INSPECTOR SHELLS will continue to follow. Discussed with [facility] physician Dr Gorman and at this point family/caregiver accept risk of aspiration. thrush - nystatin HIV - continue Triumeq - per Dr Lopez's last note 04/15/23 HIV-1 RNA not detected, CD 436 CKD3 - SCr at baseline unspec dementia + behav disturb bipolar disorder - haloperidol + alprazolam HTN - metoprolol VTE ppx - LMWH dispo - eventual return to [place] In my clinical judgment, the patient requires continued inpatient hospitalization for the following reasons: IV ABX Time Spent With Patient Time: Total time managing care of this patient today ___35_ minutes. Quality Stroke Does the patient have a stroke diagnosis?: No VTE Prior VTE?: No VTE Risk Level:: Medical - moderate - high VTE Device Contraindication: Treatment Not Indicated VTE Drug Contraindication: N/A - Med Ordered
[2023-04-23] MEDS: Cyanocobalamin (Vitamin B-12) 500 MCG TABLET 1500 MCG PO (09:04)
[2023-04-23] MEDS: Nystatin Oral Susp 500,000 UNIT/5 ML ORAL.SUSP 500000 UNIT PO ×3 (09:04→21:21)
[2023-04-23] MEDS: Acetaminophen 325 MG TABLET 650 MG PO (09:04)
[2023-04-23] MEDS: ALPRAZolam 0.25 MG TABLET PO ×2 (09:04→21:22)
[2023-04-23] MEDS: Abacavir/lamiVUDine 600/300 TABLET 1 TAB PO (09:04)
[2023-04-23] MEDS: traMADoL HCL 50 MG TABLET PO (09:05)
[2023-04-23] MEDS: Aspirin 81 MG TAB.CHEW PO (09:05)
[2023-04-23] MEDS: Multivitamin TABLET 1 TAB PO (09:05)
[2023-04-23] MEDS: Metoprolol Tartrate 25 MG TABLET PO ×2 (09:05→21:22)
[2023-04-23] MEDS: Pregabalin 50 MG CAPSULE PO ×3 (09:05→21:22)
[2023-04-23] MEDS: Docusate Sodium 100 MG CAPSULE PO (09:05)
[2023-04-23] MEDS: 0.9 % Sodium Chloride Flush 3 ML SYRINGE IVFLUSH ×2 (09:05→14:21)
[2023-04-23] MEDS: Dolutegravir Sodium 50 MG TABLET PO (09:05)
[2023-04-23] MEDS: HaloperidoL 1 MG TABLET 2 MG PO ×3 (09:05→21:22)
[2023-04-23 12:30] LABS: Vancomycin Random 11.9 mcg/mL (15-20)
--- NOTE | 2023-04-23 13:11 | MHC.SPEECHCO ---
PROGRAMMER OPERATOR NUMERICAL CONTROL attempted to see Pt twice unsuccessfully. Per RN he was agitated and demanding breakfast this morning prior to medication administration. He has a known history of silent aspiration and has been continuing to eat Ground/Mech. Altered (NDD2) Solids and Mildly Thick Liquids (IDDSI Level 2) at his LTC. PROGRAMMER OPERATOR NUMERICAL CONTROL spoke with his Guardian, Td Colón ([phone]), who verbalizes back that he understands the risks associated with continuing to eat with Ruperto's condition and after consideration has determined that he wishes Ruperto to remain on his baseline diet during this admission. RN, RD, and MD notified via [employer]. CM in person. Please note additional aspiration precautions; No breads, cookies or sandwiches; Fully upright posture for all PO, preferably OOB, and for 20-30 minutes after; Extra gravies and sauces. PROGRAMMER OPERATOR NUMERICAL CONTROL will continue to follow to establish safe swallowing recommendations and monitor tolerance of baseline diet.
[2023-04-23 13:44] LABS: Creatinine Clr Calc Pharmacy 44.2; Estimated Glomerular Filt Rate 56
--- NOTE | 2023-04-23 13:51 | HE.PHANOTE ---
Vancomycin dosing Level 11.9 after 2 dose. SCr increase from 1.03 to 1.26. Continue current regimen. Patient not yet at steady state. Expected AUC at steady state is 495 with a trough of 15. Next level 04/25 @ 1200. Pharmacy will continue to monitor renal function Kelsey Gupta ,JaneD
[2023-04-23] MEDS: vancomycin HCL 1,000 MG in 0.9 % Sodium Chloride 250 ML 270 MG IV (14:20)
[2023-04-23] MEDS: Enoxaparin Sodium 30 MG/0.3 ML SYRINGE SUBCUT (14:21)
[2023-04-23 15:33] VITALS: BP 134/65; PULSE 70; RESP 20; TEMP 36.4; O2SAT 96
[2023-04-23 19:22] VITALS: BP 124/80; PULSE 66; RESP 16; TEMP 36; O2SAT 98
[2023-04-24] MEDS: Piperacillin Sodium/Tazobactam 3.375 GM in 0.9 % Sodium Chloride 50 ML IV ×2 (02:52→10:01)
[2023-04-24 03:49] VITALS: BP 137/65; PULSE 59; RESP 19; TEMP 36.4; O2SAT 96
[2023-04-24 05:33] LABS: Hematocrit 37.8 % (42.0-52.0); Hemoglobin 12.2 g/dl (14.0-18.0); Mean Corpuscular HGB Conc 32.3 g/dl (31.0-36.0); Mean Corpuscular Hemoglobin 27.9 pg (27.0-33.0); Mean Corpuscular Volume 86.5 fL (80.0-98.0); Mean Platelet Volume 10.2 fL (9.4-12.4); Platelet Count 246 X10*3/uL (160-400); Red Blood Count 4.37 X10*6/uL (4.60-5.80); White Blood Count 7.2 X10*3/uL (4.8-10.8)
[2023-04-24 05:52] LABS: Anion Gap 10 (12-20); Blood Urea Nitrogen 10 mg/dL (9-16); Calcium 8.8 mg/dL (8.4-10.2); Carbon Dioxide 25 mmol/L (22-29); Chloride 111 mmol/L (96-108); Creatinine Clr Calc Pharmacy 49.7; Estimated Glomerular Filt Rate > 60; Glucose Random 89 mg/dL (60-115); Potassium 3.5 mmol/L (3.3-5.1); Sodium 142 mmol/L (135-145)
[2023-04-24 06:10] LABS: Procalcitonin 0.16 ng/mL
[2023-04-24 07:05] VITALS: BP 158/68; PULSE 60; RESP 18; TEMP 36.6; O2SAT 97
--- NOTE | 2023-04-24 09:15 | P.DS_ITS ---
DS: Providers Provider Date of Service: 04/24/23 Date of admission: 04/21/23 09:20 Date of discharge: 04/24/23 Primary care physician: Kev Gorman DO Consults: 04/22/23 08:47 Consult to Infectious Diseases Routine Consulting Provider: [facility] Infectious Disease Reason for consultation: PNA,AIDS DS: Diagnosis Discharge Diagnosis (1) Severe sepsis: Status: Acute (2) Community acquired pneumonia: Status: Acute (3) Multifocal pneumonia: Status: Acute (4) Acute respiratory failure with hypoxia: Status: Acute (5) Aspiration into respiratory tract: Status: Acute (6) HIV (human immunodeficiency virus infection): Status: Acute (7) Thrush: Status: Acute DS: Summary Hospital Course Hospital Course: from admission H+P by hospitalist Luis Valdovinos MD, 04/21/23: 72-year-old gentleman with past medical history of dementia, HIV, chronic kidney disease, bipolar disorder, hypertension was sent from [facility] due to hypoxia and chest congestion, patient offers no acute complaints of shortness of breath, denies fever, no chills, in the ER noted to be coughing intermittently and bringing up clear [place] [address], x-ray showed worsening right middle lobe opacity. Vitals showed a T-max of 100.5 degrees, no tachypnea, tachycardia finger oximetry 89% on room air, patient treated in the ER with IV ceftriaxone and azithromycin two set of blood cultures drawn, patient is now being admitted to [facility] due to hypoxia, leukocytosis and pneumonia requiring IV antibiotics. 72yo M long-term resident of [facility] with dementia + behav disturb, bipolar disorder, HIV/AIDS, CKD, and HTN who was admitted to the medical-surgical floor for hypoxia due to multifocal pneumonia. He was treated with 3 days of IV vancomycin and piperacillin-tazobactam. Blood cultures were negative and MRSA swab was positive. CHAINSTITCH BINDER consultation re possible aspiration: Patient has significant history of dysphagia, silent aspiration documented on numerous previous MBSS studies and inpatient stays.? Per patient history, family/caregivers have opted to continue to feed patient orally accepting risk of aspiration in lieu of recommended alternative feeding method.? As patient is known to silently aspirate, bedside swallow is incomplete picture of patient's swallow function, however on today's assessment, patient presents with a moderate oral pharyngeal dysphagia characterized by global oral motor weakness, edentulous state, disorganized oral phase of swallow, delayed swallow and reduced laryngeal elevation on all consistencies.? Patient's baseline diet at [facility] is Ground Mechanical with Thin Liquids by Walter Cup (adaptive dysphagia cup).? If Patient's status is similar to previous recent presentations at [facility] (last 08/07/23), with family accepting risk of aspiration and opting to continuing to feed orally, recommend patient continue on Ground Mechanical/Altered (NDD2) with NECTAR THICK liquids as a precaution, pills crushed in puree.? If family/caregiver's acceptance of risk is in question at this time, recommend repeat MBSS study before continued feeding.? MD, ROGER made aware of recommendations, history by secure text, RN in person.? CHAINSTITCH BINDER will continue to follow. ? Discussed with [facility] physician Dr Gorman and at this point family/caregiver accept risk of aspiration. He improved symptomatically and was weaned off oxygen. He was discharged on 5 days of amoxicillin- clavulanate plus doxycycline. He was given nystatin for thrush. Triumeq was continued for HIV treatment; per his HIV specialist Dr Liz Lopez's last clinic note from 04/15/23, his HIV-1 RNA was not detected and CD4 was 436 in January 2023. He was [facility] back [facility]. Time Spent with Patient Time attestation: Total time managing care of this patient today __35__ minutes. Discharge coordination time: Greater than 30 minutes Quality: Safe Use of Opioids Does Pt have an Active Cancer Diagnosis on the Problem List?: No Quality: Stroke Does the patient have a stroke diagnosis?: No Physical Exam Vital Signs: Vital Signs: Last Vital Signs Temp 97.8 F 04/24/23 07:05 Pulse 60 04/24/23 07:05 Resp 18 04/24/23 07:05 BP 158/68 H 04/24/23 07:05 Pulse Ox 97 04/24/23 07:05 O2 Del Method Room Air 04/24/23 07:05 O2 Flow Rate 2 04/23/23 03:48 BMI result Body Mass Index 19.8 Gen: in no acute distress HEENT: sclera anicteric, moist mucus membranes, oral thrush Neck: supple Lungs: diminished Heart: regular rate and rhythm, no murmurs Abd: soft, non-tender, non-distended Ext: no edema Skin: warm/well-perfused Neuro: alert and alert, moving all extremities Psych: impaired insight DS: Data Data Completed and Pending Completed studies during hospitalization [Text1]: Laboratory Results WBC 7.2 X10*3/uL (4.8-10.8) 04/24/23 05:17 RBC 4.37 X10*6/uL (4.60-5.80) L 04/24/23 05:17 Hgb 12.2 g/dl (14.0-18.0) L 04/24/23 05:17 Hct 37.8 % (42.0-52.0) L 04/24/23 05:17 MCV 86.5 fL (80.0-98.0) 04/24/23 05:17 MCH 27.9 pg (27.0-33.0) 04/24/23 05:17 MCHC 32.3 g/dl (31.0-36.0) 04/24/23 05:17 RDW 14.0 % (11.0-16.0) 04/24/23 05:17 Plt Count 246 X10*3/uL (160-400) 04/24/23 05:17 MPV 10.2 fL (9.4-12.4) 04/24/23 05:17 Immature Gran % (Auto) 0.4 % (0.0-0.4) 04/20/23 17:51 Neut % (Auto) 87.9 % (45-73) H 04/20/23 17:51 Lymph % (Auto) 6.1 % (20-40) L 04/20/23 17:51 [place] % (Auto) 4.6 % (2-11) 04/20/23 17:51 Eos % (Auto) 0.8 % (0-4) 04/20/23 17:51 Baso % (Auto) 0.2 % (0-2) 04/20/23 17:51 Lymph # (Auto) 1.0 X10*3/uL (1.2-4.9) L 04/20/23 17:51 [place] # (Auto) 0.7 X10*3/uL (0.1-1.2) 04/20/23 17:51 Eos # (Auto) 0.1 X10*3/uL (0.0-0.4) 04/20/23 17:51 Baso # (Auto) 0.0 X10*3/uL (0.0-0.2) 04/20/23 17:51 Abs Immat Gran (auto) 0.06 X10*3/uL (0.00-0.03) H 04/20/23 17:51 Absolute Neuts (auto) 13.9 x10*3/uL (2.0-8.3) H 04/20/23 17:51 Absolute Nucleated RBC 0.000 X10*3/uL (0.0-0.012) 04/24/23 05:17 Nucleated RBC % (auto) 0.0 /100WBC (0.0-0.2) 04/24/23 05:17 PT 10.7 SEC (10.0-13.1) 04/20/23 17:51 INR 0.9 (0.9-1.1) 04/20/23 17:51 APTT 30.5 SEC (26.0-36.4) 04/20/23 17:51 Sodium 142 mmol/L (135-145) 04/24/23 05:17 Potassium 3.5 mmol/L (3.3-5.1) 04/24/23 05:17 Chloride 111 mmol/L (96-108) H 04/24/23 05:17 Carbon Dioxide 25 mmol/L (22-29) 04/24/23 05:17 Anion Gap 10 (12-20) L 04/24/23 05:17 BUN 10 mg/dL (9-16) 04/24/23 05:17 Creatinine 1.12 mg/dL (0.5-1.4) 04/24/23 05:17 Estim Creat Clear Calc 49.7 04/24/23 05:17 Estimated GFR > 60 04/24/23 05:17 Random Glucose 89 mg/dL (60-115) 04/24/23 05:17 Lactic Acid 1.6 mmol/L (0.5-2.0) 04/20/23 17:51 Calcium 8.8 mg/dL (8.4-10.2) 04/24/23 05:17 Total Bilirubin 0.2 mg/dL (0.0-1.0) 04/20/23 17:51 AST 20 U/L (5-37) 04/20/23 17:51 ALT 9 U/L (0-40) 04/20/23 17:51 Alkaline Phosphatase 76 U/L (39-117) 04/20/23 17:51 Lactate Dehydrogenase 166 U/L (118-273) 04/22/23 05:59 Troponin I High Sens < 2.7 ng/L (<3.5-35.0) 04/20/23 17:51 B-Natriuretic Peptide 38 pg/mL (<100) 04/20/23 17:51 Total Protein 8.3 g/dL (6.5-8.0) H 04/20/23 17:51 Albumin 3.5 g/dL (3.5-5.0) 04/20/23 17:51 Lipase 35 U/L (8-78) 04/20/23 17:51 Procalcitonin 0.16 ng/mL 04/24/23 05:17 Urine Color Yellow 04/21/23 12:36 Urine Appearance Clear 04/21/23 12:36 Urine pH 5.5 (5.0-9.0) 04/21/23 12:36 Ur Specific [place] 1.015 (1.005-1.025) 04/21/23 12:36 Urine Protein 30 (1+) mg/dL (Neg-Trace) H 04/21/23 12:36 Urine Glucose (UA) Negative mg/dL (Negative) 04/21/23 12:36 Urine Ketones Negative mg/dL (Negative) 04/21/23 12:36 Urine Blood Small (1+) (Negative) H 04/21/23 12:36 Urine Nitrite Negative (Negative) 04/21/23 12:36 Ur Leukocyte Esterase Small (1+) (Negative) H 04/21/23 12:36 Urine RBC 11-20 /HPF (0-2) H 04/21/23 12:36 Urine WBC 11-20 /HPF (0-5) H 04/21/23 12:36 Ur Squamous Epith Cells 0-2 /HPF (0-2) 04/21/23 12:36 Urine Bacteria None Seen (None Seen) 04/21/23 12:36 Hyaline Casts 0-2 /LPF (0-2) 04/21/23 12:36 Nasal Screen MRSA (PCR) POSITIVE (Negative) A 04/22/23 11:19 Nasal S. aureus Screen POSITIVE (Negative) A 04/22/23 11:19 Nasal MRSA/S.aureus Interp SEE NOTE 04/22/23 11:19 Random Vancomycin 11.9 mcg/mL (15-20) L 04/23/23 12:00 Influenza Type A (PCR) NEGATIVE (Negative) 04/20/23 17:51 Influenza Type B (PCR) NEGATIVE (Negative) 04/20/23 17:51 RSV RNA Qual (PCR) NEGATIVE (Negative) 04/20/23 17:51 SARS-CoV-2 RNA (RT-PCR) NEGATIVE (Negative) 04/20/23 17:51 Impressions Chest X-Ray 04/20/23 17:25 IMPRESSION: Emphysema with chronic interstitial lung disease. Some improvement in left lower lobe airspace opacity with slight increase in right midlung opacity. Emphysematous changes and probable interstitial disease has been present on studies dating back to 2006. Chest CT 04/22/23 12:24 IMPRESSION: Multifocal pneumonia -- worse in the lower lobes. Small bilateral pleural effusions, left greater than right. Gallbladder calcification. Discharge Plan Discharge Anticipated Discharge Date/Time: 04/24/23 13:12 Patient Disposition: Xfer SNF Discharge Diagnosis: hypoxia and sepsis due to pneumonia Referrals: Kev Gorman DO [Primary Care Provider] - 1 Week Discharge Medications: New nystatin 100,000 unit/mL Suspension 500,000 unit PO QID Qty: 160 0RF amoxicillin-pot clavulanate 875-125 mg tablet 1 tab PO BID Qty: 10 0RF doxycycline monohydrate 100 mg tablet 100 mg PO BID Qty: 10 0RF Continued multivitamin Tablet 1 tab PO DAILY sennosides [senna] 8.6 mg Tablet 8.6 mg PO BID PRN (Reason: Constipation) acetaminophen 325 mg Tablet 650 mg PO Q6H PRN (Reason: Pain) Rx Instructions: GIVE FOR MILD PAIN OR FEVER >101. DNE 3G/24H lorazepam 2 mg/mL Solution 1 mg IM Q24H PRN (Reason: Seizures) cyanocobalamin (vitamin B-12) 1,000 mcg Tablet 1,500 mcg PO DAILY tramadol 50 mg Tablet 50 mg PO Q8H PRN (Reason: Moderate Pain (Scale Score 5-6)) alprazolam 0.25 mg Tablet 0.25 mg PO BID lansoprazole 30 mg Capsule,Delayed Release(Dr/Ec) 30 mg PO DAILY docusate sodium 100 mg Capsule 100 mg PO DAILY metoprolol tartrate 25 mg Tablet 25 mg PO BID lactulose 10 gram/15 mL Solution 30 ml PO DAILY PRN (Reason: Constipation) calcium carbonate-vitamin D3 [Calcium 500 + D] 500 mg(1,250mg) -200 unit Tablet 1 tab PO BID pregabalin 50 mg Capsule 50 mg PO TID Triumeq 600-50-300 mg Tablet 1 tab PO DAILY ferrous sulfate 220 mg (44 mg iron)/5 mL Elixir 330 mg PO DAILY aspirin 81 mg Tablet,Chewable 81 mg PO DAILY zinc oxide-vitamin B5-vit E 11.3 % Cream 1 appl TOPICAL QSHIFT Rx Instructions: apply to the buttock haloperidol 2 mg Tablet 2 mg PO TID Discharge Orders: Discharge Order (Routine); Ordered 04/24/23 Ordered By: Armani Vicente Diet: NDD2 solid/nectar liquids Activity on Discharge: As tolerated Stand Alone Forms: Patient Portal Discharge page Care Plan Goals: recovery from pneumonia Health Concerns: hypoxia and sepsis due to pneumonia Plan of Treatment: off oxygen take doxycycline 100 mg twice daily PLUS amoxicillin-claaulanate 875-125 mg twice daily for 5 more days take nystatin 5 mL 4x a day for thrush continue Triumeq aspiration precautions: Patient has significant history of dysphagia, silent aspiration documented on numerous previous MBSS studies and inpatient stays.? Per patient history, family/caregivers have opted to continue to feed patient orally accepting risk of aspiration in lieu of recommended alternative feeding method.? As patient is known to silently aspirate, bedside swallow is incomplete picture of patient's swallow function, however on today's assessment, patient presents with a moderate oral pharyngeal dysphagia characterized by global oral motor weakness, edentulous state, disorganized oral phase of swallow, delayed swallow and reduced laryngeal elevation on all consistencies.? Patient's baseline diet at [facility] is Ground Mechanical with Thin Liquids by Walter Cup (adaptive dysphagia cup).? If Patient's status is similar to previous recent presentations at [facility] (last 08/07/23), with family accepting risk of aspiration and opting to continuing to feed orally, recommend patient continue on Ground Mechanical/Altered (NDD2) with NECTAR THICK liquids as a precaution, pills crushed in puree. Please follow up with your primary care doctor within 1 week. Return to the hospital if you experience recurrent or worsening symptoms. Assessment: See Discharge Summary.
--- NOTE | 2023-04-24 09:56 | MHC.CM.PN ---
pt dcd back to [facility] at 12 message left for bridger koroma [phone] guardian re dc
[2023-04-24] MEDS: HaloperidoL 1 MG TABLET 2 MG PO (10:01)
[2023-04-24] MEDS: Dolutegravir Sodium 50 MG TABLET PO (10:01)
[2023-04-24] MEDS: Pregabalin 50 MG CAPSULE PO (10:01)
[2023-04-24] MEDS: Aspirin 81 MG TAB.CHEW PO (10:01)
[2023-04-24] MEDS: Metoprolol Tartrate 25 MG TABLET PO (10:01)
[2023-04-24] MEDS: ALPRAZolam 0.25 MG TABLET PO (10:02)
[2023-04-24] MEDS: 0.9 % Sodium Chloride Flush 3 ML SYRINGE IVFLUSH (10:03)
[2023-04-27 10:58] LABS: Legionella Ag Urine Not Detected (Not Detected)
[2023-04-29 19:39] LABS: Strep Pneumo Ag urine Not Detected (Not Detected)
== END 2023-04-24 12:31 | disposition intermediate care facility (04) | DRG 871 ==
LOC: HO.ED 21:06 → HO.EDOVER 04-21 09:29 → HO.S3 04-21 15:53
PROVIDERS: Physician Assistant; Admitting Provider Hospitalist; Emergency Provider Emergency Medicine; PCP Hospitalist; Visit Provider Family Medicine
DX: A41.9 Sepsis, unspecified organism (principal); J69.0 Pneumonitis due to inhalation of food and vomit; J96.01 Acute respiratory failure with hypoxia; B37.0 Candidal stomatitis; F03.918 Unspecified dementia, unspecified severity, with other behavioral disturbance; I12.9 Hypertensive chronic kidney disease with stage 1 through stage 4 chronic kidney disease, or unspecified chronic kidney disease; N18.30 Chronic kidney disease, stage 3 unspecified; R65.20 Severe sepsis without septic shock; F31.9 Bipolar disorder, unspecified; Z20.822 Contact with and (suspected) exposure to COVID-19; Z21 Asymptomatic human immunodeficiency virus [HIV] infection status; Z79.82 Long term (current) use of aspirin; Z79.899 Other long term (current) drug therapy
CPT/HCPCS: 0241U; 36415; 71045; 71250; 80048; 80053; 80202; 81001; 82565; 83605; 83615; 83690; 83880; 84145; 84484; 85025; 85027; 85610; 85730; 87040; 87077; 87086; 87186; 87205; 87449; 87640; 87641; 87899; 92610; 93005; 99285; J0456; J0696; J1650; J2543; J3370; J3371

== ENCOUNTER → 2023-04-20 17:03 | Outpatient (BNV) | payer MEDICARE, MEDICAID, SELFPAY | PROVIDERS: Admitting Provider Hospitalist; Emergency Provider Emergency Medicine; PCP Hospitalist; Visit Provider Internal Medicine Cardiovascular Disease | DX: R06.02 Shortness of breath (principal); J18.9 Pneumonia, unspecified organism | CPT/HCPCS: 93010 ==

== ENCOUNTER → 2023-04-21 09:20 | Outpatient (BNV) | payer MEDICARE, MEDICAID, SELFPAY | PROVIDERS: Admitting Provider Hospitalist; Emergency Provider Emergency Medicine; PCP Hospitalist; Visit Provider Internal Medicine | DX: A41.9 Sepsis, unspecified organism (principal); R65.20 Severe sepsis without septic shock; J69.0 Pneumonitis due to inhalation of food and vomit | CPT/HCPCS: 99222 ==

== ENCOUNTER → 2023-04-21 09:20 | Outpatient (BNV) | payer MEDICARE, MEDICAID, SELFPAY | PROVIDERS: Admitting Provider Hospitalist; Emergency Provider Emergency Medicine; PCP Hospitalist; Visit Provider Hospitalist | DX: J69.0 Pneumonitis due to inhalation of food and vomit (principal); B20 Human immunodeficiency virus [HIV] disease | CPT/HCPCS: 99223; 99232; 99239 ==

== ENCOUNTER 2023-06-20 07:19 | Day surgery (SDC) | payer MEDICARE, MEDICAID, SELFPAY ==
[2023-04-19 14:49] VITALS: BMI 21.6
--- NOTE | 2023-04-22 09:02 | MHC.SHP ---
Pre-Procedural Eval Section A Date of Service: 04/22/23 The patient is an INPATIENT: No Changes since office visit: No Cold of Flu in the past 2 weeks, No New Medical Problems, No Changes in Medication and No Patient answered all questions The History & Physical has been completed within 30 days and I have reviewed it.: Yes Section B Chief Complaint: Malfunction of tracheostomy stoma Allergies: Allergies Allergy/AdvReac Type Severity Reaction Status Date / Time No Known Allergies Allergy Unknown Verified 04/20/23 16:55 [No Known Allergies*] Plan I have reviewed the history and physical and performed a pertinent physical examination on my patient. No changes have occurred unless specified. Time Spent With Patient Time: Total time managing care of this patient today ____ minutes.
--- NOTE | 2023-06-19 09:10 | P.CONAN_ITS ---
Documented by User: Margaux Amaral NP 06/19/23 09:17 HPI - Anesthesia Eval Consult details Narrative: 72yo M for Tracheostomy site closure (old trach site spontaneously reopened with pt's chronic cough) Paraplegia SNF resident [facility] admit 04/2023 with aspiration pneumonia. Pt with multifactorial dysphagia, but family/caregivers have opted to continue to feed patient orally accepting risk of aspiration in lieu of recommended alternative feeding method. PMFSH Active Problems Active Problems: All Active Problems (Updated 04/24/23 @ 09:17 by Armani Vicente MD) Thrush (Acute) Aspiration into respiratory tract (Acute) Acute respiratory failure with hypoxia (Acute) Severe sepsis (Acute) Aspiration pneumonia (Acute) UTI (urinary tract infection) (Acute) Multifocal pneumonia (Acute) LENORA (acute kidney injury) (Acute) Breakdown of tracheostomy site (Acute) Community acquired pneumonia (Acute) HIV (human immunodeficiency virus infection) (Acute) Chronic kidney disease (Acute) Dementia (Acute) Bipolar 1 disorder (Acute) Past Medical History Medical History Resides in nursing home facility Anemia, unspecified Splenomegaly, not elsewhere classified Other cholelithiasis without obstruction Unspecified dementia with behavioral disturbance Presbyopia Age-related nuclear cataract, bilateral Dysphagia, oropharyngeal phase Contracture, unspecified foot Contracture, unspecified knee Cyst of kidney, acquired Personal history of other diseases of the respiratory system Personal history of pneumonia (recurrent) Unspecified convulsions Other specified disorders of bone density and structure, unspecified site Altered mental status, unspecified Essential (primary) hypertension Old myocardial infarction Primary generalized (osteo)arthritis Chronic kidney disease, stage 3 unspecified Personal history of other diseases of the circulatory system Impulse disorder, unspecified 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 Dementia in other diseases classified elsewhere with behavioral disturbance Constipation, unspecified Personal history of tuberculosis Paraplegia, unspecified Leg weakness Chronic anemia Coronary artery disease Hypertension History of COVID-19 Bipolar 1 disorder Dementia HIV (human immunodeficiency virus infection) Chronic kidney disease Surgical History Surgical History History of bronchoscopy History of hip surgery S/P percutaneous endoscopic gastrostomy (PEG) tube placement Social History Social History Household Members: Other Household Members Other:: [facility] Housing: Alf Housing Other:: [facility] Are you a primary critical care specialist to a significant other at home: No Do you presently have visiting nurse or other home services: No ([facility]) Unable to assess alcohol history related to: Unknown Alcohol intake: unknown Patient Tobacco Use Status: Tobacco use Unknown Use of substances other than those prescribed or required for medical reasons: No Are you DNR?: No Advance Directives: Yes (Atty Td Colón is court appointed guardian) Advance Directives Information Provided: Yes Advance Directives on File: Yes Advance Directives Date on File: 07/25/21 service: No Current occupational status: disabled Meds Allergies Allergy/AdvReac Type Severity Reaction Status Date / Time No Known Allergies Allergy Unknown Verified 06/20/23 08:10 [No Known Allergies*] Home Medications Medication Instructions Recorded Confirmed Last Taken Type abacavir 600 mg-dolutegravir 50 1 tab PO DAILY 07/19/21 06/20/23 08/05/22 History mg-lamivudine 300 mg tablet (Triumeq) acetaminophen 325 mg tablet 650 mg PO Q6H PRN Pain 07/19/21 06/20/23 Unknown History alprazolam 0.25 mg tablet 0.25 mg PO BID 07/19/21 06/20/23 08/05/22 History calcium carbonate 500 mg-vitamin 1 tab PO BID 07/19/21 06/20/23 08/05/22 History D3 5 mcg (200 unit) tablet (Calcium 500 + D) cyanocobalamin (vitamin B-12) 1,500 mcg PO DAILY 07/19/21 06/20/23 08/05/22 History 1,000 mcg tablet docusate sodium 100 mg capsule 100 mg PO DAILY 07/19/21 06/20/23 08/05/22 History ferrous sulfate 220 mg (44 mg 330 mg PO DAILY 07/19/21 06/20/23 06/19/23 History iron)/5 mL oral elixir lactulose 10 gram/15 mL oral 30 ml PO DAILY PRN Constipation 07/19/21 06/20/23 Unknown History solution lansoprazole 30 mg capsule,delayed 30 mg PO DAILY 07/19/21 06/20/23 08/05/22 History release lorazepam 2 mg/mL injection 1 mg IM Q24H PRN Seizures 07/19/21 06/20/23 Unknown History solution metoprolol tartrate 25 mg tablet 25 mg PO BID 07/19/21 06/20/23 08/05/22 History multivitamin 1 tab PO DAILY 07/19/21 06/20/23 08/05/22 History pregabalin 50 mg capsule 50 mg PO TID 07/19/21 06/20/23 08/05/22 History sennosides 8.6 mg tablet (senna) 8.6 mg PO BID PRN Constipation 07/19/21 06/20/23 Unknown History tramadol 50 mg tablet 50 mg PO Q8H PRN Moderate Pain 07/19/21 06/20/23 Unknown History (Scale Score 5-6) aspirin 81 mg chewable tablet 81 mg PO DAILY 07/24/21 06/20/23 06/19/23 History zinc oxide-vitamin B5-vit E 11.3% 1 appl topical QSHIFT 07/24/21 06/20/23 08/05/22 History topical cream haloperidol 2 mg tablet 2 mg PO TID 08/05/22 06/20/23 08/05/22 History Exam Exam Date and Time: June 19, 2023 0910 Height,Weight and Vital Signs: Height 5 ft 4 in Weight 57.198 kg Pertinent Lab Results Pertinent Lab Results: Laboratory Tests 04/24/23 05:17 WBC 7.2 Hgb 12.2 L Hct 37.8 L Plt Count 246 Sodium 142 Potassium 3.5 Chloride 111 H Carbon Dioxide 25 BUN 10 Creatinine 1.12 Narrative Narrative: EKG 04/2023 Vent. Rate : 079 BPM Atrial Rate : 079 BPM P-R Int : 140 ms QRS Dur : 078 ms QT Int : 360 ms P-R-T Axes : 075 048 062 degrees QTc Int : 412 ms Normal sinus rhythm Normal ECG When compared with ECG of 17-SEP-2022 14:22, No significant change was found Assessment and Plan Assessment Anesthesia Assessment: Chart Reviewed Documented by User: Sofy Sorenson MD 06/20/23 09:06 [facility] Past Medical History Medical History Resides in nursing home facility Anemia, unspecified Splenomegaly, not elsewhere classified Other cholelithiasis without obstruction Unspecified dementia with behavioral disturbance Presbyopia Age-related nuclear cataract, bilateral Dysphagia, oropharyngeal phase Contracture, unspecified foot Contracture, unspecified knee Cyst of kidney, acquired Personal history of other diseases of the respiratory system Personal history of pneumonia (recurrent) Unspecified convulsions Other specified disorders of bone density and structure, unspecified site Altered mental status, unspecified Essential (primary) hypertension Old myocardial infarction Primary generalized (osteo)arthritis Chronic kidney disease, stage 3 unspecified Personal history of other diseases of the circulatory system Impulse disorder, unspecified 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 Dementia in other diseases classified elsewhere with behavioral disturbance Constipation, unspecified Personal history of tuberculosis Paraplegia, unspecified Leg weakness Chronic anemia Coronary artery disease Hypertension History of COVID-19 Bipolar 1 disorder Dementia HIV (human immunodeficiency virus infection) Chronic kidney disease Surgical History Surgical History History of bronchoscopy History of hip surgery S/P percutaneous endoscopic gastrostomy (PEG) tube placement History of Problems with Anesthesia: No Social History Social History Household Members: Other Household Members Other:: [facility] Housing: Alf Housing Other:: [facility] Are you a primary critical care specialist to a significant other at home: No Do you presently have visiting nurse or other home services: No ([facility]) Unable to assess alcohol history related to: Unknown Alcohol intake: unknown Patient Tobacco Use Status: Tobacco use Unknown Use of substances other than those prescribed or required for medical reasons: No Are you DNR?: No Advance Directives: Yes (Atty Td Colón is court appointed guardian) Advance Directives Information Provided: Yes Advance Directives on File: Yes Advance Directives Date on File: 07/25/21 service: No Current occupational status: disabled Meds Allergies Allergy/AdvReac Type Severity Reaction Status Date / Time No Known Allergies Allergy Unknown Verified 06/20/23 08:10 [No Known Allergies*] Home Medications Medication Instructions Recorded Confirmed Last Taken Type abacavir 600 mg-dolutegravir 50 1 tab PO DAILY 07/19/21 06/20/23 08/05/22 History mg-lamivudine 300 mg tablet (Triumeq) acetaminophen 325 mg tablet 650 mg PO Q6H PRN Pain 07/19/21 06/20/23 Unknown History alprazolam 0.25 mg tablet 0.25 mg PO BID 07/19/21 06/20/23 08/05/22 History calcium carbonate 500 mg-vitamin 1 tab PO BID 07/19/21 06/20/23 08/05/22 History D3 5 mcg (200 unit) tablet (Calcium 500 + D) cyanocobalamin (vitamin B-12) 1,500 mcg PO DAILY 07/19/21 06/20/23 08/05/22 History 1,000 mcg tablet docusate sodium 100 mg capsule 100 mg PO DAILY 07/19/21 06/20/23 08/05/22 Hist ory ferrous sulfate 220 mg (44 mg 330 mg PO DAILY 07/19/21 06/20/23 06/19/23 History iron)/5 mL oral elixir lactulose 10 gram/15 mL oral 30 ml PO DAILY PRN Constipation 07/19/21 06/20/23 Unknown History solution lansoprazole 30 mg capsule,delayed 30 mg PO DAILY 07/19/21 06/20/23 08/05/22 History release lorazepam 2 mg/mL injection 1 mg IM Q24H PRN Seizures 07/19/21 06/20/23 Unknown History solution metoprolol tartrate 25 mg tablet 25 mg PO BID 07/19/21 06/20/23 08/05/22 History multivitamin 1 tab PO DAILY 07/19/21 06/20/23 08/05/22 History pregabalin 50 mg capsule 50 mg PO TID 07/19/21 06/20/23 08/05/22 History sennosides 8.6 mg tablet (senna) 8.6 mg PO BID PRN Constipation 07/19/21 06/20/23 Unknown History tramadol 50 mg tablet 50 mg PO Q8H PRN Moderate Pain 07/19/21 06/20/23 Unknown History (Scale Score 5-6) aspirin 81 mg chewable tablet 81 mg PO DAILY 07/24/21 06/20/23 06/19/23 History zinc oxide-vitamin B5-vit E 11.3% 1 appl topical QSHIFT 07/24/21 06/20/23 08/05/22 History topical cream haloperidol 2 mg tablet 2 mg PO TID 08/05/22 06/20/23 08/05/22 History Exam Airway Mallampati Class: Patient Non-Cooperative (edentulous) TM Dist: >3cm Neck ROM: Limited Loose/Missing/Broken Teeth: Yes, Upper and Lower Heart: RRR Lungs: CTA Assessment and Plan Assessment Anesthesia Assessment: Anesthesia Plan Discussed Final Anesthetic Review History of Problems with Anesthesia: No NPO: Yes ASA Class: III Final Preanesthetic Review: Meds/Allgs Chart Reviewed, Consent Obtained/Reviewed and Anes Risks/Benef Reviewed Patient Risk: Intermediate Procedure Risk: Low Anesthetic Plan Anesthetic Plan: MAC: Disposition: Standard PACU
--- NOTE | 2023-06-20 06:06 | MHC.SHP ---
Pre-Procedural Eval Section A Date of Service: 06/20/23 The patient is an INPATIENT: No Changes since office visit: No Cold of Flu in the past 2 weeks, No New Medical Problems, No Changes in Medication and No Patient answered all questions The History & Physical has been completed within 30 days and I have reviewed it.: Yes Section B Chief Complaint: Malfunction of tracheostomy stoma Allergies: Allergies Allergy/AdvReac Type Severity Reaction Status Date / Time No Known Allergies Allergy Unknown Verified 04/20/23 16:55 [No Known Allergies*] Plan I have reviewed the history and physical and performed a pertinent physical examination on my patient. No changes have occurred unless specified. Time Spent With Patient Time: Total time managing care of this patient today ____ minutes.
[2023-06-20 08:07] VITALS: BP 97/55; PULSE 62; RESP 16; TEMP 36.4; O2SAT 97; BMI 21.6
[2023-06-20] MEDS: Lactated Ringers 1,000 ML 100 ML IVCONT (08:27)
--- NOTE | 2023-06-20 08:28 | PC.NURSE ---
Call located within [facility] to [facility]. This nurse spoke with Carly Khan, nurse taking care of patient. Verified that patient has been NPO since midnight with no am medications given today. Patient is a full code.
--- NOTE | 2023-06-20 08:33 | PC.NURSE ---
Patient arrived to preop waiting area in wheelchair, accompanied by clinical nursing coordinator Alba. This nurse observed small amount of red blood present on left blue sock. Patient brought into preop area. Sock removed and left foot assessed. Small pea sized scab noted to be lifted slightly off of third toe with small amount dried blood present around area. Area not actively bleeding. No complaints of pain. New sock placed onto foot.
--- NOTE | 2023-06-20 11:00 | PC.NURSE ---
Patient resting comfortably in preop. Coughing intermittently with productive yellow/white thick sputum. Lung sounds clear throughout. SaO2 98%. Dr. Sorenson made aware.
[2023-06-20 12:05] VITALS: BP 112/43; PULSE 76; RESP 18; TEMP 36.4; O2SAT 100
[2023-06-20 12:20] VITALS: BP 122/50; PULSE 79; RESP 16; O2SAT 100
[2023-06-20 12:35] VITALS: BP 120/50; PULSE 75; RESP 14; TEMP 36.1; O2SAT 100
--- NOTE | 2023-06-20 12:46 | PC.NURSE ---
Nurse to nurse report given to Care dorothy roblero
--- NOTE | 2023-06-20 13:08 | W.PM.OPN ---
Operative Note Operative Note Date of Service: 06/20/23 Narrative: Preoperative diagnosis: [] granulated/ open tracheostomy site Postop diagnosis: [] same Procedure [] excision and closure of tracheostomy site Surgeon: [] Marty Associate Professor Of Library Media: [] SHABANA Romero Type of Anesthesia: [] MAC Indication for surgery: [] patient is status post tracheostomy removal in the distant past. He has had persisting granulating open trach. Presents here for definitive wound closure. skin incision measured approximately 4 x 3 cm. Findings: [] Patient brought to the operating room, placed on operative table supine position, after adequate level of MAC anesthesia induced, the pros incision site was infiltrated with 1% lidocaine and 0.5% Marcaine. A transverse by elliptical incision encompassing the tracheostomy site was carried down through skin, subcutaneous tissue, down to the trachea and was undermined using Bovie. No obvious open tracheostomy site was demonstrated. Wound was irrigated, secured hemostasis, and closed using interrupted inverted dermal 3-0 Vicryl sutures followed by Steri-Strips and sterile dressings. Sponge, needle, and instrument counts reported correct. Patient tolerated the procedure well and emerged anesthesia stable condition. EBL minimal
== END 2023-06-20 13:04 | disposition home or self-care (01) ==
PROVIDERS: PCP Hospitalist; Visit Provider Surgery
PROC: (CPT 31825; principal; 2023-06-20 09:30)
DX: J95.09 Other tracheostomy complication (principal); I12.9 Hypertensive chronic kidney disease with stage 1 through stage 4 chronic kidney disease, or unspecified chronic kidney disease; N18.30 Chronic kidney disease, stage 3 unspecified; D63.1 Anemia in chronic kidney disease; I25.10 Atherosclerotic heart disease of native coronary artery without angina pectoris; F03.918 Unspecified dementia, unspecified severity, with other behavioral disturbance
CPT/HCPCS: 31825; 88304; J0690; J2250; J2795; J3010

== ENCOUNTER → 2023-06-20 07:19 | Outpatient (BNV) | payer MEDICARE, MEDICAID, SELFPAY | PROVIDERS: PCP Hospitalist; Visit Provider Surgery | DX: J95.03 Malfunction of tracheostomy stoma (principal) | CPT/HCPCS: 13160 ==

== ENCOUNTER 2023-06-29 00:20 | Inpatient (IN) | payer MEDICARE, MEDICAID, SELFPAY ==
[2023-06-29] VITALS (31 sets, daily range): BP systolic 70–128; BP diastolic 32–85; PULSE 55–80; RESP 16–24; TEMP 35.2–37.1; O2SAT 6–100; BMI 20.1; BMI 18.1
--- NOTE | ~2023-06-29 | XR_ITS ---
EXAMINATION: XR CHEST CLINICAL INFORMATION: Pneumonia COMPARISON: 04/22/2023 TECHNIQUE: Frontal view of the chest was obtained. FINDINGS: Right subclavian central line tip lies in the region of the distal SVC. Lung volumes are symmetric. There are scattered multifocal patchy opacities and suspected bronchial wall thickening, overall similar to slightly worsened from prior. Underlying emphysema noted. No evidence of pneumothorax or significant pleural effusion. Cardiac size is within normal limits. Calcification is present at the aortic arch. No acute osseous findings are seen. XR/XR chest 1V IMPRESSION: Scattered multifocal patchy opacities and suspected bronchial wall thickening, similar to slightly worsened from prior.
--- NOTE | ~2023-06-29 | CT_ITS ---
EXAMINATION: CT CHEST WITHOUT CONTRAST CT ABDOMEN AND PELVIS WITHOUT CONTRAST CLINICAL INFORMATION: Hypoxia. Chest pain. Question pneumonia. Acute kidney injury. COMPARISON: CT chest 04/22/2023, abdominal CT scan of 09/17/2022, 03/11/2019 and 11/03/2018. Chest x-ray of 06/29/2023. TECHNIQUE: Multidetector volumetric CT imaging of the chest, abdomen and pelvis is acquired, without intravenous contrast administration. Postprocessing is performed at a dedicated workstation. Multiplanar reformatted images are submitted. This CT scan was performed using dose optimization techniques as appropriate to a performed exam including the following: *Automated exposure control *Adjustment of mA and/or kV according to patient size (this includes techniques or standardized protocols for targeted exams were dose is matched to indication/reason for exam; i.e. extremities or head) *Use of iterative reconstruction technique. DLP: 974 mGy-cm. FINDINGS: CHEST: Multiple respiratory motion artifacts are present limiting the evaluation. Changes of centrilobular and paraseptal emphysema are redemonstrated. Diffuse bronchial thickening is noted. Although evaluation is limited, I do believe there are scattered tree-in-bud opacities, somewhat more prominent compared to previous CT scan with likely mild interstitial septal thickening. Previously noted few bilateral scattered patchy ill-defined opacities in the upper and mid lung zones are again noted, without significant interval change. Patchy airspace opacity in the right apex anteriorly (series 7 image 102) and in the right upper lobe (series 7 image 151) are new compared to previous CT. Left lower lobe consolidation with air bronchograms is noted, significantly increased compared to previous CT scan of 04/22/2023. Left lower lobe lobar bronchus is not clearly seen, either due to extrinsic mass effect or due to intraluminal filling defects. Right lower lobe basilar consolidation is again noted, mildly increased compared to previous chest CT. Trace bilateral pleural effusions. No pneumothorax. No focal thyroid nodule is seen. Within the limits of study, there is no evidence of pathologically enlarged mediastinal lymph nodes. Evaluation for hilar lymph nodes is limited. No evidence of axillary adenopathy. Right central venous catheter is in place terminating in the lower SVC. Cardiac size is in upper limits of normal. No definite coronary calcifications are appreciated within the limits of study. No pericardial effusion. Trachea and mainstem bronchi are patent. The aorta is normal in caliber. Diffuse osteopenia. No acute or suspicious osseous abnormality. ABDOMEN AND PELVIS: Noncontrast liver is normal in size. Contour is normal. Evaluation is limited given the lack of intravenous contrast and beam-hardening artifacts from the patient's extremities in the gantry. Within the limits of study, no focal liver lesion is seen. Evaluation for biliary ductal dilatation in the liver is limited on the examination. No definite evidence of significant extrahepatic biliary ductal dilatation. Stable appearance of the structure which is presumed to represent a gallbladder with peripheral wall calcifications, since the previous CT scan of 11/03/2018. The unenhanced spleen, pancreas and adrenal glands are unremarkable. The kidneys are normal in size, shape and attenuation. Multiple bilateral cortical and partially exophytic hypodense renal lesions are again noted representing cysts by CT Hounsfield units criteria with the largest one from the medial aspect of the left kidney measuring 3 cm in maximum dimension. These lesions do not appear to be significantly changed compared to last CT and the dominant left renal lesion has mildly increased in size compared to previous CT scan of 11/03/2018 (2.2 cm). All of the renal lesions represent cysts by CT Hounsfield units criteria and no further imaging follow up is warranted. There is no evidence of radiopaque urinary tract calculi. No left hydronephrosis or significant perinephric stranding. There is mild right hydronephrosis and mild right perinephric stranding. Diffuse bladder wall thickening is noted. No evidence of radiopaque bladder calculi. Mild prominence of bilateral ureters which appears to be slightly increased compared to previous CT scan of 09/17/2022. Prostate and seminal vesicles are unremarkable. Rectal tube is in place. Large stool burden is noted throughout the colon. The colon is normal in caliber. Probable mild rectal wall thickening without significant perirectal fat stranding. No definite evidence of colonic wall thickening or pericolonic fat stranding is noted otherwise. An appendix is normal. The stomach is decompressed and therefore not optimally evaluated. No abnormal small-bowel dilatation. There is no evidence of free intraperitoneal air or fluid. There is no evidence of pathologically enlarged lymph nodes. Aortoiliac vessels are normal in caliber. Calcific atherosclerosis of the aortoiliac vessels. No significant abdominal wall hernia. Diffuse osteopenia. No acute or suspicious osseous lesions. Stable mild superior endplate depression at T12 and L1. Bilateral pars interarticularis defects at L5 with minimal grade 1 anterolisthesis of L5 over S1 are stable findings. Surgical hardware in the right proximal femur with associated deformity are stable findings. CT/CT abdomen pelvis wo IV con IMPRESSION: Evaluation is limited due to lack of intravenous contrast, multiple respiratory motion artifacts and beam hardening artifacts from the patient's extremities in the gantry. CHEST: 1. Interval increase in the left lower lobe consolidation with air bronchograms. The left lower lobe lobar bronchus is not clearly seen, either due to extrinsic mass effect or due to intraluminal filling defects. Mild interval increase in the right lower lobe basilar consolidation. 2. Interval increase in the bilateral tree-in-bud opacities with mild interstitial septal thickening. At least a few new right lung airspace opacities noted. Findings are nonspecific, however, can be seen in the setting of infectious/inflammatory bronchiolitis with infectious/inflammatory infiltrates. 3. Trace bilateral pleural effusions. ABDOMEN AND PELVIS: 1. Large stool burden in the colon. Probable mild rectal wall thickening without significant perirectal fat stranding, nonspecific finding. The finding can be seen in the setting of stercoral colitis. 2. Mild right hydronephrosis and mild right perinephric stranding, new/increased compared to last abdomen and pelvic CT. Mild bilateral hydroureter, slightly prominent compared to previous abdomen and pelvic CT. No evidence of radiopaque urinary tract calculi. 3. Stable appearance of the presumed gallbladder with peripheral wall calcifications, since the CT scan of 11/03/2018.
--- NOTE | 2023-06-29 00:34 | ED_ITS ---
HPI - Altered Mental Status General Chief Complaint: Dyspnea Stated Complaint: ams Time Seen by Provider: 06/29/23 00:33 Source: EMS and RN notes reviewed Mode of arrival: EMS Limitations: altered mental status History of Present Illness HPI narrative: is a 71-year-old male with a pertinent history of dementia with behavioral disturbance, bipolar disorder, HIV chronic kidney disease stage 3, essential hypertension recently admitted on 04/21 for multifocal pneumonia discharged back to [facility] on Augmentin and doxycycline comes here for increased lethargic and decreased responsiveness with blood pressure of 70/37 saturating 70% on nasal cannula improved to 98% on non-rebreather Related Data Home Medications Medication Instructions Recorded Confirmed abacavir 600 mg-dolutegravir 50 1 tab PO DAILY 07/19/21 06/29/23 mg-lamivudine 300 mg tablet (Triumeq) acetaminophen 325 mg tablet 650 mg PO Q6H PRN Pain 07/19/21 06/29/23 alprazolam 0.25 mg tablet 0.25 mg PO BID 07/19/21 06/29/23 calcium carbonate 500 mg-vitamin 1 tab PO BID 07/19/21 06/29/23 D3 5 mcg (200 unit) tablet (Calcium 500 + D) cyanocobalamin (vitamin B-12) 1,500 mcg PO DAILY 07/19/21 06/29/23 1,000 mcg tablet docusate sodium 100 mg capsule 100 mg PO DAILY 07/19/21 06/29/23 ferrous sulfate 220 mg (44 mg 330 mg PO DAILY 07/19/21 06/29/23 iron)/5 mL oral elixir lactulose 10 gram/15 mL oral 30 ml PO DAILY high ammonia levels 07/19/21 06/29/23 solution lansoprazole 30 mg capsule,delayed 30 mg PO DAILY 07/19/21 06/29/23 release lorazepam 2 mg/mL injection 1 mg IM Q24H PRN Seizures 07/19/21 06/29/23 solution metoprolol tartrate 25 mg tablet 25 mg PO BID 07/19/21 06/29/23 multivitamin 1 tab PO DAILY 07/19/21 06/29/23 pregabalin 50 mg capsule 50 mg PO TID 07/19/21 06/29/23 sennosides 8.6 mg tablet (senna) 8.6 mg PO BID PRN Constipation 07/19/21 06/29/23 tramadol 50 mg tablet 50 mg PO TID 07/19/21 06/29/23 aspirin 81 mg chewable tablet 81 mg PO DAILY 07/24/21 06/29/23 haloperidol 2 mg tablet 2 mg PO TID 08/05/22 06/29/23 ibuprofen 800 mg tablet 800 mg PO Q8H pain 06/29/23 06/29/23 lactulose 10 gram/15 mL oral 30 ml PO DAILY PRN Constipation 06/29/23 06/29/23 solution naloxone 4 mg/actuation nasal 4 mg intranasal Q3M PRN Opioid 06/29/23 06/29/23 spray (Narcan) Overdose white petrolatum 51.1 % topical 1 appl topical QSHIFT 06/29/23 06/29/23 ointment (Balmex (petrolatum)) Allergies Allergy/AdvReac Type Severity Reaction Status Date / Time No Known Allergies Allergy Unknown Verified 06/20/23 08:10 [No Known Allergies*] Review of Systems 2 Review of Systems: Yes Unobtainable due to mental status PMFSH Past Medical History Medical History Resides in shelter facility Anemia, unspecified Splenomegaly, not elsewhere classified Other cholelithiasis without obstruction Unspecified dementia with behavioral disturbance Presbyopia Age-related nuclear cataract, bilateral Dysphagia, oropharyngeal phase Contracture, unspecified foot Contracture, unspecified knee Cyst of kidney, acquired Personal history of other diseases of the respiratory system Personal history of pneumonia (recurrent) Unspecified convulsions Other specified disorders of bone density and structure, unspecified site Altered mental status, unspecified Essential (primary) hypertension Old myocardial infarction Primary generalized (osteo)arthritis Chronic kidney disease, stage 3 unspecified Personal history of other diseases of the circulatory system Impulse disorder, unspecified 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 Dementia in other diseases classified elsewhere with behavioral disturbance Constipation, unspecified Personal history of tuberculosis Paraplegia, unspecified Leg weakness Chronic anemia Coronary artery disease Hypertension History of COVID-19 Bipolar 1 disorder Dementia HIV (human immunodeficiency virus infection) Chronic kidney disease Surgical History History of bronchoscopy History of hip surgery S/P percutaneous endoscopic gastrostomy (PEG) tube placement Social History Social History Household Members: Other Household Members Other:: [facility] Housing: [facility] Housing Other:: [facility] Are you a primary hospice patient care secretary to a significant other at home: No Do you presently have visiting nurse or other home services: No ([facility]) Unable to assess alcohol history related to: Unknown Alcohol intake: unknown Patient Tobacco Use Status: Tobacco use Unknown Smoked in Last 30 Days: No Use of substances other than those prescribed or required for medical reasons: Unknown Advance Directives: Yes Advance Directives on File: Yes Advance Directives Date on File: 07/25/21 service: No Current occupational status: disabled Physical Exam ED Vital Signs: Vital Signs - 24 hr 06/29/23 00:52 06/29/23 02:30 06/29/23 03:00 Temperature Pulse Rate 72 74 67 Respiratory Rate 21 H 19 Blood Pressure 70/37 L 118/85 105/46 L Pulse Oximetry 98 99 Oxygen Delivery Method Non-Rebreather Mask Non-Rebreather Mask Oxymask Oxygen Flow Rate 15 06/29/23 03:41 06/29/23 04:43 06/29/23 04:51 Temperature 95.3 F L 95.6 F L Pulse Rate 65 71 65 Respiratory Rate 18 18 Blood Pressure 104/57 L 78/36 L 94/43 L Pulse Oximetry 94 95 Oxygen Delivery Method Venturi Mask Venturi Mask Oxygen Flow Rate 13 13 06/29/23 04:52 06/29/23 05:14 06/29/23 07:22 Temperature 96.4 F L Pulse Rate 68 63 62 Respiratory Rate 19 18 Blood Pressure 94/43 L 121/49 L 94/47 L Pulse Oximetry 97 98 Oxygen Delivery Method Venturi Mask Oxymask Oxygen Flow Rate 13 7 06/29/23 08:20 06/29/23 09:01 06/29/23 09:33 Temperature 97.3 F 98.1 F 98.2 F Pulse Rate 62 70 67 Respiratory Rate 18 16 20 Blood Pressure 105/49 L 97/72 114/48 L Pulse Oximetry 94 6 L 96 Oxygen Delivery Method Oxymask Oxymask Oxymask Oxygen Flow Rate 7 7 7 BMI result Body Mass Index 20.1 Appearance: Lethargic with severe respiratory distress Eyes: Pupils normal size ENT: Pharynx normal. Oral Mucosa moist tracheostomy scar+ Neck: Normal inspection. Neck supple. CVS: Normal heart rate and rhythm. Pulses normal. Respiratory: Marked respiratory distress. Equal air entry bilateral, bilateral crackles diffuse Abdomen: Soft and nontender. Bowel sounds are present, no mass palpable, no CVA tenderness Skin: Skin warm and dry. Normal skin color. Normal skin turgor. Extremities: No lower extremity edema. No calf tenderness Neuro: Minimal response to painful stimuli moving all 4 extremities Course Course Course Narrative: 0942: I assumed care of this patient from my colleague, Dr. Foote at 07:00 hours. Medications Administered Generic Name Dose Route Start Last Admin Trade Name Freq PRN Reason Stop Dose Admin Norepinephrine Bitartrate 8 mg in 250 mls @ 0 mls/hr 06/29/23 04:30 06/29/23 04:52 Levophed IV 0.07 mcg/kg/min .Q0M NANCY 8.34 mls/hr Titration Protocol Per Protocol Albumin Human 100 mls @ 133.333 mls/hr 06/29/23 09:15 06/29/23 09:28 Kedbumin 25 % IV 06/29/23 10:59 133.33 mls/hr Q1H NANCY Administration Piperacillin Sod/Tazobactam 50 mls @ 100 mls/hr 06/29/23 09:15 06/29/23 09:29 Sod 2.25 gm/ Sodium Chloride IV 100 mls/hr Q6H NANCY Administration Discontinued Medications Generic Name Dose Route Start Last Admin Trade Name Freq PRN Reason Stop Dose Admin Hydrocortisone Sodium Succinate 100 mg 06/29/23 08:04 06/29/23 09:00 Hydrocortisone Sod Succ/Pf 100 Mg Vial IVPUSH 06/29/23 08:05 100 mg ONCE ONE Administration Sodium Chloride 1,000 mls @ 999 mls/hr 06/29/23 00:44 06/29/23 07:21 Ns IV 06/29/23 01:44 Infused .Q1H1M ONE Infusion Piperacillin Sod/Tazobactam 50 mls @ 100 mls/hr 06/29/23 01:30 06/29/23 04:45 Sod 3.375 gm/ Sodium Chloride IV 06/29/23 01:59 Infused ONCE ONE Infusion Sodium Chloride 1,000 mls @ 999 mls/hr 06/29/23 01:46 06/29/23 04:45 Ns IV 06/29/23 02:46 Infused .Q1H1M ONE Infusion Sodium Chloride 1,000 mls @ 999 mls/hr 06/29/23 02:28 06/29/23 04:45 Ns IV 06/29/23 03:28 Infused .Q1H1M ONE Infusion Vancomycin HCl 1,000 mg/ 270 mls @ 270 mls/hr 06/29/23 03:10 06/29/23 05:56 Sodium Chloride IV 06/29/23 04:09 Not Given ONCE ONE Vancomycin HCl 1,500 mg/ 500 mls @ 333.333 mls/hr 06/29/23 03:30 06/29/23 07:22 Sodium Chloride IV 06/29/23 04:59 Infused ONCE ONE Infusion Medical Decision Making Medical Decision Making MDM Narrative: Patient with multifocal pneumonia , hiv, with acute respiratory failure with septic shock was given 30 mL per kg body weight IV fluids along with IV antibiotics vancomycin Zosyn with pressor started Levophed drip will admit patient to ICU at this time there is no ICU bed available will keep the patient in the ER as no nearby hospital accepting transfers Focused exam for sepsis was done at 03:00 Differential Diagnosis Differential Diagnoses: The differential diagnosis associated with the presentation includes Septic shock/multifocal pneumonia/UTI/metabolic encephalopathy/LENORA Admission/Observation Consideration of admission/observation: Escalation of care including admission/observation considered Lab Data [facility] Lab Attestation statement: I reviewed the patient's lab results. 06/29/23 01:26 06/29/23 01:26 Labs: Lab Results 06/29/23 06/29/23 06/29/23 Range/Units 01: 01:27 01:30 WBC 24.6 H (4.8-10.8) X10*3/uL RBC 4.15 L (4.60-5.80) X10*6/uL Hgb 11.8 L (14.0-18.0) g/dl Hct 37.7 L (42.0-52.0) % MCV 90.8 (80.0-98.0) fL MCH 28.4 (27.0-33.0) pg MCHC 31.3 (31.0-36.0) g/dl RDW 15.9 (11.0-16.0) % Plt Count 376 D (160-400) X10*3/uL MPV 10.7 (9.4-12.4) fL Immature Gran % (Auto) 0.4 (0.0-0.4) % Neut % (Auto) 86.2 H (45-73) % Lymph % (Auto) 6.1 L (20-40) % Parmer % (Auto) 6.0 (2-11) % Eos % (Auto) 1.1 (0-4) % Baso % (Auto) 0.2 (0-2) % Lymph # (Auto) 1.5 (1.2-4.9) X10*3/uL Parmer # (Auto) 1.5 H (0.1-1.2) X10*3/uL Eos # (Auto) 0.3 (0.0-0.4) X10*3/uL Baso # (Auto) 0.1 (0.0-0.2) X10*3/uL Abs Immat Gran (auto) 0.11 H (0.00-0.03) X10*3/uL Absolute Neuts (auto) 21.2 H (2.0-8.3) x10*3/uL Absolute Nucleated RBC 0.000 (0.0-0.012) X10*3/uL Nucleated RBC % (auto) 0.0 (0.0-0.2) /100WBC Smear Tech's Comments VERIFIED PT 14.0 H (11.1-13.3) SEC INR 1.2 H (0.9-1.1) VBG pH (7.32-7.43) VBG pCO2 mmHg VBG pO2 mmHg VBG HCO3 (22-26) mmol/L VBG O2 Saturation % VBG Base Excess mmol/L Sodium 150 H (135-145) mmol/L Potassium 5.8 H D (3.3-5.1) mmol/L Chloride 119 H (96-108) mmol/L Carbon Dioxide 21 L (22-29) mmol/L Anion Gap 16 (12-20) BUN 63 H (9-16) mg/dL Creatinine 3.90 H (0.5-1.4) mg/dL Estim Creat Clear Calc 14.9 Estimated GFR 15 Random Glucose 110 (60-115) mg/dL Lactic Acid 0.5 (0.5-2.0) mmol/L Calcium 9.0 (8.4-10.2) mg/dL Magnesium 2.5 (1.6-2.6) mg/dL Total Bilirubin 0.4 (0.0-1.0) mg/dL AST 12 (5-37) U/L ALT < 5 (0-40) U/L Alkaline Phosphatase 74 (39-117) U/L Troponin I High Sens < 2.7 (<3.5-35.0) ng/L B-Natriuretic Peptide 65 (<100) pg/mL Total Protein 7.6 (6.5-8.0) g/dL Albumin 2.9 L (3.5-5.0) g/dL Urine Color Urine Appearance Urine pH (5.0-9.0) Ur Specific [place] (1.005-1.025) Urine Protein (Neg-Trace) mg/dL Urine Glucose (UA) (Negative) mg/dL Urine Ketones (Negative) mg/dL Urine Blood (Negative) Urine Nitrite (Negative) Ur Leukocyte Esterase (Negative) Urine RBC (0-2) /HPF Urine WBC (0-5) /HPF Ur Squamous Epith Cells (0-2) /HPF Urine Bacteria (None Seen) Hyaline Casts (0-2) /LPF COVID-19 (CHANELLE) Negative (Negative) COVID-19 Clin Com See Note 06/29/23 06/29/23 Range/Units 01:37 07:32 WBC (4.8-10.8) X10*3/uL RBC (4.60-5.80) X10*6/uL Hgb (14.0-18.0) g/dl Hct (42.0-52.0) % MCV (80.0-98.0) fL MCH (27.0-33.0) pg MCHC (31.0-36.0) g/dl RDW (11.0-16.0) % Plt Count (160-400) X10*3/uL MPV (9.4-12.4) fL Immature Gran % (Auto) (0.0-0.4) % Neut % (Auto) (45-73) % Lymph % (Auto) (20-40) % Parmer % (Auto) (2-11) % Eos % (Auto) (0-4) % Baso % (Auto) (0-2) % Lymph # (Auto) (1.2-4.9) X10*3/uL Parmer # (Auto) (0.1-1.2) X10*3/uL Eos # (Auto) (0.0-0.4) X10*3/uL Baso # (Auto) (0.0-0.2) X10*3/uL Abs Immat Gran (auto) (0.00-0.03) X10*3/uL Absolute Neuts (auto) (2.0-8.3) x10*3/uL Absolute Nucleated RBC (0.0-0.012) X10*3/uL Nucleated RBC % (auto) (0.0-0.2) /100WBC Smear Tech's Comments PT (11.1-13.3) SEC INR (0.9-1.1) VBG pH 7.30 L (7.32-7.43) VBG pCO2 47 mmHg VBG pO2 64 mmHg VBG HCO3 23 (22-26) mmol/L VBG O2 Saturation 89.0 % VBG Base Excess -2.6 mmol/L Sodium (135-145) mmol/L Potassium (3.3-5.1) mmol/L Chloride (96-108) mmol/L Carbon Dioxide (22-29) mmol/L Anion Gap (12-20) BUN (9-16) mg/dL Creatinine (0.5-1.4) mg/dL Estim Creat Clear Calc Estimated GFR Random Glucose (60-115) mg/dL Lactic Acid (0.5-2.0) mmol/L Calcium (8.4-10.2) mg/dL Magnesium (1.6-2.6) mg/dL Total Bilirubin (0.0-1.0) mg/dL AST (5-37) U/L ALT (0-40) U/L Alkaline Phosphatase (39-117) U/L Troponin I High Sens (<3.5-35.0) ng/L B-Natriuretic Peptide (<100) pg/mL Total Protein (6.5-8.0) g/dL Albumin (3.5-5.0) g/dL Urine Color Yellow Urine Appearance Turbid Urine pH 5.5 (5.0-9.0) Ur Specific [place] 1.015 (1.005-1.025) Urine Protein 30 (1+) H (Neg-Trace) mg/dL Urine Glucose (UA) Negative (Negative) mg/dL Urine Ketones Negative (Negative) mg/dL Urine Blood Trace H (Negative) Urine Nitrite Positive H (Negative) Ur Leukocyte Esterase Large (3+) H (Negative) Urine RBC 0-2 (0-2) /HPF Urine WBC >50 H (0-5) /HPF Ur Squamous Epith Cells 0-2 (0-2) /HPF Urine Bacteria 4+ (None Seen) Hyaline Casts 0-2 (0-2) /LPF COVID-19 (CHANELLE) (Negative) COVID-19 Clin Com Independent Interpretation I performed an independent interpretation of an: EKG Interpretation: Normal sinus rhythm heart rate 73 beats per minute normal interval normal axis no acute ischemia Procedures Central Line Placement Right SC: Time Out Performed: Yes Patient Placed on Monitor/Pulse Ox: Yes MD Prep: mask, gown and gloves Central Line Prep: Chlorhexidine scrub Local Anesthetic: lidocaine 1% Amount of anesthesia used (mL): 4 Ultrasound Used for Placement: No Central Line Lumen Inserted: triple Post Procedure: sutured in place, good blood return, all ports aspirated, flushed, capped and sterile dressing applied Post Procedure X-Ray: tip of catheter in good position Patient Tolerated Procedure: well Complications: none Critical Care Time Critical Care Time Critical Care Time: Yes Total Critical Care Time: 90 Attestation: The patient was critically ill with a high probability of imminent or life threatening deterioration. I spent greater than 100 minutes of discontinuous time evaluating the patient,delivering critical care at the bedside, discussing and evaluating pertinent data with consultants. Critical care time does not include time spent performing separately billable procedures or teaching. Total time spent performing critical care was 90 minutes. Discharge Plan Discharge Clinical Impression: Multifocal pneumonia, LENORA (acute kidney injury), Acute respiratory failure with hypoxia, Severe sepsis, HIV (human immunodeficiency virus infection) Patient Disposition: Still a Patient Prescriptions: No Action multivitamin Tablet 1 tab PO DAILY sennosides [senna] 8.6 mg Tablet 8.6 mg PO BID PRN (Reason: Constipation) acetaminophen 325 mg Tablet 650 mg PO Q6H PRN (Reason: Pain) Rx Instructions: GIVE FOR MILD PAIN OR FEVER >101. DNE 3G/24H lorazepam 2 mg/mL Solution 1 mg IM Q24H PRN (Reason: Seizures) cyanocobalamin (vitamin B-12) 1,000 mcg Tablet 1,500 mcg PO DAILY tramadol 50 mg Tablet 50 mg PO TID alprazolam 0.25 mg Tablet 0.25 mg PO BID lansoprazole 30 mg Capsule,Delayed Release(Dr/Ec) 30 mg PO DAILY docusate sodium 100 mg Capsule 100 mg PO DAILY metoprolol tartrate 25 mg Tablet 25 mg PO BID lactulose 10 gram/15 mL Solution 30 ml PO DAILY calcium carbonate-vitamin D3 [Calcium 500 + D] 500 mg(1,250mg) -200 unit Tablet 1 tab PO BID pregabalin 50 mg Capsule 50 mg PO TID Triumeq 600-50-300 mg Tablet 1 tab PO DAILY ferrous sulfate 220 mg (44 mg iron)/5 mL Elixir 330 mg PO DAILY aspirin 81 mg Tablet,Chewable 81 mg PO DAILY haloperidol 2 mg Tablet 2 mg PO TID lactulose 10 gram/15 mL solution 30 ml PO DAILY PRN (Reason: Constipation) Balmex (petrolatum) 51.1 % Ointment 1 appl TOPICAL QSHIFT Rx Instructions: to buttocks naloxone [Narcan] 4 mg/actuation Kamiah,Non-Aerosol 4 mg INTRANASAL Q3M PRN (Reason: Opioid Overdose) Rx Instructions: spray 1 dose into ONE nostril; alternate nostrils w each dose until help arrives ibuprofen 800 mg tablet 800 mg PO Q8H Rx Instructions: recent surgery, end date of 06/30/23
--- NOTE | 2023-06-29 00:41 | ECG_ITS ---
Test Reason : HYPOTENSION/AMS Blood Pressure : / mmHG Vent. Rate : 073 BPM Atrial Rate : 073 BPM P-R Int : 130 ms QRS Dur : 080 ms QT Int : 386 ms P-R-T Axes : 073 057 067 degrees QTc Int : 425 ms Normal sinus rhythm Normal ECG When compared with ECG of 20-APR-2023 17:39, No significant change was found Referred By: Nehemiah Shields Electronically Signed By:AFIA RIOS
--- NOTE | 2023-06-29 00:58 | PC.NURSE ---
IV line placed by ems infiltrated. provider aware of b/p 65/[address] plan of care ongoing.
[2023-06-29 01:37] LABS: Basophils Absolute Auto 0.1 X10*3/uL (0.0-0.2); Basophils Percent Auto 0.2 % (0-2); Eosinophils Absolute Auto 0.3 X10*3/uL (0.0-0.4); Eosinophils Percent Auto 1.1 % (0-4); Hematocrit 37.7 % (42.0-52.0); Hemoglobin 11.8 g/dl (14.0-18.0); Imm Gran Abs Auto 0.11 X10*3/uL (0.00-0.03); Imm Gran Pct Auto 0.4 % (0.0-0.4); Lymphocytes Absolute Auto 1.5 X10*3/uL (1.2-4.9); Lymphocytes Percent Auto 6.1 % (20-40); MANUAL DIFF FLAG SCAN; Mean Corpuscular HGB Conc 31.3 g/dl (31.0-36.0); Mean Corpuscular Hemoglobin 28.4 pg (27.0-33.0); Mean Corpuscular Volume 90.8 fL (80.0-98.0); Mean Platelet Volume 10.7 fL (9.4-12.4); Monocytes Absolute Auto 1.5 X10*3/uL (0.1-1.2); Neutrophils Absolute Auto 21.2 x10*3/uL (2.0-8.3); Neutrophils Percent Auto 86.2 % (45-73); Platelet Count 376 X10*3/uL (160-400); Red Blood Count 4.15 X10*6/uL (4.60-5.80); Red Cell Distribution Width 15.9 % (11.0-16.0); SCAN SMEAR FLAG 1; White Blood Count 24.6 X10*3/uL (4.8-10.8)
[2023-06-29 01:40] LABS: Venous Blood Gas Refer to POC result
[2023-06-29 01:42] LABS: INTERNATIONAL NORM RATIO 1.2 (0.9-1.1)
[2023-06-29 01:43] LABS: VBG Base Excess -2.6 mmol/L; VBG HCO3 23 mmol/L (22-26); VBG pCO2 47 mmHg; VBG pO2 64 mmHg
[2023-06-29 01:51] LABS: COVID-19 Test Negative (Negative); IDNOW Serial# 6674DD1D
[2023-06-29 01:53] LABS: Lactic Acid 0.5 mmol/L (0.5-2.0)
[2023-06-29 01:54] LABS: Alanine Aminotransferase < 5 U/L (0-40); Albumin Level 2.9 g/dL (3.5-5.0); Alkaline Phosphatase 74 U/L (39-117); Anion Gap 16 (12-20); Aspartate Amino Transferase 12 U/L (5-37); Bilirubin Total 0.4 mg/dL (0.0-1.0); Blood Urea Nitrogen 63 mg/dL (9-16); Carbon Dioxide 21 mmol/L (22-29); Chloride 119 mmol/L (96-108); Creatinine Clr Calc Pharmacy 14.9; Estimated Glomerular Filt Rate 15; Glucose Random 110 mg/dL (60-115); Magnesium 2.5 mg/dL (1.6-2.6); Potassium 5.8 mmol/L (3.3-5.1); SLIDE REVIEW VERIFIED; Sodium 150 mmol/L (135-145); Total Protein 7.6 g/dL (6.5-8.0)
[2023-06-29] MEDS: 0.9 % Sodium Chloride 1,000 ML 999 ML IV ×3 (01:58→03:09)
[2023-06-29] MEDS: Piperacillin Sodium/Tazobactam 3.375 GM in 0.9 % Sodium Chloride 50 ML IV (01:58)
[2023-06-29 02:03] LABS: Troponin-I High Sensitivity < 2.7 ng/L (<3.5-35.0)
[2023-06-29 02:19] LABS: B Type Natriuretic Peptide 65 pg/mL (<100)
[2023-06-29] MEDS: vancomycin HCL 1,500 MG in 0.9 % Sodium Chloride 500 ML 333.33 MG IV (04:32)
[2023-06-29] MEDS: Norepinephrine Bitartrate/D5W 8 MG/250 ML PLAST..BAG 5.95 MG IV (04:43)
--- NOTE | 2023-06-29 04:44 | PC.NURSE ---
RN waiting for Bear ayla from nursing supervior Warm blankets applied at this time.
--- NOTE | 2023-06-29 06:38 | PC.NURSE ---
Pt alert to self, does not follow commands. Unsure of pt baseline. Pt had recent trach removal, evidence by bandage to trach with sutures. Pt was initially 79% on room air at [facility]. Pt skin is pale and dusky, 98%on venti mask at 7L. Pt placed on bear hugger for rectal temp 95.3. Leevophed titrated to MAP >65. TLC R-subclav. Pt cleaned and reposition.
--- NOTE | 2023-06-29 07:23 | PC.NURSE ---
Pt resting on stretcher, opens eyes to verbal or tactile stimuli. Occasionally moving legs in bed. NSR on tele rate 60s. Oxymask in place at 7lpm maintaining sat 95-98%, breathing is non labored. Levophed at 0.07mcg/kg/min MAP 67 at this time. Fiona hugger remains in place with core temp 96.4. TLC to right subclavian patent with +blood return. Old steri strips intact to old trach site. Condom cath in place, OP approx 300ml of cloudy yellow urine
[2023-06-29 07:42] LABS: Appearance Urine Turbid; Color Urine Yellow; Glucose Urine UA Negative (Negative); Leukocyte Esterase Urine Large (3+) (Negative); Nitrite Urine Positive (Negative); PH 5.5 (5.0-9.0); Specific Gravity - Urine 1.015 (1.005-1.025); UMIC TRIGGER UACC YES; Urine Blood Trace (Negative); Urine Ketones Negative (Negative); Urine Protein 30 (1+) mg/dL (Neg-Trace)
[2023-06-29 07:47] LABS: Bacteria Urine 4+ (None Seen); Hyaline Casts Urine 0-2 /LPF (0-2); RBC Urine 0-2 /HPF (0-2); Squamous Epithelial Cell Urine 0-2 /HPF (0-2); UACC Culture Trigger YES; WBC Urine >50 /HPF (0-5)
--- NOTE | 2023-06-29 08:29 | PHA.MEDREC ---
Pharmacy Consult ? Medication Reconciliation Pharmacy has completed the medication reconciliation. Patient with list from [facility]
[2023-06-29] MEDS: Hydrocortisone Sod Succ/PF 100 MG VIAL IVPUSH (09:00)
--- NOTE | 2023-06-29 09:02 | PC.NURSE ---
Fiona aguila removed, core temp 98.1. Dr Yeboah at bedside for eval. Medicated as charted
[2023-06-29] MEDS: Albumin Human 25 % 100 ML 133.33 ML IV (09:28)
[2023-06-29] MEDS: Piperacillin Sodium/Tazobactam 2.25 GM in 0.9 % Sodium Chloride 50 ML IV ×3 (09:29→20:01)
--- NOTE | 2023-06-29 09:32 | PC.NURSE ---
iv abx and albumin infusing per order. vss.
--- NOTE | 2023-06-29 09:54 | PHA.PROG ---
Admission Date/Time: Indication: RESPIRATORY INFECTION Weight in k.503 kg Adjusted body weight in Kg: Rumsey body weight in Kg: Obesity Dosing Indication % IBW: Serum Creatinine - Last 168 Hours 06/29/23 01:26 Creatinine 3.90 H Estimated CrCl and GFR - Last 168 Hours 06/29/23 01:26 Estim Creat Clear Calc 14.9 Estimated GFR 15 Vancomycin Loading Dose: 1500 MG Current Vancomycin Dosing Regimen: 500 Q24 Vancomycin Monitoring using AUC goal of 400 - 600 range with trough as surrogate marker:580 Date and Time for next Vancomycin Level to be drawn: 06/30 @0800 Pharmacist Comments on Vancomycin Plan: APPROPRIATE LOAD GIVEN IN ED OVERNIGHT. DUE TO VERY POOR RENAL FUNCTION PROCEEDING CAUTIOUSLY WITH DOSE. CONTINUE TO MONITOR SCR DAILY BUT WILL ALSO GET A VANCO LEVEL BEFORE NEXT DOSE TO ENSURE SAFETY AND EFFICACY IN DOSING. PK IS NOT ABLE TO PROVIDE VALID INFORMATION ON DOSING. CONFIRMED WITH DR DEMARCO THAT HE IS NOT DIALYSIS PATIENT. Vancomycin dosing will take advantage of [employer] as a clinical decision support tool that uses Bayesian modeling to calculate individual patient's pharmacokinetic parameters and forecast the patient's drug concentration time course with the target goal AUC 24 range of 400 - 600 mg/L/hr.
[2023-06-29] MEDS: Albumin Human 25 % 100 ML 133.3 ML IV (10:14)
[2023-06-29] MEDS: Sulfamethoxazole/Trimethoprim 160 MG in Dextrose 5 % 500 ML 225 MG IV (10:23)
--- NOTE | 2023-06-29 11:55 | P.HPCC_ITS ---
History of Present Illness Date of Service: 06/29/23 Chief Complaint: Hypotension and hypoxia 72-year-old gentleman with underlying HIV, dementia, CKD, bipolar disorder, hypertension, dysphagia with pulmonary aspiration and prior aspiration pneumonitis versus pneumonia admitted on 06/29/2023 with lethargy, hypoxia, and hypotension, likely secondary to another episode of aspiration pneumonia. Patient with poor response to initial IV fluids requiring initiation of pressor support and admission to intensive care unit. Review of Systems 2 Review of Systems: Yes Unobtainable due to mental condition and Unobtainable due to mental status Neurologic: Reports confusion Psychiatric: Psychiatric: Reports confusion FORMERLY [facility], [facility]–1983 Past Medical History Medical History Resides in [facility] facility Anemia, unspecified Splenomegaly, not elsewhere classified Other cholelithiasis without obstruction Unspecified dementia with behavioral disturbance Presbyopia Age-related nuclear cataract, bilateral Dysphagia, oropharyngeal phase Contracture, unspecified foot Contracture, unspecified knee Cyst of kidney, acquired Personal history of other diseases of the respiratory system Personal history of pneumonia (recurrent) Unspecified convulsions Other specified disorders of bone density and structure, unspecified site Altered mental status, unspecified Essential (primary) hypertension Old myocardial infarction Primary generalized (osteo)arthritis Chronic kidney disease, stage 3 unspecified Personal history of other diseases of the circulatory system Impulse disorder, unspecified 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 Dementia in other diseases classified elsewhere with behavioral disturbance Constipation, unspecified Personal history of tuberculosis Paraplegia, unspecified Leg weakness Chronic anemia Coronary artery disease Hypertension History of COVID-19 Bipolar 1 disorder Dementia HIV (human immunodeficiency virus infection) Chronic kidney disease Surgical History Surgical History History of bronchoscopy History of hip surgery S/P percutaneous endoscopic gastrostomy (PEG) tube placement Social History Social History Household Members: Other Household Members Other:: [facility] Other:: [facility] Are you a primary wound care nurse to a significant other at home: No Do you presently have visiting nurse or other home services: No ([facility]) Unable to assess alcohol history related to: Unknown Alcohol intake: unknown Patient Tobacco Use Status: Tobacco use Unknown Smoked in Last 30 Days: No Use of substances other than those prescribed or required for medical reasons: Unknown Advance Directives: Yes Advance Directives on File: Yes Advance Directives Date on File: 07/25/21 service: No Current occupational status: disabled Meds Allergies Allergy/AdvReac Type Severity Reaction Status Date / Time No Known Allergies Allergy Unknown Verified 06/20/23 08:10 [No Known Allergies*] Active Medications: Current Medications Heparin Sodium (Porcine) (Heparin Sodium,Porcine 5,000 Unit/Ml Vial) 5,000 unit SUBCUT Q8H [facility] Norepinephrine Bitartrate (Levophed) 8 mg in 250 mls @ 0 mls/hr IV .Q0M [facility]; Protocol Last Titration: 06/29/23 04:52 Dose: 0.07 mcg/kg/min, 8.34 mls/hr Piperacillin Sod/Tazobactam (Sod 2.25 gm/ Sodium Chloride) 50 mls @ 100 mls/hr IV Q6H [facility] Last Infusion: 06/29/23 10:26 Dose: Infused Vancomycin HCl 500 mg/ Sodium (Chloride) 110 mls @ 110 mls/hr IV Q24H [facility] Pharmacy Consult (Consult Rx Vancomycin Dosing) 1 each MISCELLANE DAILY PRN PRN Reason: Consult order Home Medications Medication Instructions Recorded Confirmed Last Taken Type abacavir 600 mg-dolutegravir 50 1 tab PO DAILY 07/19/21 06/29/23 08/05/22 History mg-lamivudine 300 mg tablet (Triumeq) acetaminophen 325 mg tablet 650 mg PO Q6H PRN Pain 07/19/21 06/29/23 Unknown History alprazolam 0.25 mg tablet 0.25 mg PO BID 07/19/21 06/29/23 08/05/22 History calcium carbonate 500 mg-vitamin 1 tab PO BID 07/19/21 06/29/23 08/05/22 History D3 5 mcg (200 unit) tablet (Calcium 500 + D) cyanocobalamin (vitamin B-12) 1,500 mcg PO DAILY 07/19/21 06/29/23 08/05/22 History 1,000 mcg tablet docusate sodium 100 mg capsule 100 mg PO DAILY 07/19/21 06/29/23 08/05/22 History ferrous sulfate 220 mg (44 mg 330 mg PO DAILY 07/19/21 06/29/23 06/19/23 History iron)/5 mL oral elixir lactulose 10 gram/15 mL oral 30 ml PO DAILY high ammonia levels 07/19/21 06/29/23 Unknown History solution lansoprazole 30 mg capsule,delayed 30 mg PO DAILY 07/19/21 06/29/23 08/05/22 History release lorazepam 2 mg/mL injection 1 mg IM Q24H PRN Seizures 07/19/21 06/29/23 Unknown History solution metoprolol tartrate 25 mg tablet 25 mg PO BID 07/19/21 06/29/23 08/05/22 History multivitamin 1 tab PO DAILY 07/19/21 06/29/23 08/05/22 History pregabalin 50 mg capsule 50 mg PO TID 07/19/21 06/29/23 08/05/22 History sennosides 8.6 mg tablet (senna) 8.6 mg PO BID PRN Constipation 07/19/21 06/29/23 Unknown History tramadol 50 mg tablet 50 mg PO TID 07/19/21 06/29/23 Unknown History aspirin 81 mg chewable tablet 81 mg PO DAILY 07/24/21 06/29/23 06/19/23 History haloperidol 2 mg tablet 2 mg PO TID 08/05/22 06/29/23 08/05/22 History ibuprofen 800 mg tablet 800 mg PO Q8H pain 06/29/23 06/29/23 Unknown History lactulose 10 gram/15 mL oral 30 ml PO DAILY PRN Constipation 06/29/23 06/29/23 Unknown History solution naloxone 4 mg/actuation nasal 4 mg intranasal Q3M PRN Opioid 06/29/23 06/29/23 Unknown History spray (Narcan) Overdose white petrolatum 51.1 % topical 1 appl topical QSHIFT 06/29/23 06/29/23 Unknown History ointment (Balmex (petrolatum)) Physical Exam 2 Vital Signs: Vital Signs: Last Vital Signs Temp 98.6 F 06/29/23 11:03 Pulse 66 06/29/23 10:26 Resp 20 06/29/23 10:26 BP 105/47 L 06/29/23 11:03 Pulse Ox 95 06/29/23 10:26 O2 Del Method Oxymask 06/29/23 10:26 O2 Flow Rate 7 06/29/23 10:26 BMI result Body Mass Index 20.1 Const: General: no acute distress, confusion and lethargic (Arousable) O rientation/consciousness: confusion and lethargic (Arousable) Eyes: Sclerae: sclerae normal EOM: EOMs intact bilaterally Neck: Neck: Yes no lymphadenopathy, Yes trachea midline and Yes supple Resp: Effort & Inspection: normal respiratory effort and no respiratory distress Auscultation: crackles ([id number]) Cardio: Rate: regular rate Rhythm: regular rhythm Heart sounds: no gallops, no murmurs and no rubs GI: Palpation (GI): Soft to palpation and Other GI palpation findings present ( Nontender) Auscultation: normal bowel sounds Neuro: General: confusion Extrem: General: Yes no pedal edema, No clubbing and No cyanosis Results Labs 06/29/23 01:26 06/29/23 01:26 Labs: Laboratory Results - last 24 hr 06/29/23 06/29/23 06/29/23 01:26 01:27 01:30 MCV 90.8 MCH 28.4 MCHC 31.3 RDW 15.9 Plt Count 376 D MPV 10.7 Immature Gran % (Auto) 0.4 Neut % (Auto) 86.2 H Lymph % (Auto) 6.1 L [place] % (Auto) 6.0 Eos % (Auto) 1.1 Baso % (Auto) 0.2 Lymph # (Auto) 1.5 [place] # (Auto) 1.5 H Eos # (Auto) 0.3 Baso # (Auto) 0.1 Abs Immat Gran (auto) 0.11 H Absolute Neuts (auto) 21.2 H Absolute Nucleated RBC 0.000 Nucleated RBC % (auto) 0.0 Smear Tech's Comments VERIFIED PT 14.0 H INR 1.2 H VBG pH VBG pCO2 VBG pO2 VBG HCO3 VBG O2 Saturation VBG Base Excess Anion Gap 16 Estim Creat Clear Calc 14.9 Estimated GFR 15 Random Glucose 110 Lactic Acid 0.5 Calcium 9.0 Magnesium 2.5 Total Bilirubin 0.4 AST 12 ALT < 5 Alkaline Phosphatase 74 B-Natriuretic Peptide 65 Total Protein 7.6 Albumin 2.9 L Urine Color Urine Appearance Urine pH Ur Specific [place] Urine Protein Urine Glucose (UA) Urine Ketones Urine Blood Urine Nitrite Ur Leukocyte Esterase Urine RBC Urine WBC Ur Squamous Epith Cells Urine Bacteria Hyaline Casts COVID-19 (CHANELLE) Negative COVID-19 Clin Com See Note 06/29/23 06/29/23 01:37 07:32 MCV MCH MCHC RDW Plt Count MPV Immature Gran % (Auto) Neut % (Auto) Lymph % (Auto) [place] % (Auto) Eos % (Auto) Baso % (Auto) Lymph # (Auto) [place] # (Auto) Eos # (Auto) Baso # (Auto) Abs Immat Gran (auto) Absolute Neuts (auto) Absolute Nucleated RBC Nucleated RBC % (auto) Smear Tech's Comments PT INR VBG pH 7.30 L VBG pCO2 47 VBG pO2 64 VBG HCO3 23 VBG O2 Saturation 89.0 VBG Base Excess -2.6 Anion Gap Estim Creat Clear Calc Estimated GFR Random Glucose Lactic Acid Calcium Magnesium Total Bilirubin AST ALT Alkaline Phosphatase B-Natriuretic Peptide Total Protein Albumin Urine Color Yellow Urine Appearance Turbid Urine pH 5.5 Ur Specific [place] 1.015 Urine Protein 30 (1+) H Urine Glucose (UA) Negative Urine Ketones Negative Urine Blood Trace H Urine Nitrite Positive H Ur Leukocyte Esterase Large (3+) H Urine RBC 0-2 Urine WBC >50 H Ur Squamous Epith Cells 0-2 Urine Bacteria 4+ Hyaline Casts 0-2 COVID-19 (CHANELLE) COVID-19 Clin Com Imaging Radiologist's Impressions: Impressions Chest X-Ray 06/29/23 01:33 IMPRESSION: Scattered multifocal patchy opacities and suspected bronchial wall thickening, similar to slightly worsened from prior. Assessment and Plan (1) Acute respiratory failure with hypoxia: Status: Acute (2) Aspiration into respiratory tract: Status: Acute (3) Aspiration pneumonia: Status: Acute (4) HIV (human immunodeficiency virus infection): Status: Acute (5) Dementia: Status: Acute (6) Bipolar 1 disorder: Status: Acute Plan Assessment: 72-year-old gentleman admitted with hypoxia, hypotension, likely secondary to aspiration pneumonia Plan: Neuro: No acute issues. Underlying dementia. Cardiac: Septic shock versus sequela of aspiration event, continue to titrate off pressors as tolerated. Pulmonary: Acute hypoxic respiratory failure secondary to pneumonia versus aspiration pneumonitis. Continue to titrate of supplemental oxygen as tolerated. Renal: No acute issues. Underlying chronic renal disease. Endo: No acute issues. GI: No acute issues. ID: Aspiration pneumonia versus pneumonitis. Continue on empiric broad- spectrum antibiotics. Cultures are pending. Heme/Onc: No acute issues. Psych: No acute issues. Underlying bipolar disorder time. Miscellaneous: No acute issues. Prophylaxis: Heparin Diet: NPO Critical care time spent: 60 minutes Time Spent With Patient Time: Total time managing care of this patient today ____ minutes.
[2023-06-29 12:16] LABS: Anion Gap 13 (12-20); Blood Urea Nitrogen 50 mg/dL (9-16); Calcium 8.3 mg/dL (8.4-10.2); Carbon Dioxide 19 mmol/L (22-29); Chloride 124 mmol/L (96-108); Estimated Glomerular Filt Rate 21; Glucose Random 154 mg/dL (60-115); Potassium 5.3 mmol/L (3.3-5.1); Sodium 151 mmol/L (135-145)
--- NOTE | 2023-06-29 12:21 | PC.NURSE ---
report given to icu nurse.
[2023-06-29] MEDS: Heparin Sodium,Porcine 5,000 UNIT/ML VIAL 5000 UNIT SUBCUT ×2 (12:35→20:01)
[2023-06-29] MEDS: Haloperidol Lactate 5 MG/ML VIAL 1 MG IM (22:58)
[2023-06-30] VITALS (21 sets, daily range): BP systolic 96–149; BP diastolic 41–66; PULSE 57–82; RESP 15–28; TEMP 36.1–36.7; O2SAT 92–98; BMI 16.7
[2023-06-30] MEDS: LORazepam 2 MG/ML VIAL 0.5 MG IVPUSH (02:21)
--- NOTE | 2023-06-30 02:44 | PC.NURSE ---
CARE ASSUMED 23:15...REMAINS AWAKE...YELLING/CALLING OUT...DAMON...POSITIONS SELF SIDE TO SIDE....LEGS OVER SIDE RAILS AT TIMES...BRIEFLY CONVERSES CLEARLY THEN YELLS/CALLS OUT INCOHERANTLY....RECEIVED HALDOL JUST PRIOR TO ASSUMPTION OF CARE WITH MINIMAL EFFECT ON AGITATION AND RESTLESSNES....O2 ROOM AIR..SAO2 92-94% WHEN ABLE TO OBTAIN ACCURATE WAVEFORM...[place] [employer] PREVIOUSLY PULLEDOFF BY PATIENT...REFUSES RE-APPLICATION...INCONTINANT MULTIPLE SOFT BROWN STOOLS....RHYTHMICALLY SQUEEZING BM AND STATED PLAYDOUGH !.....YELLING NO! NO! WHEN HAND CLEANED...THREW FECES AGAINST WALL WITH RIGHT HAND...BP AND SAO2 REMAIN STABLE WHEN OBTAINABLE....ATIVAN 0.5MG IV X1 ORDERED BY ICU [employer]...SOMEWHAT MORE RESTFUL...CURRENTLY SAO2 94-95% ON ROOM AIR
[2023-06-30] MEDS: Piperacillin Sodium/Tazobactam 2.25 GM in 0.9 % Sodium Chloride 50 ML IV ×4 (03:35→20:24)
[2023-06-30] MEDS: Heparin Sodium,Porcine 5,000 UNIT/ML VIAL 5000 UNIT SUBCUT ×3 (03:35→20:20)
[2023-06-30 05:27] LABS: VBG Base Excess -3.9 mmol/L; VBG HCO3 20 mmol/L (22-26); VBG pCO2 33 mmHg; VBG pH 7.38 (7.32-7.43); VBG pO2 43 mmHg
[2023-06-30 05:31] LABS: Venous Blood Gas Refer to POC result
[2023-06-30 05:53] LABS: MANUAL DIFF FLAG NO
[2023-06-30 05:58] LABS: Basophils Percent Auto 0.1 % (0-2); Eosinophils Absolute Auto 0.1 X10*3/uL (0.0-0.4); Eosinophils Percent Auto 0.5 % (0-4); Hematocrit 30.8 % (42.0-52.0); Hemoglobin 9.6 g/dl (14.0-18.0); Imm Gran Abs Auto 0.05 X10*3/uL (0.00-0.03); Imm Gran Pct Auto 0.4 % (0.0-0.4); Lymphocytes Percent Auto 7.2 % (20-40); Mean Corpuscular HGB Conc 31.2 g/dl (31.0-36.0); Mean Corpuscular Hemoglobin 27.9 pg (27.0-33.0); Mean Corpuscular Volume 89.5 fL (80.0-98.0); Mean Platelet Volume 10.9 fL (9.4-12.4); Monocytes Absolute Auto 0.9 X10*3/uL (0.1-1.2); Monocytes Percent Auto 6.7 % (2-11); Neutrophils Absolute Auto 11.5 x10*3/uL (2.0-8.3); Neutrophils Percent Auto 85.1 % (45-73); Platelet Count 232 X10*3/uL (160-400); Red Blood Count 3.44 X10*6/uL (4.60-5.80); Red Cell Distribution Width 15.9 % (11.0-16.0); White Blood Count 13.5 X10*3/uL (4.8-10.8)
[2023-06-30 06:19] LABS: Alanine Aminotransferase < 5 U/L (0-40); Alkaline Phosphatase 59 U/L (39-117); Anion Gap 13 (12-20); Aspartate Amino Transferase 14 U/L (5-37); Bilirubin Total 0.3 mg/dL (0.0-1.0); Blood Urea Nitrogen 40 mg/dL (9-16); Calcium 8.5 mg/dL (8.4-10.2); Carbon Dioxide 18 mmol/L (22-29); Chloride 127 mmol/L (96-108); Creatinine Clr Calc Pharmacy 21.7; Estimated Glomerular Filt Rate 29; Glucose Random 80 mg/dL (60-115); Phosphorus 2.7 mg/dL (2.7-4.5); Sodium 154 mmol/L (135-145); Total Protein 6.7 g/dL (6.5-8.0)
[2023-06-30] MEDS: Dextrose 5 % 1,000 ML 80 ML IVCONT ×2 (07:36→20:26)
[2023-06-30 08:48] LABS: Vancomycin Random 14.1 mcg/mL (15-20)
--- NOTE | 2023-06-30 08:55 | HE.PHANOTE ---
Vancomycind dose Level 14.1 after load dose. Renal function has slightly imporved, will increase dose to vanco 750 mg Q24H. Expected AUC 561 with a tough of 18.8. Kelsey Gupta, JaneD
--- NOTE | 2023-06-30 09:00 | PM.CCPN ---
Subjective Subjective Date of Service: 06/30/23 Interval History: 72-year-old gentleman with underlying HIV, dementia, CKD, bipolar disorder, hypertension, dysphagia with pulmonary aspiration and prior aspiration pneumonitis versus pneumonia admitted on 06/29/2023 with lethargy, hypoxia, and hypotension, likely secondary to another episode of aspiration pneumonia. Patient with poor response to initial IV fluids requiring initiation of pressor support and admission to intensive care unit. no events overnight. Aspiration component resolved. Now on room air and off pressors. Critical Care Time (minutes): 0 Physical Exam Vital Signs: Vital Signs: Last Vital Signs Temp 97.3 F 06/30/23 08:00 Pulse 82 06/30/23 08:00 Resp 15 06/30/23 08:00 BP 110/50 L 06/30/23 08:00 Pulse Ox 96 06/30/23 08:00 O2 Del Method Room Air 06/30/23 08:00 O2 Flow Rate 2 06/29/23 18:00 BMI result Body Mass Index 16.7 Const: General: no acute distress, alert, awake and confusion Nutritional Appearance: malnourished Orientation/consciousness: confusion Eyes: Sclerae: sclerae normal EOM: EOMs intact bilaterally Neck: Neck: Yes no lymphadenopathy, Yes trachea midline and Yes supple Resp: Effort & Inspection: normal respiratory effort and no respiratory distress Auscultation: clear to auscultation bilaterally Cardio: Rate: regular rate Rhythm: regular rhythm Heart sounds: no gallops, no murmurs and no rubs GI: Palpation (GI): Soft to palpation and Other GI palpation findings present ( Nontender) Auscultation: normal bowel sounds Neuro: General: confusion Extrem: General: Yes no pedal edema, No clubbing and No cyanosis Objective Data Labs 06/30/23 05:18 06/30/23 05:18 Labs: Laboratory Results - last 24 hr 06/29/23 06/30/23 06/30/23 11:45 05:18 05:22 WBC 13.5 H RBC 3.44 L Hgb 9.6 L Hct 30.8 L MCV 89.5 MCH 27.9 MCHC 31.2 RDW 15.9 Plt Count 232 D MPV 10.9 Immature Gran % (Auto) 0.4 Neut % (Auto) 85.1 H Lymph % (Auto) 7.2 L [place] % (Auto) 6.7 Eos % (Auto) 0.5 Baso % (Auto) 0.1 Lymph # (Auto) 1.0 L [place] # (Auto) 0.9 Eos # (Auto) 0.1 Baso # (Auto) 0.0 Abs Immat Gran (auto) 0.05 H Absolute Neuts (auto) 11.5 H Absolute Nucleated RBC 0.000 Nucleated RBC % (auto) 0.0 Hold Purple Top SEE NOTE VBG pH 7.38 VBG pCO2 33 VBG pO2 43 VBG HCO3 20 L VBG O2 Saturation 72.0 VBG Base Excess -3.9 Sodium 151 H 154 H Potassium 5.3 H 4.0 D Chloride 124 H 127 H Carbon Dioxide 19 L 18 L Anion Gap 13 13 BUN 50 H 40 H Creatinine 2.90 H 2.23 H Estim Creat Clear Calc 20.0 21.7 Estimated GFR 21 29 Random Glucose 154 H 80 Calcium 8.3 L D 8.5 Phosphorus 2.7 Magnesium 2.0 Total Bilirubin 0.3 AST 14 ALT < 5 Alkaline Phosphatase 59 Total Protein 6.7 Albumin 3.0 L Random Vancomycin 06/30/23 08:20 WBC RBC Hgb Hct MCV MCH MCHC RDW Plt Count MPV Immature Gran % (Auto) Neut % (Auto) Lymph % (Auto) [place] % (Auto) Eos % (Auto) Baso % (Auto) Lymph # (Auto) [place] # (Auto) Eos # (Auto) Baso # (Auto) Abs Immat Gran (auto) Absolute Neuts (auto) Absolute Nucleated RBC Nucleated RBC % (auto) Hold Purple Top VBG pH VBG pCO2 VBG pO2 VBG HCO3 VBG O2 Saturation VBG Base Excess Sodium Potassium Chloride Carbon Dioxide Anion Gap BUN Creatinine Estim Creat Clear Calc Estimated GFR Random Glucose Calcium Phosphorus Magnesium Total Bilirubin AST ALT Alkaline Phosphatase Total Protein Albumin Random Vancomycin 14.1 L Microbiology Microbiology Results: Microbiology 06/29/23 01:55 Blood - Venous Blood Culture - Preliminary No growth after 24 hours. 06/29/23 01:26 Blood - Venous Blood Culture - Preliminary No growth after 24 hours. Progress Note: A&P Assessment and plan (1) Aspiration into respiratory tract: Status: Acute (2) Acute respiratory failure with hypoxia: Status: Acute (3) HIV (human immunodeficiency virus infection): Status: Acute (4) Chronic kidney disease: Status: Acute (5) Dementia: Status: Acute (6) Bipolar 1 disorder: Status: Acute Plan Assessment: 72-year-old gentleman admitted with hypoxia, hypotension, likely secondary to aspiration pneumonia Plan: Neuro: No acute issues. Underlying dementia. Cardiac: Distributive shock aAs a sequela of aspiration event, resolved, titrated off pressors. Pulmonary: Acute hypoxic respiratory failure secondary to aspiration pneumonitis , resolved. Now back to room air. Renal: No acute issues. Underlying chronic renal disease. Endo: No acute issues. GI: No acute issues. ID: Aspiration pneumonitis. Continue on empiric broad-spectrum antibiotics until cultures are finalized. Leukocytosis is improving. Heme/Onc: No acute issues. Psych: No acute issues. Underlying bipolar disorder time. Miscellaneous: No acute issues. Prophylaxis: Heparin Diet: NPO until swallow evaluation Quality Stroke Does the patient have a stroke diagnosis?: No VTE Prior VTE?: No VTE Risk Level:: Medical - moderate - high VTE Device Contraindication: N/A - Device Ordered VTE Drug Contraindication: N/A - Med Ordered
[2023-07-01 00:30] VITALS: BP 128/71; PULSE 57
[2023-07-01] MEDS: Heparin Sodium,Porcine 5,000 UNIT/ML VIAL 5000 UNIT SUBCUT ×3 (03:46→18:31)
[2023-07-01] MEDS: Piperacillin Sodium/Tazobactam 2.25 GM in 0.9 % Sodium Chloride 50 ML IV ×4 (03:47→20:38)
[2023-07-01 03:53] VITALS: BP 142/68
[2023-07-01] MEDS: Dextrose 5 % 1,000 ML 80 ML IVCONT (07:38)
[2023-07-01 07:48] VITALS: BP 114/62; PULSE 58; RESP 18; TEMP 35.9; O2SAT 94
[2023-07-01 07:54] LABS: MANUAL DIFF FLAG NO
[2023-07-01 08:04] LABS: Basophils Percent Auto 0.3 % (0-2); Eosinophils Absolute Auto 0.1 X10*3/uL (0.0-0.4); Eosinophils Percent Auto 0.9 % (0-4); Hematocrit 32.2 % (42.0-52.0); Hemoglobin 10.3 g/dl (14.0-18.0); Imm Gran Abs Auto 0.04 X10*3/uL (0.00-0.03); Imm Gran Pct Auto 0.4 % (0.0-0.4); Lymphocytes Absolute Auto 0.7 X10*3/uL (1.2-4.9); Lymphocytes Percent Auto 7.6 % (20-40); Mean Corpuscular Hemoglobin 28.1 pg (27.0-33.0); Mean Platelet Volume 11.1 fL (9.4-12.4); Monocytes Absolute Auto 0.6 X10*3/uL (0.1-1.2); Monocytes Percent Auto 6.2 % (2-11); Neutrophils Absolute Auto 7.9 x10*3/uL (2.0-8.3); Neutrophils Percent Auto 84.6 % (45-73); Platelet Count 216 X10*3/uL (160-400); Red Blood Count 3.66 X10*6/uL (4.60-5.80); Red Cell Distribution Width 15.9 % (11.0-16.0); White Blood Count 9.4 X10*3/uL (4.8-10.8)
[2023-07-01 08:14] LABS: Anion Gap 12 (12-20); Blood Urea Nitrogen 26 mg/dL (9-16); Calcium 8.4 mg/dL (8.4-10.2); Carbon Dioxide 20 mmol/L (22-29); Chloride 120 mmol/L (96-108); Creatinine Clr Calc Pharmacy 33.6; Estimated Glomerular Filt Rate 48; Glucose Random 105 mg/dL (60-115); Magnesium 1.8 mg/dL (1.6-2.6); Phosphorus 2.8 mg/dL (2.7-4.5); Potassium 3.6 mmol/L (3.3-5.1); Sodium 148 mmol/L (135-145)
--- NOTE | 2023-07-01 09:51 | HE.PHANOTE ---
RE:VANCO SCR IMPROVING, CHANGE DOSE TO 1GRAM Q24H, NEXT LEVEL IS DUE ON 07/02/23 AT 0800. VY
[2023-07-01 10:55] VITALS: BMI 18.4
--- NOTE | 2023-07-01 11:02 | MHC.CLN ---
PT IS MODERATELY MALNOURISHED PT WITH MILDLY DEPLETED SUBCUTANEOUS FAT AND MUSCLE MASS, BMI 18.4 WITH 22% SIGNIFICANT WT LOSS X 1 YEAR PT IS CURRENTLY NPO WHEN DIET TO ADVANCE; RECOMMEND ADDING REGULAR DIET WITH NUTRITION SUPPLEMENT TO INCREASE KCALS MONITOR FOR DIET ADVANCEMENT SEE ALSO FULL CLINICAL NUTRITION ASSESSMENT
[2023-07-01] MEDS: vancomycin HCL 1,000 MG in 0.9 % Sodium Chloride 250 ML 270 MG IV (11:33)
[2023-07-01 11:40] VITALS: BP 140/63; PULSE 68; TEMP 36.2
--- NOTE | 2023-07-01 12:50 | P.PNGS_ITS ---
Subjective Subjective Date of Service: 07/01/23 Interval history: Patient is status post tracheostomy site revision last week. He was to come into the office today for follow-up but was hospitalized for pulmonary issues unrelated to his surgical repair. Physical Exam 2 Vital Signs: Vital Signs: Last Vital Signs Temp 97.2 F 07/01/23 11:40 Pulse 68 07/01/23 11:40 Resp 18 07/01/23 07:48 BP 140/63 H 07/01/23 11:40 Pulse Ox 94 07/01/23 07:48 O2 Del Method Room Air 07/01/23 07:48 O2 Flow Rate 2 06/29/23 18:00 BMI result Body Mass Index 18.4 Neck: Other: Neck wound is healing uneventfully clean dry and intact. Objective Data Active Medications Heparin Sodium (Porcine) (Heparin Sodium,Porcine 5,000 Unit/Ml Vial) 5,000 unit SUBCUT Q8H [facility] Last Admin: 07/01/23 11:33 Dose: 5,000 unit Documented By: DELMER Piperacillin Sod/Tazobactam (Sod 2.25 gm/ Sodium Chloride) 50 mls @ 100 mls/hr IV Q6H [facility] Last Infusion: 07/01/23 08:49 Dose: Infused Documented By: DELMER Dextrose (D5w) 1,000 mls @ 80 mls/hr IVCONT .[id number] [facility] Last Admin: 07/01/23 07:38 Dose: 80 mls/hr Documented By: DANY Dextrose (D5w) 1,000 mls @ 50 mls/hr IVCONT .Q20H [facility] Last Admin: 07/01/23 06:31 Dose: Not Given Documented By: DANY Non-Admin Reason: Physician Held Med Vancomycin HCl 1,000 mg/ (Sodium Chloride) 270 mls @ 270 mls/hr IV Q24H [facility] Last Infusion: 07/01/23 12:36 Dose: Infused Documented By: DELMER Pharmacy Consult (Consult Rx Vancomycin Dosing) 1 each MISCELLANE DAILY PRN PRN Reason: Consult order Labs 07/01/23 07:49 07/01/23 07:50 Labs: Laboratory Results - last 24 hr 07/01/23 07/01/23 07:49 07:50 MCV 88.0 MCH 28.1 MCHC 32.0 RDW 15.9 Plt Count 216 MPV 11.1 Immature Gran % (Auto) 0.4 Neut % (Auto) 84.6 H Lymph % (Auto) 7.6 L [place] % (Auto) 6.2 Eos % (Auto) 0.9 Baso % (Auto) 0.3 Lymph # (Auto) 0.7 L [place] # (Auto) 0.6 Eos # (Auto) 0.1 Baso # (Auto) 0.0 Abs Immat Gran (auto) 0.04 H Absolute Neuts (auto) 7.9 Absolute Nucleated RBC 0.000 Nucleated RBC % (auto) 0.0 Anion Gap 12 Estim Creat Clear Calc 33.6 Estimated GFR 48 Random Glucose 105 Calcium 8.4 Phosphorus 2.8 Magnesium 1.8 Microbiology Microbiology Results: Microbiology 06/29/23 Unknown Urine Culture - Preliminary Urine Catheterized - Dunn Catheter Escherichia coli 06/29/23 01:55 Blood Culture - Preliminary Blood - Venous No growth after 48 hours. 06/29/23 01:26 Blood Culture - Preliminary Blood - Venous No growth after 48 hours. Procedures Date of Service Date of Service: 07/01/23 Progress Note: A&P Assessment and plan (1) Postop check: Status: Acute Plan Will follow-up p.r.n.. Time Spent With Patient Time: Total time managing care of this patient today ____ minutes. Quality Stroke Does the patient have a stroke diagnosis?: No VTE Prior VTE?: No VTE Risk Level:: Medical - moderate - high VTE Device Contraindication: N/A - Device Ordered VTE Drug Contraindication: N/A - Med Ordered
--- NOTE | 2023-07-01 13:24 | MHC.SLORD ---
Speech Language Pathology Order Status: ICHTHYOLOGIST spoke with Guardian (david - [phone]) to confirm desired diet, Ground/Mech Altered (NDD2) with [place]-Thick Liquids. Medications Crushed in Puree. ICHTHYOLOGIST evaluation deferred as the Pt is known to aspirate but wishes to continue eating by mouth.
--- NOTE | 2023-07-01 14:01 | MHC.CM.PN ---
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 HE IS AWARE PT IS NOT YET CLEARED TO RETURN TO SNF AND THAT CM WILL CONTACT HIM WHEN PT IS READY TO DC PTS MEDICARE RIGHTS WERE REVIEWED AND A COPY WAS EMAILED TO HIM AT [email or web address] PER HIS REQUEST DCP: RETURN TO [facility] [place] VIA BLS
[2023-07-01 15:58] VITALS: BP 132/88; PULSE 66; RESP 18; TEMP 36; O2SAT 97
--- NOTE | 2023-07-01 16:51 | P.PNIM_ITS ---
Subjective Subjective Date of Service: 07/02/23 Interval History: Complaining of left leg pain, otherwise offers no other acute complaints resting comfortably is NPO admitted to ICU for hypoxic respiratory failure for possible aspiration pneumonia status post pressors treated with IV fluids and broad- spectrum antibiotics and transferred to floor, patient unable to provide meaningful history due to underlying dementia. Review of Systems Unable to obtain due to mental status Physical Exam 2 Vital Signs: Vital Signs: Last Vital Signs Temp 96.8 F 07/01/23 15:58 Pulse 66 07/01/23 15:58 Resp 18 07/01/23 15:58 BP 132/88 07/01/23 15:58 Pulse Ox 97 07/01/23 15:58 O2 Del Method Room Air 07/01/23 15:58 O2 Flow Rate 2 06/29/23 18:00 BMI result Body Mass Index 18.4 Const: Other: Gen: Awake alert, in no acute distress Neck: supple Lungs: Clear to auscultation , no crackles, no wheeze Heart: regular rate and rhythm, no murmurs Abd: soft, non-tender, non-distended Ext: Left lower extremity, few bruises Skin: warm/well-perfused Neuro: alert and alert, moving all extremities Psych: impaired insight Objective Data Active Medications Heparin Sodium (Porcine) (Heparin Sodium,Porcine 5,000 Unit/Ml Vial) 5,000 unit SUBCUT Q8H [facility] Last Admin: 07/01/23 11:33 Dose: 5,000 unit Documented By: DELMER Piperacillin Sod/Tazobactam (Sod 2.25 gm/ Sodium Chloride) 50 mls @ 100 mls/hr IV Q6H [facility] Last Infusion: 07/01/23 16:39 Dose: 100 mls/hr Documented By: DELMER Dextrose (D5w) 1,000 mls @ 50 mls/hr IVCONT .Q20H [facility] Last Admin: 07/01/23 06:31 Dose: Not Given Documented By: DANY Non-Admin Reason: Physician Held Med Vancomycin HCl 1,000 mg/ (Sodium Chloride) 270 mls @ 270 mls/hr IV Q24H [facility] Last Infusion: 07/01/23 12:36 Dose: Infused Documented By: DELMER Pharmacy Consult (Consult Rx Vancomycin Dosing) 1 each MISCELLANE DAILY PRN PRN Reason: Consult order Labs 07/01/23 07:49 07/02/23 06:41 Labs: Laboratory Results - last 24 hr 07/01/23 07/01/23 07:49 07:50 MCV 88.0 MCH 28.1 MCHC 32.0 RDW 15.9 Plt Count 216 MPV 11.1 Immature Gran % (Auto) 0.4 Neut % (Auto) 84.6 H Lymph % (Auto) 7.6 L [place] % (Auto) 6.2 Eos % (Auto) 0.9 Baso % (Auto) 0.3 Lymph # (Auto) 0.7 L [place] # (Auto) 0.6 Eos # (Auto) 0.1 Baso # (Auto) 0.0 Abs Immat Gran (auto) 0.04 H Absolute Neuts (auto) 7.9 Absolute Nucleated RBC 0.000 Nucleated RBC % (auto) 0.0 Anion Gap 12 Estim Creat Clear Calc 33.6 Estimated GFR 48 Random Glucose 105 Calcium 8.4 Phosphorus 2.8 Magnesium 1.8 Microbiology Microbiology Results: Microbiology 06/29/23 Unknown Urine Culture - Preliminary Urine Catheterized - Dunn Catheter Escherichia coli 06/29/23 01:55 Blood Culture - Preliminary Blood - Venous No growth after 48 hours. 06/29/23 01:26 Blood Culture - Preliminary Blood - Venous No growth after 48 hours. Assessment and Plan (1) Aspiration into respiratory tract: Status: Acute (2) Acute respiratory failure with hypoxia: Status: Acute Plan 72-year-old gentleman with underlying HIV, dementia, CKD, bipolar disorder, hypertension, dysphagia with pulmonary aspiration and prior aspiration pneumonitis versus pneumonia admitted on 06/29/2023 with lethargy, hypoxia, and hypotension, likely secondary to another episode of aspiration pneumonia. Patient with poor response to initial IV fluids requiring initiation of pressor support and admission to intensive care unit, subsequently blood pressure improved patient placed on IV vanco and Zosyn and transferred to intermediate care unit.. Aspiration pneumonia chest x-ray showed multifocal patchy opacities and suspected bronchial wall thickening worsened from prior study, CT chest showed right lower lobe consolidation, left lower lobe lobar bronchus not clearly seen either due to extrinsic mass effect or due to intraluminal filling defect, blood cultures x2 negative will DC IV vancomycin continue IV Zosyn seen by speech therapy they recommended ground mechanical and nectar thick liquid, recommend repeat chest x-ray for clearing of infection UTI urine culture grew E coli for follow final sensitivities on IV Zosyn. HIV - continue Triumeq CKD3 - SCr at baseline, ibuprofen on hold unspec dementia + behav disturb/ bipolar disorder Continue haloperidol + alprazolam HTN - BP stable, metoprolol on hold VTE ppx- LMWH dispo - eventual return to [place] In my clinical judgment, the patient requires continued inpatient hospitalization for the following reasons: IV ABX Time Spent With Patient Time: Total time managing care of this patient today ____ minutes. Quality Stroke Does the patient have a stroke diagnosis?: No VTE Prior VTE?: No VTE Risk Level:: Medical - moderate - high VTE Device Contraindication: N/A - Device Ordered VTE Drug Contraindication: N/A - Med Ordered
[2023-07-01 19:50] VITALS: BP 127/60; PULSE 71; RESP 20; TEMP 36.4; O2SAT 95
[2023-07-01] MEDS: Pregabalin 50 MG CAPSULE PO (20:37)
[2023-07-01] MEDS: HaloperidoL 1 MG TABLET 2 MG PO (20:37)
[2023-07-01] MEDS: ALPRAZolam 0.25 MG TABLET PO (20:38)
[2023-07-02] VITALS: BP 113/56; PULSE 74; RESP 20; TEMP 36.1; O2SAT 96
[2023-07-02] MEDS: Dextrose 5 % 1,000 ML 50 ML IVCONT ×2 (01:38→19:01)
[2023-07-02 03:25] VITALS: BP 135/68; PULSE 61; RESP 20; TEMP 36.4; O2SAT 93
[2023-07-02] MEDS: Piperacillin Sodium/Tazobactam 2.25 GM in 0.9 % Sodium Chloride 50 ML IV ×2 (03:35→09:07)
[2023-07-02] MEDS: Heparin Sodium,Porcine 5,000 UNIT/ML VIAL 5000 UNIT SUBCUT ×3 (03:37→18:27)
[2023-07-02 06:51] VITALS: BP 139/52; PULSE 65; RESP 13; TEMP 36.2; O2SAT 93
[2023-07-02 07:40] LABS: Anion Gap 13 (12-20); Blood Urea Nitrogen 17 mg/dL (9-16); Calcium 8.1 mg/dL (8.4-10.2); Carbon Dioxide 21 mmol/L (22-29); Chloride 114 mmol/L (96-108); Creatinine Clr Calc Pharmacy 40.7; Estimated Glomerular Filt Rate 55; Glucose Random 112 mg/dL (60-115); Potassium 3.1 mmol/L (3.3-5.1); Sodium 145 mmol/L (135-145)
[2023-07-02] MEDS: HaloperidoL 1 MG TABLET 2 MG PO ×3 (09:09→20:17)
[2023-07-02] MEDS: Pregabalin 50 MG CAPSULE PO ×3 (09:09→20:17)
[2023-07-02] MEDS: ALPRAZolam 0.25 MG TABLET PO ×2 (09:09→20:17)
[2023-07-02] MEDS: Aspirin 81 MG TAB.CHEW PO (09:09)
[2023-07-02 11:21] VITALS: BP 128/61; PULSE 62; RESP 16; TEMP 36.1; O2SAT 96
[2023-07-02 15:30] VITALS: BP 151/65; PULSE 62; RESP 16; TEMP 36.7; O2SAT 98
--- NOTE | 2023-07-02 15:33 | P.PNIM_ITS ---
Subjective Subjective Date of Service: 07/02/23 Interval History: Unable to obtain meaningful history due to mental status, eating breakfast, no acute issues overnight has a [place] catheter with clear urine, diarrhea resolved, no fevers, no chills, hemodynamically stable. Review of Systems Unable to obtain due to mental status. Physical Exam 2 Vital Signs: Vital Signs: Last Vital Signs Temp 97.0 F 07/02/23 11:21 Pulse 62 07/02/23 11:21 Resp 16 07/02/23 11:21 BP 128/61 07/02/23 11:21 Pulse Ox 96 07/02/23 11:21 O2 Del Method Room Air 07/02/23 11:21 O2 Flow Rate 2 06/29/23 18:00 BMI result Body Mass Index 18.4 Const: Other: Gen: Awake alert, in no acute distress Neck: supple Lungs: Clear to auscultation , no crackles, no wheeze Heart: regular rate and rhythm, no murmurs Abd: soft, non-tender, non-distended Ext: Left lower extremity,fading bruises, no edema Skin: warm/well-perfused Neuro: alert and alert, moving all extremities Psych: impaired insight Objective Data Active Medications Alprazolam (Alprazolam 0.25 Mg Tablet) 0.25 mg PO BID [facility] Last Admin: 07/02/23 09:09 Dose: 0.25 mg Documented By: JARRETT Aspirin (Aspirin 81 Mg Tab.Chew) 81 mg PO DAILY [facility] Last Admin: 07/02/23 09:09 Dose: 81 mg Documented By: JARRETT Haloperidol (Haloperidol 1 Mg Tablet) 2 mg PO TID [facility] Last Admin: 07/02/23 09:09 Dose: 2 mg Documented By: JARRETT Heparin Sodium (Porcine) (Heparin Sodium,Porcine 5,000 Unit/Ml Vial) 5,000 unit SUBCUT Q8H [facility] Last Admin: 07/02/23 13:15 Dose: 5,000 unit Documented By: JARRETT Dextrose (D5w) 1,000 mls @ 50 mls/hr IVCONT .Q20H [facility] Last Admin: 07/02/23 01:38 Dose: 50 mls/hr Documented By: JAVAD Ertapenem 1 gm/ Sodium (Chloride) 50 mls @ 100 mls/hr IV ONCE ONE Stop: 07/02/23 15:59 Lactulose (Lactulose 20 Gm/30 Ml Solution) 20 gm PO DAILY PRN PRN Reason: Constipation Loperamide HCl (Loperamide Hcl 2 Mg Capsule) 2 mg PO Q6H PRN PRN Reason: Diarrhea Lorazepam (Lorazepam 2 Mg/Ml Vial) 1 mg IM Q24H PRN PRN Reason: Seizures Non-Formulary Medication (Cmmrkhfz-Kkqaatakltlr-Ocemcpr [Triumeq]) 1 tab PO DAILY [facility] Pharmacy Consult (Consult Rx Vancomycin Dosing) 1 each MISCELLANE DAILY PRN PRN Reason: Consult order Potassium Chloride (Potassium Chloride Packet 20 Meq Packet) 40 meq PO ONCE ONE Stop: 07/02/23 15:32 Pregabalin (Pregabalin 50 Mg Capsule) 50 mg PO TID [facility] Last Admin: 07/02/23 09:09 Dose: 50 mg Documented By: JARRETT Senjw (Sennosides 8.6 Mg Tablet) 8.6 mg PO BID PRN PRN Reason: Constipation Labs 07/01/23 07:49 07/02/23 06:41 Labs: Laboratory Results - last 24 hr 07/02/23 06:41 Anion Gap 13 Estim Creat Clear Calc 40.7 Estimated GFR 55 Random Glucose 112 Calcium 8.1 L Microbiology Microbiology Results: Microbiology 06/29/23 Unknown Urine Culture - Final Urine Catheterized - Dunn Catheter Escherichia coli Assessment and Plan (1) Aspiration into respiratory tract: Status: Acute (2) Acute respiratory failure with hypoxia: Status: Acute Plan 72-year-old gentleman with underlying HIV, dementia, CKD, bipolar disorder, hypertension, dysphagia with pulmonary aspiration and prior aspiration pneumonitis versus pneumonia admitted on 06/29/2023 with lethargy, hypoxia, and hypotension, likely secondary to another episode of aspiration pneumonia. Patient with poor response to initial IV fluids requiring initiation of pressor support and admission to intensive care unit, subsequently blood pressure improved patient placed on IV vanco and Zosyn and transferred to intermediate care unit.. Aspiration pneumonia chest x-ray showed multifocal patchy opacities and suspected bronchial wall thickening worsened from prior study, CT chest showed right lower lobe consolidation, left lower lobe lobar bronchus not clearly seen either due to extrinsic mass effect or due to intraluminal filling defect, blood cultures x2 negative on IV Zosyn d 3, antibiotic changed to IV ertapenem since urine infection resistant to pcn, seen by speech therapy they recommended ground mechanical and nectar thick liquid, repeat chest x-ray for clearing of infection UTI urine culture grew E coli , ESBL positive resistant to penicillin will place on IV ertapenem obtain ID consult, DC IV Zosyn. HIV - continue Triumeq CKD3 - SCr at baseline, ibuprofen on hold unspec dementia + behav disturb/ bipolar disorder Continue haloperidol + alprazolam HTN - BP stable, metoprolol on hold VTE ppx- heparin sq dispo - eventual return to [place] In my clinical judgment, the patient requires continued inpatient hospitalization for the following reasons: IV ABX and Infectious Disease consult for ESBL positive E coli Time Spent With Patient Time: Total time managing care of this patient today ____ minutes. Quality Stroke Does the patient have a stroke diagnosis?: No VTE Prior VTE?: No VTE Risk Level:: Medical - moderate - high VTE Device Contraindication: N/A - Device Ordered VTE Drug Contraindication: N/A - Med Ordered
[2023-07-02] MEDS: Potassium Chloride Packet 20 MEQ PACKET 40 MEQ PO (15:58)
[2023-07-02] MEDS: Ertapenem Sodium 1 GM in 0.9 % Sodium Chloride 50 ML IV (18:27)
[2023-07-02 20:00] VITALS: BP 134/89; PULSE 73; RESP 16; TEMP 36.5; O2SAT 96
[2023-07-03] VITALS (7 sets, daily range): BP systolic 118–156; BP diastolic 53–74; PULSE 65–83; RESP 16–20; TEMP 36.2–37.4; O2SAT 92–98
[2023-07-03] MEDS: Heparin Sodium,Porcine 5,000 UNIT/ML VIAL 5000 UNIT SUBCUT ×3 (02:52→17:59)
[2023-07-03 08:04] LABS: Anion Gap 8 (12-20); Blood Urea Nitrogen 11 mg/dL (9-16); Calcium 8.2 mg/dL (8.4-10.2); Carbon Dioxide 23 mmol/L (22-29); Chloride 116 mmol/L (96-108); Creatinine Clr Calc Pharmacy 46.6; Estimated Glomerular Filt Rate > 60; Glucose Random 89 mg/dL (60-115); Potassium 3.6 mmol/L (3.3-5.1); Sodium 143 mmol/L (135-145)
[2023-07-03] MEDS: Pregabalin 50 MG CAPSULE PO ×3 (08:38→21:31)
[2023-07-03] MEDS: HaloperidoL 1 MG TABLET 2 MG PO ×3 (08:38→21:31)
[2023-07-03] MEDS: Aspirin 81 MG TAB.CHEW PO (08:38)
[2023-07-03] MEDS: ALPRAZolam 0.25 MG TABLET PO ×2 (08:38→21:31)
--- NOTE | 2023-07-03 11:48 | MHC.CLN ---
F/U PT IS MODERATELY MALNOURISHED PT WITH MILDLY DEPLETED SUBCUTANEOUS FAT AND MUSCLE MASS, BMI 18.4 WITH 22% SIGNIFICANT WT LOSS X 1 YEAR DIET RX; GRD M/S WITH NT LIQ-APPROPRIATE PT RECEIVING GELATEIN BID TO INCREASE KCALS SUPP PROVIDES 320KCALS, 40G PROTEIN MONITOR PO INTAKE AND ENCOURAGE SUPPLEMENT
--- NOTE | 2023-07-03 13:39 | P.DS_ITS ---
DS: Providers Provider Date of Service: 07/03/23 Date of admission: 06/29/23 11:12 Primary care physician: Kev Gorman DO Consults: 07/02/23 15:30 Consult to Infectious Diseases Routine Consulting Provider: Norma Hooks Reason for consultation: esbl pos Has provider been notified: No 07/02/23 15:31 Consult to Infectious Diseases Routine Consulting Provider: Norma Hooks Reason for consultation: esbl pos e.coli Has provider been notified: No DS: Diagnosis Discharge Diagnosis (1) Aspiration into respiratory tract: Status: Acute (2) Acute respiratory failure with hypoxia: Status: Acute DS: Summary Hospital Course Hospital Course: Date of Service: 06/29/23 Chief Complaint: Hypotension and hypoxia 72-year-old gentleman with underlying HIV, dementia, CKD, bipolar disorder, hypertension, dysphagia with pulmonary aspiration and prior aspiration pneumonitis versus pneumonia admitted on 06/29/2023 with lethargy, hypoxia, and hypotension, likely secondary to another episode of aspiration pneumonia. Patient with poor response to initial IV fluids requiring initiation of pressor support and admission to intensive care unit. Hospital course: 72-year-old gentleman with underlying HIV, dementia, CKD, bipolar disorder, hypertension, dysphagia with pulmonary aspiration and prior aspiration pneumonitis versus pneumonia admitted on 06/29/2023 with lethargy, hypoxia, and hypotension, likely secondary to another episode of aspiration pneumonia. Patient with poor response to initial IV fluids requiring initiation of pressor support and admission to intensive care unit, subsequently blood pressure improved patient placed on IV vanco and Zosyn and transferred to intermediate care unit.. Aspiration pneumonia, chest x-ray showed multifocal patchy opacities and suspected bronchial wall thickening worsened from prior study, CT chest showed right lower lobe consolidation, left lower lobe lobar bronchus not clearly seen either due to extrinsic mass effect or due to intraluminal filling defect, blood cultures x2 negative , received 3 days of IV Zosyn had no fevers oxygenation stable be therefore placed on Augmentin for 5 more days, seen by speech therapy they recommended ground mechanical and nectar thick liquid, recommend to repeat chest x-ray for clearing of infection in 10-14 days. UTI urine culture grew E coli , ESBL positive resistant to penicillin, treated with 1 dose of IV ertapenem subsequently seen by infectious disease and being discharged on Macrobid 100 mg 1 tablet twice daily for total 14 days as per ID r ecommendation . HIV - continue Triumeq Acute on chronic CKD3 -treated with IV fluids renal function returned to baseline recommend to discontinue ibuprofen and use as needed , avoid high hypotension and nephrotoxins push by mouth fluids. unspecified dementia + behav disturb/ bipolar disorder ,Continue all home medications including haloperidol + alprazolam HTN - BP stable, on metoprolol Time Spent with Patient Time attestation: Total time managing care of this patient today ____ minutes. Discharge coordination time: Greater than 30 minutes Quality: Safe Use of Opioids Does Pt have an Active Cancer Diagnosis on the Problem List?: No Quality: Stroke Does the patient have a stroke diagnosis?: No Physical Exam Vital Signs: Vital Signs: Last Vital Signs Temp 98.0 F 07/03/23 11:07 Pulse 83 07/03/23 11:07 Resp 20 07/03/23 11:07 BP 119/66 07/03/23 11:07 Pulse Ox 97 07/03/23 11:07 O2 Del Method Room Air 07/03/23 11:07 O2 Flow Rate 2 06/29/23 18:00 BMI result Body Mass Index 18.4 Const: Other: Gen: Awake alert, in no acute distress Neck: supple Lungs: Clear to auscultation , no crackles, no wheeze Heart: regular rate and rhythm, no murmurs Abd: soft, non-tender, non-distended Ext: Left lower extremity,fading bruises dorsum of foot, no edema Skin: warm/well-perfused Neuro: alert , moving all extremities Psych: impaired insight DS: Data Data Completed and Pending Completed studies during hospitalization [Text1]: Procedures Insertion of Infusion Device into Upper Vein, Percutaneous Approach (08/05/22) Labs on day of discharge: Laboratory Results - last 24 hr 07/03/23 07:02 Hold Purple Top SEE NOTE Sodium 143 Potassium 3.6 Chloride 116 H Carbon Dioxide 23 Anion Gap 8 L BUN 11 Creatinine 1.11 Estim Creat Clear Calc 46.6 Estimated GFR > 60 Random Glucose 89 Calcium 8.2 L Preliminary micro results at discharge 06/29/23 01:55 Blood Culture - Preliminary Blood - Venous No growth after 48 hours. 06/29/23 01:26 Blood Culture - Preliminary Blood - Venous No growth after 48 hours. Discharge Plan Discharge Anticipated Discharge Date/Time: 07/03/23 13:35 Patient Disposition: Xfer SNF Discharge Diagnosis: Aspiration pneumonia UTI Acute on chronic kidney disease stage 3 Referrals: Kev Gorman DO [Primary Care Provider] - 1 Week Discharge Medications: New amoxicillin-pot clavulanate 875-125 mg Tablet 1 tab PO Q12H Qty: 10 0RF nitrofurantoin monohyd/m-cryst 100 mg Capsule 100 mg PO Q12H Qty: 27 0RF Continued multivitamin Tablet 1 tab PO DAILY sennosides [senna] 8.6 mg Tablet 8.6 mg PO BID PRN (Reason: Constipation) acetaminophen 325 mg Tablet 650 mg PO Q6H PRN (Reason: Pain) Rx Instructions: GIVE FOR MILD PAIN OR FEVER >101. DNE 3G/24H lorazepam 2 mg/mL Solution 1 mg IM Q24H PRN (Reason: Seizures) cyanocobalamin (vitamin B-12) 1,000 mcg Tablet 1,500 mcg PO DAILY tramadol 50 mg Tablet 50 mg PO TID alprazolam 0.25 mg Tablet 0.25 mg PO BID lansoprazole 30 mg Capsule,Delayed Release(Dr/Ec) 30 mg PO DAILY docusate sodium 100 mg Capsule 100 mg PO DAILY metoprolol tartrate 25 mg Tablet 25 mg PO BID lactulose 10 gram/15 mL Solution 30 ml PO DAILY calcium carbonate-vitamin D3 [Calcium 500 + D] 500 mg(1,250mg) -200 unit Tablet 1 tab PO BID pregabalin 50 mg Capsule 50 mg PO TID Triumeq 600-50-300 mg Tablet 1 tab PO DAILY ferrous sulfate 220 mg (44 mg iron)/5 mL Elixir 330 mg PO DAILY aspirin 81 mg Tablet,Chewable 81 mg PO DAILY haloperidol 2 mg Tablet 2 mg PO TID lactulose 10 gram/15 mL solution 30 ml PO DAILY PRN (Reason: Constipation) Balmex (petrolatum) 51.1 % Ointment 1 appl TOPICAL QSHIFT Rx Instructions: to buttocks naloxone [Narcan] 4 mg/actuation [place],Non-Aerosol 4 mg INTRANASAL Q3M PRN (Reason: Opioid Overdose) Rx Instructions: spray 1 dose into ONE nostril; alternate nostrils w each dose until help arrives Discontinued ibuprofen 800 mg tablet 800 mg PO Q8H Rx Instructions: recent surgery, end date of 06/30/23 Discharge Orders: Discharge Order (Routine); Ordered 07/03/23 Ordered By: Luis Valdovinos Diet: Advance to usual diet Activity on Discharge: As tolerated Stand Alone Forms: Patient Portal Discharge page Care Plan Goals: Pneumonia possible aspiration continue one-to-one feed/continue Augmentin 1 tablet twice daily for total 5 days E coli ESBL positive UTI take Macrobid 100 mg 1 tablet twice daily for total 14 days Repeat chest x-ray in 1 week for follow-up on pneumonia Health Concerns: Continue all home medications as before Plan of Treatment: Outpatient follow-up with PCP Assessment: As above
[2023-07-03] MEDS: Amoxicillin/Potassium Clav 875 MG TABLET PO (13:42)
[2023-07-03] MEDS: Nitrofurantoin Monohyd/M-Cryst 100 MG CAPSULE PO (13:43)
[2023-07-03] MEDS: Dextrose 5 % 1,000 ML 50 ML IVCONT (14:10)
--- NOTE | 2023-07-03 16:04 | MHC.CM.PN ---
Pt is medically cleared for D/C back to [facility] [place]. Per [facility], they cannot accept pt back this evening, and are requesting the pt D/C tomorrow morning. MD aware. CM will continue to follow.
--- NOTE | 2023-07-03 16:07 | W.PM.IDCN ---
History of Present Illness Data of Consult Service Date: 07/03/23 Requesting physician: Luis Valdovinos Primary Care Provider: Kev Gorman DO HPI Reason for consult: pneumonia,persistent,UTI He presents from [facility] with shortness of breath and hypoxia to 70%. He takes Biktarvy for HIV and has been reported compliant. 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 Review of Systems Review of Systems: Yes Unobtainable due to mental condition PMFSH Past Medical History Medical History Resides in penitentiary facility Anemia, unspecified Splenomegaly, not elsewhere classified Other cholelithiasis without obstruction Unspecified dementia with behavioral disturbance Presbyopia Age-related nuclear cataract, bilateral Dysphagia, oropharyngeal phase Contracture, unspecified foot Contracture, unspecified knee Cyst of kidney, acquired Personal history of other diseases of the respiratory system Personal history of pneumonia (recurrent) Unspecified convulsions Other specified disorders of bone density and structure, unspecified site Altered mental status, unspecified Essential (primary) hypertension Old myocardial infarction Primary generalized (osteo)arthritis Chronic kidney disease, stage 3 unspecified Personal history of other diseases of the circulatory system Impulse disorder, unspecified 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 Dementia in other diseases classified elsewhere with behavioral disturbance Constipation, unspecified Personal history of tuberculosis Paraplegia, unspecified Leg weakness Chronic anemia Coronary artery disease Hypertension History of COVID-19 Bipolar 1 disorder Dementia HIV (human immunodeficiency virus infection) Chronic kidney disease Family History Family history: reviewed and not pertinent Surgical History Surgical History History of bronchoscopy History of hip surgery S/P percutaneous endoscopic gastrostomy (PEG) tube placement Social History Social History Household Members: Other Household Members Other:: [facility] Housing: [facility] Housing Other:: [facility] Are you a primary health care manager to a significant other at home: No Do you presently have visiting nurse or other home services: No ([facility]) Unable to assess alcohol history related to: Unknown Alcohol intake: unknown Patient Tobacco Use Status: Tobacco use Unknown Substance Use Type: Unknown Advance Directives Date on File: 07/25/21 service: No Current occupational status: disabled Meds Allergies Allergy/AdvReac Type Severity Reaction Status Date / Time No Known Allergies Allergy Unknown Verified 06/20/23 08:10 [No Known Allergies*] Active Medications: Current Medications Alprazolam (Alprazolam 0.25 Mg Tablet) 0.25 mg PO BID [facility] Last Admin: 07/03/23 08:38 Dose: 0.25 mg Amoxicillin/Clavulanate Potassium (Amoxicillin/Potassium Clav 875 Mg Tablet) 875 mg PO Q12H [facility] Last Admin: 07/03/23 13:42 Dose: 875 mg Aspirin (Aspirin 81 Mg Tab.Chew) 81 mg PO DAILY [facility] Last Admin: 07/03/23 08:38 Dose: 81 mg Haloperidol (Haloperidol 1 Mg Tablet) 2 mg PO TID [facility] Last Admin: 07/03/23 13:42 Dose: 2 mg Heparin Sodium (Porcine) (Heparin Sodium,Porcine 5,000 Unit/Ml Vial) 5,000 unit SUBCUT Q8H [facility] Last Admin: 07/03/23 10:36 Dose: 5,000 unit Dextrose (D5w) 1,000 mls @ 50 mls/hr IVCONT .Q20H [facility] Last Admin: 07/03/23 14:10 Dose: 50 mls/hr Lactulose (Lactulose 20 Gm/30 Ml Solution) 20 gm PO DAILY PRN PRN Reason: Constipation Loperamide HCl (Loperamide Hcl 2 Mg Capsule) 2 mg PO Q6H PRN PRN Reason: Diarrhea Lorazepam (Lorazepam 2 Mg/Ml Vial) 1 mg IM Q24H PRN PRN Reason: Seizures Nitrofurantoin Macrocrystals (Nitrofurantoin Monohyd/M-Cryst 100 Mg Capsule) 100 mg PO Q12H [facility] Last Admin: 07/03/23 13:43 Dose: 100 mg Non-Formulary Medication (Aokkeuyb-Ihqbeuhbiueh-Jyklqwa [Triumeq]) 1 tab PO DAILY [facility] Pharmacy Consult (Consult Rx Vancomycin Dosing) 1 each MISCELLANE DAILY PRN PRN Reason: Consult order Pregabalin (Pregabalin 50 Mg Capsule) 50 mg PO TID [facility] Last Admin: 07/03/23 13:42 Dose: 50 mg Senna (Sennosides 8.6 Mg Tablet) 8.6 mg PO BID PRN PRN Reason: Constipation Home Medications Medication Instructions Recorded Confirmed Last Taken Type abacavir 600 mg-dolutegravir 50 1 tab PO DAILY 07/19/21 06/29/23 08/05/22 History mg-lamivudine 300 mg tablet (Triumeq) acetaminophen 325 mg tablet 650 mg PO Q6H PRN Pain 07/19/21 06/29/23 Unknown History alprazolam 0.25 mg tablet 0.25 mg PO BID 07/19/21 06/29/23 08/05/22 History calcium carbonate 500 mg-vitamin 1 tab PO BID 07/19/21 06/29/23 08/05/22 History D3 5 mcg (200 unit) tablet (Calcium 500 + D) cyanocobalamin (vitamin B-12) 1,500 mcg PO DAILY 07/19/21 06/29/23 08/05/22 History 1,000 mcg tablet docusate sodium 100 mg capsule 100 mg PO DAILY 07/19/21 06/29/23 08/05/22 History ferrous sulfate 220 mg (44 mg 330 mg PO DAILY 07/19/21 06/29/23 06/19/23 History iron)/5 mL oral elixir lactulose 10 gram/15 mL oral 30 ml PO DAILY high ammonia levels 07/19/21 06/29/23 Unknown History solution lansoprazole 30 mg capsule,delayed 30 mg PO DAILY 07/19/21 06/29/23 08/05/22 History release lorazepam 2 mg/mL injection 1 mg IM Q24H PRN Seizures 07/19/21 06/29/23 Unknown History solution metoprolol tartrate 25 mg tablet 25 mg PO BID 07/19/21 06/29/23 08/05/22 History multivitamin 1 tab PO DAILY 07/19/21 06/29/23 08/05/22 History pregabalin 50 mg capsule 50 mg PO TID 07/19/21 06/29/23 08/05/22 History sennosides 8.6 mg tablet (senna) 8.6 mg PO BID PRN Constipation 07/19/21 06/29/23 Unknown History tramadol 50 mg tablet 50 mg PO TID 07/19/21 06/29/23 Unknown History aspirin 81 mg chewable tablet 81 mg PO DAILY 07/24/21 06/29/23 06/19/23 History haloperidol 2 mg tablet 2 mg PO TID 08/05/22 06/29/23 08/05/22 History lactulose 10 gram/15 mL oral 30 ml PO DAILY PRN Constipation 06/29/23 06/29/23 Unknown History solution naloxone 4 mg/actuation nasal 4 mg intranasal Q3M PRN Opioid 06/29/23 06/29/23 Unknown History spray (Narcan) Overdose white petrolatum 51.1 % topical 1 appl topical QSHIFT 06/29/23 06/29/23 Unknown History ointment (Balmex (petrolatum)) Physical Exam Vital Signs: Vital Signs: Last Vital Signs Temp 97.2 F 07/03/23 15:12 Pulse 72 07/03/23 15:12 Resp 20 07/03/23 15:12 BP 156/74 H 07/03/23 15:12 Pulse Ox 92 07/03/23 15:12 O2 Del Method Room Air 07/03/23 15:12 O2 Flow Rate 2 06/29/23 18:00 BMI result Body Mass Index 18.4 Const: General: cooperative HEENT: Head: Yes normal to inspection Face and sinus: Yes normal facial exam Mouth: Normal oral and palatal mucosa present Teeth and gingiva: dentition normal Eyes: General: appearance normal, both eyes and all related structures Pupils: Equal, round and reactive pupils present Resp: Effort & Inspection: normal respiratory effort Cardio: Rate: regular rate Rhythm: regular rhythm GI: Palpation (GI): Soft to palpation and nontender : General: Yes no CVA tenderness Back/Spine/Pelvis: Back: no CVA tenderness Skin: General skin exam: no rashes or lesions noted Neuro: General: moves all extremities Cranial nerves: Yes Equal, round and reactive pupils present Extrem: General: Yes normal to inspection Psych: Appearance: grossly normal Results Labs 07/01/23 07:49 07/03/23 07:02 Labs: BMP 07/03/23 07:02 Sodium 143 Potassium 3.6 Chloride 116 H Carbon Dioxide 23 BUN 11 Creatinine 1.11 Calcium 8.2 L Microbiology Microbiology Results: Microbiology 06/29/23 Unknown Urine Catheterized - Dunn Catheter Urine Culture - Final Escherichia coli 06/29/23 01:55 Blood - Venous Blood Culture - Preliminary No growth after 48 hours. 06/29/23 01:26 Blood - Venous Blood Culture - Preliminary No growth after 48 hours. 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 Continue Triumeq and make sure viral load controlled (undetectable) as would be at risk for OIs. Time Spent With Patient Time: Total time managing care of this patient today ____ minutes.
--- NOTE | 2023-07-03 16:20 | HO.PM.IMPN ---
Subjective Subjective Date of Service: 07/03/23 Interval History: Unable to obtain meaningful history due to mental status, no acute issues overnight has a [place] catheter with clear urine, diarrhea resolved, no fevers, no chills, hemodynamically stable. Complaining of left foot pain Review of Systems Unable to obtain review of system due to mental status Physical Exam Vital Signs: Vital Signs: Last Vital Signs Temp 97.2 F 07/03/23 15:12 Pulse 72 07/03/23 15:12 Resp 20 07/03/23 15:12 BP 156/74 H 07/03/23 15:12 Pulse Ox 92 07/03/23 15:12 O2 Del Method Room Air 07/03/23 15:12 O2 Flow Rate 2 06/29/23 18:00 BMI result Body Mass Index 18.4 Const: Other: Gen: Awake alert, in no acute distress Neck: supple Lungs: Clear to auscultation , no crackles, no wheeze Heart: regular rate and rhythm, no murmurs Abd: soft, non-tender, non-distended Ext: Left lower extremity,fading bruises, no edema Skin: warm/well-perfused Neuro: alert and alert, moving all extremities Psych: impaired insight Objective Data Active Medications Alprazolam (Alprazolam 0.25 Mg Tablet) 0.25 mg PO BID [facility] Last Admin: 07/03/23 08:38 Dose: 0.25 mg Documented By: ALEXIA Amoxicillin/Clavulanate Potassium (Amoxicillin/Potassium Clav 875 Mg Tablet) 875 mg PO Q12H [facility] Last Admin: 07/03/23 13:42 Dose: 875 mg Documented By: DELMER Aspirin (Aspirin 81 Mg Tab.Chew) 81 mg PO DAILY [facility] Last Admin: 07/03/23 08:38 Dose: 81 mg Documented By: ALEXIA Haloperidol (Haloperidol 1 Mg Tablet) 2 mg PO TID [facility] Last Admin: 07/03/23 13:42 Dose: 2 mg Documented By: DELMER Heparin Sodium (Porcine) (Heparin Sodium,Porcine 5,000 Unit/Ml Vial) 5,000 unit SUBCUT Q8H [facility] Last Admin: 07/03/23 10:36 Dose: 5,000 unit Documented By: ALEXIA Dextrose (D5w) 1,000 mls @ 50 mls/hr IVCONT .Q20H [facility] Last Admin: 07/03/23 14:10 Dose: 50 mls/hr Documented By: DELMER Lactulose (Lactulose 20 Gm/30 Ml Solution) 20 gm PO DAILY PRN PRN Reason: Constipation Loperamide HCl (Loperamide Hcl 2 Mg Capsule) 2 mg PO Q6H PRN PRN Reason: Diarrhea Lorazepam (Lorazepam 2 Mg/Ml Vial) 1 mg IM Q24H PRN PRN Reason: Seizures Nitrofurantoin Macrocrystals (Nitrofurantoin Monohyd/M-Cryst 100 Mg Capsule) 100 mg PO Q12H [facility] Last Admin: 07/03/23 13:43 Dose: 100 mg Documented By: DELMER Non-Formulary Medication (Xyljlnkn-Ddqzdjndkfuy-Gwxvegj [Triumeq]) 1 tab PO DAILY [facility] Pharmacy Consult (Consult Rx Vancomycin Dosing) 1 each MISCELLANE DAILY PRN PRN Reason: Consult order Pregabalin (Pregabalin 50 Mg Capsule) 50 mg PO TID [facility] Last Admin: 07/03/23 13:42 Dose: 50 mg Documented By: DELMER Senna (Sennosides 8.6 Mg Tablet) 8.6 mg PO BID PRN PRN Reason: Constipation Labs 07/01/23 07:49 07/03/23 07:02 Labs: Laboratory Results - last 24 hr 07/03/23 07:02 Hold Purple Top SEE NOTE Anion Gap 8 L Estim Creat Clear Calc 46.6 Estimated GFR > 60 Random Glucose 89 Calcium 8.2 L Assessment and Plan (1) Aspiration into respiratory tract: Status: Acute Plan 72-year-old gentleman with underlying HIV, dementia, CKD, bipolar disorder, hypertension, dysphagia with pulmonary aspiration and prior aspiration pneumonitis versus pneumonia admitted on 06/29/2023 with lethargy, hypoxia, and hypotension, likely secondary to another episode of aspiration pneumonia. Patient with poor response to initial IV fluids requiring initiation of pressor support and admission to intensive care unit, subsequently blood pressure improved patient placed on IV vanco and Zosyn and transferred to intermediate care unit.. Aspiration pneumonia, chest x-ray showed multifocal patchy opacities and suspected bronchial wall thickening worsened from prior study, CT chest showed right lower lobe consolidation, left lower lobe lobar bronchus not clearly seen either due to extrinsic mass effect or due to intraluminal filling defect, blood cultures x2 negative , received 3 days of IV Zosyn had no fevers oxygenation stable be therefore placed on Augmentin for 5 more days, seen by speech therapy they recommended ground mechanical and nectar thick liquid, recommend to repeat chest x-ray for clearing of infection in 10-14 days. UTI urine culture grew E coli , ESBL positive resistant to penicillin, treated with 1 dose of IV ertapenem subsequently seen by infectious disease and being discharged on Macrobid 100 mg 1 tablet twice daily for total 14 days as per ID recommendation . HIV - continue Triumeq Acute on chronic CKD3 -treated with IV fluids renal function returned to baseline recommend to discontinue ibuprofen and use as needed , avoid high hypotension and nephrotoxins push by mouth fluids. unspecified dementia + behav disturb/ bipolar disorder ,Continue all home medications including haloperidol + alprazolam HTN - BP stable, on metoprolol dispo - [facility] In my clinical judgment, the patient requires continued inpatient hospitalization for the following reasons: ESBL positive E coli Time Spent With Patient Time: Total time managing care of this patient today ____ minutes. Quality Stroke Does the patient have a stroke diagnosis?: No VTE Prior VTE?: No VTE Risk Level:: Medical - moderate - high VTE Device Contraindication: N/A - Device Ordered VTE Drug Contraindication: N/A - Med Ordered
[2023-07-04] MEDS: Amoxicillin/Potassium Clav 875 MG TABLET PO (01:58)
[2023-07-04] MEDS: Nitrofurantoin Monohyd/M-Cryst 100 MG CAPSULE PO (01:58)
[2023-07-04] MEDS: Heparin Sodium,Porcine 5,000 UNIT/ML VIAL 5000 UNIT SUBCUT ×2 (02:11→10:24)
[2023-07-04 03:43] VITALS: BP 130/70; PULSE 73; RESP 18; TEMP 36.8; O2SAT 96
[2023-07-04 07:43] VITALS: BP 135/76; PULSE 72; RESP 18; TEMP 36.4; O2SAT 94
[2023-07-04] MEDS: ALPRAZolam 0.25 MG TABLET PO (10:24)
[2023-07-04] MEDS: HaloperidoL 1 MG TABLET 2 MG PO (10:24)
[2023-07-04] MEDS: Aspirin 81 MG TAB.CHEW PO (10:24)
[2023-07-04] MEDS: Pregabalin 50 MG CAPSULE PO (10:24)
--- NOTE | 2023-07-04 11:01 | MHC.CM.PN ---
Second IMM 07/04, called pts guardian Td Colón at [phone] to update. PT is medically cleared for discharge back to [facility]. Transport set up via BLS/[facility] at 12pm.
[2023-07-04 11:36] VITALS: BP 134/81; PULSE 83; RESP 16; TEMP 36.1; O2SAT 97
--- NOTE | 2023-07-09 13:58 | P.CDIM_ITS ---
PROVIDER RESPONSE TEXT: To clarify, the appropriate diagnosis supported by the clinical indicators: Clinically unable to determine (explain): unknown QUERY TEXT: PHYSICIAN'S DOCUMENTATION REQUEST Date of Query: 07/02/2023 10:12 AM EDT Patient Name: Ruperto Valentino Admit Date: 06/29/2023 Dear Luis Valdovinos, A review of the medical record indicates additional documentation may be needed. Please review below and update the documentation accordingly. Clinical Indicators: Height: ( ) 5'9 Weight: ( ) 56.5 kg BMI: ( ) 18.4 Other Clinical Notes Supporting Significance of the BMI: Per Nutritional Risk Assessment 07/01/23: On therapeutic diet 90% or < DBW BMI < 19 If possible, please provide an associated diagnosis related to the abnormal BMI, such as: Underweight Weight loss Cachexia Anorexia BMI is not significant Mild protein calorie Malnutrition Moderate protein calorie malnutrition Severe protein calorie Malnutrition Other (explain)Clinically unable to determine (explain)Thank you, Yina Ramirez RN Use of terms such as suspected, likely, concern for, or probable (associated with a specific diagnosi s that is being evaluated, monitored, or treated as if it exists) are acceptable and can be coded in the inpatient se tting, when documented at the time of discharge. Please use your independent medical judgment in providing your response. THIS QUERY IS PART OF THE PERMANENT MEDICAL RECORD
== END 2023-07-04 13:59 | disposition skilled nursing facility (03) | DRG 871 ==
LOC: HO.ED 07:39 → HO.EDOVER 11:15 → HO.ICU 12:03 → HO.IMC 06-30 16:48
PROVIDERS: Hospitalist; Internal Medicine; Admitting Provider Internal Medicine Pulmonary Disease; Emergency Provider Emergency Medicine Emergency Medical Services; PCP Hospitalist; Visit Provider Physician Assistant Medical
DX: A41.9 Sepsis, unspecified organism (principal); J69.0 Pneumonitis due to inhalation of food and vomit; J96.01 Acute respiratory failure with hypoxia; R65.21 Severe sepsis with septic shock; N17.9 Acute kidney failure, unspecified; N39.0 Urinary tract infection, site not specified; F03.918 Unspecified dementia, unspecified severity, with other behavioral disturbance; Z16.11 Resistance to penicillins; Z16.12 Extended spectrum beta lactamase (ESBL) resistance; F31.9 Bipolar disorder, unspecified; B96.20 Unspecified Escherichia coli [E. coli] as the cause of diseases classified elsewhere; I12.9 Hypertensive chronic kidney disease with stage 1 through stage 4 chronic kidney disease, or unspecified chronic kidney disease; N18.30 Chronic kidney disease, stage 3 unspecified; Z20.822 Contact with and (suspected) exposure to COVID-19; Z21 Asymptomatic human immunodeficiency virus [HIV] infection status; Z79.899 Other long term (current) drug therapy
CPT/HCPCS: 36415; 71045; 71250; 74176; 80048; 80053; 80202; 81001; 82803; 83605; 83735; 83880; 84100; 84484; 85025; 85610; 87040; 87086; 87088; 87186; 87635; 93005; 99285; J1335; J1643; J2060; J2543; J3370; J3371; P9047

== ENCOUNTER → 2023-06-29 11:12 | Outpatient (BNV) | payer MEDICARE, MEDICAID, SELFPAY | PROVIDERS: Admitting Provider Internal Medicine Pulmonary Disease; Emergency Provider Emergency Medicine Emergency Medical Services; Visit Provider Surgery | DX: Z09 Encounter for follow-up examination after completed treatment for conditions other than malignant neoplasm (principal) | CPT/HCPCS: 99024 ==

== ENCOUNTER → 2023-06-29 11:12 | Outpatient (BNV) | payer MEDICARE, MEDICAID, SELFPAY | PROVIDERS: Admitting Provider Internal Medicine Pulmonary Disease; Emergency Provider Emergency Medicine Emergency Medical Services; Visit Provider Internal Medicine Pulmonary Disease | DX: T17.908A Unspecified foreign body in respiratory tract, part unspecified causing other injury, initial encounter (principal); J96.01 Acute respiratory failure with hypoxia; B20 Human immunodeficiency virus [HIV] disease; N18.9 Chronic kidney disease, unspecified; F03.90 Unspecified dementia, unspecified severity, without behavioral disturbance, psychotic disturbance, mood disturbance, and anxiety; F31.9 Bipolar disorder, unspecified | CPT/HCPCS: 99232; 99291 ==

== ENCOUNTER → 2023-06-29 11:12 | Outpatient (BNV) | payer MEDICARE, MEDICAID, SELFPAY | PROVIDERS: Admitting Provider Internal Medicine Pulmonary Disease; Emergency Provider Emergency Medicine Emergency Medical Services; PCP Hospitalist; Visit Provider Internal Medicine | DX: T17.908A Unspecified foreign body in respiratory tract, part unspecified causing other injury, initial encounter (principal); A41.9 Sepsis, unspecified organism; R65.20 Severe sepsis without septic shock; N39.0 Urinary tract infection, site not specified | CPT/HCPCS: 99222 ==

== ENCOUNTER → 2023-06-29 11:12 | Outpatient (BNV) | payer MEDICARE, MEDICAID, SELFPAY | PROVIDERS: Admitting Provider Internal Medicine Pulmonary Disease; Emergency Provider Emergency Medicine Emergency Medical Services; PCP Hospitalist; Visit Provider Hospitalist | DX: T17.908A Unspecified foreign body in respiratory tract, part unspecified causing other injury, initial encounter (principal); J96.01 Acute respiratory failure with hypoxia | CPT/HCPCS: 99233; 99239 ==

== ENCOUNTER 2023-07-11 15:20 | Outpatient (REF) | payer OTHER, MEDICARE, MEDICAID, SELFPAY ==
--- NOTE | ~2023-07-11 | XR_ITS ---
EXAMINATION: XR CHEST 2 VIEWS CLINICAL INFORMATION: Follow-up pneumonia. COMPARISON: Chest radiographs CT chest dated 06/29/2023. TECHNIQUE: Frontal and lateral views of the chest were obtained. FINDINGS: The heart, great vessels, pulmonary vasculature and mediastinum are stable. There is atherosclerotic calcification of the aortic knob. There is mild improvement without resolution from 06/29/2023 of multifocal patchy opacities. Again, there is bronchial wall thickening. There is biapical pleural thickening. There is no pleural effusion or pneumothorax. There is no acute osseous abnormality. XR/XR chest 2V IMPRESSION: There are persistent, improved bilateral infiltrates, without resolution. Again, there is bronchiolar wall thickening. Recommend radiographic follow-up to full clearance.
== END 2023-07-11 15:21 | disposition home or self-care (01) ==
LOC: HO.XRAY 15:20
PROVIDERS: PCP Hospitalist; Visit Provider Hospitalist
DX: Z87.01 Personal history of pneumonia (recurrent) (principal)
CPT/HCPCS: 71046

== ENCOUNTER 2023-10-31 09:03 | Emergency (ER) | payer MEDICARE, MEDICAID, SELFPAY ==
--- NOTE | ~2023-10-31 | CT_ITS ---
EXAMINATION: CT CHEST WITH IV CONTRAST CT ABDOMEN AND PELVIS WITH IV CONTRAST CLINICAL INFORMATION: History of fall, chest trauma and abdominal pain. COMPARISON: Prior CT imaging exams from 06/29/2023 TECHNIQUE: Multidetector CT imaging examination of the chest, abdomen and pelvis was performed with intravenous administration of 85 mL Omnipaque 350. Axial images are displayed at 0.6 mm and 5 mm slice thickness. Oral contrast not given. Coronal and sagittal reformatted images were generated at the technologist's workstation and submitted for review. This CT examination was performed using dose optimization techniques as appropriate, variously including the following: *Automated exposure control *Adjustment of mA and/or kV according to patient size (this includes techniques or standardized protocols for targeted exams where dose is matched to indication/reason for exam; i.e. extremities or head) *Use of iterative reconstruction technique DLP: 117.2 mGy-cm for the chest portion of the exam and 301.3 mGy-cm for the abdomen/pelvis portion of the exam FINDINGS: CHEST - LUNGS AND PLEURA: Moderate centrilobular and paraseptal emphysema. Frothy secretions along the wall of the trachea, right mainstem bronchus and along the bronchus intermedius and lower lobe bronchi. Bronchial richardson are diffusely thickened. Complex lung disease with presence of chronic subpleural reticular opacities; this could reflect presence of chronically combined fibrosis with emphysema. Tree-in-bud nodularity again noted within both lungs, compatible with sequela of infectious bronchiolitis. The aeration of both lower lobes is improved compared to 06/29/2023. However, peripheral patchy opacities of airspace disease are present in the left lower lobe. Also, there are peripheral opacities of atelectasis and/or consolidation within the right lower lobe. No pleural effusion or pneumothorax. 1.1 x 0.8 cm irregular nodule within the right middle lobe is nonspecific (image 283, series 6). Although it is likely an infectious/inflammatory nodule, underlying neoplastic lesion is not excluded. An irregular 0.8 x 0.5 cm nodule was seen in this region on 06/29/2023. CARDIOVASCULAR: The heart size is normal. No pericardial effusion. Mild atherosclerosis of the thoracic aorta without aneurysm or dissection. The great vessels arising from the aortic arch are widely patent. MEDIASTINUM/LOWER NECK: No mediastinal mass. The esophagus and thyroid gland unremarkable. LYMPHATICS: No axillary lymphadenopathy. Lymph node measurements are given in short axis dimension. Superior to the aortic arch, a right paratracheal lymph node is 1 cm (approximately 1.1 cm on 06/29/2023). A lymph node in the subcarinal area is 1.2 cm (approximately 1.5 cm on prior exam). Slightly prominent hilar lymph nodes are noted. A right hilar lymph node is 1 cm, but it appears smaller compared to prior exam. CHEST WALL/BONES OF THORAX: Sternum is intact. No evidence of acute rib fracture or chest wall hematoma. Chronic mild height loss of T12 vertebral body with concavity of its endplates, unchanged compared to 06/29/2023. ABDOMEN AND PELVIS - HEPATOBILIARY: Liver has normal size, contour and parenchymal attenuation. Gallbladder is chronically appears relatively small and has wall calcification, suggestive of porcelain gallbladder. No gallbladder wall thickening or pericholecystic fluid. The common duct and intrahepatic ducts appear to be chronically mildly dilated. PANCREAS: Unremarkable. SPLEEN: Unremarkable. ADRENAL GLANDS: Normal. KIDNEYS AND URETERS: No renal stones. Mild prominence of each extra-renal pelvis but no hydronephrosis or hydroureter. Simple cysts of both kidneys. No renal imaging follow-up is recommended for simple cysts. Evaluation the kidneys is partially limited by patient's motion. BOWEL AND PERITONEUM: No dilated bowel loops. No focal bowel wall thickening, mesenteric fat stranding or free fluid. The appendix is normal. No pneumoperitoneum or hemoperitoneum. ABDOMINAL WALL: No abdominal wall hernia or hematoma. VESSELS: There is extensive atherosclerotic calcification of the abdominal aorta and iliac arteries without aneurysm or dissection. No retroperitoneal hematoma. Inferior vena cava is unremarkable. LYMPH NODES: No pathologic sized lymph nodes in the abdomen or pelvis. No inguinal lymphadenopathy. BLADDER AND PELVIC VISCERA: Urinary bladder wall appears to be chronically minimally thickened. No bladder mass, stone or diverticulum. Prostate gland is grossly unremarkable. No pelvic free fluid. MUSCULOSKELETAL: No acute abnormalities in the lumbar spine compared to 06/29/2023. Chronic bilateral pars defects of L5 with grade 1 anterolisthesis of L5 on S1. Old healed fracture in the intertrochanteric region of proximal right femur status post hardware fixation. Mild osteoarthritis of the hips. Old foci of heterotopic ossification project posterior to right acetabulum, and superior from right greater and lesser trochanters. CT/CT abdomen pelvis w IV con IMPRESSION: * Chronic complex lung disease with moderate emphysema, imaging findings of bronchitis and infectious/inflammatory changes. Correlate clinically for signs/symptoms of infectious bronchiolitis and pneumonia. The secretions within lower lobe bronchi could be from bronchitis or recent aspiration. The aeration of both lower lobes has improved compared to 06/29/2023. * Findings include a nonspecific 1.1 x 0.8 cm nodule in the right middle lobe. Recommend noncontrast chest CT follow-up in 3 months to ensure stability or resolution. 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 No evidence of acute biliary pathology. * No acute traumatic abnormality in the abdomen or pelvis.
--- NOTE | ~2023-10-31 | CT_ITS ---
EXAMINATION: CT HEAD W/O IV CONTRAST CT FACIAL BONES WITHOUT IV CONTRAST CT CERVICAL SPINE W/O IV CONTRAST CLINICAL INFORMATION: History of fall with head strike. Facial trauma and neck pain. COMPARISON: Head CT from 09/17/2022 TECHNIQUE: Head - Contiguous axial imaging of the head was performed from the skull base to the vertex without the administration of intravenous contrast, and axial images are reconstructed at 2 mm and 5 mm slice thickness. Cervical spine and facial bones - Volumetric, helical CT acquisitions of the cervical spine and facial bones obtained without contrast; in addition to the standard set of axial images, multiplanar reformatted images were provided in the coronal and sagittal imaging planes. This CT examination was performed using dose optimization techniques as appropriate, variously including the following: *Automated exposure control *Adjustment of mA and/or kV according to patient size (this includes techniques or standardized protocols for targeted exams where dose is matched to indication/reason for exam; i.e. extremities or head) *Use of iterative reconstruction technique DLP: 805.4 mGy-cm for the head 327 and 312 mGy-cm for the imaging of the cervical spine 138.3 mGy-cm for the facial bones. FINDINGS: HEAD: Chronic volume loss of brain parenchyma with chronic enlargement of ventricles and sulci. There is e chronic asymmetric degree of prominence of ventricles compared to sulci which could be a manifestation of normal pressure hydrocephalus. 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 No evidence of intracranial hemorrhage, extra-axial surface collection, focal mass effect or midline shift. Streak artifact is produced by a coil or clip in region of left carotid terminus. No calvarial fracture. There is a chronic left mastoid effusion. FACIAL BONES: The globes and orbital richardson, including lamina papyracea, are intact. Prior ocular lens extractions. The orbital apex, optic canals, and retrobulbar fat planes are normal. The maxilla, mandible and temporomandibular joints are intact. Mild osteoarthritis of left temporomandibular joint. Nasal bones, pterygoid plates and zygomatic arches are normal. The paranasal sinuses are well-aerated and the ostiomeatal units are patent. No air-fluid levels in the paranasal sinuses. CERVICAL SPINE: There is severe motion degradation on images acquired through the cervical spine. Due to these limitations, consider correlation with cervical spine radiographs. Multilevel facet osteoarthritis is present. There is dextrocurvature of the degenerated cervical spine. The craniocervical junction is normal. The dens is intact. There appears to be mild degenerative anterolisthesis at C5-C6 and C6-C7. This examination is unable to exclude any fracture or traumatic subluxation due to the severe motion. CT/CT cervical spine wo IV con IMPRESSION: * No intracranial hemorrhage or other acute intracranial pathology compared to prior head CT from 09/17/2022. * The ventricles are chronically dilated out of proportion to the sulci which could be a manifestation of normal pressure hydrocephalus. 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 No evidence of an acute major vascular territory infarction. * No evidence of facial bone fracture. * The evaluation of the cervical spine is severely limited due to patient's motion.
[2023-10-31 09:10] VITALS: BP 120/62; BP 133/58; PULSE 51; PULSE 64; RESP 22; TEMP 36.8; O2SAT 96; O2SAT 97; BMI 17.7
--- NOTE | 2023-10-31 09:12 | ECG_ITS ---
Test Reason : FALL Blood Pressure : / mmHG Vent. Rate : 068 BPM Atrial Rate : 068 BPM P-R Int : 122 ms QRS Dur : 072 ms QT Int : 386 ms P-R-T Axes : 103 057 070 degrees QTc Int : 410 ms Normal sinus rhythm Normal ECG When compared with ECG of 31-OCT-2023 10:40, QT has shortened Referred By: Zechariah Neff Electronically Signed By:Alexi Abreu
--- NOTE | 2023-10-31 09:13 | ED_ITS ---
HPI - General Adult General Chief complaint: Fall Stated complaint: UNWIT FALL FROM W/C,LAC TO FOREHEAD,+CCOL,FROM SNF Source: patient Mode of arrival: ambulatory Limitations: other (Poor historian) History of Present Illness HPI narrative: 73-year-old male history of age-related nuclear cataracts, bipolar, CKD stage 3, contracture, coronary artery disease, dementia, HIV, hypertension, CAD, paraplegia, diverticulosis presenting to the emergency department status post fall with head strike and laceration to forehead. Patient leaned forward in his wheelchair to try to grab a girl and fell onto his face. Complaining of headache s/p falling forward out of his wheelchair. No LOC. Not on thinners. No preceding sx to fall. Denies CP,SOB, n/v/d, abd pain, gee, vision changes. Related Data Home Medications Medication Instructions Recorded Confirmed abacavir 600 mg-dolutegravir 50 1 tab PO DAILY 07/19/21 10/31/23 mg-lamivudine 300 mg tablet (Triumeq) acetaminophen 325 mg tablet 650 mg PO Q6H PRN Fever Or Pain 07/19/21 10/31/23 alprazolam 0.25 mg tablet 0.25 mg PO BID 07/19/21 10/31/23 calcium carbonate 500 mg-vitamin 1 tab PO BID 07/19/21 10/31/23 D3 5 mcg (200 unit) tablet (Calcium 500 + D) cyanocobalamin (vitamin B-12) 1,500 mcg PO DAILY 07/19/21 10/31/23 1,000 mcg tablet docusate sodium 100 mg capsule 100 mg PO DAILY 07/19/21 10/31/23 ferrous sulfate 220 mg (44 mg 330 mg PO DAILY 07/19/21 10/31/23 iron)/5 mL oral elixir lactulose 10 gram/15 mL oral 30 ml PO DAILY high ammonia levels 07/19/21 10/31/23 solution lansoprazole 30 mg capsule,delayed 30 mg PO DAILY 07/19/21 10/31/23 release lorazepam 2 mg/mL injection 1 mg IM Q24H PRN Seizures 07/19/21 10/31/23 solution metoprolol tartrate 25 mg tablet 25 mg PO BID 07/19/21 10/31/23 multivitamin 1 tab PO DAILY 07/19/21 10/31/23 pregabalin 50 mg capsule 50 mg PO TID 07/19/21 10/31/23 sennosides 8.6 mg tablet (senna) 8.6 mg PO Q24H PRN Constipation 07/19/21 10/31/23 tramadol 50 mg tablet 50 mg PO TID 07/19/21 10/31/23 aspirin 81 mg chewable tablet 81 mg PO DAILY 07/24/21 10/31/23 haloperidol 2 mg tablet 2 mg PO TID 08/05/22 10/31/23 lactulose 10 gram/15 mL oral 30 ml PO DAILY PRN Constipation 06/29/23 10/31/23 solution naloxone 4 mg/actuation nasal 4 mg intranasal Q3M PRN Opioid 06/29/23 10/31/23 spray (Narcan) Overdose white petrolatum 51.1 % topical 1 appl topical QSHIFT 06/29/23 10/31/23 ointment (Balmex (petrolatum)) bisacodyl 10 mg rectal suppository 10 mg NC DAILY PRN Constipation 10/31/23 10/31/23 Previous Rx's Medication Instructions Recorded azithromycin 250 mg tablet See Rx Instructions PO .COMPLEX #6 10/31/23 tabs doxycycline hyclate 100 mg capsule 100 mg PO BID 10 days #20 caps 10/31/23 Allergies Allergy/AdvReac Type Severity Reaction Status Date / Time No Known Allergies Allergy Unknown Verified 06/20/23 08:10 [No Known Allergies*] Review of Systems 2 Review of Systems: Yes all other systems are reviewed and are negative [facility] Past Medical History Source: old records reviewed and nursing notes reviewed Medical History [facility] Anemia, unspecified Splenomegaly, not elsewhere classified Other cholelithiasis without obstruction Unspecified dementia with behavioral disturbance Presbyopia Age-related nuclear cataract, bilateral Dysphagia, oropharyngeal phase Contracture, unspecified foot Contracture, unspecified knee Cyst of kidney, acquired Personal history of other diseases of the respiratory system Personal history of pneumonia (recurrent) Unspecified convulsions Other specified disorders of bone density and structure, unspecified site Altered mental status, unspecified Essential (primary) hypertension Old myocardial infarction Primary generalized (osteo)arthritis Chronic kidney disease, stage 3 unspecified Personal history of other diseases of the circulatory system Impulse disorder, unspecified 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 Dementia in other diseases classified elsewhere with behavioral disturbance Constipation, unspecified Personal history of tuberculosis Paraplegia, unspecified Leg weakness Chronic anemia Coronary artery disease Hypertension History of COVID-19 Bipolar 1 disorder Dementia HIV (human immunodeficiency virus infection) Chronic kidney disease Surgical History History of bronchoscopy History of hip surgery S/P percutaneous endoscopic gastrostomy (PEG) tube placement Social History Social History Household Members: Other Household Members Other:: [facility] Housing: [facility] Housing Other:: [facility] Are you a primary career transition specialist to a significant other at home: No Do you presently have visiting nurse or other home services: No ([facility]) Unable to assess alcohol history related to: Unknown Alcohol intake: unknown Patient Tobacco Use Status: Tobacco use Unknown Smoked in Last 30 Days: No Use of substances other than those prescribed or required for medical reasons: No Substance Use Type: Unknown Advance Directives: Yes Advance Directives on File: Yes Advance Directives Date on File: 07/25/21 service: No Current occupational status: disabled Physical Exam ED Vital Signs: Vital Signs - 24 hr 10/31/23 09:10 10/31/23 11:25 Temperature 98.2 F 98.2 F Pulse Rate 64 69 Respiratory Rate 22 H 15 Blood Pressure 133/58 L 133/43 L Pulse Oximetry 96 96 Oxygen Delivery Method Room Air Room Air BMI result Body Mass Index 17.7 vss Appearance: Alert.? Oriented X3.? No acute distress.? Head: Normocephalic, + ecchymosis below right orbit, and bruising to the bridge of nose, no step-offs or deformities Eyes: Pupils equal, round and reactive to light.? ENT: Pharynx normal.? Neck: Normal inspection.? Neck supple.? CVS: Normal heart rate and rhythm.? Pulses normal.? Respiratory: No respiratory distress.? Breath sounds normal.? Abdomen: Soft and nontender.? Skin: Skin warm and dry.? Normal skin color.? Normal skin turgor.?+ 5 cm linear clean superficial laceraiton to forehead Extremities: No lower extremity edema.? No calf ttp. Global weakness UE contracture b/l. Back: No midline tenderness, no C-spine tenderness, full range of motion, no CVA tenderness bilaterally Neuro: Oriented X 3.? No motor deficit.? No sensory deficit. CN 2-12 intact Course Reevaluation(s) Reevaluation #1: CBC with a baseline normocytic anemia. Chemistry no acute findings requiring intervention. Troponin negative. BNP within normal limits. EKG nonischemic. Coags unremarkable. COVID negative. Patient's x-ray has persistent improved bilateral infiltrates without resolution there is bronchial wall thickening patient not complaining of chest pain, shortness of breath he was treated for these infiltrates with doxycycline and Keflex, patient also does not have an elevated white blood cell count, I do not suspect acute pneumonia.. No respiratory distress, 96% on room air, clear breath sounds bilaterally. Trauma scans are pending. Laceration was repaired and approximated edges well with Dermabond. Patient tolerated procedure well. Time: 11:19 Reevaluation #2: Ct scans took a while to result. Ct chest w/ complex lung disease with moderate emphysema. Secretions within left lower lobe could be from bronchitis or recent aspiration. For this reason will discharge patient on azithromycin and doxycycline. There are lung nodules noted. Follow-up in 3 months advise. Small portion gallbladder that appears to be chronic noted no acute findings. No acute traumatic abnormality to chest, abdomen or pelvis. CT head, facial bones and cervical spine pending. Time: 14:35 Reevaluation #3: ED facial bones no evidence of facial bone fractures. Evaluation of cervical spine is limited secondary to patient's motion however no point tenderness to midline. No intracranial hemorrhage or acute intracranial pathology noted. The ventricles are chronically dilated no acute finding. There were old infarcts of left occipital left parietal and right frontal lobes no acute major muscle territory infarction. Nonfocal neurological exam global weakness. At this time patient to be discharged home. This was likely mechanical fall from wheelchair with laceration to head. Educated patient on diagnosis and treatment plan, answered all question, patient verbalizes understanding. At this time patient will be discharged home, advised to return with new or worsening symptoms. Educated on worrisome signs and symptoms and when to return. At this time I feel comfortable discharge home. Time: 14:42 Medications Administered Discontinued Medications Generic Name Dose Route Start Last Admin Trade Name Freq PRN Reason Stop Dose Admin Diphtheria/Tetanus/Acell Pertussis 0.5 ml 10/31/23 11:20 10/31/23 12:57 Diphth,Pertus(Acell),Tet Adult 0.5 Ml Syringe IM 10/31/23 11:21 0.5 ml .ONCE ONE Administration Iohexol 100 ml 10/31/23 12:30 10/31/23 12:30 Iohexol 350 Mg/Ml 100 Ml Infus..Btl IV 10/31/23 12:31 85 ml ONCE ONE Administration Medical Decision Making Medical Decision Making [facility] Narrative: 73-year-old male presents status post fall out of wheelchair with headache, laceration to head. Happened prior to arrival. Not on blood thinner Physical exam 5 cm linear clean superficial laceraiton to forehead. + ecchymosis below right orbit, and bruising to the bridge of nose Will rule out traumatic injury to facial bones, head, neck, chest, abdomen and pelvis. Unlikely cardiac in origin this is likely a mechanical fall from wheelchair. Laceration in simple laceration which will require repair. Plan labs, imaging, laceration repair, urine. Differential Diagnosis Differential Diagnoses: The differential diagnosis associated with the presentation includes Will rule out traumatic injury to head, neck, chest, abdomen and pelvis. Unlikely cardiac in origin this is likely a mechanical fall from wheelchair. Laceration in simple laceration which will require repair. Admission/Observation Consideration of admission/observation: Escalation of care including admission/observation considered Possible Lab Data [facility] Lab Attestation statement: I reviewed the patient's lab results. 10/31/23 09:36 10/31/23 09:36 Labs: Lab Results 10/31/23 Range/Units 09:36 WBC 7.5 (4.8-10.8) X10*3/uL RBC 4.51 L D (4.60-5.80) X10*6/uL Hgb 12.7 L D (14.0-18.0) g/dl Hct 39.8 L D (42.0-52.0) % MCV 88.2 (80.0-98.0) fL MCH 28.2 (27.0-33.0) pg MCHC 31.9 (31.0-36.0) g/dl RDW 14.6 (11.0-16.0) % Plt Count 319 D (160-400) X10*3/uL MPV 10.3 (9.4-12.4) fL Immature Gran % (Auto) 0.4 (0.0-0.4) % Neut % (Auto) 77.4 H (45-73) % Lymph % (Auto) 12.6 L (20-40) % [place] % (Auto) 6.5 (2-11) % Eos % (Auto) 2.7 (0-4) % Baso % (Auto) 0.4 (0-2) % Lymph # (Auto) 1.0 L (1.2-4.9) X10*3/uL [place] # (Auto) 0.5 (0.1-1.2) X10*3/uL Eos # (Auto) 0.2 (0.0-0.4) X10*3/uL Baso # (Auto) 0.0 (0.0-0.2) X10*3/uL Abs Immat Gran (auto) 0.03 (0.00-0.03) X10*3/uL Absolute Neuts (auto) 5.8 (2.0-8.3) x10*3/uL Absolute Nucleated RBC 0.000 (0.0-0.012) X10*3/uL Nucleated RBC % (auto) 0.0 (0.0-0.2) /100WBC PT 12.3 (11.1-13.3) SEC INR 1.0 (0.9-1.1) Sodium 141 (135-145) mmol/L Potassium 5.1 (3.3-5.1) mmol/L Chloride 108 (96-108) mmol/L Carbon Dioxide 26 (22-29) mmol/L Anion Gap 12 (12-20) BUN 23 H (9-16) mg/dL Creatinine 1.40 (0.5-1.4) mg/dL Estim Creat Clear Calc 34.0 Estimated GFR 49 Random Glucose 86 (60-115) mg/dL Calcium 8.6 (8.4-10.2) mg/dL Magnesium 2.1 (1.6-2.6) mg/dL Total Bilirubin 0.2 (0.0-1.0) mg/dL AST 25 (5-37) U/L ALT 8 (0-40) U/L Alkaline Phosphatase 61 (39-117) U/L Troponin I High Sens < 2.7 (<3.5-35.0) ng/L B-Natriuretic Peptide 70 (<100) pg/mL Total Protein 8.6 H (6.5-8.0) g/dL Albumin 3.2 L (3.5-5.0) g/dL COVID-19 (CHANELLE) Negative (Negative) COVID-19 Clin Com See Note Independent Interpretation I performed an independent interpretation of an: EKG and CT Scan (CT/CT chest w IV con IMPRESSION: * Chronic complex lung disease with moderate emphysema, imaging findings of bronchitis and infectious/inflammatory changes. Correlate clinically for signs/symptoms of infectious bronchiolitis and pneumonia. The secretions within lower lobe bronchi could be from bron) Radiology Impression Discussion of test interpretation with radiology: I have reviewed the radiologist's reading. External Record Review External record reviewed: Inpatient record, Office record, Outpatient record, Prior outpatient labs, Prior outpatient radiology, Primary care record and Outside ED record Chronic Conditions Patient?s care impacted by: Other (Dementia, behavioral disturbances, HIV, CKD, hypertension) Critical Care Time Critical Care Time Critical Care Time: Yes Total Critical Care Time: 35 Attestation: I attest to this time spent taking care of the patient, obtaining history, physical, reviewing labs, imaging,procedure Discharge Plan Discharge Clinical Impression: Fall, Laceration of head, Headache, Lung infiltrate, Closed head injury, Concussion Patient Disposition: Home, Self-Care Instructions: Post Concussion Syndrome (ED), Laceration Without Closure (ED) Additional Instructions: Take your medications as prescribed. If you were prescribed antibiotics today, it is important that you take your medication to their entirety, do not skip any doses, do not finish them early. Follow-up with your primary care provider this week. Return to the emergency department with new or worsening symptoms. Such as fevers, chills, chest pain, shortness of breath, nausea, vomiting, dizziness, headache, vision changes, lethargy In case of emergency call 911 Allow the Dermabond to fall off on its own. Sent you doxycycline and azithromycin as your CT scan and chest x-ray show remaining infiltrates. CT/CT head/brain wo IV con IMPRESSION: * No intracranial hemorrhage or other acute intracranial pathology compared to prior head CT from 09/17/2022. * The ventricles are chronically dilated out of proportion to the sulci which could be a manifestation of normal pressure hydrocephalus. 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 No evidence of an acute major vascular territory infarction. * No evidence of facial bone fracture. * The evaluation of the cervical spine is severely limited due to patient's motio CT/CT facial bones wo IV con IMPRESSION: * No intracranial hemorrhage or other acute intracranial pathology compared to prior head CT from 09/17/2022. * The ventricles are chronically dilated out of proportion to the sulci which could be a manifestation of normal pressure hydrocephalus. 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 No evidence of an acute major vascular territory infarction. * No evidence of facial bone fracture. * The evaluation of the cervical spine is severely limited due to patient's motion. Prescriptions: New doxycycline hyclate 100 mg capsule 100 mg PO BID 10 Days Qty: 20 0RF azithromycin 250 mg tablet See Rx Instructions .ROUTE .COMPLEX Qty: 6 0RF Rx Instructions: For 250 mg dose pack: take 500 mg today (day 1), then 250 mg for 4 days (days 2-5) No Action multivitamin Tablet 1 tab PO DAILY sennosides [senna] 8.6 mg Tablet 8.6 mg PO Q24H PRN (Reason: Constipation) acetaminophen 325 mg Tablet 650 mg PO Q6H MDD 3000 mg PRN (Reason: Fever Or Pain) Rx Instructions: GIVE FOR MILD PAIN OR FEVER >101. DNE 3G/24H lorazepam 2 mg/mL Solution 1 mg IM Q24H PRN (Reason: Seizures) Rx Instructions: MAY REPEAT X1 IN 5 MINUTES FOR ONGOING SEIZURE ACTIVITY cyanocobalamin (vitamin B-12) 1,000 mcg Tablet 1,500 mcg PO DAILY tramadol 50 mg Tablet 50 mg PO TID Rx Instructions: FOR MODERATE PAIN alprazolam 0.25 mg Tablet 0.25 mg PO BID lansoprazole 30 mg Capsule,Delayed Release(Dr/Ec) 30 mg PO DAILY docusate sodium 100 mg Capsule 100 mg PO DAILY metoprolol tartrate 25 mg Tablet 25 mg PO BID lactulose 10 gram/15 mL Solution 30 ml PO DAILY calcium carbonate-vitamin D3 [Calcium 500 + D] 500 mg(1,250mg) -200 unit Tablet 1 tab PO BID pregabalin 50 mg Capsule 50 mg PO TID Triumeq 600-50-300 mg Tablet 1 tab PO DAILY ferrous sulfate 220 mg (44 mg iron)/5 mL Elixir 330 mg PO DAILY aspirin 81 mg Tablet,Chewable 81 mg PO DAILY haloperidol 2 mg Tablet 2 mg PO TID lactulose 10 gram/15 mL solution 30 ml PO DAILY PRN (Reason: Constipation) Balmex (petrolatum) 51.1 % Ointment 1 appl TOPICAL QSHIFT Rx Instructions: to buttocks naloxone [Narcan] 4 mg/actuation Mayer,Non-Aerosol 4 mg INTRANASAL Q3M PRN (Reason: Opioid Overdose) Rx Instructions: spray 1 dose into ONE nostril; alternate nostrils w each dose until help arrives bisacodyl 10 mg Suppository 10 mg NC DAILY PRN (Reason: Constipation) Rx Instructions: USE IF LACTULOSE IS INEFFECTIVE Referrals: Kev Gorman DO [Primary Care Provider] - 2 days
[2023-10-31 09:40] LABS: MANUAL DIFF FLAG NO
[2023-10-31 09:49] LABS: Prothrombin Time 12.3 SEC (11.1-13.3)
[2023-10-31 09:53] LABS: Basophils Percent Auto 0.4 % (0-2); Eosinophils Absolute Auto 0.2 X10*3/uL (0.0-0.4); Eosinophils Percent Auto 2.7 % (0-4); Hematocrit 39.8 % (42.0-52.0); Hemoglobin 12.7 g/dl (14.0-18.0); Imm Gran Abs Auto 0.03 X10*3/uL (0.00-0.03); Imm Gran Pct Auto 0.4 % (0.0-0.4); Lymphocytes Percent Auto 12.6 % (20-40); Mean Corpuscular HGB Conc 31.9 g/dl (31.0-36.0); Mean Corpuscular Hemoglobin 28.2 pg (27.0-33.0); Mean Corpuscular Volume 88.2 fL (80.0-98.0); Mean Platelet Volume 10.3 fL (9.4-12.4); Monocytes Absolute Auto 0.5 X10*3/uL (0.1-1.2); Monocytes Percent Auto 6.5 % (2-11); Neutrophils Absolute Auto 5.8 x10*3/uL (2.0-8.3); Neutrophils Percent Auto 77.4 % (45-73); Platelet Count 319 X10*3/uL (160-400); Red Blood Count 4.51 X10*6/uL (4.60-5.80); Red Cell Distribution Width 14.6 % (11.0-16.0); White Blood Count 7.5 X10*3/uL (4.8-10.8)
[2023-10-31 10:02] LABS: B Type Natriuretic Peptide 70 pg/mL (<100)
--- NOTE | 2023-10-31 10:10 | PC.NURSE ---
pt a difficult poke. request for u/s guided IV palcement at this time
[2023-10-31 10:12] LABS: Alanine Aminotransferase 8 U/L (0-40); Albumin Level 3.2 g/dL (3.5-5.0); Alkaline Phosphatase 61 U/L (39-117); Anion Gap 12 (12-20); Aspartate Amino Transferase 25 U/L (5-37); Bilirubin Total 0.2 mg/dL (0.0-1.0); Blood Urea Nitrogen 23 mg/dL (9-16); Calcium 8.6 mg/dL (8.4-10.2); Carbon Dioxide 26 mmol/L (22-29); Chloride 108 mmol/L (96-108); Estimated Glomerular Filt Rate 49; Glucose Random 86 mg/dL (60-115); Magnesium 2.1 mg/dL (1.6-2.6); Potassium 5.1 mmol/L (3.3-5.1); Sodium 141 mmol/L (135-145); Total Protein 8.6 g/dL (6.5-8.0); Troponin-I High Sensitivity < 2.7 ng/L (<3.5-35.0)
[2023-10-31 10:33] LABS: COVID-19 Test Negative (Negative); IDNOW Serial# 08D9AD1C
--- NOTE | 2023-10-31 10:56 | PHA.MEDREC ---
Pharmacy Consult ? Medication Reconciliation Pharmacy has completed the medication reconciliation. Used list from facility ([facility]) to confirm medications.
[2023-10-31 11:25] VITALS: BP 133/43; PULSE 69; RESP 15; TEMP 36.8; O2SAT 96
[2023-10-31] MEDS: iohexoL 350 MG/ML 100 ML INFUS..BTL IV (12:30)
[2023-10-31] MEDS: Diphth,Pertus(ACell),Tet Adult 0.5 ML SYRINGE IM (12:57)
--- NOTE | 2023-10-31 13:06 | PC.NURSE ---
U/S guided IV 20G placed in R upper bicep
--- NOTE | 2023-10-31 15:20 | PC.NURSE ---
report given to Cindy at [facility]. pt pending BLS transport back to facility
[2023-10-31 17:06] VITALS: BP 137/63; PULSE 69; RESP 16; TEMP 36.8; O2SAT 95
== END 2023-10-31 19:15 ==
PROVIDERS: Physician Assistant; Emergency Provider Emergency Medicine; PCP Hospitalist
DX: S06.0X0A Concussion without loss of consciousness, initial encounter (principal); S01.81XA Laceration without foreign body of other part of head, initial encounter; W05.0XXA Fall from non-moving wheelchair, initial encounter; B20 Human immunodeficiency virus [HIV] disease; I10 Essential (primary) hypertension; Y93.89 Activity, other specified; Y92.129 Unspecified place in nursing home as the place of occurrence of the external cause; Y99.9 Unspecified external cause status; Z23 Encounter for immunization; Z11.52 Encounter for screening for COVID-19; R91.8 Other nonspecific abnormal finding of lung field
CPT/HCPCS: 12002; 36415; 70450; 70486; 71260; 72125; 74177; 80053; 83735; 83880; 84484; 85025; 85610; 87635; 90471; 90715; 93005; 99284; 99285; Q9967

== ENCOUNTER → 2023-10-31 09:12 | Outpatient (BNV) | payer OTHER, MEDICARE, MEDICAID, SELFPAY | PROVIDERS: Emergency Provider Emergency Medicine; PCP Hospitalist; Visit Provider Internal Medicine Cardiovascular Disease | DX: R26.81 Unsteadiness on feet (principal) | CPT/HCPCS: 93010 ==

== ENCOUNTER 2024-01-10 19:13 | Inpatient (IN) | payer MEDICARE, MEDICAID, SELFPAY ==
[2024-01-10] VITALS (7 sets, daily range): BP systolic 104–161; BP diastolic 44–86; PULSE 108–153; RESP 19–35; TEMP 37.7–38.2; O2SAT 91–97; BMI 19.3
--- NOTE | ~2024-01-10 | XR_ITS ---
EXAMINATION: XR chest 1V CLINICAL INFORMATION: Aspiration COMPARISON: 07/11/2023 TECHNIQUE: Single portable frontal view. Tubes and lines: None Lungs and pleura: Diffuse increased interstitial lung marking and peribronchial cuffing might be a small airway disease such as bronchiolitis or interstitial pneumonitis, including possible aspiration versus interstitial lung disease . No dense focal consolidation pneumonia. Heart and mediastinum: The mediastinum is within normal limits.. Bones/soft tissue: Skeletal structures included are normal for patient's age. XR/XR chest 1V IMPRESSION: Diffuse increased interstitial lung marking and peribronchial cuffing might be a small airway disease such as bronchiolitis or interstitial pneumonitis, including possible aspiration versus interstitial lung disease. No dense focal consolidation pneumonia. No significant pleural effusion.
--- NOTE | ~2024-01-10 | XR_ITS ---
EXAMINATION: XR CHEST CLINICAL INFORMATION: Central line placement. COMPARISON: 01/20/2024 TECHNIQUE: Frontal view of the chest was obtained. FINDINGS: The cardiomediastinal silhouette is stable. There is diffuse increased markings and patchy infiltrates similar to previous. There has been interval placement of a left approach central line with tip at the mid SVC. No pneumothorax is seen. The bony structures are osteopenic. The soft tissues are unremarkable. XR/XR chest 1V IMPRESSION: 1. Left approach central line with tip at the mid SVC. No pneumothorax. 2. Diffuse increased markings and patchy infiltrates similar to previous study.
--- NOTE | 2024-01-10 19:18 | ECG_ITS ---
Test Reason : SOB Blood Pressure : / mmHG Vent. Rate : 142 BPM Atrial Rate : 142 BPM P-R Int : 098 ms QRS Dur : 050 ms QT Int : 306 ms P-R-T Axes : 006 011 -60 degrees QTc Int : 470 ms Poor data quality Possible Sinus tachycardia with short NH with frequent Premature ventricular complexes Abnormal ECG When compared with ECG of 31-OCT-2023 11:12, Poor data quality in current ECG precludes serial comparison Referred By: Halina Piper Electronically Signed By:EZ ERWIN MD
--- NOTE | 2024-01-10 19:24 | ED.SOB ---
HPI - SOB/Dyspnea General Chief Complaint: Dyspnea Stated Complaint: RESPIRATORY DISTRESS. 80%RA, 90% ON NONREBREATHER Time Seen by Provider: 01/10/24 19:14 Source: EMS and old records reviewed Mode of arrival: EMS Limitations: altered mental status History of Present Illness HPI Narrative: 73 yo male with PMH Of dementia, HIV, UTI, aspiration pneumonia, GERD, [facility] full code reportedly with breathing difficulties since 630AM this morning that has progressively worsenend - EMS found him in 80s on RA. They suctioned copious amounts of secretions from his airway. He was altered. They placed him on NRB and got sats up to 90%. Patient reportedly is more alert than he is right now. MD elicited complaint: shortness of breath Pertinent past history: pneumonia and aspiration Onset (ago): day(s) (1) Timing: progressively worsening Severity: severe Exacerbating factors: lying flat and coughing Relieving factors: oxygen and upright position Known history of: recurrent pneumonia and aspiration pneumonia Associated symptoms: denies other symptoms Treatment prior to arrival: oxygen Related Data Home Medications ?Medication ?Instructions ?Recorded ?Confirmed abacavir 600 mg-dolutegravir 50 1 tab PO DAILY 07/19/21 10/31/23 mg-lamivudine 300 mg tablet (Triumeq) acetaminophen 325 mg tablet 650 mg PO Q6H PRN Fever Or Pain 07/19/21 10/31/23 alprazolam 0.25 mg tablet 0.25 mg PO BID 07/19/21 10/31/23 calcium carbonate 500 mg-vitamin 1 tab PO BID 07/19/21 10/31/23 D3 5 mcg (200 unit) tablet (Calcium 500 + D) cyanocobalamin (vitamin B-12) 1,500 mcg PO DAILY 07/19/21 10/31/23 1,000 mcg tablet docusate sodium 100 mg capsule 100 mg PO DAILY 07/19/21 10/31/23 ferrous sulfate 220 mg (44 mg 330 mg PO DAILY 07/19/21 10/31/23 iron)/5 mL oral elixir lactulose 10 gram/15 mL oral 30 ml PO DAILY high ammonia levels 07/19/21 10/31/23 solution lansoprazole 30 mg capsule,delayed 30 mg PO DAILY 07/19/21 10/31/23 release lorazepam 2 mg/mL injection 1 mg IM Q24H PRN Seizures 07/19/21 10/31/23 solution metoprolol tartrate 25 mg tablet 25 mg PO BID 07/19/21 10/31/23 multivitamin 1 tab PO DAILY 07/19/21 10/31/23 pregabalin 50 mg capsule 50 mg PO TID 07/19/21 10/31/23 sennosides 8.6 mg tablet (senna) 8.6 mg PO Q24H PRN Constipation 07/19/21 10/31/23 tramadol 50 mg tablet 50 mg PO TID 07/19/21 10/31/23 aspirin 81 mg chewable tablet 81 mg PO DAILY 07/24/21 10/31/23 haloperidol 2 mg tablet 2 mg PO TID 08/05/22 10/31/23 lactulose 10 gram/15 mL oral 30 ml PO DAILY PRN Constipation 06/29/23 10/31/23 solution naloxone 4 mg/actuation nasal 4 mg intranasal Q3M PRN Opioid 06/29/23 10/31/23 spray (Narcan) Overdose white petrolatum 51.1 % topical 1 appl topical QSHIFT 06/29/23 10/31/23 ointment (Balmex (petrolatum)) bisacodyl 10 mg rectal suppository 10 mg DE DAILY PRN Constipation 10/31/23 10/31/23 Previous Rx's ?Medication ?Instructions ?Recorded azithromycin 250 mg tablet See Rx Instructions PO .COMPLEX #6 10/31/23 tabs doxycycline hyclate 100 mg capsule 100 mg PO BID 10 days #20 caps 10/31/23 Allergies Allergy/AdvReac Type Severity Reaction Status Date / Time No Known Allergies Allergy Unknown Verified 01/10/24 19:26 [No Known Allergies*] Review of Systems Review of Systems: ROS unable to be obtained due to altered mental status [facility] Past Medical History Source: old records reviewed Medical History Postop check Resides in jail facility Anemia, unspecified Splenomegaly, not elsewhere classified Other cholelithiasis without obstruction Unspecified dementia with behavioral disturbance Presbyopia Age-related nuclear cataract, bilateral Dysphagia, oropharyngeal phase Contracture, unspecified foot Contracture, unspecified knee Cyst of kidney, acquired Personal history of other diseases of the respiratory system Personal history of pneumonia (recurrent) Unspecified convulsions Other specified disorders of bone density and structure, unspecified site Altered mental status, unspecified Essential (primary) hypertension Old myocardial infarction Primary generalized (osteo)arthritis Chronic kidney disease, stage 3 unspecified Personal history of other diseases of the circulatory system Impulse disorder, unspecified 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 Dementia in other diseases classified elsewhere with behavioral disturbance Constipation, unspecified Personal history of tuberculosis Paraplegia, unspecified Leg weakness Chronic anemia Coronary artery disease Hypertension History of COVID-19 Bipolar 1 disorder Dementia HIV (human immunodeficiency virus infection) Chronic kidney disease Surgical History History of bronchoscopy History of hip surgery S/P percutaneous endoscopic gastrostomy (PEG) tube placement Social History Social History Household Members: Other Household Members Other:: [facility] Housing: [facility] Housing Other:: [facility] Are you a primary rn primary care to a significant other at home: No Do you presently have visiting nurse or other home services: No ([facility]) Unable to assess alcohol history related to: Unknown Alcohol intake: unknown Patient Tobacco Use Status: Tobacco use Unknown Substance Use Type: Unknown Advance Directives: Yes Advance Directives on File: Yes Advance Directives Date on File: 07/25/21 Nutrition Risks: Dental problems and On aspiration precautions service: No Current occupational status: disabled Physical Exam Vital Signs: Vital Signs: Last Vital Signs Temp 99.0 F 01/11/24 01:00 Pulse 96 01/11/24 01:00 Resp 25 H 01/11/24 01:00 BP 101/47 L 01/11/24 01:00 Pulse Ox 97 01/11/24 01:00 O2 Del Method High Flow Nasal C annula 01/11/24 01:00 O2 Flow Rate 40 01/11/24 01:00 FiO2 30 01/11/24 01:00 BMI result Body Mass Index 19.3 Appearance: somnolent confused altered severe acute distress. frail and cachectic Eyes: Pupils equal, round and reactive to light. ENT: Pharynx dry MM Neck: Normal inspection. Neck supple. CVS: tachycardic heart rate and rhythm. Pulses normal. Respiratory: moderate respiratory distress. Breath sounds very diminished and coarse Abdomen: Soft and nontender. Skin: Skin warm and hot to touch pale skin color. Normal skin turgor. Extremities: No lower extremity edema. No calf ttp Neuro: cannot participate in exam legs are contracted with any painful stimuli screams out and localizes to pain Course Course Course Narrative: to go to ICU Medications Administered Generic Name Dose Route Start Last Admin Trade Name Frejeet PRN Reason Stop Dose Admin Heparin Sodium (Porcine) 5,000 unit 01/10/24 23:00 01/10/24 23:33 Heparin Sodium,Porcine 5,000 Unit/Ml Vial SUBCUT 5,000 unit Q12H NANCY Administration Dextrose/Lactated Ringer's 1,000 mls @ 999 mls/hr 01/11/24 01:00 01/11/24 01:10 D5lr IVCONT 999 mls/hr .Q1H1M NANCY Administration Discontinued Medications Generic Name Dose Route Start Last Admin Trade Name Freq PRN Reason Stop Dose Admin Acetaminophen 650 mg 01/10/24 19:18 01/10/24 20:05 Acetaminophen Supp 650 Mg Supp.Rect DE 01/10/24 19:19 650 mg ONCE ONE Administration Dexamethasone Sodium Phosphate 6 mg 01/10/24 21:24 01/10/24 22:23 Dexamethasone Sod Phosphate 4 Mg/Ml Vial IVPUSH 01/10/24 21:25 6 mg ONCE ONE Administration Piperacillin Sod/Tazobactam 50 mls @ 100 mls/hr 01/10/24 19:18 01/10/24 20:36 Sod 3.375 gm/ Sodium Chloride IV 01/10/24 19:47 Infused ONCE ONE Infusion Vancomycin HCl 1,250 mg/ 250 mls @ 166.667 mls/hr 01/10/24 19:18 01/10/24 22:10 Sodium Chloride IV 01/10/24 20:47 Infused ONCE ONE Infusion Sodium Chloride 1,000 mls @ 999 mls/hr 01/10/24 19:30 01/10/24 20:50 Ns IV 01/10/24 20:30 Infused .Q1H1M NANCY Infusion Sodium Chloride 1,000 mls @ 999 mls/hr 01/10/24 19:30 01/10/24 20:50 Ns IV 01/10/24 20:30 Infused .Q1H1M NANCY Infusion Albumin Human 100 mls @ 133.333 mls/hr 01/10/24 23:00 01/11/24 01:06 Kedbumin 25 % IV 01/11/24 00:44 Infused Q1H NANCY Infusion Ondansetron HCl 4 mg 01/10/24 19:18 01/10/24 19:34 Ondansetron Hcl 4 Mg/2 Ml Vial IVPUSH 01/10/24 19:19 4 mg ONCE ONE Administration Sodium Bicarbonate 50 meq 01/11/24 00:57 01/11/24 01:10 Sodium Bicarbonate 8.4% 50 Meq/50 Ml Syringe IVPUSH 01/11/24 00:58 50 meq ONCE ONE Administration Medical Decision Making Medical Decision Making MDM Narrative: 73 yo male with PMH Of dementia, HIV, UTI, aspiration pneumonia, GERD, [facility] resident full code here with hypoxia, hot to touch, concern for aspiration - on arrival 2L of IVF, DE tylenol, empiric broad spectrum antibiotics, bronch protocol, high flow oxygen therapy, RT at bedside, likely admit he his full code he is responding well will watch closely in ED for worsening respiratory distress. Hx of same in past. Differential Diagnosis Differential Diagnoses: The differential diagnosis associated with the presentation includes pneumonia, viral syndrome Admission/Observation Consideration of admission/observation: Escalation of care including admission/observation considered Consult Healthcare Provider Management of the patient was discussed with: Hospitalist and Sales Performance Analyst (Dr. Yeboah to review case [id number]) Lab Data [facility] Lab Attestation statement: I reviewed the patient's lab results. 01/11/24 00:45 01/10/24 19:52 Labs: Lab Results 01/10/24 01/10/24 01/10/24 Range/Units 19:52 19:55 20:03 WBC 27.1 H (4.8-10.8) X10*3/uL RBC 4.59 L (4.60-5.80) X10*6/uL Hgb 13.3 L (14.0-18.0) g/dl Hct 45.0 (42.0-52.0) % MCV 98.0 (80.0-98.0) fL MCH 29.0 (27.0-33.0) pg MCHC 29.6 L (31.0-36.0) g/dl RDW 16.3 H (11.0-16.0) % Plt Count 451 H D (160-400) X10*3/uL MPV 10.1 (9.4-12.4) fL Immature Gran % (Auto) 0.4 (0.0-0.4) % Neut % (Auto) 91.9 H (45-73) % Lymph % (Auto) 3.2 L (20-40) % Dickinson % (Auto) 4.1 (2-11) % Eos % (Auto) 0.1 (0-4) % Baso % (Auto) 0.3 (0-2) % Lymph # (Auto) 0.9 L (1.2-4.9) X10*3/uL [place] # (Auto) 1.1 (0.1-1.2) X10*3/uL Eos # (Auto) 0.0 (0.0-0.4) X10*3/uL Baso # (Auto) 0.1 (0.0-0.2) X10*3/uL Abs Immat Gran (auto) 0.11 H (0.00-0.03) X10*3/uL Absolute Neuts (auto) 24.9 H (2.0-8.3) x10*3/uL Absolute Nucleated RBC 0.000 (0.0-0.012) X10*3/uL Nucleated RBC % (auto) 0.0 (0.0-0.2) /100WBC Smear Tech's Comments VERIFIED PT 14.4 H (11.1-13.3) SEC INR 1.2 H (0.9-1.1) VBG pH 7.27 L (7.32-7.43) VBG pCO2 50 mmHg VBG pO2 46 mmHg VBG HCO3 23 (22-26) mmol/L VBG O2 Saturation 70.0 % VBG Base Excess -3.3 mmol/L Sodium 151 H (135-145) mmol/L Potassium 4.6 (3.3-5.1) mmol/L Chloride 118 H (96-108) mmol/L Carbon Dioxide 23 (22-29) mmol/L Anion Gap 15 (12-20) BUN 45 H (9-16) mg/dL Creatinine 2.14 H (0.5-1.4) mg/dL Estim Creat Clear Calc 21.5 Estimated GFR 30 Random Glucose 91 (60-115) mg/dL Lactic Acid 3.9 H* (0.5-2.0) mmol/L Calcium 9.0 (8.4-10.2) mg/dL Magnesium 2.3 (1.6-2.6) mg/dL Total Bilirubin 0.5 (0.0-1.0) mg/dL Direct Bilirubin 0.3 (0.0-0.5) mg/dL AST 9 (5-37) U/L ALT < 5 (0-40) U/L Alkaline Phosphatase 88 (39-117) U/L Ammonia 38 (13-55) umol/L Troponin I High Sens 7.9 D (<3.5-35.0) ng/L B-Natriuretic Peptide 81 (<100) pg/mL Total Protein 8.7 H (6.5-8.0) g/dL Albumin 3.1 L (3.5-5.0) g/dL Lipase 14 (8-78) U/L Procalcitonin 0.91 ng/mL Influenza Type A (PCR) NEGATIVE (Negative) Influenza Type B (PCR) NEGATIVE (Negative) RSV RNA Qual (PCR) NEGATIVE (Negative) SARS-CoV-2 RNA (RT-PCR) POSITIVE A (Negative) 01/10/24 Range/Units 21:57 WBC (4.8-10.8) X10*3/uL RBC (4.60-5.80) X10*6/uL Hgb (14.0-18.0) g/dl Hct (42.0-52.0) % MCV (80.0-98.0) fL MCH (27.0-33.0) pg MCHC (31.0-36.0) g/dl RDW (11.0-16.0) % Plt Count (160-400) X10*3/uL MPV (9.4-12.4) fL Immature Gran % (Auto) (0.0-0.4) % Neut % (Auto) (45-73) % Lymph % (Auto) (20-40) % Dickinson % (Auto) (2-11) % Eos % (Auto) (0-4) % Baso % (Auto) (0-2) % Lymph # (Auto) (1.2-4.9) X10*3/uL [place] # (Auto) (0.1-1.2) X10*3/uL Eos # (Auto) (0.0-0.4) X10*3/uL Baso # (Auto) (0.0-0.2) X10*3/uL Abs Immat Gran (auto) (0.00-0.03) X10*3/uL Absolute Neuts (auto) (2.0-8.3) x10*3/uL Absolute Nucleated RBC (0.0-0.012) X10*3/uL Nucleated RBC % (auto) (0.0-0.2) /100WBC Smear Tech's Comments PT (11.1-13.3) SEC INR (0.9-1.1) VBG pH 7.23 L (7.32-7.43) VBG pCO2 53 mmHg VBG pO2 43 mmHg VBG HCO3 22 (22-26) mmol/L VBG O2 Saturation 64.0 % VBG Base Excess -4.8 mmol/L Sodium (135-145) mmol/L Potassium (3.3-5.1) mmol/L Chloride (96-108) mmol/L Carbon Dioxide (22-29) mmol/L Anion Gap (12-20) BUN (9-16) mg/dL Creatinine (0.5-1.4) mg/dL Estim Creat Clear Calc Estimated GFR Random Glucose (60-115) mg/dL Lactic Acid (0.5-2.0) mmol/L Calcium (8.4-10.2) mg/dL Magnesium (1.6-2.6) mg/dL Total Bilirubin (0.0-1.0) mg/dL Direct Bilirubin (0.0-0.5) mg/dL AST (5-37) U/L ALT (0-40) U/L Alkaline Phosphatase (39-117) U/L Ammonia (13-55) umol/L Troponin I High Sens (<3.5-35.0) ng/L B-Natriuretic Peptide (<100) pg/mL Total Protein (6.5-8.0) g/dL Albumin (3.5-5.0) g/dL Lipase (8-78) U/L Procalcitonin ng/mL Influenza Type A (PCR) (Negative) Influenza Type B (PCR) (Negative) RSV RNA Qual (PCR) (Negative) SARS-CoV-2 RNA (RT-PCR) (Negative) Independent Interpretation I performed an independent interpretation of an: EKG and Plain X-Ray Interpretation: Rate: 142 Rhythm: regular narrow complex tachycardia [place]: normal Normal P waves. Normal AITF. Normal QRS complex. ST T wave : no obvious FELIX but so much artifact cannot read most of tracing qTC: [id number] prior studies: changed due to sig artifact The study has been interpreted contemporaneously by me. . Radiology Impression Discussion of test interpretation with radiology: I have reviewed the radiologist's reading. Independent Historian Clinical information obtained from an independent historian. History obtained from or confirmed by: EMS External Record Review External record reviewed: Inpatient record Critical Care Time Critical Care Time Critical Care Time: Yes Total Critical Care Time: 75 Attestation: hypoxia intervention, repeat labs, medical consult, ICU admission, high flow O2, sepsis protocol, 2L of IVF I attest to this time spent taking care of the patient Discharge Plan Discharge Clinical Impression: Hypoxia, LENORA (acute kidney injury), Encephalopathy acute, COVID-19 Aspiration pneumonia Qualifiers: Aspiration pneumonia type: due to gastric secretions Laterality: bilateral Lung location: unspecified part of lung Qualified Code(s): J69.0 - Pneumonitis due to inhalation of food and vomit Fever Qualifiers: Fever type: unspecified Qualified Code(s): R50.9 - Fever, unspecified Elevated WBC count Qualifiers: Leukocytosis type: unspecified Qualified Code(s): D72.829 - Elevated white blood cell count, unspecified Patient Disposition: Admitted As Inpatient Interventions: Admission Worksheet (ED) Last Done: 01/11/24 00:02
--- NOTE | 2024-01-10 19:26 | PC.NURSE ---
Pt placed on high flow nasal cannula at 45 L and 90%. Oxygen saturation 96-97%.
[2024-01-10] MEDS: ondansetron HCL 4 MG/2 ML VIAL IVPUSH (19:34)
[2024-01-10] MEDS: 0.9 % Sodium Chloride 1,000 ML 999 ML IV ×2 (19:35)
[2024-01-10 20:00] LABS: Basophils Absolute Auto 0.1 X10*3/uL (0.0-0.2); Basophils Percent Auto 0.3 % (0-2); Eosinophils Percent Auto 0.1 % (0-4); Hemoglobin 13.3 g/dl (14.0-18.0); Imm Gran Abs Auto 0.11 X10*3/uL (0.00-0.03); Imm Gran Pct Auto 0.4 % (0.0-0.4); Lymphocytes Absolute Auto 0.9 X10*3/uL (1.2-4.9); Lymphocytes Percent Auto 3.2 % (20-40); MANUAL DIFF FLAG SCAN; Mean Corpuscular HGB Conc 29.6 g/dl (31.0-36.0); Mean Platelet Volume 10.1 fL (9.4-12.4); Monocytes Absolute Auto 1.1 X10*3/uL (0.1-1.2); Monocytes Percent Auto 4.1 % (2-11); Neutrophils Absolute Auto 24.9 x10*3/uL (2.0-8.3); Neutrophils Percent Auto 91.9 % (45-73); Platelet Count 451 X10*3/uL (160-400); Red Blood Count 4.59 X10*6/uL (4.60-5.80); Red Cell Distribution Width 16.3 % (11.0-16.0); SCAN SMEAR FLAG 1; White Blood Count 27.1 X10*3/uL (4.8-10.8)
[2024-01-10 20:02] LABS: VBG Base Excess -3.3 mmol/L; VBG HCO3 23 mmol/L (22-26); VBG pCO2 50 mmHg; VBG pH 7.27 (7.32-7.43); VBG pO2 46 mmHg
[2024-01-10 20:02] LABS: Venous Blood Gas Refer to POC result
[2024-01-10] MEDS: Piperacillin Sodium/Tazobactam 3.375 GM in 0.9 % Sodium Chloride 50 ML IV (20:05)
[2024-01-10] MEDS: Acetaminophen Supp 650 MG SUPP.RECT PR (20:05)
[2024-01-10 20:09] LABS: Ammonia 38 umol/L (13-55)
[2024-01-10 20:17] LABS: INTERNATIONAL NORM RATIO 1.2 (0.9-1.1); Prothrombin Time 14.4 SEC (11.1-13.3)
[2024-01-10 20:23] LABS: Troponin-I High Sensitivity 7.9 ng/L (<3.5-35.0)
[2024-01-10 20:25] LABS: Alanine Aminotransferase < 5 U/L (0-40); Albumin Level 3.1 g/dL (3.5-5.0); Alkaline Phosphatase 88 U/L (39-117); Anion Gap 15 (12-20); Aspartate Amino Transferase 9 U/L (5-37); Bilirubin Direct 0.3 mg/dL (0.0-0.5); Bilirubin Total 0.5 mg/dL (0.0-1.0); Blood Urea Nitrogen 45 mg/dL (9-16); Carbon Dioxide 23 mmol/L (22-29); Chloride 118 mmol/L (96-108); Creatinine Clr Calc Pharmacy 21.5; Estimated Glomerular Filt Rate 30; Glucose Random 91 mg/dL (60-115); Lipase 14 U/L (8-78); Magnesium 2.3 mg/dL (1.6-2.6); Potassium 4.6 mmol/L (3.3-5.1); Sodium 151 mmol/L (135-145); Total Protein 8.7 g/dL (6.5-8.0)
[2024-01-10 20:29] LABS: B Type Natriuretic Peptide 81 pg/mL (<100)
[2024-01-10 20:37] LABS: Procalcitonin 0.91 ng/mL
[2024-01-10] MEDS: vancomycin HCL 1,250 MG in 0.9 % Sodium Chloride 250 ML 166.67 MG IV (20:37)
[2024-01-10 20:40] LABS: SLIDE REVIEW VERIFIED
--- NOTE | 2024-01-10 20:42 | PC.NURSE ---
O2 Sat 85-93% on high flow NC. RT notified and at bedside.
[2024-01-10 20:49] LABS: Influenza A PCR NEGATIVE (Negative); Influenza B PCR NEGATIVE (Negative); Resp Syncy Virus RNA Qual PCR NEGATIVE (Negative); SARS COV2 PCR INHOUSE POSITIVE (Negative)
[2024-01-10 21:49] LABS: Lactic Acid 3.9 mmol/L (0.5-2.0)
--- NOTE | 2024-01-10 21:50 | PC.NURSE ---
This RN attempted to insert 16 Fr temp sensing F/C with no success. Bladder scanned with [address] Piper made aware, per MD urine specimen not needed at this time.
[2024-01-10 21:57] LABS: Reflex Lactate? Lactic Acid Added
[2024-01-10 22:03] LABS: Venous Blood Gas Refer to POC result
[2024-01-10 22:04] LABS: VBG Base Excess -4.8 mmol/L; VBG HCO3 22 mmol/L (22-26); VBG pCO2 53 mmHg; VBG pH 7.23 (7.32-7.43); VBG pO2 43 mmHg
[2024-01-10] MEDS: dexAMETHasone sod phosphate 4 MG/ML VIAL 6 MG IVPUSH (22:23)
--- NOTE | 2024-01-10 23:08 | P.HPCC_ITS ---
History of Present Illness Date of Service: 01/10/24 Attending physician on admission: Bib Yeboah Chief Complaint: hypoxic Resp failure / covid / aspiration PNA HPI: ?73-year-old male who is a [facility], has a history of HIV on HAART (Triumeq), aspiration pneumonia, UTI, GERD, dementia among other things, had presented to the emergency room with reported complaint of respiratory distress and hypoxia satting 80% on room air which improved to 90% non-rebreather placed by EMS.? Upon transfer and arrival to emergency room copious amounts secretions had been suctioned, is known that the patient has worsening symptoms when lying flat and has presented a cough but also that this is a recurrent issue for him. In the emergency room, patient was noted to be tachycardic, tachypneic, hypoxic with a low-grade temperature.? His workup significant for white count 27.1, sodium 151, chloride 118, creatinine of 2.14 (unknown baseline), his venous blood gas reveals a pH of 7.27, pCO2 50, PO2 46, HC03 23.? Lactic acid 3.9.? He is COVID positive.? Patient was given 2 L of Normal Saline, Tylenol, Zosyn and vancomycin, placed on high-flow; chest x-ray showed diffuse increased interstitial lung markings and peribronchial cuffing with questionable findings for bronchiolitis or interstitial pneumonitis, aspiration versus interstitial lung disease and without focal consolidation, no significant pleural effusion. ?subsequently admitted to the ICU for further care. ROS:? Unable to obtain due to patient's mental state Past Medical History:? As above Unspecified anemia Splenomegaly Presbyopia Dysphagia Feet contractures Essential hypertension Osteoarthritis Chronic kidney disease stage 3 Constipation Paraplegia Cachexia COVID-19 infection Bipolar disorder Past Surgical History: Bronchoscopy PEG placement Tracheostomy with reversal Family history:? Noncontributory Social History:? The patient is [facility] resident, bed-bound, it is unknown if he ever use cigarettes, drank alcohol or used any drugs.? The patient does have a guardian with a local network communications engineer. CODE STATUS: FULL CODE Allergies: NKDA Home Medications: See Med Rec SEPSIS PHYSICAL EXAM DONE AT 2330: VS: ?Blood pressure 104/44, heart rate 108, respirations 29, temperature 99.8 degrees, O2 sat 92% with high-flow O2 at 30% 40L General:? Obtunded, not following commands.? Wakes up to painful stimuli. Cachectic. Skin:? Coccygeal pressure ulcer stage I; otherwise the remainder of the skin shows no clubbing or cyanosis.? No ulcers. HEENT:? Head is normocephalic, atraumatic, pupils equal round reactive to light accommodation bilaterally.?? Buccal mucosa is dry, Neck is supple without lymphadenopathy. Cardiac:? Tachycardic 106 bpm Clear S1-S2, no murmurs rubs or gallops. Pulmonary:? Coarse lung sounds bilaterally with upper gargling and expiratory wheezing. Abdomen:? Protuberant, positive bowel sounds in all 4 quadrants.? Soft, nontender, no rebound or guarding.? Musculoskeletal:? Unable to move extremities upon request. Flexion-extension of all extremities at the major joints in the passive way showed no cogwheeling or crepitus. No edema or asymmetry of the legs. Neurologic:? As above, ?unable to further assess. Maintaining his own airway. Vascular:? 2+ pulses upper and lower extremities distally. Less than 2nd capillary refill of the finger and toes bilaterally upper and lower extremities SIGNIFICANT LABORATORY DATA:? As above REVIEW OF IMAGES: ?As above EKG REVIEW: ?To my view this is sinus tachycardia 140 beats per minute.? Multiple PVCs.? No discrete ST elevation, possible ST depressions loaded in the septal leads.? QT 306.? No comparison available. ? ASSESSMENT : 1. Acute on chronic hypoxic respiratory failure 2. Acute COVID-19 infection (verified with SNF that he was negative as of yesterday) 3. Recurrent aspiration pneumonitis 4. Acute Severe sepsis and early shock due to Viral and aspiration PNA 5. Acute kidney injury due to volume depletion and poor perfusion 6. Underlying history of HIV 7. Acute Metabolic encephalopathy superimposed to underlying dementia 8. Clinical dehydration and hemoconcentration 9. Stage I Coccygeal pressure ulcer present on admission 10. Iatrogenic Hypernatremia and Hyperchloremia post NS administration PLAN OF CARE: Patient will be admitted to the ICU, monitor vital signs, I's and O's, will continue with high-flow O2 support, will monitor his CO2 levels and work of breathing, I would have a very low threshold to intubate this patient particularly given my inability to provide BiPAP due to recurrent aspiration copious secretion production, continue with renally adjusted doses of vancomycin and Zosyn, will start the patient on Remdesivir, obtain a CD4 count and an HIV viral load, repeat laboratories now and in the morning including a blood gas, replete electrolytes as needed.? Would give him albumin salt.? Small doses of Dilaudid as needed for work of breathing. Bed side ECHOCARDIOGRAPHY for hemodynamic monitorin. Wall thickness appears normal 2. LV cavity size is normal, and LV fxn is hyperkinetic, with approximated EF 50-55%. 3. IVC small at 1.54 cm and about 50% contractile with inspiration. Estimated CVP of 4-6. I will give him more iVF before placing him on vasopressors as urine output is scant as well and his bladder scan reveals only 90 cc in the bladder. GI PROPHYLAXIS:? Protonix IV DVT PROPHYLAXIS:? Heparin subQ 04:50 focused sepsis exam done in clinical update / on levophed; 72; 21; 98 % on Hi flow 30% 40 L Patient is more arousable Skin unchanged Heart regular rate and rhythm, no murmurs, rubs, gallops Lungs remain coursed with upper lung congestion Vascular 2+ pulses upper and lower extremities bilaterally with less than 2nd capillary refill of the finger and toes. We will continue with the above-mentioned treatment although the patient did become hypotensive around 02:00 despite of IV fluids and albumin, a central line was placed, see separate note for details, placed him on Levophed. Overall the patient seems better, he was more arousable, satting 100% on 30% high-flow. Will give him slow D5 IVF. Critical care time used for critical evaluation of this patient, diagnosis, treatment and coordination of care, review her records and documentation TOTAL CRITICAL CARE TIME? 120 MIN . discussion and coordination with consultants, completely separate from any procedures performed. Patient's care was discussed in detail with Dr. Yeboah, he is aware of all the above as well as the plan of care for this patient. COUNTS INCLUDE 234 BEDS AT THE [facility] Past Medical History Medical History (Updated 01/11/24 @ 09:52 by Bib Yeboah MD) HIV (human immunodeficiency virus infection) Postop check Resides in fdc facility Anemia, unspecified Splenomegaly, not elsewhere classified Other cholelithiasis without obstruction Unspecified dementia with behavioral disturbance Presbyopia Age-related nuclear cataract, bilateral Dysphagia, oropharyngeal phase Contracture, unspecified foot Contracture, unspecified knee Cyst of kidney, acquired Personal history of other diseases of the respiratory system Personal history of pneumonia (recurrent) Unspecified convulsions Other specified disorders of bone density and structure, unspecified site Altered mental status, unspecified Essential (primary) hypertension Old myocardial infarction Primary generalized (osteo)arthritis Chronic kidney disease, stage 3 unspecified Personal history of other diseases of the circulatory system Impulse disorder, unspecified 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 Dementia in other diseases classified elsewhere with behavioral disturbance Constipation, unspecified Personal history of tuberculosis Paraplegia, unspecified Leg weakness Chronic anemia Coronary artery disease Hypertension History of COVID-19 Bipolar 1 disorder Dementia Chronic kidney disease Surgical History Surgical History History of bronchoscopy History of hip surgery S/P percutaneous endoscopic gastrostomy (PEG) tube placement Social History Social History Household Members: None Household Members Other:: [facility] Housing: Assisted Living Facility Housing Other:: [facility] Are you a primary care team coordinator scheduler to a significant other at home: No Do you presently have visiting nurse or other home services: No Unable to assess alcohol history related to: Unknown Alcohol intake: unknown Patient Tobacco Use Status: Tobacco use Unknown Use of substances other than those prescribed or required for medical reasons: Unable to respond Substance Use Type: Unknown Currently Displaying Signs/Symptoms of Drug Intoxication Withdrawal: No Advance Directives: Yes Advance Directives on File: Yes Advance Directives Date on File: 07/25/21 Do you have thoughts of harming others: None Do you have a plan to hurt others: No Plan Recently lost weight without trying: Unsure Nutrition Risks: Dental problems, Emaciation/Cachexia, On aspiration precautions and Poor intake 0-25% >4 days Poor oral hygiene: Yes service: No Current occupational status: disabled Meds Allergies Allergy/AdvReac Type Severity Reaction Status Date / Time No Known Allergies Allergy Unknown Verified 01/10/24 19:26 [No Known Allergies*] Active Medications: Current Medications Famotidine (Famotidine/Pf 20 Mg/2 Ml Vial) 20 mg IVPUSH DAILY NANCY Heparin Sodium (Porcine) (Heparin Sodium,Porcine 5,000 Unit/Ml Vial) 5,000 unit SUBCUT Q12H NANCY Albumin Human (Kedbumin 25 %) 100 mls @ 133.333 mls/hr IV Q1H NANCY Stop: 01/11/24 00:44 Home Medications ?Medication ?Instructions ?Recorded ?Confirmed ?Last Taken ?Type abacavir 600 mg-dolutegravir 50 1 tab PO DAILY 07/19/21 01/11/24 08/05/22 History mg-lamivudine 300 mg tablet (Triumeq) acetaminophen 325 mg tablet 650 mg PO Q6H PRN Fever Or Pain 07/19/21 01/11/24 Unknown History alprazolam 0.25 mg tablet 0.25 mg PO BID 07/19/21 01/11/24 08/05/22 History calcium carbonate 500 mg-vitamin 1 tab PO BID 07/19/21 01/11/24 08/05/22 History D3 5 mcg (200 unit) tablet (Calcium 500 + D) cyanocobalamin (vitamin B-12) 1,500 mcg PO DAILY 07/19/21 01/11/24 08/05/22 History 1,000 mcg tablet docusate sodium 100 mg capsule 100 mg PO DAILY 07/19/21 01/11/24 08/05/22 History ferrous sulfate 220 mg (44 mg 330 mg PO DAILY 07/19/21 01/11/24 06/19/23 History iron)/5 mL oral elixir lactulose 10 gram/15 mL oral 30 ml PO DAILY high ammonia levels 07/19/21 01/11/24 Unknown History solution lansoprazole 30 mg capsule,delayed 30 mg PO DAILY 07/19/21 01/11/24 08/05/22 History release lorazepam 2 mg/mL injection 1 mg IM Q24H PRN Seizures 07/19/21 01/11/24 Unknown History solution metoprolol tartrate 25 mg tablet 25 mg PO BID 07/19/21 01/11/24 08/05/22 History multivitamin 1 tab PO DAILY 07/19/21 01/11/24 08/05/22 History pregabalin 50 mg capsule 50 mg PO TID 07/19/21 01/11/24 08/05/22 History sennosides 8.6 mg tablet (senna) 8.6 mg PO Q24H PRN Constipation 07/19/21 01/11/24 Unknown History tramadol 50 mg tablet 50 mg PO TID 07/19/21 01/11/24 Unknown History aspirin 81 mg chewable tablet 81 mg PO DAILY 07/24/21 01/11/24 06/19/23 History haloperidol 2 mg tablet 2 mg PO TID 08/05/22 01/11/24 08/05/22 History lactulose 10 gram/15 mL oral 30 ml PO DAILY PRN Constipation 06/29/23 01/11/24 Unknown History solution naloxone 4 mg/actuation nasal 4 mg intranasal Q3M PRN Opioid 06/29/23 01/11/24 Unknown History spray (Narcan) Overdose white petrolatum 51.1 % topical 1 appl topical QSHIFT 06/29/23 01/11/24 Unknown History ointment (Balmex (petrolatum)) bisacodyl 10 mg rectal suppository 10 mg KS DAILY PRN Constipation 10/31/23 01/11/24 Unknown History Physical Exam 2 Vital Signs: Vital Signs: Last Vital Signs Temp 99.8 F 01/10/24 22:29 Pulse 108 H 01/10/24 22:29 Resp 29 H 01/10/24 22:29 BP 104/44 L 01/10/24 22:29 Pulse Ox 92 01/10/24 22:29 O2 Del Method High Flow Nasal C annula 01/10/24 22:29 BMI result Body Mass Index 19.3 Results Labs 01/11/24 05:10 01/11/24 11:53 Labs: Laboratory Results - last 24 hr 01/10/24 01/10/24 01/10/24 19:52 19:55 20:03 MCV 98.0 MCH 29.0 MCHC 29.6 L RDW 16.3 H Plt Count 451 H D MPV 10.1 Immature Gran % (Auto) 0.4 Neut % (Auto) 91.9 H Lymph % (Auto) 3.2 L [place] % (Auto) 4.1 Eos % (Auto) 0.1 Baso % (Auto) 0.3 Lymph # (Auto) 0.9 L [place] # (Auto) 1.1 Eos # (Auto) 0.0 Baso # (Auto) 0.1 Abs Immat Gran (auto) 0.11 H Absolute Neuts (auto) 24.9 H Absolute Nucleated RBC 0.000 Nucleated RBC % (auto) 0.0 Smear Tech's Comments VERIFIED PT 14.4 H INR 1.2 H VBG pH 7.27 L VBG pCO2 50 VBG pO2 46 VBG HCO3 23 VBG O2 Saturation 70.0 VBG Base Excess -3.3 Anion Gap 15 Estim Creat Clear Calc 21.5 Estimated GFR 30 Random Glucose 91 Lactic Acid 3.9 H* Calcium 9.0 Magnesium 2.3 Total Bilirubin 0.5 Direct Bilirubin 0.3 AST 9 ALT < 5 Alkaline Phosphatase 88 Ammonia 38 Troponin I High Sens 7.9 D B-Natriuretic Peptide 81 Total Protein 8.7 H Albumin 3.1 L Lipase 14 Procalcitonin 0.91 Influenza Type A (PCR) NEGATIVE Influenza Type B (PCR) NEGATIVE RSV RNA Qual (PCR) NEGATIVE SARS-CoV-2 RNA (RT-PCR) POSITIVE A 01/10/24 21:57 MCV MCH MCHC RDW Plt Count MPV Immature Gran % (Auto) Neut % (Auto) Lymph % (Auto) [place] % (Auto) Eos % (Auto) Baso % (Auto) Lymph # (Auto) [place] # (Auto) Eos # (Auto) Baso # (Auto) Abs Immat Gran (auto) Absolute Neuts (auto) Absolute Nucleated RBC Nucleated RBC % (auto) Smear Tech's Comments PT INR VBG pH 7.23 L VBG pCO2 53 VBG pO2 43 VBG HCO3 22 VBG O2 Saturation 64.0 VBG Base Excess -4.8 Anion Gap Estim Creat Clear Calc Estimated GFR Random Glucose Lactic Acid Calcium Magnesium Total Bilirubin Direct Bilirubin AST ALT Alkaline Phosphatase Ammonia Troponin I High Sens B-Natriuretic Peptide Total Protein Albumin Lipase Procalcitonin Influenza Type A (PCR) Influenza Type B (PCR) RSV RNA Qual (PCR) SARS-CoV-2 RNA (RT-PCR) Imaging Radiologist's Impressions: Impressions Chest X-Ray 01/10/24 19:50 IMPRESSION: Diffuse increased interstitial lung marking and peribronchial cuffing might be a small airway disease such as bronchiolitis or interstitial pneumonitis, including possible aspiration versus interstitial lung disease. No dense focal consolidation pneumonia. No significant pleural effusion.
[2024-01-10] MEDS: Heparin Sodium,Porcine 5,000 UNIT/ML VIAL 5000 UNIT SUBCUT (23:33)
[2024-01-10] MEDS: Albumin Human 25 % 100 ML 133.33 ML IV (23:33)
--- NOTE | 2024-01-10 23:51 | PC.NURSE ---
Nurse nurse report given to Araceli ENVIRONMENTAL CHANGE ANALYST. Patient to be transported to ICU, room 253 by RN and RT.
[2024-01-10 23:54] LABS: ~Lactic Acid-LAB USE ONLY 2.1 mmol/L (0.5-2.0)
[2024-01-11] VITALS (33 sets, daily range): BP systolic 84–122; BP diastolic 42–90; PULSE 54–106; RESP 16–29; TEMP 36.2–37.6; O2SAT 91–100; BMI 18.3
[2024-01-11] MEDS: Albumin Human 25 % 100 ML 133.33 ML IV ×3 (00:28→01:30)
[2024-01-11 00:34] LABS: ABG Base Excess -3.2 mmol/L; ABG HCO3 22 mmol/L (22-26); ABG pCO2 40 mmHg (32-45); ABG pH 7.34 (7.35-7.45); ABG pO2 74 mmHg (83-108)
[2024-01-11 00:56] LABS: ABG Refer to POC result
[2024-01-11] MEDS: Dextrose 5 % and Lactated Ring 1,000 ML 999 ML IVCONT (01:10)
[2024-01-11] MEDS: Sodium Bicarbonate 8.4% 50 MEQ/50 ML SYRINGE IVPUSH (01:10)
[2024-01-11 01:11] LABS: Hematocrit 31.6 % (42.0-52.0); Mean Corpuscular HGB Conc 31.6 g/dl (31.0-36.0); Mean Corpuscular Hemoglobin 29.2 pg (27.0-33.0); Mean Corpuscular Volume 92.1 fL (80.0-98.0); Mean Platelet Volume 10.2 fL (9.4-12.4); Platelet Count 264 X10*3/uL (160-400); Red Blood Count 3.43 X10*6/uL (4.60-5.80); White Blood Count 26.1 X10*3/uL (4.8-10.8)
[2024-01-11 01:13] LABS: Appearance Urine Clear; Color Urine Yellow; Glucose Urine UA Negative (Negative); Leukocyte Esterase Urine Small (1+) (Negative); Nitrite Urine Negative (Negative); Specific Gravity - Urine 1.025 (1.005-1.025); UMIC TRIGGER UACC YES; Urine Blood Large (3+) (Negative); Urine Ketones Trace mg/dL (Negative); Urine Protein 30 (1+) mg/dL (Neg-Trace)
[2024-01-11 01:21] LABS: Bacteria Urine None Seen (None Seen); Granular Casts Urine Present; RBC Urine >20 /HPF (0-2); Squamous Epithelial Cell Urine 0-2 /HPF (0-2); UACC Culture Trigger YES
[2024-01-11 01:29] LABS: Lactic Acid 1.2 mmol/L (0.5-2.0)
[2024-01-11 01:31] LABS: Band Neutrophils Percent 21 % (3-5); Lymphocytes Absolute Manual 0.3 X10*3/uL (1.2-4.9); Lymphocytes Percent Manual 1 % (20-40); Monocytes Absolute Manual 1.3 X10*3/uL (0.1-1.2); Monocytes Percent Manual 5 % (2-11); Neutrophils Absolute Manual 24.5 X10*3/uL (2.0-8.3); Neutrophils Percent Manual 73 % (45-73)
[2024-01-11 01:32] LABS: Alanine Aminotransferase < 5 U/L (0-40); Alkaline Phosphatase 57 U/L (39-117); Anion Gap 13 (12-20); Aspartate Amino Transferase 9 U/L (5-37); Bilirubin Total 0.6 mg/dL (0.0-1.0); Blood Urea Nitrogen 40 mg/dL (9-16); Calcium 8.1 mg/dL (8.4-10.2); Carbon Dioxide 24 mmol/L (22-29); Chloride 123 mmol/L (96-108); Creatinine Clr Calc Pharmacy 26.4; Estimated Glomerular Filt Rate 38; Glucose Random 106 mg/dL (60-115); Platelet Estimate NORMAL (NORMAL); Platelet Morphology Comment NORMAL; Potassium 4.3 mmol/L (3.3-5.1); RBC Morphology NORMAL; Sodium 156 mmol/L (135-145); Total Protein 6.9 g/dL (6.5-8.0); Toxic Vacuolation PRESENT
[2024-01-11 01:38] LABS: Reflex Lactate? 2 Y
[2024-01-11] MEDS: Dextrose 5 % 1,000 ML 75 ML IVCONT ×3 (01:46→21:03)
[2024-01-11] MEDS: Piperacillin Sodium/Tazobactam 2.25 GM in 0.9 % Sodium Chloride 50 ML IV ×2 (02:04→07:54)
[2024-01-11 02:39] LABS: Glucose, Whole Blood 259 mg/dL (60-115)
[2024-01-11] MEDS: propofoL 200 MG/20 ML VIAL 20 MG IVPUSH (03:00)
[2024-01-11] MEDS: Norepinephrine Bitartrate/D5W 8 MG/250 ML PLAST..BAG 9.56 MG IV (03:00)
--- NOTE | 2024-01-11 03:11 | W.PM.CCHP ---
Procedures Date of Service Date of Service: 01/11/24 Central Line Placement Left IJ: Consent for Procedure: Emergent-no informed consent obtained Time out performed: Yes Sterile Technique Used: Yes Patient placed on monitor/pulse ox: No MD prep: mask, gown, gloves and other Central line prep: Chlorhexidine scrub Local anesthesia used: other anesthetic (Conscious sedation with small amount of propofol (20 mg IV push x1) patient on monitor, respiratory therapist aware.) Amount of anesthesia used (ml): 5 Ultrasound used for placement: Yes Central line lumen inserted: triple (16 cm) Post procedure: sutured in place, good blood return, all ports aspirated, flushed, capped and sterile dressing applied Post procedure x-ray: tip of catheter in good position, no pneumothorax seen and other (tip at the SVC ) Patient tolerated procedure: well and no complications Complications: none and hematoma at puncture site (Initially the patient moved abruptly during needle insertion causing a small subcutaneous hematoma over the left IJ area.)
--- NOTE | 2024-01-11 03:48 | PC.NURSE ---
Pt admitted to ICU from ED at approx 0000. Upon initial assessment- pt obtunded/lethargic, moans intermittently, localizes pain x4 extremities. NSR on tele, HR 70-90s. SBP < 90 and MAP < 65, given D5LR 1L IV bolus and 3 bottles of albumin 100 mL IV. MAP still < 65, Levophed ordered and titrated per DEC. CVC TL to L IJ placed by SHABANA Vazquez, placement confirmed by pCXR. Currently on HFNC 40L/30%, SpO2 > 92%. NPO at this time. Indwelling catheter placed, UOP as charted. No BM. Skin overall intact- coccyx and B/L heels reddened but blanchable, foams dsgs applied. Telesitter in room, bed alarm on and locked in low position.
[2024-01-11 05:26] LABS: VBG Base Excess -0.1 mmol/L; VBG HCO3 25 mmol/L (22-26); VBG pCO2 46 mmHg; VBG pH 7.35 (7.32-7.43); VBG pO2 53 mmHg
[2024-01-11 05:31] LABS: Hematocrit 29.4 % (42.0-52.0); Hemoglobin 9.2 g/dl (14.0-18.0); Mean Corpuscular HGB Conc 31.3 g/dl (31.0-36.0); Mean Corpuscular Volume 92.7 fL (80.0-98.0); Mean Platelet Volume 10.6 fL (9.4-12.4); Platelet Count 237 X10*3/uL (160-400); Red Blood Count 3.17 X10*6/uL (4.60-5.80); Red Cell Distribution Width 16.1 % (11.0-16.0); White Blood Count 26.5 X10*3/uL (4.8-10.8)
[2024-01-11 05:39] LABS: Venous Blood Gas Refer to POC result
[2024-01-11 05:49] LABS: Glucose, Whole Blood 199 mg/dL (60-115)
[2024-01-11] MEDS: Pantoprazole Sodium 40 MG/10 ML VIAL IVPUSH (05:50)
[2024-01-11 05:52] LABS: Alanine Aminotransferase 48 U/L (0-40); Albumin Level 3.8 g/dL (3.5-5.0); Alkaline Phosphatase 99 U/L (39-117); Anion Gap 13 (12-20); Aspartate Amino Transferase 107 U/L (5-37); Bilirubin Total 1.1 mg/dL (0.0-1.0); Blood Urea Nitrogen 36 mg/dL (9-16); Calcium 8.4 mg/dL (8.4-10.2); Carbon Dioxide 23 mmol/L (22-29); Chloride 121 mmol/L (96-108); Estimated Glomerular Filt Rate 40; Glucose Random 220 mg/dL (60-115); Magnesium 2.1 mg/dL (1.6-2.6); Phosphorus 2.3 mg/dL (2.7-4.5); Sodium 153 mmol/L (135-145); Total Protein 7.1 g/dL (6.5-8.0)
[2024-01-11 05:53] LABS: Band Neutrophils Percent 16 % (3-5); Lymphocytes Absolute Manual 0.3 X10*3/uL (1.2-4.9); Lymphocytes Percent Manual 1 % (20-40); Monocytes Absolute Manual 0.5 X10*3/uL (0.1-1.2); Monocytes Percent Manual 2 % (2-11); Neutrophils Absolute Manual 25.7 X10*3/uL (2.0-8.3); Neutrophils Percent Manual 81 % (45-73)
[2024-01-11 05:54] LABS: Large Platelet PRESENT; Platelet Estimate NORMAL (NORMAL); Platelet Morphology Comment NOTED; RBC Morphology NORMAL
[2024-01-11] MEDS: Potassium Phosphate/NS 15 MMOL/250 ML PLAST..BAG 62.5 MMOL IV (07:55)
[2024-01-11] MEDS: Remdesivir 200 MG in 0.9 % Sodium Chloride 210 ML 105 MG IV (08:04)
--- NOTE | 2024-01-11 09:27 | MHC.CM.PN ---
Pt admitted to ICU for respiratory support in the setting of COVID. Pt is a LTC resident of [facility]. Pt is not able to participate in CM assessment: call placed to [facility]: Per RN, pt is dependent on staff for completion of ADL's including transfers. Pt's legal guardian is Kimberlee Leslie [phone]: updated copy requested from [facility] : pt registration corrected EMR contact information Pt will return to [facility] via BLS when medically ready. Message left for guardian on above. CM to follow. IMM in chart
--- NOTE | 2024-01-11 09:37 | PHA.MEDREC ---
Pharmacy Consult ? Medication Reconciliation Pharmacy has completed the medication reconciliation. [facility] list.
--- NOTE | 2024-01-11 09:49 | P.PNCC_ITS ---
Subjective Subjective Date of Service: 01/11/24 Interval History: 72-year-old gentleman with underlying HIV, dementia, CKD, bipolar disorder, hypertension, prior history of infection with an ESBL organism, dysphagia with pulmonary aspiration and prior aspiration pneumonitis versus pneumonia admitted on 01/10/2024 with metabolic acidosis, lethargy, hypoxia, and hypotension, likely secondary to another episode of aspiration pneumonia. Also COVID 19 positive. Patient with poor response to initial IV fluids requiring initiation of pressor support and admission to intensive care unit. Covered with broad-spectrum antibiotics and remdesivir. No events overnight. Critical Care Time (minutes): 60 Physical Exam 2 Vital Signs: Vital Signs: Last Vital Signs Temp 97.9 F 01/11/24 09:00 Pulse 58 01/11/24 09:00 Resp 19 01/11/24 09:00 BP 105/47 L 01/11/24 09:00 Pulse Ox 100 01/11/24 09:00 O2 Del Method High Flow Nasal C annula 01/11/24 09:00 O2 Flow Rate 30 01/11/24 09:00 FiO2 30 01/11/24 09:00 BMI result Body Mass Index 18.3 Const: General: no acute distress and confusion Orientation/consciousness: confusion Eyes: Sclerae: sclerae normal EOM: EOMs intact bilaterally Neck: Neck: Yes no lymphadenopathy, Yes trachea midline and Yes supple Resp: Effort & Inspection: normal respiratory effort and no respiratory distress Auscultation: clear to auscultation bilaterally Cardio: Rate: regular rate Rhythm: regular rhythm Heart sounds: no gallops, no murmurs and no rubs GI: Palpation (GI): Soft to palpation and Other GI palpation findings present ( Nontender) Auscultation: normal bowel sounds Neuro: General: confusion Extrem: General: Yes no pedal edema, No clubbing and No cyanosis Objective Data Labs 01/11/24 05:10 01/11/24 05:10 Labs: Laboratory Results - last 24 hr 01/10/24 01/10/24 01/10/24 19:52 19:55 20:03 WBC 27.1 H RBC 4.59 L Hgb 13.3 L Hct 45.0 MCV 98.0 MCH 29.0 MCHC 29.6 L RDW 16.3 H Plt Count 451 H D MPV 10.1 Immature Gran % (Auto) 0.4 Neut % (Auto) 91.9 H Lymph % (Auto) 3.2 L [place] % (Auto) 4.1 Eos % (Auto) 0.1 Baso % (Auto) 0.3 Lymph # (Auto) 0.9 L [place] # (Auto) 1.1 Eos # (Auto) 0.0 Baso # (Auto) 0.1 Abs Immat Gran (auto) 0.11 H Absolute Neuts (auto) 24.9 H Absolute Nucleated RBC 0.000 Nucleated RBC % (auto) 0.0 Neutrophils % (Manual) Band Neutrophils % Lymphocytes % (Manual) Monocytes % (Manual) Abs Neuts (Manual) Lymphocytes # (Manual) Monocytes # (Manual) Toxic Vacuolation Platelet Estimate Large Platelets Plt Morphology Comment RBC Morphology Smear Tech's Comments VERIFIED PT 14.4 H INR 1.2 H Hold Blue Top O2 Saturation ABG pH at Pt Temp ABG pCO2 at Pt Temp ABG pO2 at Pt Temp ABG HCO3 ABG Base Excess (Actual) VBG pH 7.27 L VBG pCO2 50 VBG pO2 46 VBG HCO3 23 VBG O2 Saturation 70.0 VBG Base Excess -3.3 Sodium 151 H Potassium 4.6 Chloride 118 H Carbon Dioxide 23 Anion Gap 15 BUN 45 H Creatinine 2.14 H Estim Creat Clear Calc 21.5 Estimated GFR 30 POC Glucose Random Glucose 91 Lactic Acid 3.9 H* Lactic Acid F/U @ 2Hr Calcium 9.0 Phosphorus Magnesium 2.3 Total Bilirubin 0.5 Direct Bilirubin 0.3 AST 9 ALT < 5 Alkaline Phosphatase 88 Ammonia 38 Troponin I High Sens 7.9 D B-Natriuretic Peptide 81 Total Protein 8.7 H Albumin 3.1 L Lipase 14 Procalcitonin 0.91 Urine Color Urine Appearance Urine pH Ur Specific [place] Urine Protein Urine Glucose (UA) Urine Ketones Urine Blood Urine Nitrite Ur Leukocyte Esterase Urine RBC Urine WBC Ur Squamous Epith Cells Urine Bacteria Hyaline Casts Granular Casts Influenza Type A (PCR) NEGATIVE Influenza Type B (PCR) NEGATIVE RSV RNA Qual (PCR) NEGATIVE SARS-CoV-2 RNA (RT-PCR) POSITIVE A 01/10/24 01/10/24 01/11/24 21:57 23:31 00:26 WBC RBC Hgb Hct MCV MCH MCHC RDW Plt Count MPV Immature Gran % (Auto) Neut % (Auto) Lymph % (Auto) [place] % (Auto) Eos % (Auto) Baso % (Auto) Lymph # (Auto) [place] # (Auto) Eos # (Auto) Baso # (Auto) Abs Immat Gran (auto) Absolute Neuts (auto) Absolute Nucleated RBC Nucleated RBC % (auto) Neutrophils % (Manual) Band Neutrophils % Lymphocytes % (Manual) Monocytes % (Manual) Abs Neuts (Manual) Lymphocytes # (Manual) Monocytes # (Manual) Toxic Vacuolation Platelet Estimate Large Platelets Plt Morphology Comment RBC Morphology Smear Tech's Comments PT INR Hold Blue Top O2 Saturation 95.0 ABG pH at Pt Temp 7.34 L ABG pCO2 at Pt Temp 40 ABG pO2 at Pt Temp 74 L ABG HCO3 22 ABG Base Excess (Actual) -3.2 VBG pH 7.23 L VBG pCO2 53 VBG pO2 43 VBG HCO3 22 VBG O2 Saturation 64.0 VBG Base Excess -4.8 Sodium Potassium Chloride Carbon Dioxide Anion Gap BUN Creatinine Estim Creat Clear Calc Estimated GFR POC Glucose Random Glucose Lactic Acid Lactic Acid F/U @ 2Hr 2.1 H* Calcium Phosphorus Magnesium Total Bilirubin Direct Bilirubin AST ALT Alkaline Phosphatase Ammonia Troponin I High Sens B-Natriuretic Peptide Total Protein Albumin Lipase Procalcitonin Urine Color Urine Appearance Urine pH Ur Specific [place] Urine Protein Urine Glucose (UA) Urine Ketones Urine Blood Urine Nitrite Ur Leukocyte Esterase Urine RBC Urine WBC Ur Squamous Epith Cells Urine Bacteria Hyaline Casts Granular Casts Influenza Type A (PCR) Influenza Type B (PCR) RSV RNA Qual (PCR) SARS-CoV-2 RNA (RT-PCR) 01/11/24 01/11/24 01/11/24 00:34 00:35 00:45 WBC 26.1 H RBC 3.43 L D Hgb 10.0 L D Hct 31.6 L D MCV 92.1 D MCH 29.2 MCHC 31.6 RDW 16.0 Plt Count 264 D MPV 10.2 Immature Gran % (Auto) Cancelled Neut % (Auto) Cancelled Lymph % (Auto) Cancelled [place] % (Auto) Cancelled Eos % (Auto) Cancelled Baso % (Auto) Cancelled Lymph # (Auto) Cancelled [place] # (Auto) Cancelled Eos # (Auto) Cancelled Baso # (Auto) Cancelled Abs Immat Gran (auto) Cancelled Absolute Neuts (auto) Cancelled Absolute Nucleated RBC 0.000 Nucleated RBC % (auto) 0.0 Neutrophils % (Manual) 73 Band Neutrophils % 21 H Lymphocytes % (Manual) 1 L Monocytes % (Manual) 5 Abs Neuts (Manual) 24.5 H Lymphocytes # (Manual) 0.3 L Monocytes # (Manual) 1.3 H Toxic Vacuolation PRESENT Platelet Estimate NORMAL Large Platelets Plt Morphology Comment NORMAL RBC Morphology NORMAL Smear Tech's Comments PT INR Hold Blue Top SEE NOTE O2 Saturation ABG pH at Pt Temp ABG pCO2 at Pt Temp ABG pO2 at Pt Temp ABG HCO3 ABG Base Excess (Actual) VBG pH VBG pCO2 VBG pO2 VBG HCO3 VBG O2 Saturation VBG Base Excess Sodium 156 H Potassium 4.3 Chloride 123 H Carbon Dioxide 24 Anion Gap 13 BUN 40 H Creatinine 1.74 H Estim Creat Clear Calc 26.4 Estimated GFR 38 POC Glucose Random Glucose 106 Lactic Acid 1.2 Lactic Acid F/U @ 2Hr Calcium 8.1 L D Phosphorus Magnesium Total Bilirubin 0.6 Direct Bilirubin AST 9 ALT < 5 Alkaline Phosphatase 57 Ammonia Troponin I High Sens B-Natriuretic Peptide Total Protein 6.9 Albumin 3.0 L Lipase Procalcitonin Urine Color Yellow Urine Appearance Clear Urine pH 5.0 Ur Specific [place] 1.025 Urine Protein 30 (1+) H Urine Glucose (UA) Negative Urine Ketones Trace Urine Blood Large (3+) H Urine Nitrite Negative Ur Leukocyte Esterase Small (1+) H Urine RBC >20 H Urine WBC 11-20 H Ur Squamous Epith Cells 0-2 Urine Bacteria None Seen Hyaline Casts 11-20 Granular Casts Present Influenza Type A (PCR) Influenza Type B (PCR) RSV RNA Qual (PCR) SARS-CoV-2 RNA (RT-PCR) 01/11/24 01/11/24 01/11/24 02:34 05:08 05:10 WBC 26.5 H RBC 3.17 L Hgb 9.2 L Hct 29.4 L MCV 92.7 MCH 29.0 MCHC 31.3 RDW 16.1 H Plt Count 237 MPV 10.6 Immature Gran % (Auto) Cancelled Neut % (Auto) Cancelled Lymph % (Auto) Cancelled [place] % (Auto) Cancelled Eos % (Auto) Cancelled Baso % (Auto) Cancelled Lymph # (Auto) Cancelled [place] # (Auto) Cancelled Eos # (Auto) Cancelled Baso # (Auto) Cancelled Abs Immat Gran (auto) Cancelled Absolute Neuts (auto) Cancelled Absolute Nucleated RBC 0.000 Nucleated RBC % (auto) 0.0 Neutrophils % (Manual) 81 H Band Neutrophils % 16 H Lymphocytes % (Manual) 1 L Monocytes % (Manual) 2 Abs Neuts (Manual) 25.7 H Lymphocytes # (Manual) 0.3 L Monocytes # (Manual) 0.5 Toxic Vacuolation Platelet Estimate NORMAL Large Platelets PRESENT Plt Morphology Comment NOTED RBC Morphology NORMAL Smear Tech's Comments PT INR Hold Blue Top O2 Saturation ABG pH at Pt Temp ABG pCO2 at Pt Temp ABG pO2 at Pt Temp ABG HCO3 ABG Base Excess (Actual) VBG pH VBG pCO2 VBG pO2 VBG HCO3 VBG O2 Saturation VBG Base Excess Sodium 153 H Potassium 4.0 Chloride 121 H Carbon Dioxide 23 Anion Gap 13 BUN 36 H Creatinine 1.68 H Estim Creat Clear Calc 26.0 Estimated GFR 40 POC Glucose 259 H 199 H Random Glucose 220 H Lactic Acid Lactic Acid F/U @ 2Hr Calcium 8.4 Phosphorus 2.3 L Magnesium 2.1 Total Bilirubin 1.1 H Direct Bilirubin AST 107 H ALT 48 H Alkaline Phosphatase 99 Ammonia Troponin I High Sens B-Natriuretic Peptide Total Protein 7.1 Albumin 3.8 Lipase Procalcitonin Urine Color Urine Appearance Urine pH Ur Specific [place] Urine Protein Urine Glucose (UA) Urine Ketones Urine Blood Urine Nitrite Ur Leukocyte Esterase Urine RBC Urine WBC Ur Squamous Epith Cells Urine Bacteria Hyaline Casts Granular Casts Influenza Type A (PCR) Influenza Type B (PCR) RSV RNA Qual (PCR) SARS-CoV-2 RNA (RT-PCR) 01/11/24 05:19 WBC RBC Hgb Hct MCV MCH MCHC RDW Plt Count MPV Immature Gran % (Auto) Neut % (Auto) Lymph % (Auto) [place] % (Auto) Eos % (Auto) Baso % (Auto) Lymph # (Auto) [place] # (Auto) Eos # (Auto) Baso # (Auto) Abs Immat Gran (auto) Absolute Neuts (auto) Absolute Nucleated RBC Nucleated RBC % (auto) Neutrophils % (Manual) Band Neutrophils % Lymphocytes % (Manual) Monocytes % (Manual) Abs Neuts (Manual) Lymphocytes # (Manual) Monocytes # (Manual) Toxic Vacuolation Platelet Estimate Large Platelets Plt Morphology Comment RBC Morphology Smear Tech's Comments PT INR Hold Blue Top O2 Saturation ABG pH at Pt Temp ABG pCO2 at Pt Temp ABG pO2 at Pt Temp ABG HCO3 ABG Base Excess (Actual) VBG pH 7.35 VBG pCO2 46 VBG pO2 53 VBG HCO3 25 VBG O2 Saturation 86.0 VBG Base Excess -0.1 Sodium Potassium Chloride Carbon Dioxide Anion Gap BUN Creatinine Estim Creat Clear Calc Estimated GFR POC Glucose Random Glucose Lactic Acid Lactic Acid F/U @ 2Hr Calcium Phosphorus Magnesium Total Bilirubin Direct Bilirubin AST ALT Alkaline Phosphatase Ammonia Troponin I High Sens B-Natriuretic Peptide Total Protein Albumin Lipase Procalcitonin Urine Color Urine Appearance Urine pH Ur Specific [place] Urine Protein Urine Glucose (UA) Urine Ketones Urine Blood Urine Nitrite Ur Leukocyte Esterase Urine RBC Urine WBC Ur Squamous Epith Cells Urine Bacteria Hyaline Casts Granular Casts Influenza Type A (PCR) Influenza Type B (PCR) RSV RNA Qual (PCR) SARS-CoV-2 RNA (RT-PCR) Progress Note: A&P Assessment and plan (1) Aspiration pneumonia: Status: Acute (2) LENORA (acute kidney injury): Status: Acute (3) Dementia in other diseases classified elsewhere with behavioral disturbance: Status: Acute (4) HIV (human immunodeficiency virus infection): Status: Acute Plan Assessment: 73-year-old gentleman with underlying HIV dementia multiple prior episodes of aspiration pneumonitis/pneumonia admitted with acute hypoxic respiratory failure on the background of another aspiration event, also COVID-19 positive. Plan: Neuro: No acute issues. Underlying HIV dementia and bipolar disorder. Cardiac: Septic shock, continue to titrate off pressors as tolerated. Pulmonary: Acute hypoxic respiratory failure secondary to pulmonary aspiration improving. Continue to titrate off supplemental oxygen as tolerated. Renal: Acute renal failure secondary to septic shock, non oliguric. Continue to monitor renal indices and urine output. Endo: No acute issues. GI: No acute issues. ID: Aspiration pneumonia on the background of COVID-19 with prior history of ESBL infections. Continue on vancomycin/meropenem/remdesevir. Heme/Onc: No acute issues. Psych: No acute issues. Miscellaneous: No acute issues. Prophylaxis: Heparin Diet: Pending swallow evaluation Critical care time spent: 60 minutes Quality Stroke Does the patient have a stroke diagnosis?: No VTE Prior VTE?: No VTE Risk Level:: Medical - moderate - high VTE Device Contraindication: N/A - Device Ordered VTE Drug Contraindication: N/A - Med Ordered
[2024-01-11] MEDS: Heparin Sodium,Porcine 5,000 UNIT/ML VIAL 5000 UNIT SUBCUT ×2 (12:00→23:02)
[2024-01-11 12:30] LABS: Alanine Aminotransferase 39 U/L (0-40); Albumin Level 3.5 g/dL (3.5-5.0); Alkaline Phosphatase 89 U/L (39-117); Anion Gap 11 (12-20); Aspartate Amino Transferase 58 U/L (5-37); Bilirubin Total 0.6 mg/dL (0.0-1.0); Blood Urea Nitrogen 32 mg/dL (9-16); Calcium 8.1 mg/dL (8.4-10.2); Carbon Dioxide 24 mmol/L (22-29); Chloride 122 mmol/L (96-108); Creatinine Clr Calc Pharmacy 29.9; Estimated Glomerular Filt Rate 47; Glucose Random 165 mg/dL (60-115); Potassium 4.5 mmol/L (3.3-5.1); Sodium 152 mmol/L (135-145); Total Protein 6.7 g/dL (6.5-8.0)
[2024-01-11 18:23] LABS: Vancomycin Random 12.5 mcg/mL (15-20)
[2024-01-11] MEDS: vancomycin HCL 750 MG in 0.9 % Sodium Chloride 250 ML 265 MG IV (19:57)
[2024-01-12] VITALS (31 sets, daily range): BP systolic 107–159; BP diastolic 24–82; PULSE 65–106; RESP 18–43; TEMP 36.6–37.9; O2SAT 86–100; BMI 18.3
[2024-01-12] MEDS: Pantoprazole Sodium 40 MG/10 ML VIAL IVPUSH (04:50)
[2024-01-12 05:26] LABS: VBG Base Excess 2.5 mmol/L; VBG HCO3 26 mmol/L (22-26); VBG pCO2 37 mmHg; VBG pH 7.45 (7.32-7.43); VBG pO2 41 mmHg
[2024-01-12 05:31] LABS: Venous Blood Gas Refer to POC result
[2024-01-12 07:08] LABS: Hematocrit 29.9 % (42.0-52.0); Hemoglobin 9.4 g/dl (14.0-18.0); Mean Corpuscular HGB Conc 31.4 g/dl (31.0-36.0); Mean Corpuscular Hemoglobin 28.8 pg (27.0-33.0); Mean Corpuscular Volume 91.7 fL (80.0-98.0); Mean Platelet Volume 11.2 fL (9.4-12.4); Platelet Count 258 X10*3/uL (160-400); Red Blood Count 3.26 X10*6/uL (4.60-5.80); Red Cell Distribution Width 16.2 % (11.0-16.0); White Blood Count 28.4 X10*3/uL (4.8-10.8)
[2024-01-12 07:40] LABS: Band Neutrophils Percent 1 % (3-5); Lymphocytes Absolute Manual 0.3 X10*3/uL (1.2-4.9); Lymphocytes Percent Manual 1 % (20-40); Monocytes Absolute Manual 0.6 X10*3/uL (0.1-1.2); Monocytes Percent Manual 2 % (2-11); Neutrophils Absolute Manual 27.5 X10*3/uL (2.0-8.3); Neutrophils Percent Manual 96 % (45-73); RBC Morphology NORMAL
[2024-01-12 07:41] LABS: Large Platelet PRESENT; Platelet Estimate NORMAL (NORMAL); Platelet Morphology Comment NOTED
[2024-01-12] MEDS: Remdesivir 100 MG in 0.9 % Sodium Chloride 230 ML 115 MG IV (07:55)
[2024-01-12] MEDS: Norepinephrine Bitartrate/D5W 8 MG/250 ML PLAST..BAG 5.74 MG IV (08:17)
[2024-01-12] MEDS: Dextrose 5 % 1,000 ML 75 ML IVCONT ×2 (09:48→23:59)
--- NOTE | 2024-01-12 11:36 | P.PNCC_ITS ---
Subjective Subjective Date of Service: 01/12/24 Interval History: 72-year-old gentleman with underlying HIV, dementia, CKD, bipolar disorder, hypertension, prior history of infection with an ESBL organism, dysphagia with pulmonary aspiration and prior aspiration pneumonitis versus pneumonia admitted on 01/10/2024 with metabolic acidosis, lethargy, hypoxia, and hypotension, likely secondary to another episode of aspiration pneumonia. Also COVID 19 positive. Patient with poor response to initial IV fluids requiring initiation of pressor support and admission to intensive care unit. Covered with broad-spectrum antibiotics and remdesivir. No events overnight. Critical Care Time (minutes): 60 Physical Exam 2 Vital Signs: Vital Signs: Last Vital Signs Temp 99.1 F 01/12/24 11:00 Pulse 86 01/12/24 11:00 Resp 37 H 01/12/24 11:00 BP 112/51 L 01/12/24 11:00 Pulse Ox 96 01/12/24 11:00 O2 Del Method Room Air 01/12/24 11:00 O2 Flow Rate 1 01/12/24 09:00 FiO2 30 01/11/24 14:00 BMI result Body Mass Index 18.3 Const: General: no acute distress and confusion Orientation/consciousness: confusion Eyes: Sclerae: sclerae normal EOM: EOMs intact bilaterally Neck: Neck: Yes no lymphadenopathy, Yes trachea midline and Yes supple Resp: Effort & Inspection: tachypneic Auscultation: crackles bilateral Cardio: Rate: regular rate Rhythm: regular rhythm Heart sounds: no gallops, no murmurs and no rubs GI: Palpation (GI): Soft to palpation and Other GI palpation findings present ( Nontender) Auscultation: normal bowel sounds Neuro: General: confusion Extrem: General: Yes no pedal edema, No clubbing and No cyanosis Objective Data Labs 01/12/24 05:20 01/11/24 11:53 Labs: Laboratory Results - last 24 hr 01/11/24 01/11/24 01/12/24 11:53 18:02 05:19 WBC RBC Hgb Hct MCV MCH MCHC RDW Plt Count MPV Immature Gran % (Auto) Neut % (Auto) Lymph % (Auto) [place] % (Auto) Eos % (Auto) Baso % (Auto) Lymph # (Auto) [place] # (Auto) Eos # (Auto) Baso # (Auto) Abs Immat Gran (auto) Absolute Neuts (auto) Absolute Nucleated RBC Nucleated RBC % (auto) Neutrophils % (Manual) Band Neutrophils % Lymphocytes % (Manual) Monocytes % (Manual) Abs Neuts (Manual) Lymphocytes # (Manual) Monocytes # (Manual) Platelet Estimate Large Platelets Plt Morphology Comment RBC Morphology VBG pH 7.45 H VBG pCO2 37 VBG pO2 41 VBG HCO3 26 VBG O2 Saturation 72.0 VBG Base Excess 2.5 Sodium 152 H Potassium 4.5 Chloride 122 H Carbon Dioxide 24 Anion Gap 11 L BUN 32 H Creatinine 1.46 H Estim Creat Clear Calc 29.9 Estimated GFR 47 Random Glucose 165 H Calcium 8.1 L Total Bilirubin 0.6 AST 58 H ALT 39 Alkaline Phosphatase 89 Total Protein 6.7 Albumin 3.5 Random Vancomycin 12.5 L 01/12/24 05:20 WBC 28.4 H RBC 3.26 L Hgb 9.4 L Hct 29.9 L MCV 91.7 MCH 28.8 MCHC 31.4 RDW 16.2 H Plt Count 258 MPV 11.2 Immature Gran % (Auto) Cancelled Neut % (Auto) Cancelled Lymph % (Auto) Cancelled [place] % (Auto) Cancelled Eos % (Auto) Cancelled Baso % (Auto) Cancelled Lymph # (Auto) Cancelled [place] # (Auto) Cancelled Eos # (Auto) Cancelled Baso # (Auto) Cancelled Abs Immat Gran (auto) Cancelled Absolute Neuts (auto) Cancelled Absolute Nucleated RBC 0.000 Nucleated RBC % (auto) 0.0 Neutrophils % (Manual) 96 H Band Neutrophils % 1 L Lymphocytes % (Manual) 1 L Monocytes % (Manual) 2 Abs Neuts (Manual) 27.5 H Lymphocytes # (Manual) 0.3 L Monocytes # (Manual) 0.6 Platelet Estimate NORMAL Large Platelets PRESENT Plt Morphology Comment NOTED RBC Morphology NORMAL VBG pH VBG pCO2 VBG pO2 VBG HCO3 VBG O2 Saturation VBG Base Excess Sodium Potassium Chloride Carbon Dioxide Anion Gap BUN Creatinine Estim Creat Clear Calc Estimated GFR Random Glucose Calcium Total Bilirubin AST ALT Alkaline Phosphatase Total Protein Albumin Random Vancomycin Microbiology Microbiology Results: Microbiology 01/11/24 17:50 Sputum - Expectorated Gram Stain - Final 01/11/24 Unknown Urine Catheterized - Dunn Catheter Urine Culture - Final No growth. 01/10/24 20:03 Blood - Venous Blood Culture - Preliminary No growth after 24 hours. 01/10/24 19:52 Blood - Venous Blood Culture - Preliminary No growth after 24 hours. Progress Note: A&P Assessment and plan (1) HIV (human immunodeficiency virus infection): Status: Acute (2) Dementia in other diseases classified elsewhere with behavioral disturbance: Status: Acute (3) COVID-19: Status: Acute (4) Encephalopathy acute: Status: Acute (5) LENORA (acute kidney injury): Status: Acute (6) Aspiration into respiratory tract: Status: Acute (7) Aspiration pneumonia: Status: Acute Plan Assessment: 73-year-old gentleman with underlying HIV dementia multiple prior episodes of aspiration pneumonitis/pneumonia admitted with acute hypoxic respiratory failure on the background of another aspiration event, also COVID-19 positive. Plan: Neuro: No acute issues. Underlying HIV dementia and bipolar disorder. Cardiac: Septic shock, resolved, titrated off pressors. Pulmonary: Acute hypoxic respiratory failure secondary to pulmonary aspiration improved significantly. Continue to titrate off supplemental oxygen as tolerated. Renal: Acute renal failure secondary to septic shock, non oliguric. Continue to monitor renal indices and urine output. Endo: No acute issues. GI: No acute issues. ID: Aspiration pneumonia on the background of COVID-19 with prior history of ESBL infections. Continue on vancomycin/meropenem/remdesevir. Heme/Onc: No acute issues. Psych: No acute issues. Miscellaneous: This a.m. lab studies not available as chemistry analyzer is down. Prophylaxis: Heparin Diet: Pending swallow evaluation Critical care time spent: 60 minutes Quality Stroke Does the patient have a stroke diagnosis?: No VTE Prior VTE?: No VTE Risk Level:: Medical - moderate - high VTE Device Contraindication: N/A - Device Ordered VTE Drug Contraindication: N/A - Med Ordered
[2024-01-12] MEDS: Heparin Sodium,Porcine 5,000 UNIT/ML VIAL 5000 UNIT SUBCUT ×2 (11:41→21:22)
[2024-01-12 12:51] LABS: Albumin Level 3.2 g/dL (3.5-5.0); Anion Gap 11 (12-20); Blood Urea Nitrogen 27 mg/dL (9-16); Calcium 8.2 mg/dL (8.4-10.2); Carbon Dioxide 23 mmol/L (22-29); Chloride 118 mmol/L (96-108); Estimated Glomerular Filt Rate > 60; Glucose Random 111 mg/dL (60-115); Magnesium 1.9 mg/dL (1.6-2.6); Phosphorus 2.3 mg/dL (2.7-4.5); Potassium 3.9 mmol/L (3.3-5.1); Sodium 148 mmol/L (135-145)
[2024-01-12] MEDS: Potassium Phosphate/NS 15 MMOL/250 ML PLAST..BAG 62.5 MMOL IV ×2 (13:36→18:16)
[2024-01-12] MEDS: Albumin Human 25 % 100 ML IV ×2 (13:36→19:12)
[2024-01-12 19:28] LABS: Vancomycin Random 13.8 mcg/mL (15-20)
[2024-01-12] MEDS: vancomycin HCL 1,000 MG in 0.9 % Sodium Chloride 250 ML 270 MG IV (21:21)
[2024-01-13] MEDS: Albumin Human 25 % 100 ML IV ×2 (01:57→08:28)
[2024-01-13 04:00] VITALS: BP 156/76; PULSE 103; RESP 20; TEMP 36.9; O2SAT 99
[2024-01-13] MEDS: Pantoprazole Sodium 40 MG/10 ML VIAL IVPUSH (05:27)
[2024-01-13 08:00] VITALS: BP 140/60; PULSE 85; RESP 24; TEMP 36.7; O2SAT 90
[2024-01-13 08:45] LABS: MANUAL DIFF FLAG NO
[2024-01-13 08:51] LABS: Venous Blood Gas Refer to POC result
[2024-01-13 08:52] LABS: VBG Base Excess -0.3 mmol/L; VBG HCO3 25 mmol/L (22-26); VBG pCO2 47 mmHg; VBG pH 7.33 (7.32-7.43); VBG pO2 39 mmHg
[2024-01-13 09:02] LABS: Alanine Aminotransferase 16 U/L (0-40); Albumin Level 3.8 g/dL (3.5-5.0); Alkaline Phosphatase 76 U/L (39-117); Anion Gap 11 (12-20); Aspartate Amino Transferase 13 U/L (5-37); Basophils Percent Auto 0.1 % (0-2); Bilirubin Direct 0.4 mg/dL (0.0-0.5); Bilirubin Total 0.7 mg/dL (0.0-1.0); Blood Urea Nitrogen 21 mg/dL (9-16); Calcium 8.2 mg/dL (8.4-10.2); Carbon Dioxide 24 mmol/L (22-29); Chloride 115 mmol/L (96-108); Creatinine Clr Calc Pharmacy 46.9; Eosinophils Percent Auto 0.1 % (0-4); Estimated Glomerular Filt Rate > 60; Glucose Random 109 mg/dL (60-115); Hematocrit 31.5 % (42.0-52.0); Hemoglobin 9.8 g/dl (14.0-18.0); Imm Gran Pct Auto 0.8 % (0.0-0.4); Lymphocytes Absolute Auto 0.7 X10*3/uL (1.2-4.9); Lymphocytes Percent Auto 5.1 % (20-40); Magnesium 1.8 mg/dL (1.6-2.6); Mean Corpuscular HGB Conc 31.1 g/dl (31.0-36.0); Mean Corpuscular Hemoglobin 28.2 pg (27.0-33.0); Mean Corpuscular Volume 90.5 fL (80.0-98.0); Mean Platelet Volume 10.9 fL (9.4-12.4); Monocytes Absolute Auto 0.7 X10*3/uL (0.1-1.2); Monocytes Percent Auto 5.1 % (2-11); Neutrophils Absolute Auto 11.3 x10*3/uL (2.0-8.3); Neutrophils Percent Auto 88.8 % (45-73); Phosphorus 2.9 mg/dL (2.7-4.5); Platelet Count 175 X10*3/uL (160-400); Potassium 3.6 mmol/L (3.3-5.1); Red Blood Count 3.48 X10*6/uL (4.60-5.80); Red Cell Distribution Width 15.8 % (11.0-16.0); Sodium 146 mmol/L (135-145); White Blood Count 12.7 X10*3/uL (4.8-10.8)
[2024-01-13] MEDS: Remdesivir 100 MG in 0.9 % Sodium Chloride 230 ML 115 MG IV (09:48)
[2024-01-13 10:03] LABS: Absolute CD3 Count 108 cells/uL (840-3060); Absolute CD4 Count 40 cells/uL (490-1740); Absolute CD8 Count 62 cells/uL (180-1170); Absolute Lymphocytes 194 cells/uL (850-3900); CD4 CD8 Ratio 0.64 (0.86-5.00); Percent CD3 Cells 56 % (57-85); Percent CD4 Cells 21 % (30-61); Percent CD8 Cells 32 % (12-42)
[2024-01-13 11:38] VITALS: BMI 18.3
--- NOTE | 2024-01-13 11:46 | MHC.CLN ---
PT IS MODERATELY MALNOURISHED PT WITH MILDLY DEPLETED SUBCUTANEOUS FAT AND MUSCLE MASS, BMI 18 WITH 15% SIGNIFICANT WT LOSS X 6 MONTHS WITH CHRONIC POOR PO INTAKE. PT WITH INCREASED NUTRITION RISK R/T ACUTE ILLNESS. FAMILIAR FROM PREVIOUS ADMISSIONS. PT IS CONFUSED AND YELLS OUT AT TIMES. PT IS DAY 3 NPO WHEN DIET ADVANCES; RECOMMEND ADDING SUPPLEMENTS WITH MEALS; ENSURE BID SUPPLEMENT TO PROVIDE 700KCALS, 40G PROTEIN MONITOR FOR DIET ADVANCEMENT SEE ALSO FULL CLINICAL NUTRITION ASSESSMENT
[2024-01-13] MEDS: Heparin Sodium,Porcine 5,000 UNIT/ML VIAL 5000 UNIT SUBCUT ×2 (11:48→22:35)
[2024-01-13 12:00] VITALS: BP 141/66; PULSE 72; RESP 20; TEMP 36.4; O2SAT 97
--- NOTE | 2024-01-13 13:24 | HO.PM.IMPN ---
Subjective Subjective Date of Service: 01/13/24 Interval History: Seen and evaluated this morning Non-verbal , might say a word or two Looks comfortable Increase O2 requirement to 10 No reported issues overnight Review of Systems Review of Systems: Yes all other systems are reviewed and are negative Physical Exam Vital Signs: Vital Signs: Last Vital Signs Temp 97.6 F 01/13/24 12:00 Pulse 72 01/13/24 12:00 Resp 20 01/13/24 12:00 BP 141/66 H 01/13/24 12:00 Pulse Ox 97 01/13/24 12:00 O2 Del Method Nasal Cannula 01/13/24 12:00 O2 Flow Rate 7 01/13/24 12:00 FiO2 30 01/11/24 14:00 Oxygen Flow Rate 1 01/12/24 17:30 BMI result Body Mass Index 18.3 Const: Other: Constitutional : Awake, not in distress Neck : Normal inspection, Supple Cardiovascular : RRR, no JVP, no lower extremity edema Respiratory : good bilateral air entry, basal fine crackles, no wheezes bilaterally Gastrointestinal: soft, lax, Normal bowel sounds, Non tender Skin : Warm, Dry Neurological : Alert & non-verbal, No focal deficit Objective Data Active Medications Albuterol/Ipratropium (Albuterol/Iprat 2.5/0.5mg 3 Ml Ampul.Neb) 3 ml INHALE Q4H PRN PRN Reason: Shortness of Breath/Wheezing Heparin Sodium (Porcine) (Heparin Sodium,Porcine 5,000 Unit/Ml Vial) 5,000 unit SUBCUT Q12H [facility] Last Admin: 01/13/24 11:48 Dose: 5,000 unit Documented By: STONEY Remdesivir 100 mg/ Sodium (Chloride) 230 mls @ 115 mls/hr IV Q24H [facility] Stop: 01/15/24 09:59 Last Infusion: 01/13/24 11:59 Dose: Infused Documented By: STONEY Meropenem 1 gm/ Sodium (Chloride) 100 mls @ 200 mls/hr IV Q12H [facility] Last Infusion: 01/13/24 12:59 Dose: Infused Documented By: STONEY Dextrose (D5w) 1,000 mls @ 75 mls/hr IVCONT .[id number] [facility] Last Admin: 01/12/24 23:59 Dose: 75 mls/hr Documented By: NETTE Vancomycin HCl 1,000 mg/ (Sodium Chloride) 270 mls @ 270 mls/hr IV Q24H [facility] Last Infusion: 01/12/24 22:22 Dose: Infused Documented By: RAJEEV Pantoprazole Sodium (Pantoprazole Sodium 40 Mg/10 Ml Vial) 40 mg IVPUSH DAILY@0630 [facility] Last Admin: 01/13/24 05:27 Dose: 40 mg Documented By: NETTE Pharmacy Consult (Consult Rx Vancomycin Dosing) 1 each MISCELLANE DAILY PRN PRN Reason: Consult order Labs 01/13/24 08:37 01/13/24 08:37 Labs: Laboratory Results - last 24 hr 01/11/24 01/12/24 01/13/24 00:45 18:04 08:37 MCV 90.5 MCH 28.2 MCHC 31.1 RDW 15.8 Plt Count 175 D MPV 10.9 Immature Gran % (Auto) 0.8 H Neut % (Auto) 88.8 H Lymph % (Auto) 5.1 L [place] % (Auto) 5.1 Eos % (Auto) 0.1 Baso % (Auto) 0.1 Lymph # (Auto) 0.7 L [place] # (Auto) 0.7 Eos # (Auto) 0.0 Baso # (Auto) 0.0 Abs Immat Gran (auto) 0.10 H Absolute Neuts (auto) 11.3 H Absolute Nucleated RBC 0.000 Nucleated RBC % (auto) 0.0 VBG pH VBG pCO2 VBG pO2 VBG HCO3 VBG O2 Saturation VBG Base Excess Anion Gap 11 L Estim Creat Clear Calc 46.9 Estimated GFR > 60 Random Glucose 109 Calcium 8.2 L Phosphorus 2.9 Magnesium 1.8 Total Bilirubin 0.7 Direct Bilirubin 0.4 AST 13 ALT 16 Alkaline Phosphatase 76 Total Protein 7.0 Albumin 3.8 Random Vancomycin 13.8 L Total Lymphocytes 194 L % CD3 Cells 56 L Absolute CD3 Count 108 L % CD4 Cells 21 L Absolute CD4 Count 40 L CD4/CD8 Ratio 0.64 L % CD8 Cells 32 Absolute CD8 Count 62 L 01/13/24 08:45 MCV MCH MCHC RDW Plt Count MPV Immature Gran % (Auto) Neut % (Auto) Lymph % (Auto) [place] % (Auto) Eos % (Auto) Baso % (Auto) Lymph # (Auto) [place] # (Auto) Eos # (Auto) Baso # (Auto) Abs Immat Gran (auto) Absolute Neuts (auto) Absolute Nucleated RBC Nucleated RBC % (auto) VBG pH 7.33 VBG pCO2 47 VBG pO2 39 VBG HCO3 25 VBG O2 Saturation 60.0 VBG Base Excess -0.3 Anion Gap Estim Creat Clear Calc Estimated GFR Random Glucose Calcium Phosphorus Magnesium Total Bilirubin Direct Bilirubin AST ALT Alkaline Phosphatase Total Protein Albumin Random Vancomycin Total Lymphocytes % CD3 Cells Absolute CD3 Count % CD4 Cells Absolute CD4 Count CD4/CD8 Ratio % CD8 Cells Absolute CD8 Count Microbiology Microbiology Results: Microbiology 01/11/24 17:50 Gram Stain - Final Sputum - Expectorated Sputum Culture - Preliminary Culture in progress. 01/10/24 20:03 Blood Culture - Preliminary Blood - Venous No growth after 48 hours. 01/10/24 19:52 Blood Culture - Preliminary Blood - Venous No growth after 48 hours. 01/11/24 Unknown Urine Culture - Final Urine Catheterized - Dunn Catheter No growth. Assessment and Plan (1) HIV (human immunodeficiency virus infection): Status: Acute (2) Dementia in other diseases classified elsewhere with behavioral disturbance: Status: Acute (3) LENORA (acute kidney injury): Status: Acute (4) Encephalopathy acute: Status: Acute (5) COVID-19: Status: Acute (6) Elevated WBC count: Status: Acute (7) Aspiration pneumonia: Status: Acute Plan A 73 years old male with PMH of HIV, Dementia resident of [facility] presents with Hypoxia 2/2 Aspiration pneumonia requiring ICU admission for pressors. 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
[2024-01-13 15:05] VITALS: BP 135/64; PULSE 69; RESP 20; TEMP 36.3; O2SAT 95
--- NOTE | 2024-01-13 15:52 | MHC.CM.PN ---
Pt is not yet ready for DC, his plan is to return to [facility]. CM to follow and assist with DC plan.
[2024-01-13] MEDS: Dextrose 5 % 1,000 ML 75 ML IVCONT (17:52)
[2024-01-13 19:09] VITALS: BP 142/65; PULSE 68; RESP 20; TEMP 36.2; O2SAT 98
[2024-01-13] MEDS: vancomycin HCL 1,000 MG in 0.9 % Sodium Chloride 250 ML 270 MG IV (19:39)
--- NOTE | 2024-01-13 19:50 | HE.PHANOTE ---
VANCO DOSE ADJSUTMENT BASED ON SCR AND TROUGH OF 16 DOSE CONTINUED AT 100 Q 24H. NEXT LEVEL 01/13 @ 1800
[2024-01-13 23:53] VITALS: BP 136/81; PULSE 82; RESP 18; TEMP 36.2; O2SAT 98
[2024-01-14] VITALS (7 sets, daily range): BP systolic 124–173; BP diastolic 60–75; PULSE 60–91; RESP 18–22; TEMP 36.6–37.2; O2SAT 91–100
[2024-01-14] MEDS: Dextrose 5 % 1,000 ML 75 ML IVCONT ×2 (05:37→18:36)
[2024-01-14] MEDS: Pantoprazole Sodium 40 MG/10 ML VIAL IVPUSH (05:37)
[2024-01-14 07:03] LABS: Hematocrit 31.5 % (42.0-52.0); Hemoglobin 10.3 g/dl (14.0-18.0); Mean Corpuscular HGB Conc 32.7 g/dl (31.0-36.0); Mean Corpuscular Hemoglobin 28.9 pg (27.0-33.0); Mean Corpuscular Volume 88.5 fL (80.0-98.0); Mean Platelet Volume 10.8 fL (9.4-12.4); Platelet Count 193 X10*3/uL (160-400); Red Blood Count 3.56 X10*6/uL (4.60-5.80); Red Cell Distribution Width 15.5 % (11.0-16.0); White Blood Count 9.9 X10*3/uL (4.8-10.8)
[2024-01-14 07:16] LABS: Anion Gap 11 (12-20); Blood Urea Nitrogen 19 mg/dL (9-16); Calcium 8.5 mg/dL (8.4-10.2); Carbon Dioxide 25 mmol/L (22-29); Chloride 112 mmol/L (96-108); Estimated Glomerular Filt Rate > 60; Glucose Random 97 mg/dL (60-115); Potassium 3.3 mmol/L (3.3-5.1); Sodium 145 mmol/L (135-145)
[2024-01-14 07:17] LABS: Estimated Glomerular Filt Rate > 60
[2024-01-14] MEDS: Remdesivir 100 MG in 0.9 % Sodium Chloride 230 ML 115 MG IV (08:56)
[2024-01-14 08:57] LABS: HIV RNA PCR Qn Copies NOT DETECTED copies/mL (NOT DETECTED); HIV RNA PCR Qn Log Copies NOT DETECTED (NOT DETECTED)
--- NOTE | 2024-01-14 09:19 | P.PNIM_ITS ---
Subjective Subjective Date of Service: 01/14/24 Interval History: Seen and evaluated this morning Non-verbal no distress, O2 down to 6 liters and sating 100 Review of Systems Review of Systems: Yes Unobtainable due to mental status Physical Exam 2 Vital Signs: Vital Signs: Last Vital Signs Temp 98.7 F 01/14/24 07:24 Pulse 66 01/14/24 07:24 Resp 22 H 01/14/24 07:24 BP 146/67 H 01/14/24 07:24 Pulse Ox 100 01/14/24 07:24 O2 Del Method Nasal Cannula 01/14/24 07:24 O2 Flow Rate 6.0 01/14/24 07:24 FiO2 30 01/11/24 14:00 Oxygen Flow Rate 1 01/12/24 17:30 BMI result Body Mass Index 18.3 Const: Other: Constitutional : Awake, not in distress Neck : Normal inspection, Supple Cardiovascular : RRR, no JVP, no lower extremity edema Respiratory : good bilateral air entry, basal fine crackles, no wheezes bilaterally Gastrointestinal: soft, lax, Normal bowel sounds, Non tender Skin : Warm, Dry Neurological : Alert & non-verbal, No focal deficit Objective Data Active Medications Albuterol/Ipratropium (Albuterol/Iprat 2.5/0.5mg 3 Ml Ampul.Neb) 3 ml INHALE Q4H PRN PRN Reason: Shortness of Breath/Wheezing Heparin Sodium (Porcine) (Heparin Sodium,Porcine 5,000 Unit/Ml Vial) 5,000 unit SUBCUT Q12H [facility] Last Admin: 01/13/24 22:35 Dose: 5,000 unit Documented By: MELANIE Remdesivir 100 mg/ Sodium (Chloride) 230 mls @ 115 mls/hr IV Q24H [facility] Stop: 01/15/24 09:59 Last Admin: 01/14/24 08:56 Dose: 115 mls/hr Documented By: DELMER Meropenem 1 gm/ Sodium (Chloride) 100 mls @ 200 mls/hr IV Q12H [facility] Last Admin: 01/14/24 08:56 Dose: 200 mls/hr Documented By: DELMER Dextrose (D5w) 1,000 mls @ 75 mls/hr IVCONT .[id number] [facility] Last Admin: 01/14/24 05:37 Dose: 75 mls/hr Documented By: MELANIE Vancomycin HCl 1,000 mg/ (Sodium Chloride) 270 mls @ 270 mls/hr IV Q24H [facility] Last Infusion: 01/13/24 20:39 Dose: Infused Documented By: MELANIE Pantoprazole Sodium (Pantoprazole Sodium 40 Mg/10 Ml Vial) 40 mg IVPUSH DAILY@0630 [facility] Last Admin: 01/14/24 05:37 Dose: 40 mg Documented By: MELANIE Pharmacy Consult (Consult Rx Vancomycin Dosing) 1 each MISCELLANE DAILY PRN PRN Reason: Consult order Trimethoprim/Sulfamethoxazole (Sulfamethox/Trimeth 800/160 Tablet) 1 tab PO DAILY [facility] Last Admin: 01/14/24 08:51 Dose: Not Given Documented By: DELMER Non-Admin Reason: NPO Labs 01/14/24 06:32 01/14/24 06:32 Labs: Laboratory Results - last 24 hr 01/11/24 01/11/24 01/13/24 00:31 00:45 18:05 MCV MCH MCHC RDW Plt Count MPV Absolute Nucleated RBC Nucleated RBC % (auto) Anion Gap Estim Creat Clear Calc Estimated GFR Random Glucose Calcium Random Vancomycin 16.0 Total Lymphocytes 194 L % CD3 Cells 56 L Absolute CD3 Count 108 L % CD4 Cells 21 L Absolute CD4 Count 40 L CD4/CD8 Ratio 0.64 L % CD8 Cells 32 Absolute CD8 Count 62 L HIV-1 RNA copies/mL NOT DETECTED HIV-1 RNA logcopies/mL NOT DETECTED 01/14/24 01/14/24 01/14/24 06:32 06:32 06:32 MCV 88.5 MCH 28.9 MCHC 32.7 RDW 15.5 Plt Count 193 MPV 10.8 Absolute Nucleated RBC 0.000 Nucleated RBC % (auto) 0.0 Anion Gap 11 L Estim Creat Clear Calc 56.0 56.0 Estimated GFR > 60 > 60 Random Glucose 97 Calcium 8.5 Random Vancomycin Total Lymphocytes % CD3 Cells Absolute CD3 Count % CD4 Cells Absolute CD4 Count CD4/CD8 Ratio % CD8 Cells Absolute CD8 Count HIV-1 RNA copies/mL HIV-1 RNA logcopies/mL Microbiology Microbiology Results: Microbiology 01/11/24 17:50 Gram Stain - Final Sputum - Expectorated Sputum Culture - Preliminary Culture in progress. Assessment and Plan (1) HIV (human immunodeficiency virus infection): Status: Acute (2) Dementia in other diseases classified elsewhere with behavioral disturbance: Status: Acute (3) LENORA (acute kidney injury): Status: Acute (4) Encephalopathy acute: Status: Acute (5) COVID-19: Status: Acute (6) Elevated WBC count: Status: Acute (7) Aspiration pneumonia: Status: Acute Plan A 73 years old male with PMH of HIV, Dementia resident of [facility] presents with Hypoxia 2/2 Aspiration pneumonia requiring ICU admission for pressors. 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
[2024-01-14] MEDS: Heparin Sodium,Porcine 5,000 UNIT/ML VIAL 5000 UNIT SUBCUT ×2 (11:16→23:00)
[2024-01-14 18:37] LABS: Vancomycin Random 17.9 mcg/mL (15-20)
[2024-01-14] MEDS: OLANZapine 10 MG VIAL 5 MG IM (19:35)
[2024-01-14] MEDS: vancomycin HCL 1,000 MG in 0.9 % Sodium Chloride 250 ML 270 MG IV (19:36)
--- NOTE | 2024-01-14 19:46 | PC.NURSE ---
Assumed care of patient at 19:00. On assuming care patient was screaming from room while in bed, agitated and unable to redirect. Hx dementia, mainly non-verbal except for pt yelling and swearing at staff when providing care. Refuses to answer assessment questions. Patient non-compliant with 6L nc, refusing to keep on despite in-room camera and patient observer present in room to assist nursing staff with redirecting and maintaining lines and safety. Spo2 ranging 83-85% with good waveform when spo2 sticker replaced (pt observed trying to remove). Covering Dr. Viera notified, order placed for 5mg IM zyprexa given. NC replaced, spo2 improved to >95%. Lights low and noise minimized, delirium precautions in place. Will continue to monitor for medication effectiveness.
--- NOTE | 2024-01-14 23:21 | P.CNID_ITS ---
History of Present Illness Data of Consult Service Date: 01/13/24 [facility] Primary Care Provider: DO STEPHANY Hollins Reason for consult: AIDS,aspiration pneumonia He presents with shortness of breath. He has aspiration pneumonia. He also is COVID positive duration unknown. Review of Systems 2 Review of Systems: Yes all other systems are reviewed and are negative PMFSH Past Medical History Medical History HIV (human immunodeficiency virus infection) Postop check Resides in senior care facility Anemia, unspecified Splenomegaly, not elsewhere classified Other cholelithiasis without obstruction Unspecified dementia with behavioral disturbance Presbyopia Age-related nuclear cataract, bilateral Dysphagia, oropharyngeal phase Contracture, unspecified foot Contracture, unspecified knee Cyst of kidney, acquired Personal history of other diseases of the respiratory system Personal history of pneumonia (recurrent) Unspecified convulsions Other specified disorders of bone density and structure, unspecified site Altered mental status, unspecified Essential (primary) hypertension Old myocardial infarction Primary generalized (osteo)arthritis Chronic kidney disease, stage 3 unspecified Personal history of other diseases of the circulatory system Impulse disorder, unspecified 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 Dementia in other diseases classified elsewhere with behavioral disturbance Constipation, unspecified Personal history of tuberculosis Paraplegia, unspecified Leg weakness Chronic anemia Coronary artery disease Hypertension History of COVID-19 Bipolar 1 disorder Dementia Chronic kidney disease Family History Family history: reviewed and not pertinent Surgical History Surgical History History of bronchoscopy History of hip surgery S/P percutaneous endoscopic gastrostomy (PEG) tube placement Social History Social History Household Members: None Household Members Other:: [facility] Housing: Assisted Living Facility Housing Other:: [facility] Are you a primary career development associate to a significant other at home: No Do you presently have visiting nurse or other home services: No Unable to assess alcohol history related to: Unknown Alcohol intake: unknown Comment: sitter Patient Tobacco Use Status: Tobacco use Unknown Use of substances other than those prescribed or required for medical reasons: Unable to respond Substance Use Type: Unknown Currently Displaying Signs/Symptoms of Drug Intoxication Withdrawal: No Advance Directives: Yes Advance Directives on File: Yes Advance Directives Date on File: 07/25/21 Do you have thoughts of harming others: None Do you have a plan to hurt others: No Plan Recently lost weight without trying: Unsure Nutrition Risks: Dental problems, Emaciation/Cachexia, On aspiration precautions and Poor intake 0-25% >4 days Poor oral hygiene: Yes service: No Current occupational status: disabled Meds Allergies Allergy/AdvReac Type Severity Reaction Status Date / Time No Known Allergies Allergy Unknown Verified 01/10/24 19:26 [No Known Allergies*] Active Medications: Current Medications Albuterol/Ipratropium (Albuterol/Iprat 2.5/0.5mg 3 Ml Ampul.Neb) 3 ml INHALE Q4H PRN PRN Reason: Shortness of Breath/Wheezing Heparin Sodium (Porcine) (Heparin Sodium,Porcine 5,000 Unit/Ml Vial) 5,000 unit SUBCUT Q12H [facility] Last Admin: 01/14/24 23:00 Dose: 5,000 unit Remdesivir 100 mg/ Sodium (Chloride) 230 mls @ 115 mls/hr IV Q24H [facility] Stop: 01/15/24 09:59 Last Infusion: 01/14/24 11:11 Dose: Infused Meropenem 1 gm/ Sodium (Chloride) 100 mls @ 200 mls/hr IV Q12H [facility] Last Admin: 01/14/24 23:00 Dose: 200 mls/hr Dextrose (D5w) 1,000 mls @ 75 mls/hr IVCONT .[id number] [facility] Last Admin: 01/14/24 18:36 Dose: 75 mls/hr Vancomycin HCl 1,000 mg/ (Sodium Chloride) 270 mls @ 270 mls/hr IV Q24H [facility] Last Infusion: 01/14/24 20:36 Dose: Infused Pantoprazole Sodium (Pantoprazole Sodium 40 Mg/10 Ml Vial) 40 mg IVPUSH DAILY@0630 [facility] Last Admin: 01/14/24 05:37 Dose: 40 mg Pharmacy Consult (Consult Rx Vancomycin Dosing) 1 each MISCELLANE DAILY PRN PRN Reason: Consult order Trimethoprim/Sulfamethoxazole (Sulfamethox/Trimeth 800/160 Tablet) 1 tab PO DAILY [facility] Last Admin: 01/14/24 08:51 Dose: Not Given Home Medications ?Medication ?Instructions ?Recorded ?Confirmed ?Last Taken ?Type abacavir 600 mg-dolutegravir 50 1 tab PO DAILY 07/19/21 01/11/24 08/05/22 History mg-lamivudine 300 mg tablet (Triumeq) acetaminophen 325 mg tablet 650 mg PO Q6H PRN Fever Or Pain 07/19/21 01/11/24 Unknown History alprazolam 0.25 mg tablet 0.25 mg PO BID 07/19/21 01/11/24 08/05/22 History calcium carbonate 500 mg-vitamin 1 tab PO BID 07/19/21 01/11/24 08/05/22 History D3 5 mcg (200 unit) tablet (Calcium 500 + D) cyanocobalamin (vitamin B-12) 1,500 mcg PO DAILY 07/19/21 01/11/24 08/05/22 History 1,000 mcg tablet docusate sodium 100 mg capsule 100 mg PO DAILY 07/19/21 01/11/24 08/05/22 History ferrous sulfate 220 mg (44 mg 330 mg PO DAILY 07/19/21 01/11/24 06/19/23 History iron)/5 mL oral elixir lactulose 10 gram/15 mL oral 30 ml PO DAILY high ammonia levels 07/19/21 01/11/24 Unknown History solution lansoprazole 30 mg capsule,delayed 30 mg PO DAILY 07/19/21 01/11/24 08/05/22 History release lorazepam 2 mg/mL injection 1 mg IM Q24H PRN Seizures 07/19/21 01/11/24 Unknown History solution metoprolol tartrate 25 mg tablet 25 mg PO BID 07/19/21 01/11/24 08/05/22 History multivitamin 1 tab PO DAILY 07/19/21 01/11/24 08/05/22 History pregabalin 50 mg capsule 50 mg PO TID 07/19/21 01/11/24 08/05/22 History sennosides 8.6 mg tablet (senna) 8.6 mg PO Q24H PRN Constipation 07/19/21 01/11/24 Unknown History tramadol 50 mg tablet 50 mg PO TID 07/19/21 01/11/24 Unknown History aspirin 81 mg chewable tablet 81 mg PO DAILY 07/24/21 01/11/24 06/19/23 History haloperidol 2 mg tablet 2 mg PO TID 08/05/22 01/11/24 08/05/22 History lactulose 10 gram/15 mL oral 30 ml PO DAILY PRN Constipation 06/29/23 01/11/24 Unknown History solution naloxone 4 mg/actuation nasal 4 mg intranasal Q3M PRN Opioid 06/29/23 01/11/24 Unknown History spray (Narcan) Overdose white petrolatum 51.1 % topical 1 appl topical QSHIFT 06/29/23 01/11/24 Unknown History ointment (Balmex (petrolatum)) bisacodyl 10 mg rectal suppository 10 mg MN DAILY PRN Constipation 10/31/23 01/11/24 Unknown History Physical Exam 2 Vital Signs: Vital Signs: Last Vital Signs Temp 98.1 F 01/14/24 19:03 Pulse 86 01/14/24 21:42 Resp 18 01/14/24 21:42 BP 146/67 H 01/14/24 21:42 Pulse Ox 98 01/14/24 21:42 O2 Del Method Nasal Cannula 01/14/24 21:42 O2 Flow Rate 6 01/14/24 21:42 FiO2 30 01/11/24 14:00 Oxygen Flow Rate 1 01/12/24 17:30 BMI result Body Mass Index 18.3 Const: General: cooperative HEENT: Head: Yes normal to inspection Face and sinus: Yes normal facial exam Mouth: Normal oral and palatal mucosa present Teeth and gingiva: d entition normal Eyes: General: appearance normal, both eyes and all related structures P upils: Equal, round and reactive pupils present Resp: Effort & Inspection: normal respiratory effort Cardio: Rate: regular rate Rhythm: regular rhythm GI: Palpation (GI): Soft to palpation and nontender : General: Yes no CVA tenderness Back/Spine/Pelvis: Back: no CVA tenderness Skin: General skin exam: no rashes or lesions noted Neuro: General: moves all extremities Cranial nerves: Yes Equal, round and reactive pupils present Extrem: General: Yes normal to inspection Psych: Other: encephalopathic Appearance: grossly normal Results Labs 01/14/24 06:32 01/14/24 06:32 Labs: Short CBC 01/14/24 Range/Units 06:32 WBC 9.9 (4.8-10.8) X10*3/uL Hgb 10.3 L (14.0-18.0) g/dl Hct 31.5 L (42.0-52.0) % Plt Count 193 (160-400) X10*3/uL BMP 01/14/24 01/14/24 06:32 06:32 Sodium 145 Potassium 3.3 Chloride 112 H Carbon Dioxide 25 BUN 19 H Creatinine 0.78 0.78 Calcium 8.5 Microbiology Microbiology Results: Microbiology 01/11/24 17:50 Sputum - Expectorated Gram Stain - Final 01/11/24 17:50 Sputum - Expectorated Sputum Culture - Final 01/10/24 20:03 Blood - Venous Blood Culture - Preliminary No growth after 48 hours. 01/10/24 19:52 Blood - Venous Blood Culture - Preliminary No growth after 48 hours. 01/11/24 Unknown Urine Catheterized - Dunn Catheter Urine Culture - Final No growth. Assessment and Plan (1) HIV (human immunodeficiency virus infection): Status: Acute (2) Aspiration into respiratory tract: Status: Acute Plan He has aspiration,probably gram negative/aspiration He has COVID unknown duration. Would give piperacillin/tazobactam for 5-7 days. Continue Vancomycin but stop if MRSA negative. Stop Remdesivir as unknown duration COVID likely.
[2024-01-15 03:58] VITALS: BP 139/63; PULSE 85; RESP 18; TEMP 36.8; O2SAT 100
[2024-01-15] MEDS: Pantoprazole Sodium 40 MG/10 ML VIAL IVPUSH (06:37)
[2024-01-15] MEDS: Dextrose 5 % 1,000 ML 75 ML IVCONT (07:16)
[2024-01-15 07:25] VITALS: BP 191/79; PULSE 71; RESP 22; TEMP 36.7; O2SAT 99
[2024-01-15] MEDS: Remdesivir 100 MG in 0.9 % Sodium Chloride 230 ML 115 MG IV (09:01)
--- NOTE | 2024-01-15 09:07 | HO.PM.IMPN ---
Subjective Subjective Date of Service: 01/15/24 Interval History: Seen and evaluated this morning Non-verbal, no distress no distress, O2 down to 6 liters and sating 100 Was agitated overnight Physical Exam Vital Signs: Vital Signs: Last Vital Signs Temp 98.0 F 01/15/24 07:25 Pulse 71 01/15/24 07:25 Resp 22 H 01/15/24 07:25 BP 191/79 H 01/15/24 07:25 Pulse Ox 99 01/15/24 07:25 O2 Del Method Nasal Cannula 01/15/24 07:25 O2 Flow Rate 6 01/15/24 07:25 FiO2 30 01/11/24 14:00 Oxygen Flow Rate 1 01/12/24 17:30 BMI result Body Mass Index 18.3 Const: Other: Constitutional : Awake, not in distress Neck : Normal inspection, Supple Cardiovascular : RRR, no JVP, no lower extremity edema Respiratory : good bilateral air entry, basal fine crackles, no wheezes bilaterally Gastrointestinal: soft, lax, Normal bowel sounds, Non tender Skin : Warm, Dry Neurological : Alert & non-verbal, No focal deficit Objective Data Active Medications Albuterol/Ipratropium (Albuterol/Iprat 2.5/0.5mg 3 Ml Ampul.Neb) 3 ml INHALE Q4H PRN PRN Reason: Shortness of Breath/Wheezing Heparin Sodium (Porcine) (Heparin Sodium,Porcine 5,000 Unit/Ml Vial) 5,000 unit SUBCUT Q12H [facility] Last Admin: 01/14/24 23:00 Dose: 5,000 unit Documented By: MELANIE Remdesivir 100 mg/ Sodium (Chloride) 230 mls @ 115 mls/hr IV Q24H [facility] Stop: 01/15/24 09:59 Last Admin: 01/15/24 09:01 Dose: 115 mls/hr Documented By: DELMER Meropenem 1 gm/ Sodium (Chloride) 100 mls @ 200 mls/hr IV Q12H [facility] Last Admin: 01/15/24 09:01 Dose: 200 mls/hr Documented By: DELMER Dextrose (D5w) 1,000 mls @ 75 mls/hr IVCONT .[id number] [facility] Last Admin: 01/15/24 07:16 Dose: 75 mls/hr Documented By: MELANIE Vancomycin HCl 1,000 mg/ (Sodium Chloride) 270 mls @ 270 mls/hr IV Q24H [facility] Last Infusion: 01/14/24 20:36 Dose: Infused Documented By: MELANIE Pantoprazole Sodium (Pantoprazole Sodium 40 Mg/10 Ml Vial) 40 mg IVPUSH DAILY@0630 [facility] Last Admin: 01/15/24 06:37 Dose: 40 mg Documented By: MELANIE Pharmacy Consult (Consult Rx Vancomycin Dosing) 1 each MISCELLANE DAILY PRN PRN Reason: Consult order Trimethoprim/Sulfamethoxazole (Sulfamethox/Trimeth 800/160 Tablet) 1 tab PO DAILY [facility] Last Admin: 01/15/24 08:41 Dose: Not Given Documented By: DELMER Non-Admin Reason: NPO Labs 01/14/24 06:32 01/14/24 06:32 Labs: Laboratory Results - last 24 hr 01/11/24 01/14/24 01/15/24 00:45 18:12 08:45 Hold Purple Top SEE NOTE Random Vancomycin 17.9 Lymphocyte Subset Cmmnt TNP Microbiology Microbiology Results: Microbiology 01/11/24 17:50 Gram Stain - Final Sputum - Expectorated Sputum Culture - Final Assessment and Plan (1) HIV (human immunodeficiency virus infection): Status: Acute (2) Dementia in other diseases classified elsewhere with behavioral disturbance: Status: Acute (3) LENORA (acute kidney injury): Status: Acute (4) Encephalopathy acute: Status: Acute (5) COVID-19: Status: Acute (6) Elevated WBC count: Status: Acute (7) Aspiration pneumonia: Status: Acute Plan 73 years old male with PMH of HIV, Dementia resident of [facility] presents with Hypoxia 2/2 Aspiration pneumonia requiring ICU admission for pressors. Septic shock 2/2 aspiration pneumonia complicated by Acute hypoxia respiratory failure, required pressor in ICU Cultures so far negative continue Meropenem /6 for 5-7 days. 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
[2024-01-15 09:09] LABS: Estimated Glomerular Filt Rate > 60
[2024-01-15 09:31] LABS: Anion Gap 13 (12-20)
[2024-01-15 09:34] LABS: Blood Urea Nitrogen 16 mg/dL (9-16); Calcium 8.5 mg/dL (8.4-10.2); Carbon Dioxide 26 mmol/L (22-29); Chloride 109 mmol/L (96-108); Glucose Random 102 mg/dL (60-115); Potassium 3.1 mmol/L (3.3-5.1); Sodium 145 mmol/L (135-145)
[2024-01-15] MEDS: Heparin Sodium,Porcine 5,000 UNIT/ML VIAL 5000 UNIT SUBCUT ×2 (10:19→23:36)
[2024-01-15] MEDS: KCl 20 mEq in 5% Dex/0.45% Sod 20 MEQ/1,000 ML IV.SOLN 80 MEQ IVCONT (10:21)
[2024-01-15 10:54] VITALS: BP 153/69; PULSE 68; RESP 20; TEMP 37; O2SAT 98
--- NOTE | 2024-01-15 11:19 | MHC.CM.PN ---
Pt has not been medically cleared, he will have an eval from [facility], DC plan is return to [facility].
--- NOTE | 2024-01-15 11:53 | MHC.CLN ---
F/U PT IS MODERATELY MALNOURISHED SEE FULL CLINICAL NUTRITION ASSESSMENT DATED 01/13/24 PT IS DAY 5 NPO TODAY AWAITING SPEECH FOR APPROPRIATE DIET CONSISTENCY WHEN DIET ADVANCES; RECOMMEND ADDING SUPPLEMENTS WITH MEALS; ENSURE BID SUPPLEMENT TO PROVIDE 700KCALS, 40G PROTEIN MONITORING FOR DIET ADVANCEMENT PLEASE CONSULT RD IF ALTERNATIVE NUTRITION IS NEEDED
--- NOTE | 2024-01-15 12:45 | MHC.SL.SWA ---
Speech Pathologist Impression: Aspiration, dysphagia Risk of Aspiration Due to: History of Pneumonia Reduced Cognition Dysphasia Diet Status: NPO Liquid Consistency and Strategies for Safe Swallow: Liquid Intake Recommendation: NPO Solid Food Consistency: Dietary Recommendations: NPO Oral Medication Intake: NPO Recommendation for Speech: Outpatient Speech Therapy Inpatient Speech Therapy Comment: Recommend continued NPO d/t pt's frequent need of suctioning/deep suctioning and presentation of wet/gurgly vocal quality and breathing which worsened w/ trace amount of mouthwash for oral care. May consider PPN as patient is day 5 NPO? [facility] reports patient was downgraded from ground solids (NDD2) to puree solids (NDD1) on 01/10/2024 and recommended to continue w/ assistance feeding, crushed pills, and nectar thick liquids. Unclear when last MBSS was performed. Patient is known to chronically aspirate on previous studies, may benefit from updated MBSS dependent on patient's plan of care moving forward. In past, family/caregivers have opted to continue to feed patient orally accepting risk of aspiration in lieu of recommended alternative feeding method. Frequency/Duration: M-F during hospitalization : Din[employer] Engine Firer Clinican/Clinical Fellow: No Supervisory Statement: I have reviewed and agree with the student/clinical fellow's documentation: N/A Speech Language Pathologist: Domonique Huynh M.A., CCC-[employer] MAINFRAME DEVELOPER
[2024-01-15 15:19] VITALS: BP 135/55; PULSE 114; RESP 20; TEMP 36.2; O2SAT 100
--- NOTE | 2024-01-15 15:41 | PM.EVENT ---
Event Note Date of Service: 01/15/24 Event Note: Reached out to Guardian about Tube feed and waiting to hear back Time Spent With Patient Time: Total time managing care of this patient today ____ minutes.
[2024-01-15 19:27] VITALS: BP 159/71; PULSE 74; RESP 18; TEMP 36.7; O2SAT 100
--- NOTE | 2024-01-15 23:03 | P.PNID_ITS ---
Subjective Subjective Date of Service: 01/15/24 Critical Care Time (minutes): 15 Comment: He still not very responsive. Objective Data Labs 01/14/24 06:32 01/15/24 08:45 Labs: Laboratory Results - last 24 hr 01/15/24 08:45 Hold Purple Top SEE NOTE Sodium 145 Potassium 3.1 L Chloride 109 H Carbon Dioxide 26 Anion Gap 13 BUN 16 Creatinine 0.78 Estim Creat Clear Calc 56.0 Estimated GFR > 60 Random Glucose 102 Calcium 8.5 Microbiology Microbiology Results: Microbiology 01/10/24 20:03 Blood - Venous Blood Culture - Final No growth after 5 days. 01/10/24 19:52 Blood - Venous Blood Culture - Final No growth after 5 days. 01/11/24 17:50 Sputum - Expectorated Gram Stain - Final 01/11/24 17:50 Sputum - Expectorated Sputum Culture - Final 01/11/24 Unknown Urine Catheterized - Dunn Catheter Urine Culture - Final No growth. Physical Exam 2 Vital Signs: Vital Signs: Last Vital Signs Temp 98.1 F 01/15/24 19:27 Pulse 74 01/15/24 19:27 Resp 18 01/15/24 19:27 BP 159/71 H 01/15/24 19:27 Pulse Ox 100 01/15/24 19:27 O2 Del Method Nasal Cannula 01/15/24 19:27 O2 Flow Rate 6 01/15/24 19:27 FiO2 30 01/11/24 14:00 Oxygen Flow Rate 1 01/12/24 17:30 BMI result Body Mass Index 18.3 Const: General: ill appearing HEENT: Head: Yes normal to inspection Face and sinus: Yes normal facial exam Mouth: Normal oral and palatal mucosa present Teeth and gingiva: d entition normal Eyes: General: appearance normal, both eyes and all related structures P upils: Equal, round and reactive pupils present Resp: Effort & Inspection: normal respiratory effort Cardio: Rate: regular rate Rhythm: regular rhythm GI: Inspection: Yes normal to inspection Palpation (GI): Soft to palpation and nontender : General: Yes no CVA tenderness Back/Spine/Pelvis: Back: no CVA tenderness Skin: General skin exam: no rashes or lesions noted Neuro: General: moves all extremities Cranial nerves: Yes Equal, round and reactive pupils present Extrem: General: Yes normal to inspection Psych: Other: somnolent,not taking po Assessment and Plan Assessment and plan (1) HIV (human immunodeficiency virus infection): Problem details: He has aspiration pneumonia and not very responsive. He has 4/8 CD4 count 40 and viral load undetectable. He has undetectable viral load so CD4 count just down due to acute illness and not at risk for PJP or toxoplasmosis So stop Bactrim for prophylaxis Continue Merem finish course 5-6 days, Give Triumeq by components with lamivudine 300,dolutegravir 50 and abacavir 600mg daily through NG tube (d/w pharmacy [facility]). Status: Acute (2) Aspiration pneumonia: Status: Acute Time Spent With Patient Time: Total time managing care of this patient today ____ minutes.
[2024-01-16] VITALS: BP 163/72; PULSE 70; RESP 18; TEMP 36.6; O2SAT 100
[2024-01-16] MEDS: KCl 20 mEq in 5% Dex/0.45% Sod 20 MEQ/1,000 ML IV.SOLN 80 MEQ IVCONT ×2 (01:25→14:25)
[2024-01-16 04:00] VITALS: BP 148/66; PULSE 69; RESP 22; TEMP 36.3; O2SAT 100
[2024-01-16] MEDS: Pantoprazole Sodium 40 MG/10 ML VIAL IVPUSH (04:36)
[2024-01-16 06:59] VITALS: BP 132/60; PULSE 64; RESP 20; TEMP 36.6; O2SAT 95
[2024-01-16 09:26] LABS: Anion Gap 8 (12-20); Blood Urea Nitrogen 16 mg/dL (9-16); Calcium 8.3 mg/dL (8.4-10.2); Carbon Dioxide 26 mmol/L (22-29); Chloride 113 mmol/L (96-108); Creatinine Clr Calc Pharmacy 58.2; Estimated Glomerular Filt Rate > 60; Glucose Random 106 mg/dL (60-115); Magnesium 1.7 mg/dL (1.6-2.6); Phosphorus 1.8 mg/dL (2.7-4.5); Potassium 3.4 mmol/L (3.3-5.1); Sodium 144 mmol/L (135-145)
--- NOTE | 2024-01-16 09:27 | MHC.CLN ---
F/U PT IS MODERATELY MALNOURISHED SEE FULL CLINICAL NUTRITION ASSESSMENT DATED 01/13/24 PT IS DAY 6 NPO TODAY HAND CARVER RECOMMENDED NPO IF PPN NEEDED; RECOMMEND PPN AT 40ML/HR TO PROVIDE 490KCALS, 96G DEXTROSE, 41G PROTEIN REPLETE LYTES NEEDED IF DIET TO ADVANCE, RECOMMEND ADDING NUTRITION SUPPLEMENT TO INCREASE KCALS FOLLOWING FOR DIET ADVANCEMENT
[2024-01-16 09:42] VITALS: BMI 18.3
[2024-01-16] MEDS: Heparin Sodium,Porcine 5,000 UNIT/ML VIAL 5000 UNIT SUBCUT ×2 (09:54→21:57)
[2024-01-16 11:07] VITALS: BP 127/57; PULSE 65; RESP 20; TEMP 36.4; O2SAT 95
--- NOTE | 2024-01-16 12:23 | MHC.SL.SWA ---
Speech Pathologist Impression: Risk of Aspiration Due to: History of Pneumonia Reduced Cognition Dysphasia Diet Status: Patient has significant history of dysphagia, silent aspiration documented on numerous previous MBSS studies and inpatient stays. Per patient history, family/caregivers have opted to continue to feed patient orally accepting risk of aspiration in lieu of recommended alternative feeding method. PO recommendation pending Guardian acknowledgment/acceptance of risk associated with feeding patient. Liquid Consistency and Strategies for Safe Swallow: Liquid Intake Recommendation: NPO Liquid Intake Strategies: Solid Food Consistency: Dietary Recommendations: NPO Additional Modifications to Solid Foods: Oral Medication Intake: NPO Please contact the pharmacy regarding appropriate crushable or liquid drug formulations that are available whenever modified delivery is recommended. Compensatory Strategies and Precautions to be Taken for Safe Swallow: Supervision While Eating and Drinking for Safe Swallow: Foods to Avoid: Swallowing Recommended Treatments: Recommendation for Speech: Outpatient Speech Therapy Inpatient Speech Therapy Comment: Patient was seen for re-assessment this a.m. Patient was awake with sitter present in room. Patient is markedly altered when compared to last contact when admitted last year. At that last encounter, patient was verbal and conversant, though highly confused. Patient today presented as mostly non-verbal, responding mostly to environment only, though occasionally responded with a spontaenous y/n. Patient however presents as overall improved in management of secretions and respiratory status, as compared to notes from POTATO LOADER on 01/15/24. Patient was given oral care with swab and mouthwash, with patient trapping swab in mouth and sucking on trace amounts of liquid, but evenutally allowing sprue cutting press operator to move swab around oral structures. Patient was noted to initiate swallow on trace amount of liquids presented in this manner. After completion of oral care, patient was presented initially with swab of cold water, with patient again trapping and sucking on swab, initiating a swallow after a mild delay, with laryngeal elevation mildly reduced. Patient was given cup sip of water X2, with mild loss of liquid anteriorly noted, mildly reduced/disorganized oral transit noted, mild delay initiating swallow. After delay on second presentation of cup sip, patient was noted to produce a vigorous/productive cough. POTATO LOADER had phone conversation with MD, re hx dysphagia/aspiration, and need for medical documentation of guardian again accepting risk before putting patient on PO diet. POTATO LOADER reported to MD if PO diet is opted for, recommend start Patient on puree (NDD1) with Honey Thick liquids, pillls crushed in puree. However again, due to high aspiration risk, medical documentation is needed of guardian accepting risk before initiating po diet. MD to follow up with patients regular MD (Dr. Gorman) and guardian. Frequency/Duration: M-F during hospitalization Date Range for Service Req: Timeline to reassess: Material Handler 1St Shift Clinican/Clinical Fellow: No Supervisory Statement: I have reviewed and agree with the student/clinical fellow's documentation: N/A Speech Language Pathologist: Leelee Pritchard M.A., CCC-POTATO LOADER
--- NOTE | 2024-01-16 13:56 | HO.PM.IMPN ---
Subjective Subjective Date of Service: 01/16/24 Interval History: Being followed for dysphagia, and acute hypoxic respiratory failure secondary to aspiration pneumonia. Patient nonverbal unable to obtain history Patient noted to be comfortable in no acute distress, no acute events overnight. Oxygenation improved currently 95% on room air. Review of Systems Unable to obtain review of system due to mental status Physical Exam Vital Signs: Vital Signs: Last Vital Signs Temp 97.6 F 01/16/24 11:07 Pulse 65 01/16/24 11:07 Resp 20 01/16/24 11:07 BP 127/57 L 01/16/24 11:07 Pulse Ox 95 01/16/24 11:07 O2 Del Method Room Air 01/16/24 11:07 O2 Flow Rate 6 01/16/24 04:00 FiO2 30 01/11/24 14:00 Oxygen Flow Rate 1 01/12/24 17:30 BMI result Body Mass Index 18.3 Const: Other: Gen: Awake alert, in no acute distress Neck: supple Lungs: Clear to auscultation , no crackles, no wheeze Heart: regular rate and rhythm, no murmurs Abd: soft, non-tender, non-distended, normal bowel sounds Ext: no edema Skin: warm/well-perfused Neuro: Awake, nonverbal, moving all extremities Psych: impaired insight Objective Data Active Medications Albuterol/Ipratropium (Albuterol/Iprat 2.5/0.5mg 3 Ml Ampul.Neb) 3 ml INHALE Q4H PRN PRN Reason: Shortness of Breath/Wheezing Heparin Sodium (Porcine) (Heparin Sodium,Porcine 5,000 Unit/Ml Vial) 5,000 unit SUBCUT Q12H [facility] Last Admin: 01/16/24 09:54 Dose: 5,000 unit Documented By: MARLY Hydralazine HCl (Hydralazine Hcl 20 Mg/Ml Vial) 5 mg IVPUSH Q6H PRN; Protocol PRN Reason: SBP > 180 Meropenem 1 gm/ Sodium (Chloride) 100 mls @ 200 mls/hr IV Q12H [facility] Last Infusion: 01/16/24 10:51 Dose: Infused Documented By: MARLY Potassium Chloride/Dextrose/Sod Cl (Kcl 20 Meq In 5% Dex/0.45% Sod) 20 meq in 1,000 mls @ 80 mls/hr IVCONT .[id number] [facility] Last Admin: 01/16/24 11:34 Dose: Not Given Documented By: MARLY Non-Admin Reason: bag still full Nutrition (Parenteral) (Parenteral Nutrition) 960 mls @ 40 mls/hr IV .Q24H [facility]; Protocol Stop: 01/17/24 20:59 Non-Formulary Medication (Jvkhvskt-Epbsczeoflvf-Okkpfve [Triumeq]) 1 tab PO DAILY [facility] Pharmacy Consult (Consult Rx Vancomycin Dosing) 1 each MISCELLANE DAILY PRN PRN Reason: Consult order Pharmacy Consult (Consult Rx Parenteral Nutrition Ordering) 1 each MISCELLANE DAILY [facility] Labs 01/14/24 06:32 01/16/24 08:11 Labs: Laboratory Results - last 24 hr 01/16/24 08:11 Anion Gap 8 L Estim Creat Clear Calc 58.2 Estimated GFR > 60 Random Glucose 106 Calcium 8.3 L Phosphorus 1.8 L Magnesium 1.7 Albumin 3.0 L Microbiology Microbiology Results: Microbiology 01/10/24 20:03 Blood Culture - Final Blood - Venous No growth after 5 days. 01/10/24 19:52 Blood Culture - Final Blood - Venous No growth after 5 days. Assessment and Plan (1) HIV (human immunodeficiency virus infection): Status: Acute (2) Dementia in other diseases classified elsewhere with behavioral disturbance: Status: Acute (3) LENORA (acute kidney injury): Status: Acute (4) Encephalopathy acute: Status: Acute (5) COVID-19: Status: Acute (6) Elevated WBC count: Status: Acute (7) Aspiration pneumonia: Status: Acute Plan 73 years old male with PMH of HIV, Dementia resident of [facility] presents with Hypoxia 2/2 Aspiration pneumonia requiring ICU admission for pressors. Septic shock 2/2 aspiration pneumonia complicated by Acute hypoxia respiratory failure, required pressor in ICU Cultures negative continue Meropenem started on 01/10 for 5-7 days. Stop Vanco on 01/14 Hypoxia resolved. Acute kidney injury on CKD3 2/2 shock, resolved with IVF COVID 19 infection Status post Remdesevir for 5 days. Dysphagia History of chronic dysphagia on ground and nectar thick liquids at baseline PPN order will start tonight via peripheral line Doctors no will discuss with guardian regarding resuming diet pureed and honey thick and accepting risk of aspiration, DC midline order Acute hypernatremia, resolved with IVF, follow BMP. 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 Dementia w/ behavioral concerns continue home meds HTN--meds on hold pending swallow eval, BP stable, continue as needed IV hydralazine DVT PPx subQ heparin need for inpt: IV Abx for sepsis, NPO pending further discussion with guardian regarding oral feed and accepting risk of aspiration versus G-tube feedings. Quality Stroke Does the patient have a stroke diagnosis?: No VTE Prior VTE?: No VTE Risk Level:: Medical - moderate - high VTE Device Contraindication: N/A - Device Ordered VTE Drug Contraindication: N/A - Med Ordered
[2024-01-16 15:00] VITALS: BP 130/64; PULSE 80; RESP 18; TEMP 36.3; O2SAT 96
[2024-01-16 19:34] VITALS: BP 145/81; PULSE 68; RESP 16; TEMP 36.9; O2SAT 97
[2024-01-16] MEDS: Parenteral Nutrition 960 ML 40 ML IV (21:14)
[2024-01-17] VITALS: BP 146/56; PULSE 70; RESP 19; TEMP 36.2; O2SAT 92
[2024-01-17 04:00] VITALS: BP 162/54; PULSE 66; RESP 19; TEMP 36.3; O2SAT 91
[2024-01-17 08:04] VITALS: BP 158/60; PULSE 69; RESP 18; TEMP 35.9; O2SAT 97
--- NOTE | 2024-01-17 10:53 | MHC.CLN ---
F/U PT IS MODERATELY MALNOURISHED REMAINS NPO POSSIBILITY FOR PEG TUBE PLACEMENT S/P DISCUSSION WITH GUARDIAN PER MD YESTERDAY 01/16/24 PT RECEIVED PPN AT 40ML/HR PROVIDED 490KCALS, 96G DEXTROSE, 41G PROTEIN DISCUSSED WITH PHARMACY 01/17/24 RECOMMEND INCREASING PPN TO 60ML/HR TO PROVIDE 734KCALS, 144G DEXTROSE, 61G PROTEIN CHECK TRIGS, REPLETE LYTES NEEDED 01/18/24 CONTINUE PPN AT MAX GOAL RATE 60ML/HR AND ADD 72G LIPIDS TO PROVIDE 1454 TOTAL KCALS (30KCALS/KG), 144G DEXTROSE, 61G PROTEIN (1.3G/KG) 01/19/24 CONTINUE PPN AT MAX GOAL RATE NOTED ABOVE WITH LIPIDS RD CAN BE REACHED VIA TIGER CONNECT DURING OFF HOURS IF NEEDED
[2024-01-17] MEDS: Heparin Sodium,Porcine 5,000 UNIT/ML VIAL 5000 UNIT SUBCUT (10:54)
--- NOTE | 2024-01-17 11:41 | MHC.SL.SWA ---
Speech Pathologist Impression: Severe oropharyngeal dysphagia, known hx of silent aspiration, recurrent hospitalizations for aspiration PNA Risk of Aspiration Due to: History of Pneumonia Reduced Cognition Dysphasia Diet Status: Patient has significant history of dysphagia, silent aspiration documented on numerous previous MBSS studies and inpatient stays. Per patient history, family/caregivers have opted to continue to feed patient orally accepting risk of aspiration in lieu of recommended alternative feeding method. PO recommendation pending Guardian acknowledgment/acceptance of risk associated with feeding patient. Liquid Consistency and Strategies for Safe Swallow: Liquid Intake Recommendation: NPO Solid Food Consistency: Dietary Recommendations: NPO Oral Medication Intake: NPO Please contact the pharmacy regarding appropriate crushable or liquid drug formulations that are available whenever modified delivery is recommended. Recommendation for Speech: Outpatient Speech Therapy Inpatient Speech Therapy Frequency/Duration: M-F during hospitalization If PO diet is opted for, recommend start Patient on puree (NDD1) with Honey Thick liquids, pills crushed in puree. However again, due to high aspiration risk, medical documentation is needed of guardian accepting risk before initiating PO diet. Driver Sales Clinican/Clinical Fellow: No Supervisory Statement: I have reviewed and agree with the student/clinical fellow's documentation: N/A Speech Language Pathologist: Desiree Ding M.A., CCC-CAR DROPPER
[2024-01-17 12:01] VITALS: BP 148/64; PULSE 67; RESP 18; TEMP 36.3; O2SAT 97
[2024-01-17 12:38] LABS: Albumin Level 3.1 g/dL (3.5-5.0); Anion Gap 11 (12-20); Blood Urea Nitrogen 15 mg/dL (9-16); Calcium 8.6 mg/dL (8.4-10.2); Carbon Dioxide 26 mmol/L (22-29); Chloride 110 mmol/L (96-108); Creatinine Clr Calc Pharmacy 62.4; Estimated Glomerular Filt Rate > 60; Glucose Random 96 mg/dL (60-115); Magnesium 1.8 mg/dL (1.6-2.6); Phosphorus 1.9 mg/dL (2.7-4.5); Potassium 3.6 mmol/L (3.3-5.1); Sodium 143 mmol/L (135-145)
--- NOTE | 2024-01-17 13:35 | MHC.CM.PN ---
Pt has not been medically cleared for DC, he was evaluated for swallowing and rec is NPO, provider will discuss with guardian to determine feeding tube. DCP is for pt to return to [facility]. His guardian is Kimberlee Leslie. CM will follow and assist as needed with DC plan.
--- NOTE | 2024-01-17 15:42 | PM.DS ---
DS: Providers Provider Date of Service: 01/17/24 Date of admission: 01/10/24 22:50 Primary care physician: Kev Gorman DO Consults: 01/13/24 13:32 Consult to Infectious Diseases Routine Consulting Provider: [facility] Infectious Disease Reason for consultation: Septic shock , AIDS , for eval and rec. DS: Diagnosis Discharge Diagnosis (1) HIV (human immunodeficiency virus infection): Status: Acute (2) Dementia in other diseases classified elsewhere with behavioral disturbance: Status: Acute (3) LENORA (acute kidney injury): Status: Acute (4) Encephalopathy acute: Status: Acute (5) COVID-19: Status: Acute (6) Elevated WBC count: Status: Acute (7) Aspiration pneumonia: Status: Acute DS: Summary Hospital Course Hospital Course: History of present illness: Date of Service: 01/10/24 Attending physician on admission: Bib Yeboah Chief Complaint: hypoxic Resp failure / covid / aspiration PNA HPI: ?73-year-old male who is a [facility] resident, has a history of HIV on HAART (Triumeq), aspiration pneumonia, UTI, GERD, dementia among other things, had presented to the emergency room with reported complaint of respiratory distress and hypoxia satting 80% on room air which improved to 90% non-rebreather placed by EMS.? Upon transfer and arrival to emergency room copious amounts secretions had been suctioned, is known that the patient has worsening symptoms when lying flat and has presented a cough but also that this is a recurrent issue for him. In the emergency room, patient was noted to be tachycardic, tachypneic, hypoxic with a low-grade temperature.? His workup significant for white count 27.1, sodium 151, chloride 118, creatinine of 2.14 (unknown baseline), his venous blood gas reveals a pH of 7.27, pCO2 50, PO2 46, HC03 23.? Lactic acid 3.9.? He is COVID positive.? Patient was given 2 L of Normal Saline, Tylenol, Zosyn and vancomycin, placed on high-flow; chest x-ray showed diffuse increased interstitial lung markings and peribronchial cuffing with questionable findings for bronchiolitis or interstitial pneumonitis, aspiration versus interstitial lung disease and without focal consolidation, no significant pleural effusion. ?subsequently admitted to the ICU for further care. Hospital course: 73 years old male with PMH of HIV, Dementia resident of [facility] presents with Hypoxia and diagnosed to have septic shock, acute hypoxic respiratory failure 2/2 Aspiration pneumonia and COVID-19 infection and admitted to incentive care unit, for pressors, once stabilized was transferred to intermediate care unit,and treated with 5 day course of remdesivir, and IV meropenem, blood cultures and urine culture came back negative patient seen by Dr. Jenifer Hooks she recommended 6 days of IV antibiotics, hypoxia resolved, patient was followed closely by speech therapist, initially was made NPO and was placed on IV PPN, patient has significant history of dysphagia, silent aspiration documented on numerous previous MBS studies and inpatient stays, per patient history, family and caregivers have opted to continue to feed the patient orally accepting risk of aspiration , if patients family, and guardian except risk of aspiration, speech recommend pureed with honey thick liquids, pills crushed in puree. Acute kidney injury on CKD3 2/2 shock, resolved with IVF COVID 19 infection Status post Remdesevir for 5 days, no further episodes of hypoxia. Acute hypernatremia, resolved with IVF. 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 Dementia w/ behavioral concerns continue home meds, patient on multiple sedatives Ultram discontinued may resume if patient noted to have pain. HTN-continue metoprolol Time Attestation Discharge Coordination Time (in mins): 40 Quality: Safe Use of Opioids Does Pt have an Active Cancer Diagnosis on the Problem List?: No Quality: Stroke Does the patient have a stroke diagnosis?: No Physical Exam Vital Signs: Vital Signs: Last Vital Signs Temp 97.4 F 01/17/24 12:01 Pulse 67 01/17/24 12:01 Resp 18 01/17/24 12:01 BP 148/64 H 01/17/24 12:01 Pulse Ox 97 01/17/24 12:01 O2 Del Method Room Air 01/17/24 12:01 O2 Flow Rate 6 01/16/24 04:00 FiO2 30 01/11/24 14:00 Oxygen Flow Rate 1 01/12/24 17:30 BMI result Body Mass Index 18.3 Const: Other: Gen: Awake alert, in no acute distress Neck: supple Lungs: Clear to auscultation , no crackles, no wheeze Heart: regular rate and rhythm, no murmurs Abd: soft, non-tender, non-distended, normal bowel sounds Ext: no edema Skin: warm/well-perfused Neuro: Awake, nonverbal, moving all extremities Psych: impaired insight DS: Data Data Completed and Pending Completed studies during hospitalization [Text1]: Procedures Insertion of Infusion Device into Superior Vena Cava, Percutaneous Approach (06/29/23) Insertion of Infusion Device into Upper Vein, Percutaneous Approach (08/05/22) Introduction of Vasopressor into Peripheral Vein, Percutaneous Approach (06/29/23) Ultrasonography of Superior Vena Cava, Guidance (06/29/23) Labs on day of discharge: Laboratory Results - last 24 hr 01/17/24 10:52 Sodium 143 Potassium 3.6 Chloride 110 H Carbon Dioxide 26 Anion Gap 11 L BUN 15 Creatinine 0.70 Estim Creat Clear Calc 62.4 Estimated GFR > 60 Random Glucose 96 Calcium 8.6 Phosphorus 1.9 L Magnesium 1.8 Albumin 3.1 L Discharge Plan Discharge Anticipated Discharge Date/Time: 01/17/24 15:57 Patient Disposition: Xfer [facility] Discharge Diagnosis: Acute hypoxic respiratory failure Aspiration pneumonia Dysphagia COVID-19 infection Referrals: Kev Gorman DO [Primary Care Provider] - 1 Week Discharge Medications: New ipratropium-albuterol 0.5 mg-3 mg(2.5 mg base)/3 mL Solution For Nebulization 3 ml inhalation Q4H PRN (Reason: Shortness Of Breath/Wheezing) Qty: 90 0RF Continued multivitamin Tablet 1 tab PO DAILY sennosides [senna] 8.6 mg Tablet 8.6 mg PO Q24H PRN (Reason: Constipation) acetaminophen 325 mg Tablet 650 mg PO Q6H MDD 3000 mg PRN (Reason: Fever Or Pain) Rx Instructions: GIVE FOR MILD PAIN OR FEVER >101. DNE 3G/24H lorazepam 2 mg/mL Solution 1 mg IM Q24H PRN (Reason: Seizures) Rx Instructions: MAY REPEAT X1 IN 5 MINUTES FOR ONGOING SEIZURE ACTIVITY cyanocobalamin (vitamin B-12) 1,000 mcg Tablet 1,500 mcg PO DAILY alprazolam 0.25 mg Tablet 0.25 mg PO BID lansoprazole 30 mg Capsule,Delayed Release(Dr/Ec) 30 mg PO DAILY docusate sodium 100 mg Capsule 100 mg PO DAILY metoprolol tartrate 25 mg Tablet 25 mg PO BID lactulose 10 gram/15 mL Solution 30 ml PO DAILY calcium carbonate-vitamin D3 [Calcium 500 + D] 500 mg(1,250mg) -200 unit Tablet 1 tab PO BID pregabalin 50 mg Capsule 50 mg PO TID Triumeq 600-50-300 mg Tablet 1 tab PO DAILY ferrous sulfate 220 mg (44 mg iron)/5 mL Elixir 330 mg PO DAILY aspirin 81 mg Tablet,Chewable 81 mg PO DAILY haloperidol 2 mg Tablet 2 mg PO TID lactulose 10 gram/15 mL solution 30 ml PO DAILY PRN (Reason: Constipation) Balmex (petrolatum) 51.1 % Ointment 1 appl TOPICAL QSHIFT Rx Instructions: to buttocks naloxone [Narcan] 4 mg/actuation [place],Non-Aerosol 4 mg INTRANASAL Q3M PRN (Reason: Opioid Overdose) Rx Instructions: spray 1 dose into ONE nostril; alternate nostrils w each dose until help arrives bisacodyl 10 mg Suppository 10 mg MT DAILY PRN (Reason: Constipation) Rx Instructions: USE IF LACTULOSE IS INEFFECTIVE Discontinued tramadol 50 mg Tablet 50 mg PO TID Rx Instructions: FOR MODERATE PAIN Discharge Orders: Discharge Order (Routine); Ordered 01/17/24 Ordered By: Luis Valdovinos Diet: Pureed/honey thick liquid Activity on Discharge: As tolerated Stand Alone Forms: Patient Portal Discharge page Print Language: Upper Sorbian Care Plan Goals: Severe sepsis due to aspiration pneumonia/COVID-19 infection finished course of antibiotics Hypoxia resolved For dysphagia if family and guardian accept risk of aspiration patient can be started on pureed and honey thick liquids pills crushed in puree Health Concerns: Resume all home medications as before Use Ultram as needed for pain Plan of Treatment: Outpatient follow-up with primary care physician Assessment: As above
--- NOTE | 2024-01-17 16:05 | MHC.CM.PN ---
Second IMM sent to guardian, Kimberlee Leslie, pt has been medically cleared to return to [facility] via Ambulance this evening, guardian notified via phone call.
[2024-01-17 19:34] VITALS: BP 148/52; PULSE 69; RESP 16; TEMP 36.8; O2SAT 95
--- NOTE | 2024-01-22 10:22 | P.CDIM_ITS ---
PROVIDER RESPONSE TEXT: To clarify, the appropriate diagnosis supported by the clinical indicators: Malnutrition: moderate malnutrition discharged 4 days ago and was in hospital for 7 days QUERY TEXT: PHYSICIAN'S DOCUMENTATION REQUEST Date of Query: 01/22/2024 09:35 AM EDT Patient Name: Ruperto Valentino Admit Date: 01/11/2024 Dear Luis Valdovinos, RETROSPECTIVE QUERY A review of the medical record indicates additional documentation may be needed. Please review below and update the documentation accordingly. Clinical Indicators: Clinical nutrition notes dated 01/15 - Patient is moderately malnourished with BMI 18.3 48.4kg Mildly depleted subcutaneous fat and muscle mass with 15% significant wt loss Recommend adding supplements with meals, Ensure BID If possible, please provide an associated diagnosis related to the abnormal BMI, such as: Malnutrition mild, moderate or severe Cachexia Anorexia Other (explain) Clinically unable to determine (explain) Thank you, Rufina Queen, CCS, CDIS Use of terms such as suspected, likely, concern for, or probable (associated with a specific diagnosi s that is being evaluated, monitored, or treated as if it exists) are acceptable and can be coded in the inpatient se tting, when documented at the time of discharge. Please use your independent medical judgment in providing your response. THIS QUERY IS PART OF THE PERMANENT MEDICAL RECORD
--- NOTE | 2024-01-22 10:34 | P.CDIM_ITS ---
PROVIDER RESPONSE TEXT: To clarify, the appropriate diagnosis supported by the clinical indicators: Acute QUERY TEXT: PHYSICIAN'S DOCUMENTATION REQUEST Date of Query: 01/22/2024 09:39 AM EDT Patient Name: Ruperto Valentino Admit Date: 01/11/2024 Dear Luis Valdovinos, RETROSPECTIVE QUERY A review of the medical record indicates additional documentation may be needed. Please review below and update the documentation accordingly. Clinical Indicators: ICU progress note 01/11/24 - Admitted on 01/09 with metabolic acidosis, lethargy, hypoxia and hypotension . Please clarify if possible which of the following accurately represents the acuity of the metabolic a cidosis: Acute Acute on chronic Other (explain) Clinically unable to determine (explain) Thank you, Rufina Queen, CCS, CDIS Use of terms such as suspected, likely, concern for, or probable (associated with a specific diagnosi s that is being evaluated, monitored, or treated as if it exists) are acceptable and can be coded in the inpatient se tting, when documented at the time of discharge. Please use your independent medical judgment in providing your response. THIS QUERY IS PART OF THE PERMANENT MEDICAL RECORD
== END 2024-01-17 19:40 | disposition skilled nursing facility (03) | DRG 974 ==
LOC: HO.ED 20:36 → HO.EDOVER 23:24 → HO.ICU 23:33 → HO.IMC 01-12 16:21
PROVIDERS: Internal Medicine; Internal Medicine Pulmonary Disease; Student in an Organized Health Care Education/Training Program; Admitting Provider Physician Assistant Medical; Emergency Provider Emergency Medicine; PCP Hospitalist; Visit Provider Hospitalist
DX: A41.89 Other specified sepsis (principal); J69.0 Pneumonitis due to inhalation of food and vomit; B20 Human immunodeficiency virus [HIV] disease; J96.21 Acute and chronic respiratory failure with hypoxia; R65.21 Severe sepsis with septic shock; N17.9 Acute kidney failure, unspecified; F02.818 Dementia in other diseases classified elsewhere, unspecified severity, with other behavioral disturbance; E87.0 Hyperosmolality and hypernatremia; E44.0 Moderate protein-calorie malnutrition; Z68.1 Body mass index [BMI] 19.9 or less, adult; E87.21 Acute metabolic acidosis; I12.9 Hypertensive chronic kidney disease with stage 1 through stage 4 chronic kidney disease, or unspecified chronic kidney disease; N18.30 Chronic kidney disease, stage 3 unspecified; R13.10 Dysphagia, unspecified; G93.41 Metabolic encephalopathy; U07.1 COVID-19; E86.0 Dehydration; L89.151 Pressure ulcer of sacral region, stage 1; E88.A Wasting disease (syndrome) due to underlying condition; Z79.82 Long term (current) use of aspirin; Z79.899 Other long term (current) drug therapy
CPT/HCPCS: 0241U; 36415; 36600; 71045; 80048; 80053; 80076; 80202; 81001; 82040; 82140; 82565; 82803; 82947; 83605; 83690; 83735; 83880; 84100; 84145; 84484; 85007; 85025; 85027; 85610; 86359; 86360; 87040; 87070; 87086; 87205; 87536; 92526; 92610; 93005; 99285; C1758; C9113; J0248; J1100; J1644; J2185; J2359; J2405; J2543; J2704; J3370; J3371; J3480; P9047

== ENCOUNTER → 2024-01-10 19:18 | Outpatient (BNV) | payer MEDICARE, MEDICAID, SELFPAY | PROVIDERS: Admitting Provider Physician Assistant Medical; Emergency Provider Emergency Medicine; Visit Provider Internal Medicine Cardiovascular Disease | DX: R00.0 Tachycardia, unspecified (principal); R06.02 Shortness of breath | CPT/HCPCS: 93010 ==

== ENCOUNTER → 2024-01-10 22:50 | Outpatient (BNV) | payer OTHER, MEDICARE, MEDICAID, SELFPAY | PROVIDERS: Admitting Provider Physician Assistant Medical; Emergency Provider Emergency Medicine; Visit Provider Physician Assistant Medical | DX: J96.21 Acute and chronic respiratory failure with hypoxia (principal); J69.8 Pneumonitis due to inhalation of other solids and liquids; R65.21 Severe sepsis with septic shock; U07.1 COVID-19 | CPT/HCPCS: 36556; 99291; 99292 ==

== ENCOUNTER → 2024-01-10 22:50 | Outpatient (BNV) | payer MEDICARE, MEDICAID, SELFPAY | PROVIDERS: Admitting Provider Physician Assistant Medical; Emergency Provider Emergency Medicine; PCP Hospitalist; Visit Provider Internal Medicine | DX: B20 Human immunodeficiency virus [HIV] disease (principal); J69.0 Pneumonitis due to inhalation of food and vomit | CPT/HCPCS: 99222; 99232 ==

== ENCOUNTER → 2024-01-10 22:50 | Outpatient (BNV) | payer MEDICARE, MEDICAID, SELFPAY | PROVIDERS: Admitting Provider Physician Assistant Medical; Emergency Provider Emergency Medicine; Visit Provider Student in an Organized Health Care Education/Training Program | DX: B20 Human immunodeficiency virus [HIV] disease (principal); F02.818 Dementia in other diseases classified elsewhere, unspecified severity, with other behavioral disturbance; N17.9 Acute kidney failure, unspecified; G93.40 Encephalopathy, unspecified; U07.1 COVID-19; D72.829 Elevated white blood cell count, unspecified; J69.0 Pneumonitis due to inhalation of food and vomit | CPT/HCPCS: 99232; 99233; 99239; 99499 ==

== ENCOUNTER → 2024-01-10 22:50 | Outpatient (BNV) | payer MEDICARE, MEDICAID, SELFPAY | PROVIDERS: Admitting Provider Physician Assistant Medical; Emergency Provider Emergency Medicine; Visit Provider Internal Medicine Pulmonary Disease | DX: B20 Human immunodeficiency virus [HIV] disease (principal); F02.818 Dementia in other diseases classified elsewhere, unspecified severity, with other behavioral disturbance; U07.1 COVID-19; G93.40 Encephalopathy, unspecified; N17.9 Acute kidney failure, unspecified; T17.908A Unspecified foreign body in respiratory tract, part unspecified causing other injury, initial encounter; J69.0 Pneumonitis due to inhalation of food and vomit | CPT/HCPCS: 99291 ==